=== PATIENT | male | born 1940 | race African-American/Black ===

== ENCOUNTER 2019-04-11 07:14 | Inpatient (IN) | payer MEDICARE ==
[~2019-04-11] VITALS: Ht 175.3 cm; Wt 76.7 kg
[~2019-04-11 07:14] MED LIST: ASPI-630 PO; ATOR20TA58 PO; CALC0.25 PO; CALC667C6 PO; CARV12.511 PO; CIPR500T PO; CLON0.2T PO; FINA5TAB4 PO; FURO-68 PO; HYDR-3164 PO; MERO500V15 IV; METO50TA6 PO; METO5TAB4 PO; PANT40GR PO; SIMV40TA18 PO; SUCR1TAB35 PO; TAMS0.4C2 PO
[2019-04-11] MEDS ORDERED: IPRATRPIUM/ALBUTEROL 0.5/2.5MG 3 ML NEBU. NEB ONE (07:45)
[2019-04-11] MEDS ORDERED: IV NORMAL SALINE 250ML 250 ML IV ONE (07:45)
--- NOTE | 2019-04-11 07:49 | PHYS DOC ---
Past Medical History Past Medical History: Diabetes-Type II, Hypertension, Renal Failure Additional Past Medical Histor: enlarged prostate Past Surgical History: Other Additional Past Surgical Histo: dialysis fistula L FA Alcohol Use: None Drug Use: None Adult General Chief Complaint Chief Complaint: NEAR SYNCOPE HPI HPI Patient is an 78-year-old male, with a history of ESRD, who presents to the emergency department for evaluation. He states that he was at dialysis, when he began getting lightheaded, and EMS was called. He is feeling better at this time. She denies any pain. He denies any black or bloody stools. He wears oxygen, although he states he does not have a diagnosis of COPD. He has a cough, but states he is not coughing anymore than normal. His blood pressure is noted to be marginal. He denies any pain, including any chest pain, abdominal pain, nausea, or vomiting. There are no alleviating or exacerbating factors to his symptoms. Review of Systems Review of Systems Constitutional: Denies fever or chills [] Eyes: Denies change in visual acuity, redness, or eye pain [] HENT: Denies nasal congestion or sore throat [] Respiratory: Denies pleuritic pain or shortness of breath different than baseline [] Cardiovascular: The patient denies any shortness of breath, chest pain, palpitations, or orthopnea [] GI: Denies abdominal pain, nausea, vomiting, bloody stools or diarrhea [] : Denies dysuria or hematuria [] Musculoskeletal: Denies back pain or joint pain [] Integument: Denies rash or skin lesions [] Neurologic: Denies headache, focal weakness or sensory changes [] Endocrine: Denies polyuria or polydipsia [] All other systems were reviewed and found to be within normal limits, except as documented in this note. Current Medications Current Medications Current Medications Medications (Trade) Dose Ordered Sig/Edita Start Time Stop Time Status Last Admin Dose Admin Albuterol/ Ipratropium (Duoneb) 3 ml 1X ONCE 04/11/19 07:45 04/11/19 07:46 DC 04/11/19 07:49 3 ML Sodium Chloride 250 ml @ 250 mls/hr 1X ONCE 04/11/19 07:45 04/11/19 08:44 DC 04/11/19 08:10 250 MLS/HR Allergies Allergies Allergies Coded Allergies Type Severity Reaction Last Updated Verified No Known Drug Allergies 04/09/16 No Physical Exam Physical Exam PHYSICAL EXAM: CONSTITUTIONAL: Well developed, well nourished HEAD: normocephalic, atraumatic EENT: PERRL, EOMI. Conjunctivae normal color, sclerae non-icteric; moist mucous membranes. NECK: Supple, non-tender; no meningismus.. There is mild JVD. LUNGS: There are some scattered expiratory wheezes and expiratory rhonchi, without any rales. HEART: Regular rate and rhythm, no murmur CHEST: No deformity; non-tender ABDOMEN: The abdomen is soft, and non-tender, no masses or bruits. EXTREM: Normal ROM; no deformity, no calf tenderness. Normal pulses palpable in all extremities. There is mild bilateral pedal edema. There is an AV fistula in the left arm. SKIN: No rash; no diaphoresis NEURO: Alert; normal speech and cognition; CN's grossly intact; strength grossly intact without focal deficit. BACK: No CVA TTP. Current Patient Data Vital Signs Vital Signs Date Time Temp Pulse Resp B/P (MAP) Pulse Ox O2 Delivery O2 Flow Rate FiO2 04/11/19 07:51 93 Nasal Cannula 2.0 04/11/19 07:14 99.1 81 34 93/61 (72) 99.1 Lab Values Laboratory Tests Test 04/11/19 07:55 White Blood Count 6.1 x10^3/uL (4.0-11.0) Red Blood Count 3.41 x10^6/uL (4.30-5.70) L Hemoglobin 11.1 g/dL (13.0-17.5) L Hematocrit 34.3 % (39.0-53.0) L Mean Corpuscular Volume 101 fL (79-100) H Mean Corpuscular Hemoglobin 33 pg (25-35) Mean Corpuscular Hemoglobin Concent 32 g/dL (31-37) Red Cell Distribution Width 15.1 % (11.5-14.5) H Platelet Count 116 x10^3/uL (140-400) L Neutrophils (%) (Auto) 79 % (31-73) H Lymphocytes (%) (Auto) 11 % (24-48) L Monocytes (%) (Auto) 9 % (0-9) Eosinophils (%) (Auto) 1 % (0-3) Basophils (%) (Auto) 1 % (0-3) Neutrophils # (Auto) 4.8 x10^3/uL (1.8-7.7) Lymphocytes # (Auto) 0.7 x10^3/uL (1.0-4.8) L Monocytes # (Auto) 0.6 x10^3/uL (0.0-1.1) Eosinophils # (Auto) 0.0 x10^3/uL (0.0-0.7) Basophils # (Auto) 0.0 x10^3/uL (0.0-0.2) Sodium Level 135 mmol/L (136-145) L Potassium Level 4.5 mmol/L (3.5-5.1) Chloride Level 101 mmol/L (98-107) Carbon Dioxide Level 21 mmol/L (21-32) Anion Gap 13 (6-14) Blood Urea Nitrogen 58 mg/dL (8-26) H Creatinine 12.3 mg/dL (0.7-1.3) H Estimated GFR (Cockcroft-Gault) 4.8 BUN/Creatinine Ratio 5 (6-20) L Glucose Level 107 mg/dL (70-99) H Lactic Acid Level 1.3 mmol/L (0.4-2.0) Calcium Level 8.9 mg/dL (8.5-10.1) Total Bilirubin 0.6 mg/dL (0.2-1.0) Aspartate Amino Transferase (AST) 28 U/L (15-37) Alanine Aminotransferase (ALT) 20 U/L (16-63) Alkaline Phosphatase 146 U/L (46-116) H Troponin I Quantitative 0.124 ng/mL (0.000-0.055) Total Protein 7.5 g/dL (6.4-8.2) Albumin 3.3 g/dL (3.4-5.0) L Albumin/Globulin Ratio 0.8 (1.0-1.7) L Laboratory Tests 04/11/19 07:55 Laboratory Tests 04/11/19 07:55 EKG EKG Normal sinus rhythm at a rate of 77 beats for minute, normal axis, normal intervals, nonspecific ST/T changes anteriorly, with occasional PVCs. There are no old EKGs available for comparison.[] Radiology/Procedures Radiology/Procedures [PROCEDURE: PORTABLE CHEST 1V PORTABLE CHEST 1V Clinical indications: Cough and shortness of breath. Near syncope. COMPARISON: April 02, 2016. Findings: Chronic interstitial lung disease is seen bilaterally. No new lung infiltrate or pleural effusion or pulmonary edema or lung mass or pneumothorax is seen. The heart size, pulmonary vasculature, mediastinum and both autumn are stable. Impression: No new radiographic abnormality is seen.] Course & Med Decision Making Course & Med Decision Making Pertinent Labs and Imaging studies reviewed. (See chart for details) []9:15 AM:The patient's condition remains stable. I spoke with the hospitalist, who accepted the patient to the hospital for further evaluation and treatment. Patient's troponin elevation, suspected to be due to chronic renal failure, is slightly higher than his remote prior values. His blood pressure remains marginal. Dragon Disclaimer Dragon Disclaimer This electronic medical record was generated, in whole or in part, using a voice recognition dictation system. Departure Departure Impression: Primary Impression: Near syncope Additional Impressions: Hypotension ESRD (end stage renal disease) Elevated troponin Disposition: ADMITTED INPATIENT Admitting Physician: ANGELI Condition: STABLE Referrals: ABIGAIL NOWAK MD (PCP) Problem Qualifiers LUIS VILLALOBOS MD Apr 11, 2019 07:49
[2019-04-11 08:17] LABS: BASO % 1 % (0-3); EOS % 1 % (0-3); HEMATOCRIT 34.3 % (39.0-53.0); HEMOGLOBIN 11.1 g/dL (13.0-17.5); LYMPH # 0.7 x10^3/uL (1.0-4.8); LYMPH % 11 % (24-48); MEAN CORPUSCULAR HEMOGLOBIN 33 pg (25-35); MEAN CORPUSCULAR HGB CONC 32 g/dL (31-37); MEAN CORPUSCULAR VOLUME 101 fL (79-100); MONO # 0.6 x10^3/uL (0.0-1.1); MONO % 9 % (0-9); NEUT # 4.8 x10^3/uL (1.8-7.7); NEUT % 79 % (31-73); PLATELET COUNT 116 x10^3/uL (140-400); RED BLOOD COUNT 3.41 x10^6/uL (4.30-5.70); RED CELL DISTRIBUTION WIDTH 15.1 % (11.5-14.5); WHITE BLOOD COUNT 6.1 x10^3/uL (4.0-11.0)
--- NOTE | 2019-04-11 08:31 | RAD ---
PORTABLE CHEST 1V Clinical indications: Cough and shortness of breath. Near syncope. COMPARISON: April 02, 2016. Findings: Chronic interstitial lung disease is seen bilaterally. No new lung infiltrate or pleural effusion or pulmonary edema or lung mass or pneumothorax is seen. The heart size, pulmonary vasculature, mediastinum and both autumn are stable. Impression: No new radiographic abnormality is seen. Electronically signed by: Parmjit Cedeno MD (04/11/2019 8:28 AM) [id number]
[2019-04-11 08:34] LABS: CALCIUM 8.9 mg/dL (8.5-10.1); CREATININE 12.3 mg/dL (0.7-1.3); GFR 4.8; POTASSIUM 4.5 mmol/L (3.5-5.1)
[2019-04-11 08:40] LABS: ALBUMIN 3.3 g/dL (3.4-5.0); ALBUMIN/GLOBULIN RATIO 0.8 (1.0-1.7); TOTAL BILIRUBIN 0.6 mg/dL (0.2-1.0); TOTAL PROTEIN 7.5 g/dL (6.4-8.2)
--- NOTE | 2019-04-11 11:04 | HP ---
ADMIT DATE: 04/11/2019 CHIEF COMPLAINT: Syncope or near syncope. HISTORY OF PRESENT ILLNESS: The patient is a pleasant 78-year-old male who was at dialysis today. He actually had not even started dialysis yet, but had a near syncopal episode. His son states this has been happening quite a bit lately. The patient states he is already taking proamatine to help with orthostasis. I discussed the case with ER physician. We are going to admit the patient and consult Neurology and Nephrology. PAST MEDICAL HISTORY: Orthostasis, probable autonomic dysfunction, diabetes, end-stage renal disease, on dialysis; hypertension, BPH, dialysis fistula. ALLERGIES: None. FAMILY HISTORY: Chronic renal failure. SOCIAL HISTORY: Does not drink, smoke or take drugs. He is retired. MEDICATIONS: Reviewed, please refer to the MRAD. REVIEW OF SYSTEMS: GENERAL: No history of weight change, weakness or fevers. SKIN: No bruising, hair changes or rashes. EYES: No blurred, double or loss of vision. NOSE AND THROAT: No history of nosebleeds, hoarseness or sore throat. HEART: No history of palpitations, chest pain or shortness of breath on exertion. LUNGS: Denies cough, hemoptysis, wheezing or shortness of breath. GASTROINTESTINAL: Denies changes in appetite, nausea, vomiting, diarrhea or constipation. GENITOURINARY: No history of frequency, urgency, hesitancy or nocturia. NEUROLOGIC: He complains of dizziness at times. PSYCHIATRIC: No history of panic, anxiety or depression. ENDOCRINE: No history of heat or cold intolerance, polyuria or polydipsia. EXTREMITIES: Denies muscle weakness, joint pain, pain on walking or stiffness. PHYSICAL EXAMINATION: VITALS: Within normal limits and are stable. GENERAL: No apparent distress. Alert and oriented. HEENT: Head is normocephalic, atraumatic, pupils were equally round and reactive to light and accommodation. NECK: Supple, no JVD, no thyromegaly was noted. LUNGS: Clear to auscultation in all lung haider without rhonchi or wheezing. HEART: RRR, S1, S2 present. Peripheral pulses intact, no obvious murmurs were noted. ABDOMEN: Soft, nontender. Positive bowel sounds no organomegaly, normal bowel sounds. EXTREMITIES: Without any cyanosis, clubbing, or edema. Pedal pulses intact, Homans sign is negative. NEUROLOGIC: Normal speech, normal tone. A & O x3, moves all extremities, no obvious focal deficits. PSYCHIATRIC: Normal affect, normal mood. Stable. SKIN: No ulcerations or rashes, good skin turgor, no jaundice. VASCULAR: Good capillary refill, neurovascular bundle appears to be intact. LABORATORY DATA: Hemoglobin is 11.1. Electrolytes: Sodium 135, potassium 4.5, chloride 101, bicarbonate 21, BUN 58, creatinine is 12.3, glucose 107. Troponin slightly high at 0.1, but I suspect that is from his chronic renal failure. ASSESSMENT AND PLAN: Near syncope, probably secondary to autonomic dysfunction. The patient will be admitted. We will consult Nephrology and Neurology. Home medications, deep vein thrombosis prophylaxis. Full code. PROGNOSIS: Guarded. ROLANDO ELAINE DO DR: JACQUIE/duglas JOB#: [id number] / [id number]
[2019-04-11 12:00] VITALS: BP 97/69
--- NOTE | 2019-04-11 12:39 | EKG ---
[facility] [address] [place] [address] Test Date: 2019-04-11 Test Time: 07:24:54 Pat Name: VINNIE BANSAL Department: Room: 646 1 Gender: M Director Of Casino: : [id number] Requested By: LUIS VILLALOBOS Order Number: [id number] Reading MD: Shen Castellanos MD Measurements Intervals [place] Rate: 77 P: 39 MO: 194 QRS: 64 QRSD: 96 T: 24 QT: 372 QTc: 423 Interpretive Statements SINUS RHYTHM VENTRICULAR PREMATURE COMPLEX(ES) Electronically Signed On 04-24-2019 12:46:24 CDT by Shen Castellanos MD
[2019-04-11] MEDS ORDERED: DOCU250C54 PO (12:50)
[2019-04-11] MEDS ORDERED: CINA30TA2 PO (12:50)
[2019-04-11] MEDS ORDERED: CALC200T23 PO (12:50)
[2019-04-11] MEDS ORDERED: ASPI-630 PO (12:50)
[2019-04-11] MEDS ORDERED: CHOL500016 PO (12:50)
[2019-04-11] MEDS ORDERED: FERR325T14 PO (12:52)
[2019-04-11] MEDS ORDERED: MIDO10TA PO (13:19)
[2019-04-11] MEDS ORDERED: MIDO5TAB4 PO (13:19)
[2019-04-11 15:09] VITALS: BP 89/53
[2019-04-11 19:47] VITALS: BP 112/67
[2019-04-11] MEDS ORDERED: ACETAMINOPHEN 650 MG/20.3 ML SOLUTION. PEG PRN (20:15)
[2019-04-11 23:10] VITALS: BP 93/52
[2019-04-12] VITALS (7 sets, daily range): BP systolic 77–105; BP diastolic 45–63
[2019-04-12] MEDS ORDERED: ACETAMINOPHEN 325 MG TABLET. PO PRN (06:00)
[2019-04-12] MEDS ORDERED: IV NORMAL SALINE 1000ML BAG 1,000 ML IV PRN ×2 (07:47)
[2019-04-12] MEDS ORDERED: DIALYSIS PATIENT. MC PRN (08:00)
[2019-04-12] MEDS ORDERED: ACETAMINOPHEN 500 MG TABLET PO PRN (08:00)
[2019-04-12] MEDS ORDERED: diphenhydrAMINE 50 MG/ML VIAL IV PRN ×2 (08:00)
[2019-04-12] MEDS ORDERED: IPRATRPIUM/ALBUTEROL 0.5/2.5MG 3 ML NEBU. NEB ONE (09:15)
--- NOTE | 2019-04-12 11:06 | PDOC2 ---
CONSULT Date of Consult Date of Consult DATE: 04/12/19 TIME: 11:02 Reason for Consult Reason for Consult: ESRD Referring Physician Referring Physician: CHELE Identification/Chief Complaint Chief Complaint PASSING OUT Source Source: Chart review, Patient History of Present Illness Reason for Visit: THIS IS AN 78 YR OLD ESRD PT ON OP HD ON TTS. WENT TO HD YESTERDAY AND FELT LIGHTHEADED AND EMS WAS CALLED. HEMODYNAMICALLY STABLE. ESRD DUE TO HTN. NO SOB. LABS ARE C/W HIS ESRD STATUS. HAS AN AV ACCESS FOR HIS HD. NO HEADACHES OR ASYMMETRICAL WEAKNESS REPORTED Past Medical History Cardiovascular: HTN, Hyperlipidemia Pulmonary: No pertinent hx CENTRAL NERVOUS SYSTEM: Other Heme/Onc: Anemia NOS Musculoskeletal: Osteoarthritis Renal/: Chronic renal failure Endocrine: Diabetes, Hyperparathyroidism Past Surgical History Past Surgical History AV ACCESS, HX OF TDC Past Surgical History: Other Family History Family History: No Significant Social History ALCOHOL: none Drugs: None Current Problem List Problem List Problems Medical Problems: (1) Elevated troponin Status: Acute (2) ESRD (end stage renal disease) Status: Acute (3) Hypotension Status: Acute (4) Near syncope Status: Acute Current Medications Current Medications Current Medications Albuterol/ Ipratropium (Duoneb) 3 ml 1X ONCE NEB Last administered on 04/11/19at 07:49; Start 04/11/19 at 07:45; Stop 04/11/19 at 07:46; Status DC Sodium Chloride 250 ml @ 250 mls/hr 1X ONCE IV Last administered on 04/11/19at 08:10; Start 04/11/19 at 07:45; Stop 04/11/19 at 08:44; Status DC Acetaminophen (Tylenol) 650 mg PRN Q6HRS PRN PEG MILD PAIN / TEMP Last administered on 04/11/19at 20:34; Start 04/11/19 at 20:15; Stop 04/12/19 at 05:49; Status DC Acetaminophen (Tylenol) 650 mg PRN Q6HRS PRN PO MILD PAIN / TEMP; Start 04/12/19 at 06:00 Sodium Chloride 1,000 ml @ 1,000 mls/hr Q1H PRN IV hypotension; Start 04/12/19 at 07:47; Stop 04/12/19 at 13:46 Acetaminophen (Tylenol) 500 mg 1X PRN PRN PO MILD PAIN / TEMP; Start 04/12/19 at 08:00; Stop 04/13/19 at 07:59 Diphenhydramine HCl (Benadryl) 25 mg 1X PRN PRN IV ITCHING; Start 04/12/19 at 08:00; Stop 04/13/19 at 07:59 Diphenhydramine HCl (Benadryl) 25 mg 1X PRN PRN IV ITCHING; Start 04/12/19 at 08:00; Stop 04/13/19 at 07:59 Sodium Chloride 1,000 ml @ 400 mls/hr Q2H30M PRN IV PATENCY; Start 04/12/19 at 07:47; Stop 04/12/19 at 19:46 Info (PHARMACY MONITORING -- do not chart) 1 each PRN DAILY PRN MC SEE COMMENTS; Start 04/12/19 at 08:00 Albuterol/ Ipratropium (Duoneb) 3 ml 1X ONCE NEB Last administered on 04/12/19at 09:31; Start 04/12/19 at 09:15; Stop 04/12/19 at 09:16; Status DC Active Scripts Active Reported Midodrine Hcl 10 Mg Tablet 10 Mg PO QTUTHSA Midodrine Hcl 5 Mg Tablet 10 Mg PO QTUTHSA Ferrous Sulfate 325 Mg Tablet 1 Tab PO DAILY Calcium Carbonate 200 Mg Tab.chew 200 Mg PO TIDWMEALS Stool Softener (Docusate Sodium) 250 Mg Capsule 250 Mg PO DAILY Aspirin 81 Mg Tab.chew 1 Tab PO DAILY Sensipar (Cinacalcet Hcl) 30 Mg Tablet 30 Mg PO DAILY Vitamin D3 (Cholecalciferol (Vitamin D3)) 5,000 Unit Tablet 1 Tab PO DAILY Atorvastatin Calcium 20 Mg Tablet 20 Mg PO HS Allergies Allergies: Coded Allergies: No Known Drug Allergies (Unverified , 04/09/16) ROS General: YES: Fatigue PSYCHOLOGICAL ROS: YES: Anxiety Eyes: Yes Decreased vision HEENT: YES: Heacaches Cardiovascular: yes Lt Headedness Gastrointestinal: Yes Constipation Genitourinary: YES Other (ANURIA) Musculoskeletal: Yes Muscular Weakness Neurological: Yes Weakness Skin: Yes Dry Skin Physical Exam General: Alert, No acute distress HEENT: Atraumatic, PERRLA, EOMI Lungs: Clear to auscultation, Normal air movement Heart: Regular rate Abdomen: Normal bowel sounds, No tenderness, No hepatosplenomegaly Extremities: No clubbing Skin: No breakdown Neuro: Normal speech, Sensation intact Psych/Mental Status: Mental status NL MUSCULOSKELETAL: No joint tenderness, No deformity, No swelling Vitals VITALS Vital Signs Date Time Temp Pulse Resp B/P (MAP) Pulse Ox O2 Delivery O2 Flow Rate FiO2 04/12/19 09:33 Nasal Cannula 2.0 04/12/19 07:37 99.8 88 28 93/59 (70) 90 99.8 Labs Labs Laboratory Tests Test 04/11/19 07:55 04/11/19 12:22 04/11/19 15:15 White Blood Count 6.1 x10^3/uL (4.0-11.0) Red Blood Count 3.41 x10^6/uL (4.30-5.70) Hemoglobin 11.1 g/dL (13.0-17.5) Hematocrit 34.3 % (39.0-53.0) Mean Corpuscular Volume 101 fL (79-100) Mean Corpuscular Hemoglobin 33 pg (25-35) Mean Corpuscular Hemoglobin Concent 32 g/dL (31-37) Red Cell Distribution Width 15.1 % (11.5-14.5) Platelet Count 116 x10^3/uL (140-400) Neutrophils (%) (Auto) 79 % (31-73) Lymphocytes (%) (Auto) 11 % (24-48) Monocytes (%) (Auto) 9 % (0-9) Eosinophils (%) (Auto) 1 % (0-3) Basophils (%) (Auto) 1 % (0-3) Neutrophils # (Auto) 4.8 x10^3/uL (1.8-7.7) Lymphocytes # (Auto) 0.7 x10^3/uL (1.0-4.8) Monocytes # (Auto) 0.6 x10^3/uL (0.0-1.1) Eosinophils # (Auto) 0.0 x10^3/uL (0.0-0.7) Basophils # (Auto) 0.0 x10^3/uL (0.0-0.2) Sodium Level 135 mmol/L (136-145) Potassium Level 4.5 mmol/L (3.5-5.1) Chloride Level 101 mmol/L (98-107) Carbon Dioxide Level 21 mmol/L (21-32) Anion Gap 13 (6-14) Blood Urea Nitrogen 58 mg/dL (8-26) Creatinine 12.3 mg/dL (0.7-1.3) Estimated GFR (Cockcroft-Gault) 4.8 BUN/Creatinine Ratio 5 (6-20) Glucose Level 107 mg/dL (70-99) Lactic Acid Level 1.3 mmol/L (0.4-2.0) Calcium Level 8.9 mg/dL (8.5-10.1) Total Bilirubin 0.6 mg/dL (0.2-1.0) Aspartate Amino Transf (AST/SGOT) 28 U/L (15-37) Alanine Aminotransferase (ALT/SGPT) 20 U/L (16-63) Alkaline Phosphatase 146 U/L (46-116) Troponin I Quantitative 0.124 ng/mL (0.000-0.055) 0.111 ng/mL (0.000-0.055) 0.094 ng/mL (0.000-0.055) Total Protein 7.5 g/dL (6.4-8.2) Albumin 3.3 g/dL (3.4-5.0) Albumin/Globulin Ratio 0.8 (1.0-1.7) Laboratory Tests Test 04/11/19 12:22 04/11/19 15:15 Troponin I Quantitative 0.111 ng/mL (0.000-0.055) 0.094 ng/mL (0.000-0.055) Assessment/Plan Assessment/Plan IMP ESRD ANEMIA NEAR SYNCOPE HTN HX PLAN HD TODAY UF TO [facility] NEURO EVAL ARANESP WHEN APPROPRIATE WILL FOLLOW KIARA ZAIDI MD Apr 12, 2019 11:06
--- NOTE | 2019-04-12 16:45 | PDOC2 ---
NEUROLOGY CONSULT Date of Admission Date of Admission DATE: 04/12/19 TIME: 16:36 Reason for Consult Reason for Consult: Syncope Referring Physician Referring Physician: Dr. Schafer Source Source: Chart review, Patient History of Present Illness History of Present Illness The patient is an 78-year-old right-handed male with several episodes of syncope related to orthostatic hypotension. He feels lightheaded when standing and feels better when he sits down. He has never had convulsive activity and does not think he has fully lost consciousness. There has been no tongue biting, incontin ence, or prolonged postictal state. There is no history of stroke or head injury. Past Medical History Cardiovascular: HTN, Hyperlipidemia, Other (hypotension) Pulmonary: Bronchitis, Other (sleep apnea) GI: Constipation (and diarrhea) Heme/Onc: Anemia NOS (has required transfusions) Musculoskeletal: Osteoarthritis ENT: Other (cataracts, not operated yet) Renal/: Chronic renal failure (starting dialysis), Benign prostatic enlarg., Other (urinary retention) Endocrine: Diabetes, Other (thyroid disease, not currently requiring medication) Past Surgical History Past Surgical History: Tonsillectomy, Other (right renal biopsy) Family History Family History: No pertinent hx Social History Social History , rare alcohol, no tobacco Current Medications Current Medications Current Medications Albuterol/ Ipratropium (Duoneb) 3 ml 1X ONCE NEB Last administered on 04/11/19at 07:49; Start 04/11/19 at 07:45; Stop 04/11/19 at 07:46; Status DC Sodium Chloride 250 ml @ 250 mls/hr 1X ONCE IV Last administered on 04/11/19at 08:10; Start 04/11/19 at 07:45; Stop 04/11/19 at 08:44; Status DC Acetaminophen (Tylenol) 650 mg PRN Q6HRS PRN PEG MILD PAIN / TEMP Last administered on 04/11/19at 20:34; Start 04/11/19 at 20:15; Stop 04/12/19 at 05:49; Status DC Acetaminophen (Tylenol) 650 mg PRN Q6HRS PRN PO MILD PAIN / TEMP; Start 04/12/19 at 06:00 Sodium Chloride 1,000 ml @ 1,000 mls/hr Q1H PRN IV hypotension; Start 04/12/19 at 07:47; Stop 04/12/19 at 13:46; Status DC Acetaminophen (Tylenol) 500 mg 1X PRN PRN PO MILD PAIN / TEMP; Start 04/12/19 at 08:00; Stop 04/13/19 at 07:59 Diphenhydramine HCl (Benadryl) 25 mg 1X PRN PRN IV ITCHING; Start 04/12/19 at 08:00; Stop 04/13/19 at 07:59 Diphenhydramine HCl (Benadryl) 25 mg 1X PRN PRN IV ITCHING; Start 04/12/19 at 08:00; Stop 04/13/19 at 07:59 Sodium Chloride 1,000 ml @ 400 mls/hr Q2H30M PRN IV PATENCY; Start 04/12/19 at 07:47; Stop 04/12/19 at 19:46 Info (PHARMACY MONITORING -- do not chart) 1 each PRN DAILY PRN [facility] SEE COMMENTS; Start 04/12/19 at 08:00 Albuterol/ Ipratropium (Duoneb) 3 ml 1X ONCE NEB Last administered on 04/12/19at 09:31; Start 04/12/19 at 09:15; Stop 04/12/19 at 09:16; Status DC Active Scripts Active Reported Midodrine Hcl 10 Mg Tablet 10 Mg PO QTUTHSA Midodrine Hcl 5 Mg Tablet 10 Mg PO QTUTHSA Ferrous Sulfate 325 Mg Tablet 1 Tab PO DAILY Calcium Carbonate 200 Mg Tab.chew 200 Mg PO TIDWMEALS Stool Softener (Docusate Sodium) 250 Mg Capsule 250 Mg PO DAILY Aspirin 81 Mg Tab.chew 1 Tab PO DAILY Sensipar (Cinacalcet Hcl) 30 Mg Tablet 30 Mg PO DAILY Vitamin D3 (Cholecalciferol (Vitamin D3)) 5,000 Unit Tablet 1 Tab PO DAILY Atorvastatin Calcium 20 Mg Tablet 20 Mg PO HS Allergies Allergies: Coded Allergies: No Known Drug Allergies (Unverified , 04/09/16) ROS Review of System Negative for fever, chills, weight loss, shortness of breath, chest pain, indigestion, hematochezia, melena, and dysuria. Full 14-point review of systems is negative. Physical Exam Physical Examination General: Well-developed, well-nourished black male in no acute distress HEENT: Normocephalic andatraumatic. Temporal arteriespulsatile and nontender. Neck: Supple without bruit, no meningismus Musculoskeletal: Stability:see neurologic. Gait exam:see neurologic. Tone:see neurologic.Strength:see neurologic. Neurological: Mental Status:intact, orientation, memory, attention span/concentration, language, fund of knowledge normal. Cranial Nerves:Pupils equal and reactive to light, extraocular movements areintact, visual haider are full to confrontation. Facial sensation is normal. There is no facial asymmetry. Vest ibulo-ocular reflex is intact. Palate elevates and tongue protrudes in midline. All other cranial related problems are negative except as mentioned before.Reflexes:1+ and symmetric with flexor plantar responses. Motor:5/5 strength with normal tone and bulk. Coordination:Finger-nose finger and dxjg-xp-[id number] testing are normal. Rapid alternating movements and fine finger movements are intact. Gait: apraxic, unsteady. Sensory:Normal pinprick, vibration, light touch, proprioception. Vitals VITALS Vital Signs Date Time Temp Pulse Resp B/P (MAP) Pulse Ox O2 Delivery O2 Flow Rate FiO2 04/12/19 12:10 92 Nasal Cannula 3.0 04/12/19 11:55 100.5 66 28 102/56 (71) 100.5 Labs Labs Laboratory Tests Test 04/11/19 07:55 04/11/19 12:22 04/11/19 15:15 White Blood Count 6.1 x10^3/uL (4.0-11.0) Red Blood Count 3.41 x10^6/uL (4.30-5.70) Hemoglobin 11.1 g/dL (13.0-17.5) Hematocrit 34.3 % (39.0-53.0) Mean Corpuscular Volume 101 fL (79-100) Mean Corpuscular Hemoglobin 33 pg (25-35) Mean Corpuscular Hemoglobin Concent 32 g/dL (31-37) Red Cell Distribution Width 15.1 % (11.5-14.5) Platelet Count 116 x10^3/uL (140-400) Neutrophils (%) (Auto) 79 % (31-73) Lymphocytes (%) (Auto) 11 % (24-48) Monocytes (%) (Auto) 9 % (0-9) Eosinophils (%) (Auto) 1 % (0-3) Basophils (%) (Auto) 1 % (0-3) Neutrophils # (Auto) 4.8 x10^3/uL (1.8-7.7) Lymphocytes # (Auto) 0.7 x10^3/uL (1.0-4.8) Monocytes # (Auto) 0.6 x10^3/uL (0.0-1.1) Eosinophils # (Auto) 0.0 x10^3/uL (0.0-0.7) Basophils # (Auto) 0.0 x10^3/uL (0.0-0.2) Sodium Level 135 mmol/L (136-145) Potassium Level 4.5 mmol/L (3.5-5.1) Chloride Level 101 mmol/L (98-107) Carbon Dioxide Level 21 mmol/L (21-32) Anion Gap 13 (6-14) Blood Urea Nitrogen 58 mg/dL (8-26) Creatinine 12.3 mg/dL (0.7-1.3) Estimated GFR (Cockcroft-Gault) 4.8 BUN/Creatinine Ratio 5 (6-20) Glucose Level 107 mg/dL (70-99) Lactic Acid Level 1.3 mmol/L (0.4-2.0) Calcium Level 8.9 mg/dL (8.5-10.1) Total Bilirubin 0.6 mg/dL (0.2-1.0) Aspartate Amino Transf (AST/SGOT) 28 U/L (15-37) Alanine Aminotransferase (ALT/SGPT) 20 U/L (16-63) Alkaline Phosphatase 146 U/L (46-116) Troponin I Quantitative 0.124 ng/mL (0.000-0.055) 0.111 ng/mL (0.000-0.055) 0.094 ng/mL (0.000-0.055) Total Protein 7.5 g/dL (6.4-8.2) Albumin 3.3 g/dL (3.4-5.0) Albumin/Globulin Ratio 0.8 (1.0-1.7) Assessment/Plan Assessment/Plan Impression: Orthostatic hypotension, consider autonomic neuropathy given the constipation and urinary retention, other than decreased reflexes, I find no evidence of peripheral neuropathy. Nursing history says he does have diabetes, but patient denies this. Obviously diabetes would be a common cause of autonomic dysfunction. I see that he was started on ProAmatine at home. There is no sign and he had a stroke or seizure. Recommendations Cardiology consult I resumed the midodrine I see no need for additional neurological studies such as autonomic testing, MRI of the brain, or electrode encephalogram, but will keep these in consideration Physical and occupational therapy. Thank for letting me help with the patient's care. LELE MITCHELL MD Apr 12, 2019 16:45
[2019-04-12] MEDS ORDERED: CALCIUM CARBONATE 500 MG TAB.CHEW PO SCH (17:00)
--- NOTE | 2019-04-12 17:12 | PDOC ---
PROGRESS NOTES Chief Complaint Chief Complaint yesterday H and P reviewed. patient feels better overall. no complaints. History of Present Illness History of Present Illness Assessment: Probable Orthostatic hypotension ESRD Anemia PLAN - doubt stroke given hx. ? autononic neuropathy, no hx of DM however - cards and neuro consult - continue midodrine -- defer MRI EEG to neuro - consult PT - dialysis per nephro - dc in next 24 hrs if improved. Vitals Vitals Vital Signs Date Time Temp Pulse Resp B/P (MAP) Pulse Ox O2 Delivery O2 Flow Rate FiO2 04/12/19 15:00 101.2 104 26 105/63 (77) 89 Nasal Cannula 2.0 101.2 Physical Exam General: Alert, No acute distress Heart: Regular rate Lungs: Crackles, Other Abdomen: Normal bowel sounds, No tenderness, No hepatosplenomegaly Extremities: No clubbing Skin: No breakdown Assessment and Plan Assessmemt and Plan Problems Medical Problems: (1) Elevated troponin Status: Acute (2) ESRD (end stage renal disease) Status: Acute (3) Hypotension Status: Acute (4) Near syncope Status: Acute Comment Review of Relevant I have reviewed the following items khalida (where applicable) has been applied. Labs Laboratory Tests Test 04/11/19 07:55 04/11/19 12:22 04/11/19 15:15 White Blood Count 6.1 x10^3/uL (4.0-11.0) Red Blood Count 3.41 x10^6/uL (4.30-5.70) Hemoglobin 11.1 g/dL (13.0-17.5) Hematocrit 34.3 % (39.0-53.0) Mean Corpuscular Volume 101 fL (79-100) Mean Corpuscular Hemoglobin 33 pg (25-35) Mean Corpuscular Hemoglobin Concent 32 g/dL (31-37) Red Cell Distribution Width 15.1 % (11.5-14.5) Platelet Count 116 x10^3/uL (140-400) Neutrophils (%) (Auto) 79 % (31-73) Lymphocytes (%) (Auto) 11 % (24-48) Monocytes (%) (Auto) 9 % (0-9) Eosinophils (%) (Auto) 1 % (0-3) Basophils (%) (Auto) 1 % (0-3) Neutrophils # (Auto) 4.8 x10^3/uL (1.8-7.7) Lymphocytes # (Auto) 0.7 x10^3/uL (1.0-4.8) Monocytes # (Auto) 0.6 x10^3/uL (0.0-1.1) Eosinophils # (Auto) 0.0 x10^3/uL (0.0-0.7) Basophils # (Auto) 0.0 x10^3/uL (0.0-0.2) Sodium Level 135 mmol/L (136-145) Potassium Level 4.5 mmol/L (3.5-5.1) Chloride Level 101 mmol/L (98-107) Carbon Dioxide Level 21 mmol/L (21-32) Anion Gap 13 (6-14) Blood Urea Nitrogen 58 mg/dL (8-26) Creatinine 12.3 mg/dL (0.7-1.3) Estimated GFR (Cockcroft-Gault) 4.8 BUN/Creatinine Ratio 5 (6-20) Glucose Level 107 mg/dL (70-99) Lactic Acid Level 1.3 mmol/L (0.4-2.0) Calcium Level 8.9 mg/dL (8.5-10.1) Total Bilirubin 0.6 mg/dL (0.2-1.0) Aspartate Amino Transf (AST/SGOT) 28 U/L (15-37) Alanine Aminotransferase (ALT/SGPT) 20 U/L (16-63) Alkaline Phosphatase 146 U/L (46-116) Troponin I Quantitative 0.124 ng/mL (0.000-0.055) 0.111 ng/mL (0.000-0.055) 0.094 ng/mL (0.000-0.055) Total Protein 7.5 g/dL (6.4-8.2) Albumin 3.3 g/dL (3.4-5.0) Albumin/Globulin Ratio 0.8 (1.0-1.7) Microbiology 04/11/19 Blood Culture - Preliminary, Resulted NO GROWTH AFTER 1 DAY Medications Current Medications Albuterol/ Ipratropium (Duoneb) 3 ml 1X ONCE NEB Last administered on at 07:49; Start 04/11/19 at 07:45; Stop 04/11/19 at 07:46; Status DC Sodium Chloride 250 ml @ 250 mls/hr 1X ONCE IV Last administered on 04/11/19at 08:10; Start 04/11/19 at 07:45; Stop 04/11/19 at 08:44; Status DC Acetaminophen (Tylenol) 650 mg PRN Q6HRS PRN PEG MILD PAIN / TEMP Last administered on 04/11/19at 20:34; Start 04/11/19 at 20:15; Stop 04/12/19 at 05:49; Status DC Acetaminophen (Tylenol) 650 mg PRN Q6HRS PRN PO MILD PAIN / TEMP; Start 04/12/19 at 06:00 Sodium Chloride 1,000 ml @ 1,000 mls/hr Q1H PRN IV hypotension; Start 04/12/19 at 07:47; Stop 04/12/19 at 13:46; Status DC Acetaminophen (Tylenol) 500 mg 1X PRN PRN PO MILD PAIN / TEMP; Start 04/12/19 at 08:00; Stop 04/13/19 at 07:59 Diphenhydramine HCl (Benadryl) 25 mg 1X PRN PRN IV ITCHING; Start 04/12/19 at 08:00; Stop 04/13/19 at 07:59 Diphenhydramine HCl (Benadryl) 25 mg 1X PRN PRN IV ITCHING; Start 04/12/19 at 08:00; Stop 04/13/19 at 07:59 Sodium Chloride 1,000 ml @ 400 mls/hr Q2H30M PRN IV PATENCY; Start 04/12/19 at 07:47; Stop 04/12/19 at 19:46 Info (PHARMACY MONITORING -- do not chart) 1 each PRN DAILY PRN [facility] SEE COMMENTS; Start 04/12/19 at 08:00 Albuterol/ Ipratropium (Duoneb) 3 ml 1X ONCE NEB Last administered on 04/12/19at 09:31; Start 04/12/19 at 09:15; Stop 04/12/19 at 09:16; Status DC Aspirin (Children'S Aspirin) 81 mg DAILY PO ; Start 04/13/19 at 09:00 Atorvastatin Calcium (Lipitor) 20 mg HS PO ; Start 04/12/19 at 21:00 Calcium Carbonate/ Glycine (Tums) 200 mg TIDWMEALS PO ; Start 04/12/19 at 17:00 Cinacalcet (Sensipar) 30 mg DAILY PO ; Start 04/13/19 at 09:00 Ferrous Sulfate (Feosol) 325 mg DAILY08 PO ; Start 04/13/19 at 08:00 Midodrine (Proamatine) 10 mg QTUTHSA@0800 PO ; Start 04/13/19 at 08:00 Vitamin D (Vitamin D3) 5,000 unit DAILY PO ; Start 04/13/19 at 09:00 Docusate Sodium (Colace) 100 mg DAILY PO ; Start 04/13/19 at 09:00 Midodrine (Proamatine) 5 mg [id number] PO ; Start 04/12/19 at 18:00; Stop 04/12/19 at 17:07; Status DC Midodrine (Proamatine) 10 mg QTUTHSA@1000 PO ; Start 04/13/19 at 10:00 Active Scripts Active Reported Midodrine Hcl 10 Mg Tablet 10 Mg PO QTUTHSA Midodrine Hcl 5 Mg Tablet 10 Mg PO QTUTHSA Ferrous Sulfate 325 Mg Tablet 1 Tab PO DAILY Calcium Carbonate 200 Mg Tab.chew 200 Mg PO TIDWMEALS Stool Softener (Docusate Sodium) 250 Mg Capsule 250 Mg PO DAILY Aspirin 81 Mg Tab.chew 1 Tab PO DAILY Sensipar (Cinacalcet Hcl) 30 Mg Tablet 30 Mg PO DAILY Vitamin D3 (Cholecalciferol (Vitamin D3)) 5,000 Unit Tablet 1 Tab PO DAILY Atorvastatin Calcium 20 Mg Tablet 20 Mg PO HS Vitals/I & O Vital Sign - Last 24 Hours 04/11/19 04/11/19 04/11/19 04/12/19 19:47 20:00 23:10 03:52 Temp 99.9 98.4 98.8 99.9 98.4 98.8 Pulse 43 90 88 Resp 22 20 18 B/P (MAP) 112/67 (82) 93/52 (66) 90/54 (66) Pulse Ox 90 92 94 O2 Delivery Nasal Cannula Nasal Cannula Nasal Cannula Nasal Cannula O2 Flow Rate 2.0 2.0 2.0 2.0 04/12/19 04/12/19 04/12/19 04/12/19 07:37 08:00 09:33 11:55 Temp 99.8 100.5 99.8 100.5 Pulse 88 66 Resp 28 28 B/P (MAP) 93/59 (70) 102/56 (71) Pulse Ox 90 81 O2 Delivery Nasal Cannula Nasal Cannula Nasal Cannula Nasal Cannula O2 Flow Rate 2.0 2.0 2.0 2.0 04/12/19 04/12/19 12:10 15:00 Temp 101.2 101.2 Pulse 104 Resp 26 B/P (MAP) 105/63 (77) Pulse Ox 92 89 O2 Delivery Nasal Cannula Nasal Cannula O2 Flow Rate 3.0 2.0 Intake and Output 04/11/19 04/11/19 04/12/19 15:00 23:00 07:00 Intake Total 360 ml 280 ml 650 ml Balance 360 ml 280 ml 650 ml TIKI ANDRADE MD Apr 12, 2019 17:12
[2019-04-12] MEDS ORDERED: MIDODRINE 5 MG TABLET PO SCH (18:00)
[2019-04-12] MEDS: ATORVASTATIN CALCIUM 20 MG TABLET PO SCH (20:45)
[2019-04-13] VITALS (7 sets, daily range): BP systolic 82–118; BP diastolic 45–58
[2019-04-13] MEDS: DOCUSATE SODIUM 100 MG CAPSULE. PO SCH (07:44)
[2019-04-13] MEDS: CINACALCET HCL 30 MG TABLET PO SCH (07:44)
[2019-04-13] MEDS: ASPIRIN CHEWABLE 81 MG TABLET. PO SCH (07:45)
[2019-04-13] MEDS: FERROUS SULFATE 325 MG TABLET. PO SCH (07:45)
[2019-04-13] MEDS: CALCIUM CARBONATE 500 MG TAB.CHEW PO SCH ×3 (07:45→16:47)
[2019-04-13] MEDS: CHOLECALCIFEROL (VITAMIN D3) 5,000 UNIT CAPSULE PO SCH (07:45)
[2019-04-13] MEDS: MIDODRINE 5 MG TABLET PO SCH ×2 (07:45→14:21)
--- NOTE | 2019-04-13 08:27 | PDOC ---
PROGRESS NOTES Assessment Problems Medical Problems: (1) Elevated troponin Status: Acute (2) ESRD (end stage renal disease) Status: Acute (3) Hypotension Status: Acute (4) Near syncope Status: Acute Orthostatic hypotension, consider autonomic neuropathy given the constipation and urinary retention, other than decreased reflexes, I find no evidence of peripheral neuropathy. Nursing history says he does have diabetes, but patient denies this. Obviously diabetes would be a common cause of autonomic dysfunction. He is already on ProAmatine, nephrology started every other day. There is no sign and he had a stroke or seizure. Plan Cardiology consult I see no need for additional neurological studies such as autonomic testing, MRI of the brain, or electrode encephalogram, but will keep these in consideration Physical and occupational therapy. Subjective no syncope Objective Vital Signs Date Time Temp Pulse Resp B/P (MAP) Pulse Ox O2 Delivery O2 Flow Rate FiO2 04/13/19 07:45 87 97/56 04/13/19 07:00 99.4 16 95 Nasal Cannula 99.4 04/13/19 03:13 3.0 Intake and Output 04/13/19 06:59 Intake Total 310 ml Output Total 400 ml Balance -90 ml Intake Oral 310 ml Output Urine Total 400 ml PHYSICAL EXAM Alert. Oriented to time, place and person. PERRL. EOMI. CN: no focal findings. Muscle tone: normal. Muscle strength: 5/5 DTR: 1+ Plantar reflex: flexor Gait: not examined in bed. Sensory exam: no abnormal findings. No cerebellar signs elicited. Review of Relevant I have reviewed the following items khalida (where applicable) has been applied. Labs Laboratory Tests Test 04/11/19 12:22 04/11/19 15:15 Troponin I Quantitative 0.111 ng/mL (0.000-0.055) 0.094 ng/mL (0.000-0.055) Microbiology 04/11/19 Blood Culture - Preliminary, Resulted NO GROWTH AFTER 1 DAY Medications Current Medications Albuterol/ Ipratropium (Duoneb) 3 ml 1X ONCE NEB Last administered on 04/11/19at 07:49; Start 04/11/19 at 07:45; Stop 04/11/19 at 07:46; Status DC Sodium Chloride 250 ml @ 250 mls/hr 1X ONCE IV Last administered on 04/11/19at 08:10; Start 04/11/19 at 07:45; Stop 04/11/19 at 08:44; Status DC Acetaminophen (Tylenol) 650 mg PRN Q6HRS PRN PEG MILD PAIN / TEMP Last administered on 04/11/19at 20:34; Start 04/11/19 at 20:15; Stop 04/12/19 at 05:49; Status DC Acetaminophen (Tylenol) 650 mg PRN Q6HRS PRN PO MILD PAIN / TEMP; Start 04/12/19 at 06:00 Sodium Chloride 1,000 ml @ 1,000 mls/hr Q1H PRN IV hypotension; Start 04/12/19 at 07:47; Stop 04/12/19 at 13:46; Status DC Acetaminophen (Tylenol) 500 mg 1X PRN PRN PO MILD PAIN / TEMP; Start 04/12/19 at 08:00; Stop 04/13/19 at 07:59; Status DC Diphenhydramine HCl (Benadryl) 25 mg 1X PRN PRN IV ITCHING; Start 04/12/19 at 08:00; Stop 04/13/19 at 07:59; Status DC Diphenhydramine HCl (Benadryl) 25 mg 1X PRN PRN IV ITCHING; Start 04/12/19 at 08:00; Stop 04/13/19 at 07:59; Status DC Sodium Chloride 1,000 ml @ 400 mls/hr Q2H30M PRN IV PATENCY; Start 04/12/19 at 07:47; Stop 04/12/19 at 19:46; Status DC Info (PHARMACY MONITORING -- do not chart) 1 each PRN DAILY PRN [facility] SEE COMMENTS; Start 04/12/19 at 08:00 Albuterol/ Ipratropium (Duoneb) 3 ml 1X ONCE NEB Last administered on 04/12/19at 09:31; Start 04/12/19 at 09:15; Stop 04/12/19 at 09:16; Status DC Aspirin (Children'S Aspirin) 81 mg DAILY PO Last administered on 04/13/19at 07:45; Start 04/13/19 at 09:00 Atorvastatin Calcium (Lipitor) 20 mg HS PO Last administered on 04/12/19at 20:45; Start 04/12/19 at 21:00 Calcium Carbonate/ Glycine (Tums) 200 mg TIDWMEALS PO Last administered on 04/12/19 17:20; Start 04/12/19 at 17:00; Stop 04/12/19 at 17:23; Status DC Cinacalcet (Sensipar) 30 mg DAILY PO Last administered on 04/13/19at 07:44; Start 04/13/19 at 09:00 Ferrous Sulfate (Feosol) 325 mg DAILY08 PO Last administered on 04/13/19at 07:45; Start 04/13/19 at 08:00 Midodrine (Proamatine) 10 mg QTUTHSA@0800 PO Last administered on 04/13/19at 07:45; Start 04/13/19 at 08:00 Vitamin D (Vitamin D3) 5,000 unit DAILY PO Last administered on 04/13/19at 07:45; Start 04/13/19 at 09:00 Docusate Sodium (Colace) 100 mg DAILY PO Last administered on 04/13/19at 07:44; Start 04/13/19 at 09:00 Midodrine (Proamatine) 5 mg [id number] PO ; Start 04/12/19 at 18:00; Stop 04/12/19 at 17:07; Status DC Midodrine (Proamatine) 10 mg QTUTHSA@1000 PO ; Start 04/13/19 at 10:00 Calcium Carbonate/ Glycine (Tums) 750 mg TIDWMEALS PO Last administered on 04/13/19at 07:45; Start 04/13/19 at 08:00 Active Scripts Active Reported Midodrine Hcl 10 Mg Tablet 10 Mg PO QTUTHSA Midodrine Hcl 5 Mg Tablet 10 Mg PO QTUTHSA Ferrous Sulfate 325 Mg Tablet 1 Tab PO DAILY Calcium Carbonate 200 Mg Tab.chew 750 Mg PO TIDWMEALS Stool Softener (Docusate Sodium) 250 Mg Capsule 250 Mg PO DAILY Aspirin 81 Mg Tab.chew 1 Tab PO DAILY Sensipar (Cinacalcet Hcl) 30 Mg Tablet 30 Mg PO DAILY Vitamin D3 (Cholecalciferol (Vitamin D3)) 5,000 Unit Tablet 1 Tab PO DAILY Atorvastatin Calcium 20 Mg Tablet 20 Mg PO HS Vitals/I & O Vital Sign - Last 24 Hours 04/12/19 04/12/19 04/12/19 04/12/19 09:33 11:55 12:10 15:00 Temp 100.5 101.2 100.5 101.2 Pulse 66 104 Resp 28 26 B/P (MAP) 102/56 (71) 105/63 (77) Pulse Ox 81 92 89 O2 Delivery Nasal Cannula Nasal Cannula Nasal Cannula Nasal Cannula O2 Flow Rate 2.0 2.0 3.0 2.0 04/12/19 04/12/19 04/12/19 04/12/19 19:40 20:46 20:50 23:12 Temp 99.7 98.4 99.7 98.4 Pulse 88 85 Resp 18 16 B/P (MAP) 77/47 (57) 89/45 (60) 85/52 (63) Pulse Ox 95 92 O2 Delivery Nasal Cannula Nasal Cannula Nasal Cannula O2 Flow Rate 3.0 3.0 3.0 04/13/19 04/13/19 04/13/19 04/13/19 01:06 03:13 07:00 07:45 Temp 98.4 97.8 99.4 98.4 97.8 99.4 Pulse 70 81 87 87 Resp 16 18 16 B/P (MAP) 118/54 (75) 87/56 (66) 97/56 (70) 97/56 Pulse Ox 95 96 95 O2 Delivery Nasal Cannula Nasal Cannula Nasal Cannula O2 Flow Rate 2.0 3.0 Intake and Output 04/12/19 04/12/19 04/13/19 14:59 22:59 06:59 Intake Total 210 ml 100 ml 0 ml Output Total 400 ml Balance 210 ml 100 ml -400 ml LELE MITCHELL MD Apr 13, 2019 08:27
[2019-04-13] MEDS ORDERED: IV NORMAL SALINE 1000ML BAG 1,000 ML IV PRN ×2 (08:43)
[2019-04-13] MEDS ORDERED: ALBUMIN HUMAN 25% 200 ML IV PRN (08:45)
[2019-04-13] MEDS ORDERED: DIALYSIS PATIENT. MC PRN ×2 (08:45)
--- NOTE | 2019-04-13 09:37 | PDOC ---
PROGRESS NOTES Chief Complaint Chief Complaint yesterday H and P reviewed. patient feels better overall. no complaints. History of Present Illness History of Present Illness Assessment: Probable Orthostatic hypotension There is moderate-severe pulmonary hypertension. The PA pressure was estimated at 67 mmHg. ECHO 2016 ESRD Anemia PLAN - doubt stroke given hx. ? autononic neuropathy, no hx of DM however Orthostatic hypotension, consider autonomic neuropathy - cards and neuro consult - continue midodrine -- defer MRI EEG to neuro - consult PT - dialysis per nephro - CARDIOLOGY CONSULT - ECHO --Check T4 --TTE repeat EKG BMP and Mg ASA --follow with [facility] /// review records 39 min pt exam, chart review, > 50% of time spent with exam, chart review, pt care coordination Vitals Vitals Vital Signs Date Time Temp Pulse Resp B/P (MAP) Pulse Ox O2 Delivery O2 Flow Rate FiO2 04/13/19 08:00 Room Air 04/13/19 07:45 87 97/56 04/13/19 07:00 99.4 16 95 99.4 04/13/19 03:13 3.0 Physical Exam General: Alert, Cooperative, No acute distress Heart: Regular rate Lungs: Crackles, Other Abdomen: Normal bowel sounds, No tenderness, No hepatosplenomegaly Extremities: No clubbing Skin: No breakdown Labs LABS PROCEDURE: PORTABLE CHEST 1V PORTABLE CHEST 1V Clinical indications: Cough and shortness of breath. Near syncope. COMPARISON: April 02, 2016. Findings: Chronic interstitial lung disease is seen bilaterally. No new lung infiltrate or pleural effusion or pulmonary edema or lung mass or pneumothorax is seen. The heart size, pulmonary vasculature, mediastinum and both autumn are stable. Impression: No new radiographic abnormality is seen. Electronically signed by: Jitendra Cedeno MD (04/11/2019 8:28 AM) [id number] DICTATED and SIGNED BY: JITENDRA CEDENO MD DATE: 04/11/19 0828 Aortic Valve AoV Peak Alcides. 207.0cm/s AoV VTI 31.5cm AO Peak GR. 17.1mmHg LVOT Peak Alcides. 120.6cm/s AO Mean GR. 8mmHg BASILIO (VMAX) 2.16cm2 BASILIO (VTI) 2.40cm2 Mitral Valve MV E Velocity 37.6cm/s MV E Peak Gr. 3mmHg MV DECEL TIME 135ms MV A Velocity 66.1cm/s MV E Mean Gr. 2mmHg MV PHT 39ms E/A Ratio 0.6 MV A Duration 134ms MVA (PHT) 5.71cm2 Tricuspid Valve TR P. Velocity 385cm/s RAP ESTIMATE 8mmHg TR Peak Gr. 59mmHg RVSP 67mmHg LEFT VENTRICLE The left ventricle is normal size. There is borderline to mild concentric left ventricular hypertrophy. The left ventricular systolic function is normal and the ejection fraction is within normal range. The Ejection Fraction is 65%. Ther e is normal LV segmental wall motion. Transmitral Doppler flow pattern is Grade I-abnormal relaxation pattern. RIGHT VENTRICLE The right ventricle is moderately dilated. The right ventricular systolic function is normal. ATRIA The left atrium size is normal. The right atrium is moderately dilated. The interatrial septum is intact with no evidence for an atrial septal defect or patent foramen ovale as noted on 2-D or Doppler imaging. AORTIC VALVE The aortic valve is mildly calcified and grossly appears to be tricuspid in nature. Overall, not well visualized. Doppler and Color Flow revealed no significant aortic regurgitation. There is no significant aortic valvular stenosis. MITRAL VALVE The mitral valve is mildly calcified but opens well. There is no evidence of mitral valve prolapse. There is no mitral valve stenosis. Doppler and Color Flow revealed no mitral valve regurgitation noted. TRICUSPID VALVE The tricuspid valve is normal in structure. Doppler and Color Flow revealed mild tricuspid regurgitation. There is moderate-severe pulmonary hypertension. The PA pressure was estimated at 67 mmHg. There is no tricuspid valve stenosis. PULMONIC VALVE The pulmonic valve is not well visualized. Doppler and Color Flow revealed no pulmonic valvular regurgitation. There is no pulmonic valvular stenosis. GREAT VESSELS The aortic root is normal in size. Due to poor image quality, the IVC could not be assessed. PERICARDIAL EFFUSION There is no evidence of significant pericardial effusion. Critical Notification Critical Value: No <Conclusion> The left ventricular systolic function is normal and the ejection fraction is within normal range. The Ejection Fraction is 65%. There is normal LV segmental wall motion. Doppler and Color Flow revealed mild tricuspid regurgitation. There is moderate- severe pulmonary hypertension. The PA pressure was estimated at 67 mmHg. DICTATED and SIGNED BY: TAMMY BAHENA MD DATE: 11/08/151931 CC: DREW PEARSON APRN; TAMMY BAHENA MD; ABIGAIL NOWAK MD ~ PORTABLE CHEST 1V Clinical indications: Cough and shortness of breath. Near syncope. COMPARISON: April 02, 2016. Findings: Chronic interstitial lung disease is seen bilaterally. No new lung infiltrate or pleural effusion or pulmonary edema or lung mass or pneumothorax is seen. The heart size, pulmonary vasculature, mediastinum and both autumn are stable. Impression: No new radiographic abnormality is seen. Electronically signed by: Jitendra Cedeno MD (04/11/2019 8:28 AM) [id number] Assessment and Plan Assessmemt and Plan Problems Medical Problems: (1) Elevated troponin Status: Acute (2) ESRD (end stage renal disease) Status: Acute (3) Hypotension Status: Acute (4) Near syncope Status: Acute Comment Review of Relevant I have reviewed the following items khalida (where applicable) has been applied. Labs Laboratory Tests Test 04/11/19 12:22 04/11/19 15:15 Troponin I Quantitative 0.111 ng/mL (0.000-0.055) 0.094 ng/mL (0.000-0.055) Microbiology 04/11/19 Blood Culture - Preliminary, Resulted NO GROWTH AFTER 2 DAYS Medications Current Medications Albuterol/ Ipratropium (Duoneb) 3 ml 1X ONCE NEB Last administered on 04/11/19at 07:49; Start 04/11/19 at 07:45; Stop 04/11/19 at 07:46; Status DC Sodium Chloride 250 ml @ 250 mls/hr 1X ONCE IV Last administered on 04/11/19at 08:10; Start 04/11/19 at 07:45; Stop 04/11/19 at 08:44; Status DC Acetaminophen (Tylenol) 650 mg PRN Q6HRS PRN PEG MILD PAIN / TEMP Last administered on 04/11/19at 20:34; Start 04/11/19 at 20:15; Stop 04/12/19 at 05:4 9; Status DC Acetaminophen (Tylenol) 650 mg PRN Q6HRS PRN PO MILD PAIN / TEMP; Start 04/12/19 at 06:00 Sodium Chloride 1,000 ml @ 1,000 mls/hr Q1H PRN IV hypotension; Start 04/12/19 at 07:47; Stop 04/12/19 at 13:46; Status DC Acetaminophen (Tylenol) 500 mg 1X PRN PRN PO MILD PAIN / TEMP; Start 04/12/19 at 08:00; Stop 04/13/19 at 07:59; Status DC Diphenhydramine HCl (Benadryl) 25 mg 1X PRN PRN IV ITCHING; Start 04/12/19 at 08:00; Stop 04/13/19 at 07:59; Status DC Diphenhydramine HCl (Benadryl) 25 mg 1X PRN PRN IV ITCHING; Start 04/12/19 at 08:00; Stop 04/13/19 at 07:59; Status DC Sodium Chloride 1,000 ml @ 400 mls/hr Q2H30M PRN IV PATENCY; Start 04/12/19 at 07:47; Stop 04/12/19 at 19:46; Status DC Info (PHARMACY MONITORING -- do not chart) 1 each PRN DAILY PRN MC SEE COMMENTS; Start 04/12/19 at 08:00 Albuterol/ Ipratropium (Duoneb) 3 ml 1X ONCE NEB Last administered on 04/12/19at 09:31; Start 04/12/19 at 09:15; Stop 04/12/19 at 09:16; Status DC Aspirin (Children'S Aspirin) 81 mg DAILY PO Last administered on 04/13/19at 07:45; Start 04/13/19 at 09:00 Atorvastatin Calcium (Lipitor) 20 mg HS PO Last administered on 04/12/19at 20:45; Start 04/12/19 at 21:00 Calcium Carbonate/ Glycine (Tums) 200 mg TIDWMEALS PO Last administered on 04/12/19at 17:20; Start 04/12/19 at 17:00; Stop 04/12/19 at 17:23; Status DC Cinacalcet (Sensipar) 30 mg DAILY PO Last administered on 04/13/19at 07:44; Start 04/13/19 at 09:00 Ferrous Sulfate (Feosol) 325 mg DAILY08 PO Last administered on 04/13/19at 07:45; Start 04/13/19 at 08:00 Midodrine (Proamatine) 10 mg QTUTHSA@0800 PO Last administered on 04/13/19at 07:45; Start 04/13/19 at 08:00 Vitamin D (Vitamin D3) 5,000 unit DAILY PO Last administered on 04/13/19at 07:45; Start 04/13/19 at 09:00 Docusate Sodium (Colace) 100 mg DAILY PO Last administered on 04/13/19at 07:44; Start 04/13/19 at 09:00 Midodrine (Proamatine) 5 mg [id number] PO ; Start 04/12/19 at 18:00; Stop 04/12/19 at 17:07; Status DC Midodrine (Proamatine) 10 mg QTUTHSA@1000 PO ; Start 04/13/19 at 10:00 Calcium Carbonate/ Glycine (Tums) 750 mg TIDWMEALS PO Last administered on 04/13/19at 07:45; Start 04/13/19 at 08:00 Sodium Chloride 1,000 ml @ 1,000 mls/hr Q1H PRN IV hypotension; Start 04/13/19 at 08:43; Stop 04/13/19 at 14:42 Albumin Human 200 ml @ 200 mls/hr 1X PRN PRN IV Hypotension; Start 04/13/19 at 08:45; Stop 04/13/19 at 14:44 Sodium Chloride 1,000 ml @ 400 mls/hr Q2H30M PRN IV PATENCY; Start 04/13/19 at 08:43; Stop 04/13/19 at 20:42 Info (PHARMACY MONITORING -- do not chart) 1 each PRN DAILY PRN MC SEE COM MENTS; Start 04/13/19 at 08:45; Status UNV Info (PHARMACY MONITORING -- do not chart) 1 each PRN DAILY PRN MC SEE COMMENTS; Start 04/13/19 at 08:45; Status UNV Active Scripts Active Reported Midodrine Hcl 10 Mg Tablet 10 Mg PO QTUTHSA Midodrine Hcl 5 Mg Tablet 10 Mg PO QTUTHSA Ferrous Sulfate 325 Mg Tablet 1 Tab PO DAILY Calcium Carbonate 200 Mg Tab.chew 750 Mg PO TIDWMEALS Stool Softener (Docusate Sodium) 250 Mg Capsule 250 Mg PO DAILY Aspirin 81 Mg Tab.chew 1 Tab PO DAILY Sensipar (Cinacalcet Hcl) 30 Mg Tablet 30 Mg PO DAILY Vitamin D3 (Cholecalciferol (Vitamin D3)) 5,000 Unit Tablet 1 Tab PO DAILY Atorvastatin Calcium 20 Mg Tablet 20 Mg PO HS Vitals/I & O Vital Sign - Last 24 Hours 04/12/19 04/12/19 04/12/19 04/12/19 11:55 12:10 15:00 19:40 Temp 100.5 101.2 99.7 100.5 101.2 99.7 Pulse 66 104 88 Resp 28 26 18 B/P (MAP) 102/56 (71) 105/63 (77) 77/47 (57) Pulse Ox 81 92 89 95 O2 Delivery Nasal Cannula Nasal Cannula Nasal Cannula Nasal Cannula O2 Flow Rate 2.0 3.0 2.0 3.0 04/12/19 04/12/19 04/12/19 04/13/19 20:46 20:50 23:12 01:06 Temp 98.4 98.4 98.4 98.4 Pulse 85 70 Resp 16 16 B/P (MAP) 89/45 (60) 85/52 (63) 118/54 (75) Pulse Ox 92 95 O2 Delivery Nasal Cannula Nasal Cannula Nasal Cannula O2 Flow Rate 3.0 3.0 2.0 04/13/19 04/13/19 04/13/19 04/13/19 03:13 07:00 07:45 08:00 Temp 97.8 99.4 97.8 99.4 Pulse 81 87 87 Resp 18 16 B/P (MAP) 87/56 (66) 97/56 (70) 97/56 Pulse Ox 96 95 O2 Delivery Nasal Cannula Nasal Cannula Room Air O2 Flow Rate 3.0 Intake and Output 04/12/19 04/12/19 04/13/19 15:00 23:00 07:00 Intake Total 210 ml 100 ml 0 ml Output Total 400 ml Balance 210 ml 100 ml -400 ml VIDYA GHOSH MD Apr 13, 2019 09:37
--- NOTE | 2019-04-13 11:11 | PDOC2 ---
DREW PEARSON [employer] 04/13/19 1111: CARDIAC CONSULT DATE OF CONSULT Date of Consult DATE: 04/13/19 TIME: 11:10 REASON FOR CONSULT Reason for Consult: Orthostatic hypotension REFERRING PHYSICIAN Referring Physician: Fullbright SOURCE Source: Chart review, Patient HISTORY OF PRESENT ILLNESS HISTORY OF PRESENT ILLNESS This is a pleasant 78 yo male admitted for complains of being lightheaded. This has been happening and this time this occurred prior to his HD. Also with some SOA but no significnat. No chest pain, or palpitations. He uses O2 and at 3LPM. No reported hx of CAD and no hx of thyroid issues. He was noted upon admission with orthostasis and has been started on midodrine. PAST MEDICAL HISTORY Cardiovascular: HTN, Hyperlipidemia Pulmonary: COPD GI: GERD (esophagitis), Peptic Ulcer disease (DU), Other (esophageal varices) Heme/Onc: Anemia NOS Musculoskeletal: Osteoarthritis Renal/: Chronic renal failure (ESRD) Endocrine: Diabetes (2) PAST SURGICAL HISTORY Past Surgical History AV dialysis fistula placement FAMILY HISTORY Family History noncontributory SOCIAL HISTORY Smoke: No ALCOHOL: none Drugs: None CURRENT MEDICATIONS CURRENT MEDICATIONS Current Medications Medications (Trade) Dose Ordered Sig/Edita Route PRN Reason Start Time Stop Time Status Last Admin Dose Admin Aspirin (Children'S Aspirin) 81 mg DAILY PO 04/13/19 09:00 04/13/19 07:45 Atorvastatin Calcium (Lipitor) 20 mg HS PO 04/12/19 21:00 04/12/19 20:45 Calcium Carbonate/ Glycine (Tums) 200 mg TIDWMEALS PO 04/12/19 17:00 04/12/19 17:23 DC 04/12/19 17:20 Cinacalcet (Sensipar) 30 mg DAILY PO 04/13/19 09:00 04/13/19 07:44 Ferrous Sulfate (Feosol) 325 mg DAILY08 PO 04/13/19 08:00 04/13/19 07:45 Midodrine (Proamatine) 10 mg QTUTHSA@0800 PO 04/13/19 08:00 04/13/19 07:45 Vitamin D (Vitamin D3) 5,000 unit DAILY PO 04/13/19 09:00 04/13/19 07:45 Docusate Sodium (Colace) 100 mg DAILY PO 04/13/19 09:00 04/13/19 07:44 Calcium Carbonate/ Glycine (Tums) 750 mg TIDWMEALS PO 04/13/19 08:00 04/13/19 07:45 ALLERGIES ALLERGIES: Coded Allergies: No Known Drug Allergies (Unverified , 04/09/16) ROS Review of System 14 point ROS evaluated with pertinent positives noted per HPI PHYSICAL EXAM General: Alert, Oriented X3, Cooperative, No acute distress HEENT: Atraumatic, Mucous membr. moist/pink Lungs: Clear to auscultation Heart: Regular rate (SR), Other (4/6 systolic murmur to LLs border) Abdomen: Soft, No tenderness Extremities: No cyanosis, No edema Skin: No breakdown Neuro: Normal speech, Sensation intact Psych/Mental Status: Mental status NL, Mood NL MUSCULOSKELETAL: Osteoarthritic changes both hands VITALS/I&O VITALS/I&O: Vital Signs Date Time Temp Pulse Resp B/P (MAP) Pulse Ox O2 Delivery O2 Flow Rate FiO2 04/13/19 08:00 Room Air 04/13/19 07:45 87 97/56 04/13/19 07:00 99.4 16 95 99.4 04/13/19 03:13 3.0 I & O 04/12/19 04/12/19 04/13/19 15:00 23:00 07:00 Intake Total 210 ml 100 ml 0 ml Output Total 400 ml Balance 210 ml 100 ml -400 ml ECHOCARDIOGRAM ECHOCARDIOGRAM <Conclusion> The left ventricular systolic function is normal and the ejection fraction is within normal range. The Ejection Fraction is 65%. There is normal LV segmental wall motion. Doppler and Color Flow revealed mild tricuspid regurgitation. There is moderate- severe pulmonary hypertension. The PA pressure was estimated at 67 mmHg. DATE: 11/08/151931 ASSESSMENT/PLAN ASSESSMENT/PLAN 1. Presyncope with orthostasis: PHTN also contributing to CO reduction 2. Fever: WBC nml, possibly r/t thyoid issues 3. Hyperthyroidism: New?, Defer to PCP 4. ESRD 5. Elevated troponin: peaked at 0.12. possibly demand mediated, type 2, no CP 6. HLP 7. COPD wit moderate to severe pulmonary HTN: Past PA systolic at 70 8. Hx of HTN 9. Hx of esophageal varices/PUD 10. Hx of mild ascending aortic aneurysm Recommendations 1. Check T4, T3 2. TTE repeat EKG BMP and Mg ASA, statin 3. Start on mechanical compression. Agree with midodrine 4. Fluid off loading per HD 5. Sees Dr. Esparza at for his PHTN. No noted RHC per chart review, Could consider this as well. TAMMY BAHENA MD 04/14/199: CARDIAC CONSULT ASSESSMENT/PLAN ASSESSMENT/PLAN Late entry for 04/13/2019 Pt. seen and examined. Agree with above PROPOSAL CONSULTANT note. His near syncope is likely related to pulmonary HTN and vagal events. Supportive care. DREW PEARSON [employer] Apr 13, 2019 11:11 TAMMY BAHENA MD Apr 14, 2019 21:19
--- NOTE | 2019-04-13 12:11 | PDOC ---
Renal-Progress Notes Subjective Notes Notes FEELS WELL History of Present Illness Hx of present illness STABLE Vitals Vitals Vital Signs Date Time Temp Pulse Resp B/P (MAP) Pulse Ox O2 Delivery O2 Flow Rate FiO2 04/13/19 08:00 Room Air 04/13/19 07:45 87 97/56 04/13/19 07:00 99.4 16 95 99.4 04/13/19 03:13 3.0 Weight Weight [ ] I.O. Intake and Output Intake and Output 04/13/19 07:00 Intake Total 310 ml Output Total 400 ml Balance -90 ml Intake Oral 310 ml Output Urine Total 400 ml Micro Micro Microbiology 04/11/19 Blood Culture - Preliminary, Resulted NO GROWTH AFTER 2 DAYS Review of Systems Constitutional: yes: weakness, alert, oriented Ears/Nose/Throat: Yes: no symptom reported Eyes: Yes: no symptom reported Pulmonary: Yes no symptom reported Cardiovascular: Yes no symptom reported Gastrointestional: Yes: no symptom reported Genitourinary: Yes: no symptom reported Musculoskeletal: Yes: no symptom reported Skin: Yes no symptom reported Psychiatric/Neurological: Yes: no symptom reported Endocrine: Yes: no symptom reported Physical Exam General Appearance: no apparent distress Skin: warm Respiratory: bilateral CTA Heart: S1S2 Abdomen: soft, bowel sounds present Genitourinary: bladder flat Extremities: pulses present Neurology: alert, oriented Musculoskeletal: Osteoarthritis Assessment Assessment IMP ESRD-TTS ANEMIA NEAR SYNCOPE HTN HX PLAN HD TODAY UF TO [facility]O EVAL ARANESP WHEN APPROPRIATE WILL FOLLOW KIARA ZAIDI MD Apr 13, 2019 12:11
[2019-04-13 12:15] LABS: CREATININE 5.1 mg/dL (0.7-1.3); GFR 13.3; MAGNESIUM 2.1 mg/dL (1.8-2.4); POTASSIUM 3.5 mmol/L (3.5-5.1)
[2019-04-13] MEDS ORDERED: ONDANSETRON PF 4 MG/2 ML VIAL. IV ONE (13:00)
--- NOTE | 2019-04-13 15:30 | EKG ---
[facility] [address] [place] [address] Test Date: 2019-04-13 Test Time: 16:10:42 Pat Name: VINNIE BANSLA Department: Room: 646 1 Gender: M Visualization Developer: [id number] : [id number] Requested By: DREW PEARSON Order Number: [id number] Reading MD: Shen Castellanos MD Measurements Intervals Hart Rate: 80 P: 33 AL: 192 QRS: 47 QRSD: 96 T: 24 QT: 370 QTc: 430 Interpretive Statements SINUS RHYTHM ST & T ABNORMALITY, CONSIDER ANTERIOR ISCHEMIA OR LEFT VENTRICULAR STRAIN ABNORMAL ECG Electronically Signed On 04-24-2019 14:40:23 CDT by Shen Castellanos MD
[2019-04-13] MEDS: ATORVASTATIN CALCIUM 20 MG TABLET PO SCH (20:25)
[2019-04-14] VITALS (14 sets, daily range): BP systolic 73–132; BP diastolic 41–73
[2019-04-14] MEDS: ONDANSETRON PF 4 MG/2 ML VIAL. IVP PRN ×2 (01:39→20:22)
[2019-04-14 04:55] LABS: BASO % 0 % (0-3); EOS % 0 % (0-3); HEMATOCRIT 34.7 % (39.0-53.0); HEMOGLOBIN 11.2 g/dL (13.0-17.5); LYMPH # 0.7 x10^3/uL (1.0-4.8); LYMPH % 8 % (24-48); MEAN CORPUSCULAR HEMOGLOBIN 32 pg (25-35); MEAN CORPUSCULAR HGB CONC 32 g/dL (31-37); MEAN CORPUSCULAR VOLUME 100 fL (79-100); MONO # 0.7 x10^3/uL (0.0-1.1); MONO % 8 % (0-9); NEUT # 7.6 x10^3/uL (1.8-7.7); NEUT % 84 % (31-73); PLATELET COUNT 131 x10^3/uL (140-400); RED BLOOD COUNT 3.48 x10^6/uL (4.30-5.70); RED CELL DISTRIBUTION WIDTH 14.8 % (11.5-14.5); WHITE BLOOD COUNT 9.1 x10^3/uL (4.0-11.0)
[2019-04-14 05:32] LABS: ALBUMIN 2.8 g/dL (3.4-5.0); ALBUMIN/GLOBULIN RATIO 0.6 (1.0-1.7); CALCIUM 8.7 mg/dL (8.5-10.1); CREATININE 6.8 mg/dL (0.7-1.3); GFR 9.5; POTASSIUM 3.7 mmol/L (3.5-5.1); TOTAL BILIRUBIN 0.7 mg/dL (0.2-1.0); TOTAL PROTEIN 7.5 g/dL (6.4-8.2)
--- NOTE | 2019-04-14 07:35 | PDOC ---
PROGRESS NOTES Chief Complaint Chief Complaint yesterday H and P reviewed. patient feels better overall. no complaints. History of Present Illness History of Present Illness Assessment: Probable Orthostatic hypotension There is moderate-severe pulmonary hypertension. The PA pressure was estimated at 67 mmHg. ECHO 2016 ESRD Anemia PLAN - doubt stroke given hx. ? autononic neuropathy, no hx of DM however Orthostatic hypotension, consider autonomic neuropathy - cards and neuro consult - continue midodrine -- defer MRI EEG to neuro - consult PT - dialysis per nephro - CARDIOLOGY CONSULT - ECHO --Check T4 --TTE repeat EKG BMP and Mg ASA --follow with [facility] /// review records AFIB RVR, new onset. 04/14, RIGHT HEART CATH TODAY 38 min pt exam, chart review, > 50% of time spent with exam, chart review, pt care coordination Vitals Vitals Vital Signs Date Time Temp Pulse Resp B/P (MAP) Pulse Ox O2 Delivery O2 Flow Rate FiO2 04/14/19 06:09 63 89/44 (59) 04/14/19 03:53 98.8 18 96 Nasal Cannula 3.0 98.8 Physical Exam General: Alert, Oriented X3, Cooperative, No acute distress Heart: Regular rate (SR), Other (4/6 systolic murmur to LLs border) Lungs: Crackles, Other Abdomen: Soft, No tenderness Extremities: No cyanosis, No edema Skin: No breakdown Labs LABS PORTABLE CHEST 1V Clinical indications: Tachycardia. COMPARISON: April 02, 2016. April 11, 2019. Findings: Chronic interstitial lung disease is evident. No new lung infiltrate or pleural effusion or pulmonary edema or lung mass or pneumothorax is seen. The heart size, pulmonary vasculature, mediastinum and both autumn are stable. Impression: No new radiographic abnormality is seen. Electronically signed by: Parmjit Cedeno MD (04/14/2019 9:15 AM) [id number] INDICATION Arrhythmia 2D DIMENSIONS RVDd 4.9 (2.9-3.5cm) Left Atrium(2D) 3.4 (1.6-4.0cm) IVSd 1.2 (0.7-1.1cm) Aortic Root(2D) 4.3 (2.0-3.7cm) LVDd 4.9 (3.9-5.9cm) LVOT Diameter 2.2 (1.8-2.4cm) PWd 1.2 (0.7-1.1cm) LVDs 3.7 (2.5-4.0cm) FS (%) 26.0 % SV 58.5 ml LVEF(%) 50.8 (>50%) Aortic Valve AoV Peak Alcides. 207.0cm/s AoV VTI 31.5cm AO Peak GR. 17.1mmHg LVOT Peak Alcides. 120.6cm/s AO Mean GR. 8mmHg BASILIO (VMAX) 2.16cm2 BASILIO (VTI) 2.40cm2 Mitral Valve MV E Velocity 37.6cm/s MV E Peak Gr. 3mmHg MV DECEL TIME 135ms MV A Velocity 66.1cm/s MV E Mean Gr. 2mmHg MV PHT 39ms E/A Ratio 0.6 MV A Duration 134ms MVA (PHT) 5.71cm2 Tricuspid Valve TR P. Velocity 385cm/s RAP ESTIMATE 8mmHg TR Peak Gr. 59mmHg RVSP 67mmHg LEFT VENTRICLE The left ventricle is normal size. There is borderline to mild concentric left ventricular hypertrophy. The left ventricular systolic function is normal and the ejection fraction is within normal range. The Ejection Fraction is 65%. There is normal LV segmental wall motion. Transmitral Doppler flow pattern is Grade I-abnormal relaxation pattern. RIGHT VENTRICLE The right ventricle is moderately dilated. The right ventricular systolic function is normal. ATRIA The left atrium size is normal. The right atrium is moderately dilated. The interatrial septum is intact with no evidence for an atrial septal defect or patent foramen ovale as noted on 2-D or Doppler imaging. AORTIC VALVE The aortic valve is mildly calcified and grossly appears to be tricuspid in nature. Overall, not well visualized. Doppler and Color Flow revealed no significant aortic regurgitation. There is no significant aortic valvular stenosis. MITRAL VALVE The mitral valve is mildly calcified but opens well. There is no evidence of mitral valve prolapse. There is no mitral valve stenosis. Doppler and Color Flow revealed no mitral valve regurgitation noted. TRICUSPID VALVE The tricuspid valve is normal in structure. Doppler and Color Flow revealed mild tricuspid regurgitation. There is moderate-severe pulmonary hypertension. The PA pressure was estimated at 67 mmHg. There is no tricuspid valve stenosis. PULMONIC VALVE The pulmonic valve is not well visualized. Doppler and Color Flow revealed no pulmonic valvular regurgitation. There is no pulmonic valvular stenosis. GREAT VESSELS The aortic root is normal in size. Due to poor image quality, the IVC could not be assessed. PERICARDIAL EFFUSION There is no evidence of significant pericardial effusion. Critical Notification Critical Value: No <Conclusion> The left ventricular systolic function is normal and the ejection fraction is within normal range. The Ejection Fraction is 65%. There is normal LV segmental wall motion. Doppler and Color Flow revealed mild tricuspid regurgitation. There is moderate- severe pulmonary hypertension. The PA pressure was estimated at 67 mmHg. DICTATED and SIGNED BY: TAMMY BAHENA MD DATE: 11/08/151931 CC: DREW PEARSON APRN; TAMMY BAHENA MD; ABIGAIL NOWAK MD ~ Laboratory Tests Test 04/13/19 11:35 04/13/19 11:45 04/14/19 04:15 Sodium Level 138 mmol/L (136-145) 138 mmol/L (136-145) Potassium Level 3.5 mmol/L (3.5-5.1) 3.7 mmol/L (3.5-5.1) Chloride Level 98 mmol/L (98-107) 98 mmol/L (98-107) Carbon Dioxide Level 30 mmol/L (21-32) 29 mmol/L (21-32) Anion Gap 10 (6-14) 11 (6-14) Blood Urea Nitrogen 27 mg/dL (8-26) 38 mg/dL (8-26) Creatinine 5.1 mg/dL (0.7-1.3) 6.8 mg/dL (0.7-1.3) Estimated GFR (Cockcroft-Gault) 13.3 9.5 Glucose Level 102 mg/dL (70-99) 97 mg/dL (70-99) Calcium Level 9.0 mg/dL (8.5-10.1) 8.7 mg/dL (8.5-10.1) Magnesium Level 2.1 mg/dL (1.8-2.4) Free Triiodothyronine (T3) pg/mL 3.59 pg/mL (2.18-3.98) White Blood Count 9.1 x10^3/uL (4.0-11.0) Red Blood Count 3.48 x10^6/uL (4.30-5.70) Hemoglobin 11.2 g/dL (13.0-17.5) Hematocrit 34.7 % (39.0-53.0) Mean Corpuscular Volume 100 fL (79-100) Mean Corpuscular Hemoglobin 32 pg (25-35) Mean Corpuscular Hemoglobin Concent 32 g/dL (31-37) Red Cell Distribution Width 14.8 % (11.5-14.5) Platelet Count 131 x10^3/uL (140-400) Neutrophils (%) (Auto) 84 % (31-73) Lymphocytes (%) (Auto) 8 % (24-48) Monocytes (%) (Auto) 8 % (0-9) Eosinophils (%) (Auto) 0 % (0-3) Basophils (%) (Auto) 0 % (0-3) Neutrophils # (Auto) 7.6 x10^3/uL (1.8-7.7) Lymphocytes # (Auto) 0.7 x10^3/uL (1.0-4.8) Monocytes # (Auto) 0.7 x10^3/uL (0.0-1.1) Eosinophils # (Auto) 0.0 x10^3/uL (0.0-0.7) Basophils # (Auto) 0.0 x10^3/uL (0.0-0.2) BUN/Creatinine Ratio 6 (6-20) Total Bilirubin 0.7 mg/dL (0.2-1.0) Aspartate Amino Transf (AST/SGOT) 23 U/L (15-37) Alanine Aminotransferase (ALT/SGPT) 16 U/L (16-63) Alkaline Phosphatase 118 U/L (46-116) Total Protein 7.5 g/dL (6.4-8.2) Albumin 2.8 g/dL (3.4-5.0) Albumin/Globulin Ratio 0.6 (1.0-1.7) Assessment and Plan Assessmemt and Plan Problems Medical Problems: (1) Elevated troponin Status: Acute (2) ESRD (end stage renal disease) Status: Acute (3) Hypotension Status: Acute (4) Near syncope Status: Acute Comment Review of Relevant I have reviewed the following items khalida (where applicable) has been applied. Labs Laboratory Tests Test 04/13/19 11:35 04/13/19 11:45 9/27/19 04:15 Sodium Level 138 mmol/L (136-145) 138 mmol/L (136-145) Potassium Level 3.5 mmol/L (3.5-5.1) 3.7 mmol/L (3.5-5.1) Chloride Level 98 mmol/L (98-107) 98 mmol/L (98-107) Carbon Dioxide Level 30 mmol/L (21-32) 29 mmol/L (21-32) Anion Gap 10 (6-14) 11 (6-14) Blood Urea Nitrogen 27 mg/dL (8-26) 38 mg/dL (8-26) Creatinine 5.1 mg/dL (0.7-1.3) 6.8 mg/dL (0.7-1.3) Estimated GFR (Cockcroft-Gault) 13.3 9.5 Glucose Level 102 mg/dL (70-99) 97 mg/dL (70-99) Calcium Level 9.0 mg/dL (8.5-10.1) 8.7 mg/dL (8.5-10.1) Magnesium Level 2.1 mg/dL (1.8-2.4) Free Triiodothyronine (T3) pg/mL 3.59 pg/mL (2.18-3.98) White Blood Count 9.1 x10^3/uL (4.0-11.0) Red Blood Count 3.48 x10^6/uL (4.30-5.70) Hemoglobin 11.2 g/dL (13.0-17.5) Hematocrit 34.7 % (39.0-53.0) Mean Corpuscular Volume 100 fL (79-100) Mean Corpuscular Hemoglobin 32 pg (25-35) Mean Corpuscular Hemoglobin Concent 32 g/dL (31-37) Red Cell Distribution Width 14.8 % (11.5-14.5) Platelet Count 131 x10^3/uL (140-400) Neutrophils (%) (Auto) 84 % (31-73) Lymphocytes (%) (Auto) 8 % (24-48) Monocytes (%) (Auto) 8 % (0-9) Eosinophils (%) (Auto) 0 % (0-3) Basophils (%) (Auto) 0 % (0-3) Neutrophils # (Auto) 7.6 x10^3/uL (1.8-7.7) Lymphocytes # (Auto) 0.7 x10^3/uL (1.0-4.8) Monocytes # (Auto) 0.7 x10^3/uL (0.0-1.1) Eosinophils # (Auto) 0.0 x10^3/uL (0.0-0.7) Basophils # (Auto) 0.0 x10^3/uL (0.0-0.2) BUN/Creatinine Ratio 6 (6-20) Total Bilirubin 0.7 mg/dL (0.2-1.0) Aspartate Amino Transf (AST/SGOT) 23 U/L (15-37) Alanine Aminotransferase (ALT/SGPT) 16 U/L (16-63) Alkaline Phosphatase 118 U/L (46-116) Total Protein 7.5 g/dL (6.4-8.2) Albumin 2.8 g/dL (3.4-5.0) Albumin/Globulin Ratio 0.6 (1.0-1.7) Laboratory Tests Test 04/13/19 11:35 04/13/19 11:45 04/14/19 04:15 Sodium Level 138 mmol/L (136-145) 138 mmol/L (136-145) Potassium Level 3.5 mmol/L (3.5-5.1) 3.7 mmol/L (3.5-5.1) Chloride Level 98 mmol/L (98-107) 98 mmol/L (98-107) Carbon Dioxide Level 30 mmol/L (21-32) 29 mmol/L (21-32) Anion Gap 10 (6-14) 11 (6-14) Blood Urea Nitrogen 27 mg/dL (8-26) 38 mg/dL (8-26) Creatinine 5.1 mg/dL (0.7-1.3) 6.8 mg/dL (0.7-1.3) Estimated GFR (Cockcroft-Gault) 13.3 9.5 Glucose Level 102 mg/dL (70-99) 97 mg/dL (70-99) Calcium Level 9.0 mg/dL (8.5-10.1) 8.7 mg/dL (8.5-10.1) Magnesium Level 2.1 mg/dL (1.8-2.4) Free Triiodothyronine (T3) pg/mL 3.59 pg/mL (2.18-3.98) White Blood Count 9.1 x10^3/uL (4.0-11.0) Red Blood Count 3.48 x10^6/uL (4.30-5.70) Hemoglobin 11.2 g/dL (13.0-17.5) Hematocrit 34.7 % (39.0-53.0) Mean Corpuscular Volume 100 fL (79-100) Mean Corpuscular Hemoglobin 32 pg (25-35) Mean Corpuscular Hemoglobin Concent 32 g/dL (31-37) Red Cell Distribution Width 14.8 % (11.5-14.5) Platelet Count 131 x10^3/uL (140-400) Neutrophils (%) (Auto) 84 % (31-73) Lymphocytes (%) (Auto) 8 % (24-48) Monocytes (%) (Auto) 8 % (0-9) Eosinophils (%) (Auto) 0 % (0-3) Basophils (%) (Auto) 0 % (0-3) Neutrophils # (Auto) 7.6 x10^3/uL (1.8-7.7) Lymphocytes # (Auto) 0.7 x10^3/uL (1.0-4.8) Monocytes # (Auto) 0.7 x10^3/uL (0.0-1.1) Eosinophils # (Auto) 0.0 x10^3/uL (0.0-0.7) Basophils # (Auto) 0.0 x10^3/uL (0.0-0.2) BUN/Creatinine Ratio 6 (6-20) Total Bilirubin 0.7 mg/dL (0.2-1.0) Aspartate Amino Transf (AST/SGOT) 23 U/L (15-37) Alanine Aminotransferase (ALT/SGPT) 16 U/L (16-63) Alkaline Phosphatase 118 U/L (46-116) Total Protein 7.5 g/dL (6.4-8.2) Albumin 2.8 g/dL (3.4-5.0) Albumin/Globulin Ratio 0.6 (1.0-1.7) Microbiology 04/11/19 Blood Culture - Preliminary, Resulted NO GROWTH AFTER 2 DAYS Medications Current Medications Albuterol/ Ipratropium (Duoneb) 3 ml 1X ONCE NEB Last administered on 04/11/19at 07:49; Start 04/11/19 at 07:45; Stop 04/11/19 at 07:46; Status DC Sodium Chloride 250 ml @ 250 mls/hr 1X ONCE IV Last administered on 04/11/19at 08:10; Start 04/11/19 at 07:45; Stop 04/11/19 at 08:44; Status DC Acetaminophen (Tylenol) 650 mg PRN Q6HRS PRN PEG MILD PAIN / TEMP Last administered on 04/11/19at 20:34; Start 04/11/19 at 20:15; Stop 04/12/19 at 05:49; Status DC Acetaminophen (Tylenol) 650 mg PRN Q6HRS PRN PO MILD PAIN / TEMP; Start 04/12/19 at 06:00 Sodium Chloride 1,000 ml @ 1,000 mls/hr Q1H PRN IV hypotension; Start 04/12/19 at 07:47; Stop 04/12/19 at 13:46; Status DC Acetaminophen (Tylenol) 500 mg 1X PRN PRN PO MILD PAIN / TEMP; Start 04/12/19 at 08:00; Stop 04/13/19 at 07:59; Status DC Diphenhydramine HCl (Benadryl) 25 mg 1X PRN PRN IV ITCHING; Start 04/12/19 at 08:00; Stop 04/13/19 at 07:59; Status DC Diphenhydramine HCl (Benadryl) 25 mg 1X PRN PRN IV ITCHING; Start 04/12/19 at 08:00; Stop 04/13/19 at 07:59; Status DC Sodium Chloride 1,000 ml @ 400 mls/hr Q2H30M PRN IV PATENCY; Start 04/12/19 at 07:47; Stop 04/12/19 at 19:46; Status DC Info (PHARMACY MONITORING -- do not chart) 1 each PRN DAILY PRN MC SEE COMMENTS; Start 04/12/19 at 08:00 Albuterol/ Ipratropium (Duoneb) 3 ml 1X ONCE NEB Last administered on 04/12/19at 09:31; Start 04/12/19 at 09:15; Stop 04/12/19 at 09:16; Status DC Aspirin (Children'S Aspirin) 81 mg DAILY PO Last administered on 04/13/19 07:45; Start 04/13/19 at 09:00 Atorvastatin Calcium (Lipitor) 20 mg HS PO Last administered on 04/13/19at 20:25; Start 04/12/19 at 21:00 Calcium Carbonate/ Glycine (Tums) 200 mg TIDWMEALS PO Last administered on 04/12/19at 17:20; Start 04/12/19 at 17:00; Stop 04/12/19 at 17:23; Status DC Cinacalcet (Sensipar) 30 mg DAILY PO Last administered on 04/13/19 07:44; Start 04/13/19 at 09:00 Ferrous Sulfate (Feosol) 325 mg DAILY08 PO Last administered on 04/13/19at 07:45; Start 04/13/19 at 08:00 Midodrine (Proamatine) 10 mg QTUTHSA@0800 PO Last administered on 04/13/19at 07:45; Start 04/13/19 at 08:00 Vitamin D (Vitamin D3) 5,000 unit DAILY PO Last administered on 04/13/19at 07:45; Start 04/13/19 at 09:00 Docusate Sodium (Colace) 100 mg DAILY PO Last administered on 04/13/19 07:44; Start 04/13/19 at 09:00 Midodrine (Proamatine) 5 mg [id number] PO ; Start 04/12/19 at 18:00; Stop 04/12/19 at 17:07; Status DC Midodrine (Proamatine) 10 mg QTUTHSA@1000 PO Last administered on 04/13/19at 14:21; Start 04/13/19 at 10:00 Calcium Carbonate/ Glycine (Tums) 750 mg TIDWMEALS PO Last administered on 04/13/19at 16:47; Start 04/13/19 at 08:00 Sodium Chloride 1,000 ml @ 1,000 mls/hr Q1H PRN IV hypotension; Start 04/13/19 at 08:43; Stop 04/13/19 at 14:42; Status DC Albumin Human 200 ml @ 200 mls/hr 1X PRN PRN IV Hypotension; Start 04/13/19 at 08:45; Stop 04/13/19 at 14:44; Status DC Sodium Chloride 1,000 ml @ 400 mls/hr Q2H30M PRN IV PATENCY; Start 04/13/19 at 08:43; Stop 04/13/19 at 20:42; Status DC Info (PHARMACY MONITORING -- do not chart) 1 each PRN DAILY PRN MC SEE COMMENTS; Start 04/13/19 at 08:45; Status UNV Info (PHARMACY MONITORING -- do not chart) 1 each PRN DAILY PRN MC SEE COMMENTS; Start 04/13/19 at 08:45; Status UNV Ondansetron HCl (Zofran) 4 mg 1X ONCE IV ; Start 04/13/19 at 13:00; Stop 04/13/19 at 13:01; Status DC Ondansetron HCl (Zofran) 4 mg PRN Q4HRS PRN IVP NAUSEA/VOMITING 1ST CHOICE Last administered on 04/14/19at 01:39; Start 04/14/19 at 01:30 Active Scripts Active Reported Midodrine Hcl 10 Mg Tablet 10 Mg PO QTUTHSA Midodrine Hcl 5 Mg Tablet 10 Mg PO QTUTHSA Ferrous Sulfate 325 Mg Tablet 1 Tab PO DAILY Calcium Carbonate 200 Mg Tab.chew 750 Mg PO TIDWMEALS Stool Softener (Docusate Sodium) 250 Mg Capsule 250 Mg PO DAILY Aspirin 81 Mg Tab.chew 1 Tab PO DAILY Sensipar (Cinacalcet Hcl) 30 Mg Tablet 30 Mg PO DAILY Vitamin D3 (Cholecalciferol (Vitamin D3)) 5,000 Unit Tablet 1 Tab PO DAILY Atorvastatin Calcium 20 Mg Tablet 20 Mg PO HS Vitals/I & O Vital Sign - Last 24 Hours 04/13/19 04/13/19 04/13/19 04/13/19 07:45 08:00 14:21 15:00 Temp 98.2 98.2 Pulse 87 87 98 Resp 18 B/P (MAP) 97/56 97/56 88/45 (59) Pulse Ox 93 O2 Delivery Room Air Nasal Cannula O2 Flow Rate 4.0 04/13/19 04/13/19 04/13/19 04/13/19 19:00 20:00 22:38 23:15 Temp 98.1 98.4 98.1 98.4 Pulse 64 77 80 Resp 18 18 B/P (MAP) 84/58 (67) 82/50 (61) 87/56 (66) Pulse Ox 96 90 O2 Delivery Nasal Cannula Room Air Nasal Cannula O2 Flow Rate 3.0 3.0 04/13/19 04/14/19 04/14/19 04/14/19 23:27 00:46 03:53 06:09 Temp 98.8 98.8 Pulse 78 71 63 Resp 18 B/P (MAP) 91/55 (67) 86/50 (62) 89/44 (59) Pulse Ox 96 O2 Delivery Room Air Nasal Cannula O2 Flow Rate 3.0 Intake and Output 04/13/19 04/13/19 04/14/19 15:00 23:00 07:00 Intake Total 240 ml 420 ml Balance 240 ml 420 ml VIDYA GHOSH MD Apr 14, 2019 07:35
[2019-04-14] MEDS ORDERED: IV NORMAL SALINE 500ML BAG 500 ML IV STA (07:56)
--- NOTE | 2019-04-14 07:58 | NUR ---
Patients pulse rate jumping from 110's-160's, BP 71/51. Patient was observed laying in bed, patient did not have any complaints of chest pain, feeling dizzy lightheaded, or feeling his heart racing. MD Emanuel notified. New orders received for CXR and IV fluid bolus. Will continue to monitor patient.
[2019-04-14] MEDS: FERROUS SULFATE 325 MG TABLET. PO SCH (08:00)
[2019-04-14] MEDS: CALCIUM CARBONATE 500 MG TAB.CHEW PO SCH ×3 (08:00→18:22)
--- NOTE | 2019-04-14 08:53 | PDOC ---
Provider Note Provider Note 04/14/2019 0840 Persistent hypotension with pulmonary HTN. Will proceed with RHC today, risks and benefits discussed and agreeable to proceed. DREW PEARSON QUAHOGGER Apr 14, 2019 08:53
[2019-04-14] MEDS: DOCUSATE SODIUM 100 MG CAPSULE. PO SCH (09:00)
[2019-04-14] MEDS: CHOLECALCIFEROL (VITAMIN D3) 5,000 UNIT CAPSULE PO SCH (09:00)
[2019-04-14] MEDS: ASPIRIN CHEWABLE 81 MG TABLET. PO SCH (09:00)
[2019-04-14] MEDS: CINACALCET HCL 30 MG TABLET PO SCH (09:00)
--- NOTE | 2019-04-14 09:17 | RAD ---
PORTABLE CHEST 1V Clinical indications: Tachycardia. COMPARISON: April 02, 2016. April 11, 2019. Findings: Chronic interstitial lung disease is evident. No new lung infiltrate or pleural effusion or pulmonary edema or lung mass or pneumothorax is seen. The heart size, pulmonary vasculature, mediastinum and both autumn are stable. Impression: No new radiographic abnormality is seen. Electronically signed by: Parmjit Cedeno MD (04/14/2019 9:15 AM) [id number]
[2019-04-14] MEDS ORDERED: DIGOXIN IV 500 MCG/2 ML AMPUL. ONE (09:41)
[2019-04-14] MEDS ORDERED: DIGOXIN IV 500 MCG/2 ML AMPUL. IV ONE (09:45)
--- NOTE | 2019-04-14 10:25 | PDOC ---
Provider Note Provider Note 04/14/2019 1015 AFIB RVR, new onset. Asymptomatic Digoxin given and converted to SR DREW PEARSON CASTING DIRECTOR Apr 14, 2019 10:25
--- NOTE | 2019-04-14 11:13 | PDOC ---
PROGRESS NOTES Assessment Problems Medical Problems: (1) Elevated troponin Status: Acute (2) ESRD (end stage renal disease) Status: Acute (3) Hypotension Status: Acute (4) Near syncope Status: Acute Orthostatic hypotension, consider autonomic neuropathy given the constipation and urinary retention, other than decreased reflexes, I find no evidence of peripheral neuropathy. Nursing history says he does have diabetes, but patient denies this. Obviously diabetes would be a common cause of autonomic dysfunction. He is already on ProAmatine, nephrology started every other day. There is no sign and he had a stroke or seizure. Note episode of atrial fibrillation with rapid ventricular response Plan I see no need for additional neurological studies such as autonomic testing, MRI of the brain, or electroencephalogram, but will keep these in consideration Physical and occupational therapy, has not gotten out of bed since admission. SNU? Subjective No complaints Objective Vital Signs Date Time Temp Pulse Resp B/P (MAP) Pulse Ox O2 Delivery O2 Flow Rate FiO2 04/14/19 11:08 100.0 100 18 90/52 (65) 93 Nasal Cannula 3.0 100.0 Intake and Output 04/14/19 07:00 Intake Total 660 ml Balance 660 ml Intake Oral 660 ml # Voids 2 # Bowel Movements 1 PHYSICAL EXAM Alert. Oriented to time, place and person. PERRL. EOMI. CN: no focal findings. Muscle tone: normal. Muscle strength: 5/5 DTR: 1+ Plantar reflex: flexor Gait: not examined in bed. Sensory exam: no abnormal findings. No cerebellar signs elicited. Review of Relevant I have reviewed the following items khalida (where applicable) has been applied. Labs Laboratory Tests Test 04/13/19 11:35 04/13/19 11:45 04/14/19 04:15 Sodium Level 138 mmol/L (136-145) 138 mmol/L (136-145) Potassium Level 3.5 mmol/L (3.5-5.1) 3.7 mmol/L (3.5-5.1) Chloride Level 98 mmol/L (98-107) 98 mmol/L (98-107) Carbon Dioxide Level 30 mmol/L (21-32) 29 mmol/L (21-32) Anion Gap 10 (6-14) 11 (6-14) Blood Urea Nitrogen 27 mg/dL (8-26) 38 mg/dL (8-26) Creatinine 5.1 mg/dL (0.7-1.3) 6.8 mg/dL (0.7-1.3) Estimated GFR (Cockcroft-Gault) 13.3 9.5 Glucose Level 102 mg/dL (70-99) 97 mg/dL (70-99) Calcium Level 9.0 mg/dL (8.5-10.1) 8.7 mg/dL (8.5-10.1) Magnesium Level 2.1 mg/dL (1.8-2.4) 2.5 mg/dL (1.8-2.4) Free Triiodothyronine (T3) pg/mL 3.59 pg/mL (2.18-3.98) White Blood Count 9.1 x10^3/uL (4.0-11.0) Red Blood Count 3.48 x10^6/uL (4.30-5.70) Hemoglobin 11.2 g/dL (13.0-17.5) Hematocrit 34.7 % (39.0-53.0) Mean Corpuscular Volume 100 fL (79-100) Mean Corpuscular Hemoglobin 32 pg (25-35) Mean Corpuscular Hemoglobin Concent 32 g/dL (31-37) Red Cell Distribution Width 14.8 % (11.5-14.5) Platelet Count 131 x10^3/uL (140-400) Neutrophils (%) (Auto) 84 % (31-73) Lymphocytes (%) (Auto) 8 % (24-48) Monocytes (%) (Auto) 8 % (0-9) Eosinophils (%) (Auto) 0 % (0-3) Basophils (%) (Auto) 0 % (0-3) Neutrophils # (Auto) 7.6 x10^3/uL (1.8-7.7) Lymphocytes # (Auto) 0.7 x10^3/uL (1.0-4.8) Monocytes # (Auto) 0.7 x10^3/uL (0.0-1.1) Eosinophils # (Auto) 0.0 x10^3/uL (0.0-0.7) Basophils # (Auto) 0.0 x10^3/uL (0.0-0.2) BUN/Creatinine Ratio 6 (6-20) Total Bilirubin 0.7 mg/dL (0.2-1.0) Aspartate Amino Transf (AST/SGOT) 23 U/L (15-37) Alanine Aminotransferase (ALT/SGPT) 16 U/L (16-63) Alkaline Phosphatase 118 U/L (46-116) Total Protein 7.5 g/dL (6.4-8.2) Albumin 2.8 g/dL (3.4-5.0) Albumin/Globulin Ratio 0.6 (1.0-1.7) Laboratory Tests Test 04/13/19 11:35 04/13/19 11:45 04/14/19 04:15 Sodium Level 138 mmol/L (136-145) 138 mmol/L (136-145) Potassium Level 3.5 mmol/L (3.5-5.1) 3.7 mmol/L (3.5-5.1) Chloride Level 98 mmol/L (98-107) 98 mmol/L (98-107) Carbon Dioxide Level 30 mmol/L (21-32) 29 mmol/L (21-32) Anion Gap 10 (6-14) 11 (6-14) Blood Urea Nitrogen 27 mg/dL (8-26) 38 mg/dL (8-26) Creatinine 5.1 mg/dL (0.7-1.3) 6.8 mg/dL (0.7-1.3) Estimated GFR (Cockcroft-Gault) 13.3 9.5 Glucose Level 102 mg/dL (70-99) 97 mg/dL (70-99) Calcium Level 9.0 mg/dL (8.5-10.1) 8.7 mg/dL (8.5-10.1) Magnesium Level 2.1 mg/dL (1.8-2.4) 2.5 mg/dL (1.8-2.4) Free Triiodothyronine (T3) pg/mL 3.59 pg/mL (2.18-3.98) White Blood Count 9.1 x10^3/uL (4.0-11.0) Red Blood Count 3.48 x10^6/uL (4.30-5.70) Hemoglobin 11.2 g/dL (13.0-17.5) Hematocrit 34.7 % (39.0-53.0) Mean Corpuscular Volume 100 fL (79-100) Mean Corpuscular Hemoglobin 32 pg (25-35) Mean Corpuscular Hemoglobin Concent 32 g/dL (31-37) Red Cell Distribution Width 14.8 % (11.5-14.5) Platelet Count 131 x10^3/uL (140-400) Neutrophils (%) (Auto) 84 % (31-73) Lymphocytes (%) (Auto) 8 % (24-48) Monocytes (%) (Auto) 8 % (0-9) Eosinophils (%) (Auto) 0 % (0-3) Basophils (%) (Auto) 0 % (0-3) Neutrophils # (Auto) 7.6 x10^3/uL (1.8-7.7) Lymphocytes # (Auto) 0.7 x10^3/uL (1.0-4.8) Monocytes # (Auto) 0.7 x10^3/uL (0.0-1.1) Eosinophils # (Auto) 0.0 x10^3/uL (0.0-0.7) Basophils # (Auto) 0.0 x10^3/uL (0.0-0.2) BUN/Creatinine Ratio 6 (6-20) Total Bilirubin 0.7 mg/dL (0.2-1.0) Aspartate Amino Transf (AST/SGOT) 23 U/L (15-37) Alanine Aminotransferase (ALT/SGPT) 16 U/L (16-63) Alkaline Phosphatase 118 U/L (46-116) Total Protein 7.5 g/dL (6.4-8.2) Albumin 2.8 g/dL (3.4-5.0) Albumin/Globulin Ratio 0.6 (1.0-1.7) Microbiology 04/11/19 Blood Culture - Preliminary, Resulted NO GROWTH AFTER 3 DAYS Medications Current Medications Albuterol/ Ipratropium (Duoneb) 3 ml 1X ONCE NEB Last administered on 04/11/19at 07:49; Start 04/11/19 at 07:45; Stop 04/11/19 at 07:46; Status DC Sodium Chloride 250 ml @ 250 mls/hr 1X ONCE IV Last administered on 04/11/19at 08:10; Start 04/11/19 at 07:45; Stop 04/11/19 at 08:44; Status DC Acetaminophen (Tylenol) 650 mg PRN Q6HRS PRN PEG MILD PAIN / TEMP Last administered on 04/11/19at 20:34; Start 04/11/19 at 20:15; Stop 04/12/19 at 05:49; Status DC Acetaminophen (Tylenol) 650 mg PRN Q6HRS PRN PO MILD PAIN / TEMP; Start 04/12/19 at 06:00 Sodium Chloride 1,000 ml @ 1,000 mls/hr Q1H PRN IV hypotension; Start 04/12/19 at 07:47; Stop 04/12/19 at 13:46; Status DC Acetaminophen (Tylenol) 500 mg 1X PRN PRN PO MILD PAIN / TEMP; Start 04/12/19 at 08:00; Stop 04/13/19 at 07:59; Status DC Diphenhydramine HCl (Benadryl) 25 mg 1X PRN PRN IV ITCHING; Start 04/12/19 at 08:00; Stop 04/13/19 at 07:59; Status DC Diphenhydramine HCl (Benadryl) 25 mg 1X PRN PRN IV ITCHING; Start 04/12/19 at 08:00; Stop 04/13/19 at 07:59; Status DC Sodium Chloride 1,000 ml @ 400 mls/hr Q2H30M PRN IV PATENCY; Start 04/12/19 at 07:47; Stop 04/12/19 at 19:46; Status DC Info (PHARMACY MONITORING -- do not chart) 1 each PRN DAILY PRN MC SEE COMMENTS; Start 04/12/19 at 08:00 Albuterol/ Ipratropium (Duoneb) 3 ml 1X ONCE NEB Last administered on 04/12/19at 09:31; Start 04/12/19 at 09:15; Stop 04/12/19 at 09:16; Status DC Aspirin (Children'S Aspirin) 81 mg DAILY PO Last administered on 04/13/19at 07:45; Start 04/13/19 at 09:00 Atorvastatin Calcium (Lipitor) 20 mg HS PO Last administered on 04/13/19at 20:25; Start 04/12/19 at 21:00 Calcium Carbonate/ Glycine (Tums) 200 mg TIDWMEALS PO Last administered on 04/12/19at 17:20; Start 04/12/19 at 17:00; Stop 04/12/19 at 17:23; Status DC Cinacalcet (Sensipar) 30 mg DAILY PO Last administered on 04/13/19at 07:44; Start 04/13/19 at 09:00 Ferrous Sulfate (Feosol) 325 mg DAILY08 PO Last administered on 04/13/19at 07:45; Start 04/13/19 at 08:00 Midodrine (Proamatine) 10 mg QTUTHSA@0800 PO Last administered on 04/13/19at 07:45; Start 04/13/19 at 08:00 Vitamin D (Vitamin D3) 5,000 unit DAILY PO Last administered on 04/13/19at 07:45; Start 04/13/19 at 09:00 Docusate Sodium (Colace) 100 mg DAILY PO Last administered on 04/13/19at 07:44; Start 04/13/19 at 09:00 Midodrine (Proamatine) 5 mg [id number] PO ; Start 04/12/19 at 18:00; Stop 04/12/19 at 17:07; Status DC Midodrine (Proamatine) 10 mg QTUTHSA@1000 PO Last administered on 04/13/19at 14:21; Start 04/13/19 at 10:00 Calcium Carbonate/ Glycine (Tums) 750 mg TIDWMEALS PO Last administered on 04/13/19at 16:47; Start 04/13/19 at 08:00 Sodium Chloride 1,000 ml @ 1,000 mls/hr Q1H PRN IV hypotension; Start 04/13/19 at 08:43; Stop 04/13/19 at 14:42; Status DC Albumin Human 200 ml @ 200 mls/hr 1X PRN PRN IV Hypotension; Start 04/13/19 at 08:45; Stop 04/13/19 at 14:44; Status DC Sodium Chloride 1,000 ml @ 400 mls/hr Q2H30M PRN IV PATENCY; Start 04/13/19 at 08:43; Stop 04/13/19 at 20:42; Status DC Info (PHARMACY MONITORING -- do not chart) 1 each PRN DAILY PRN MC SEE COMMENTS; Start 04/13/19 at 08:45; Status UNV Info (PHARMACY MONITORING -- do not chart) 1 each PRN DAILY PRN MC SEE CO MMENTS; Start 04/13/19 at 08:45; Status UNV Ondansetron HCl (Zofran) 4 mg 1X ONCE IV ; Start 04/13/19 at 13:00; Stop 04/13/19 at 13:01; Status DC Ondansetron HCl (Zofran) 4 mg PRN Q4HRS PRN IVP NAUSEA/VOMITING 1ST CHOICE Last administered on 04/14/19at 01:39; Start 04/14/19 at 01:30 Sodium Chloride 500 ml @ 500 mls/hr 1X STAT IV Last administered on 04/14/19at 07:56; Start 04/14/19 at 07:56; Stop 04/14/19 at 08:55; Status DC Digoxin (Lanoxin) 500 mcg 1X ONCE IV Last administered on 04/14/19at 09:45; Start 04/14/19 at 09:45; Stop 04/14/19 at 09:46; Status DC Digoxin (Lanoxin) 500 mcg STK-MED ONCE .ROUTE ; Start 04/14/19 at 09:41; Stop 04/14/19 at 09:41; Status DC Active Scripts Active Reported Midodrine Hcl 10 Mg Tablet 10 Mg PO QTUTHSA Midodrine Hcl 5 Mg Tablet 10 Mg PO QTUTHSA Ferrous Sulfate 325 Mg Tablet 1 Tab PO DAILY Calcium Carbonate 200 Mg Tab.chew 750 Mg PO TIDWMEALS Stool Softener (Docusate Sodium) 250 Mg Capsule 250 Mg PO DAILY Aspirin 81 Mg Tab.chew 1 Tab PO DAILY Sensipar (Cinacalcet Hcl) 30 Mg Tablet 30 Mg PO DAILY Vitamin D3 (Cholecalciferol (Vitamin D3)) 5,000 Unit Tablet 1 Tab PO DAILY Atorvastatin Calcium 20 Mg Tablet 20 Mg PO HS Vitals/I & O Vital Sign - Last 24 Hours 04/13/19 04/13/19 04/13/19 04/13/19 14:21 15:00 19:00 20:00 Temp 98.2 98.1 98.2 98.1 Pulse 87 98 64 Resp 18 18 B/P (MAP) 97/56 88/45 (59) 84/58 (67) Pulse Ox 93 96 O2 Delivery Nasal Cannula Nasal Cannula Room Air O2 Flow Rate 4.0 3.0 04/13/19 04/13/19 04/13/19 04/14/19 22:38 23:15 23:27 00:46 Temp 98.4 98.4 Pulse 77 80 78 Resp 18 B/P (MAP) 82/50 (61) 87/56 (66) 91/55 (67) Pulse Ox 90 O2 Delivery Nasal Cannula Room Air O2 Flow Rate 3.0 04/14/19 04/14/19 04/14/19 04/14/19 03:53 06:09 07:00 09:45 Temp 98.8 98.5 98.8 98.5 Pulse 71 63 75 140 Resp 18 18 B/P (MAP) 86/50 (62) 89/44 (59) 73/45 (54) Pulse Ox 96 95 O2 Delivery Nasal Cannula Nasal Cannula O2 Flow Rate 3.0 3.0 04/14/19 11:08 Temp 100.0 100.0 Pulse 100 Resp 18 B/P (MAP) 90/52 (65) Pulse Ox 93 O2 Delivery Nasal Cannula O2 Flow Rate 3.0 Intake and Output 04/13/19 04/13/19 04/14/19 15:00 23:00 07:00 Intake Total 240 ml 420 ml Balance 240 ml 420 ml LELE MITCHELL MD Apr 14, 2019 11:13
--- NOTE | 2019-04-14 11:41 | PDOC ---
Renal-Progress Notes Subjective Notes Notes NO NEW COMPLAINTS History of Present Illness Hx of present illness NO CHANGE Vitals Vitals Vital Signs Date Time Temp Pulse Resp B/P (MAP) Pulse Ox O2 Delivery O2 Flow Rate FiO2 04/14/19 11:08 100.0 100 18 90/52 (65) 93 Nasal Cannula 3.0 100.0 Weight Weight [ ] I.O. Intake and Output Intake and Output 04/14/19 07:00 Intake Total 660 ml Balance 660 ml Intake Oral 660 ml # Voids 2 # Bowel Movements 1 Labs Labs Laboratory Tests Test 04/13/19 11:45 04/14/19 04:15 Free Triiodothyronine (T3) pg/mL 3.59 pg/mL (2.18-3.98) White Blood Count 9.1 x10^3/uL (4.0-11.0) Red Blood Count 3.48 x10^6/uL (4.30-5.70) Hemoglobin 11.2 g/dL (13.0-17.5) Hematocrit 34.7 % (39.0-53.0) Mean Corpuscular Volume 100 fL (79-100) Mean Corpuscular Hemoglobin 32 pg (25-35) Mean Corpuscular Hemoglobin Concent 32 g/dL (31-37) Red Cell Distribution Width 14.8 % (11.5-14.5) Platelet Count 131 x10^3/uL (140-400) Neutrophils (%) (Auto) 84 % (31-73) Lymphocytes (%) (Auto) 8 % (24-48) Monocytes (%) (Auto) 8 % (0-9) Eosinophils (%) (Auto) 0 % (0-3) Basophils (%) (Auto) 0 % (0-3) Neutrophils # (Auto) 7.6 x10^3/uL (1.8-7.7) Lymphocytes # (Auto) 0.7 x10^3/uL (1.0-4.8) Monocytes # (Auto) 0.7 x10^3/uL (0.0-1.1) Eosinophils # (Auto) 0.0 x10^3/uL (0.0-0.7) Basophils # (Auto) 0.0 x10^3/uL (0.0-0.2) Sodium Level 138 mmol/L (136-145) Potassium Level 3.7 mmol/L (3.5-5.1) Chloride Level 98 mmol/L (98-107) Carbon Dioxide Level 29 mmol/L (21-32) Anion Gap 11 (6-14) Blood Urea Nitrogen 38 mg/dL (8-26) Creatinine 6.8 mg/dL (0.7-1.3) Estimated GFR (Cockcroft-Gault) 9.5 BUN/Creatinine Ratio 6 (6-20) Glucose Level 97 mg/dL (70-99) Calcium Level 8.7 mg/dL (8.5-10.1) Magnesium Level 2.5 mg/dL (1.8-2.4) Total Bilirubin 0.7 mg/dL (0.2-1.0) Aspartate Amino Transf (AST/SGOT) 23 U/L (15-37) Alanine Aminotransferase (ALT/SGPT) 16 U/L (16-63) Alkaline Phosphatase 118 U/L (46-116) Total Protein 7.5 g/dL (6.4-8.2) Albumin 2.8 g/dL (3.4-5.0) Albumin/Globulin Ratio 0.6 (1.0-1.7) Micro Micro Microbiology 04/11/19 Blood Culture - Preliminary, Resulted NO GROWTH AFTER 3 DAYS Review of Systems Constitutional: yes: weakness, alert, oriented Ears/Nose/Throat: Yes: no symptom reported Eyes: Yes: no symptom reported Pulmonary: Yes no symptom reported Cardiovascular: Yes no symptom reported Gastrointestional: Yes: no symptom reported Genitourinary: Yes: no symptom reported Musculoskeletal: Yes: no symptom reported Skin: Yes no symptom reported Psychiatric/Neurological: Yes: no symptom reported Endocrine: Yes: no symptom reported Physical Exam General Appearance: no apparent distress Skin: warm Respiratory: bilateral CTA Heart: S1S2 Abdomen: soft, bowel sounds present Genitourinary: bladder flat Extremities: pulses present Neurology: alert, oriented Musculoskeletal: Osteoarthritis Assessment Assessment IMP ESRD-TTS ANEMIA NEAR SYNCOPE HTN HX PLAN HD TOMORROW NEURO EVAL ARANESP WHEN APPROPRIATE WILL FOLLOW KIARA ZAIDI MD Apr 14, 2019 11:41
--- NOTE | 2019-04-14 12:22 | NUR ---
SW consulted for high risk for falls. Chart reviewed and discussed with RN. Pt lives at home alone, and has OP HD at [facility], phone: [phone], fax: [phone]. OT recommends home independent and awaiting on PT assessment.
[2019-04-14] MEDS ORDERED: LIDOCAINE 1% Multi-Dose 20 ML VIAL. ONE (13:10)
--- NOTE | 2019-04-14 13:53 | NUR ---
NA called out for help from patients bathroom, both NAYELI Baker and NAYELI Guillen in bathroom with patient. Upon observation patient was sitting on the bathroom floor with his legs out and one NA behind him and other to the side. Patient had on his non slip socks along with his gait belt and walker near patient. Patient was able to state name and date, also that he felt "dizzy". VS taken BP 67/31 P 96 O2 90% on NC 4L. Patient was then stood by two NA and nurse to VS retaken BP 59/32 P 94. Rapid Response was called before moving the patient to the , Jade nursing supervisors on floor at this time, and arrived to room once transferred to the . Patient was then moved over to his bed and legs elevated VS retaken BP 62/41 P 94. [facility] ICU arrived. Patient was already scheduled for right side heart catheter. Before cath team transferred patient VS taken again BP 76/43 P 94 O2 90% on 4L. Patients baseline BP beginning of shift 71/51.
--- NOTE | 2019-04-14 13:54 | CARD ---
MR#: [id number] Date of Study: 04/13/2019 Ordering Physician: DREW PEARSON, Referring Physician: DREW PEARSON, Tech: Jade Mcclelland APPROVED REPORT EXAM: Two-dimensional and M-mode echocardiogram with Doppler and color Doppler. Other Information Quality : AverageHR: 96bpm INDICATION Hypotension 2D DIMENSIONS RVDd4.1 (2.9-3.5cm)Left Atrium(2D)2.9 (1.6-4.0cm) IVSd1.4 (0.7-1.1cm)Aortic Root(2D)3.7 (2.0-3.7cm) LVDd4.4 (3.9-5.9cm)LVOT Diameter2.0 (1.8-2.4cm) PWd0.9 (0.7-1.1cm)LVDs2.5 (2.5-4.0cm) FS (%) 43.8 %SV66.9 ml LVEF(%)75.2 (>50%) Aortic Valve AoV Peak Alcides.147.0cm/sAoV VTI20.1cm AO Peak GR.8.6mmHgLVOT VTI 10.89cm AO Mean GR.5mmHg TDI Lateral E' P. V11.91cm/sMedial E' P. V7.40cm/s Tricuspid Valve TR P. [id number]/sRAP [id number] TR Peak Gr.[id number] Pulmonary Vein S1 Yqvyqvou65.7cm/sS2 Fmqkefab43.01cm/s D2 Jqfhzgxg79.0cm/sPVa [id number] LEFT VENTRICLE The left ventricle is normal size. There is mild to moderate concentric left ventricular hypertrophy. The left ventricular systolic function is normal. The Ejection Fraction is 55-60%. Flattening of int erventricular septum consistent with right ventricular pressure and volume overload. Transmitral Dopp ler flow pattern is Grade I-abnormal relaxation pattern. RIGHT VENTRICLE The right ventricle is severely dilated. There is normal right ventricular wall thickness. Systolic f unction is moderately reduced. ATRIA The left atrium size is normal. The right atrium is severely dilated. Interatrial septum bowed toward the left, consistent with elevated right atrial pressures. AORTIC VALVE The aortic valve is calcified but opens well. Doppler and Color Flow revealed no significant aortic r egurgitation. There is no significant aortic valvular stenosis. MITRAL VALVE The mitral valve is normal in structure and function. There is no evidence of mitral valve prolapse. There is no mitral valve stenosis. Doppler and Color Flow revealed no mitral valve regurgitation note d. TRICUSPID VALVE The tricuspid valve is normal in structure and function. Doppler and Color Flow revealed moderate tri cuspid regurgitation with an estimated PAP of 65 mmHg. There is no tricuspid valve stenosis. PULMONIC VALVE The pulmonic valve is not well visualized. Doppler and Color Flow revealed trace pulmonic valvular re gurgitation. GREAT VESSELS The aortic root is normal in size. The IVC is normal in size and collapses >50% with inspiration. PERICARDIAL EFFUSION There is no evidence of significant pericardial effusion. Critical Notification Critical Value: No <Conclusion> The left ventricular systolic function is normal. The Ejection Fraction is 55-60%. Flattening of interventricular septum consistent with right ventricular pressure and volume overload. The right ventricle is severely dilated. Moderate tricuspid regurgitation with an estimated PAP of 65 mmHg. There is no evidence of significant pericardial effusion. Signed by : Sly Braun, Electronically Approved : 04/13/2019 17:15:40
[2019-04-14] MEDS ORDERED: ADENOSINE 90 MG/30 ML VIAL. IV ONE (14:22)
[2019-04-14] MEDS ORDERED: IODIXANOL 320 MG/ML 100 ML VIAL. ONE (14:34)
--- NOTE | 2019-04-14 14:40 | NUR ---
decline in medical condition of patient necessitates new PT order, please. Thank you, Elaina Crews, PT Addendum: 04/14/19 at 1441 by ELAINA CREWS PT Amended: Links added.
[2019-04-14] MEDS ORDERED: IODIXANOL 320 MG/ML 100 ML VIAL. IART ONE (14:45)
[2019-04-14] MEDS ORDERED: LIDOCAINE 1% Multi-Dose 20 ML VIAL. INJ ONE (14:45)
[2019-04-14] MEDS ORDERED: ADENOSINE 90 MG in IV NORMAL SALINE 50ML 90 ML IV ONE (14:45)
[2019-04-14] MEDS: NOREPINEPHRIN 8MG/250ML PREMIX 250 ML IV PRN (15:12)
--- NOTE | 2019-04-14 15:42 | CARD ---
MR#: [id number] Date of Study: 04/14/2019 Ordering Physician: DREW PEARSON, Referring Physician: DREW PEARSON, Tech: RT Ethan (R) APPROVED REPORT Technologist: Malia Yoon RT (R) Nurse: Renetta Taylor R.N. Procedure(s) performed: Fluoro time: 5.6min Dose: [id number] Contrast: 93cc RHC, LHC, Coronary angiography HISTORY The patient is a 78 year-old male with a history of : renal failure with dialysis. INDICATION The indication(s) include : arrhythmia, severely pulmonary HTN and severe hypotension. . [facility] Clinical Frailty Scale [facility] Clinical Frailty Scale: Severely Frail Heart Failure Heart Failure: Yes If Yes, Newly Diagnosed: No If Yes, HF Type: Diastolic If Yes, NYHA Class: Class III PROCEDURE NARRATIVE After appropriate informed consent the patient was brought to the catheterization laboratory. The [facility] groin and the right neck were prepped and draped in usual sterile fashion. A 8 [place] sheath was inserted in the right internal jugular vein via the modified Seldinger techniqu e under ultrasound guidance. Through this 8 [place] sheath a PA catheter was advanced to the right hea rt chambers and pressures and saturations were obtained. A pulmonary artery study was also performed with infusion of adenosine. Due to the patient's significant hypotension, severe pulmonary hypertension a decision was made to pe rform a left heart catheterization and coronary angiography. A 5 [place] sheath was placed in the [facility] common femoral artery via the modified Seldinger technique. Diagnostic angiography was performed [facility] a JL 5 and JR4 catheters. Findings: Right heart catheter: RA: 16 RV: 75/16/45 PA: 71/40/45 PCWP: 15 Lewis cardiac output of 6.2 Thermal dilution cardiac output of 3.8 l/min An adenosine infusion study was performed and adenosine was titrated up to 200 mcg/kg/m but there was no significant improvement in the mean pulmonary artery pressure. LHC: LVEDP 15 mm Hg CORONARY ANGIOGRAPHY; Left main coronary artery is a large caliber vessel without any significant disease Left anterior descending artery is a large caliber vessel without any significant disease Left circumflex is a moderate caliber vessel with mild luminal irregularities Right coronary artery is a large caliber dominant vessel with mild luminal irregularities At case completion due to persistent hypotension the patient was placed on a norepinephrine drip and transferred to the ICU in critical but stable condition. Conclusion 1. Severe right-sided heart failure and cor pulmonale 2. Severe pulmonary hypertension, not related to left-sided heart disease 3. Low normal cardiac output 4. Normal left-sided filling pressures and normal angiographic appearance of the coronary arteries. Recommendations 1. Pulmonary evaluation for pulmonary hypertension and consider transfer to tertiary Medical Center f or further evaluation and treatment Signed by : Shen Castellanos, Electronically Approved : 04/14/2019 15:42:02
[2019-04-14] MEDS ORDERED: HYDROcodone/APAP 5/325MG 1 TAB TABLET PO PRN (18:30)
[2019-04-14] MEDS ORDERED: TEMAZEPAM 7.5 MG CAPSULE PO PRN (19:00)
[2019-04-14] MEDS: ATORVASTATIN CALCIUM 20 MG TABLET PO SCH (21:23)
[2019-04-15] VITALS (28 sets, daily range): BP systolic 74–159; BP diastolic 42–86
[2019-04-15] MEDS: NOREPINEPHRIN 8MG/250ML PREMIX 250 ML IV PRN (04:06)
--- NOTE | 2019-04-15 06:40 | PDOC ---
Provider Note Provider Note [id number] acute resp fail pulm htn, secondary see orders FRANKI CASTRO MD Apr 15, 2019 06:40
[2019-04-15] MEDS: cefTRIAXone IV Push 1 GM VIAL. IVP SCH (06:45)
--- NOTE | 2019-04-15 07:24 | CONS ---
DATE OF CONSULTATION: 04/15/2019 I was asked to see this 78-year-old gentleman for acute respiratory failure, pulmonary hypertension. HISTORY OF PRESENT ILLNESS: He does have history of [id number] smoking, stopped smoking about 15 years ago. He has not been diagnosed with COPD, but has daily cough with sputum, which has been worse for the past few days. He is on oxygen at night, he does not know why. He does have excessive daytime sleepiness, has not had sleep study. He was admitted for dizziness. He had cardiac catheterization done yesterday, which did show mean pulmonary artery pressure of 45, wedge pressure was 15, right ventricular pressure was 75/16. He did have low normal cardiac output and normal coronary arteries. He denies chest pain. He does have cough. He does have shortness of breath with exertion. He denies runny nose or gastroesophageal reflux symptoms. PAST MEDICAL HISTORY: End-stage renal disease, on hemodialysis; hypertension and diabetes mellitus. He is on Levophed 8 mcg. SOCIAL HISTORY: History of [id number] smoking stopped smoking 15 years ago. FAMILY HISTORY: There is no history of lung disease. REVIEW OF SYSTEMS: As mentioned as above, other systems otherwise negative. PHYSICAL EXAMINATION: GENERAL: This is an elderly gentleman. VITAL SIGNS: His O2 saturation on 6 liters of oxygen is 97%, respiratory rate 22, heart rate 82, blood pressure 110/44, temperature 99.3. HEENT: Normocephalic, atraumatic. Pupils equal, round, reactive to light. Throat is clear. There is shallow oropharynx. Nose is clear. NECK: There is no lymphadenopathy or thyromegaly. CARDIOVASCULAR: Regular rate and rhythm. PMI is nondisplaced. CHEST: Inspection is normal. LUNGS: A few end expiratory wheezing with forced exhalation. Percussion is within normal limit. ABDOMEN: Soft. Bowel sounds are good. There is no mass. EXTREMITIES: There is no edema. LYMPHATICS: There is no lymphadenopathy. NEUROLOGIC: Alert and oriented. SKIN: Chronic changes. LABORATORY AND DIAGNOSTIC DATA: I reviewed the following lab data: Chest x-ray shows increased interstitial marking, cardiomegaly. WBC 9.1, hemoglobin 11.2, platelets 131. Sodium 138, potassium 3.7, chloride 98, CO2 of 29, glucose 97, BUN 38, creatinine 6.8, lactic acid 1.3. Troponin 0.094. Echocardiogram showed ejection fraction 55-60%, dilated right ventricle, moderate triscuspid regurgitation with estimated pulmonary artery pressure of 65, no pericardial effusion. IMPRESSION: 1. Acute hypoxemic respiratory failure, multifactorial in etiology. 2. Pulmonary hypertension. I suspect it is secondary and chronic and it is multifactorial in etiology. I suspect he does have significant chronic obstructive pulmonary disease with nocturnal hypoxemia, cannot rule out obstructive sleep apnea-hypopnea syndrome. Need to rule out pulmonary embolism. His chest x-ray also shows increased interstitial marking, cannot rule out interstitial lung disease. 3. Abnormal chest x-ray. 4. Significant history of smoking, suspect he has significant chronic obstructive pulmonary disease. 5. ?Obstructive sleep apnea-hypopnea syndrome. 6. Acute bronchitis. 7. End-stage renal disease, on hemodialysis. 8. Hypotension ?etiology. 9. Diabetes mellitus. 10. History of hypertension. PLAN AND RECOMMENDATIONS: 1. Titrate FiO2 to keep O2 saturation at 92%. 2. Start bronchodilator. 3. Start inhaled corticosteroid, may require systemic steroid. 4. Add Rocephin. 5. I will order a CT angiogram if it is okay with Nephrology, which I suspect it will be, the patient will have hemodialysis today. 6. He would require complete PFTs as an outpatient. 7. I do recommend sleep study as an outpatient. 8. Six-minute walk and nocturnal oximetry before discharge. 9. The findings and recommendations were discussed with the patient and RN. I have answered all of the patient's questions. He understood and agreed to proceed with the plan. Thank you very much for allowing me to participate in care of this very nice gentleman. FRANKI CASTRO M.D. : [facility] JOB#: [id number] / [id number]
[2019-04-15] MEDS: BUDESONIDE 0.5 MG/2 ML NEBU. NEB SCH ×3 (08:00→19:31)
[2019-04-15] MEDS: IPRATRPIUM/ALBUTEROL 0.5/2.5MG 3 ML NEBU. NEB SCH ×4 (08:00→19:30)
[2019-04-15] MEDS: CALCIUM CARBONATE 500 MG TAB.CHEW PO SCH ×3 (08:00→17:39)
--- NOTE | 2019-04-15 08:20 | NUR ---
Spoke with Dr. Mondragon with Nephrology. Per phone conversation, okay to do CTA prior to dialysis. Spoke with Shawn with [facility] and Mr. Espitia is scheduled for dialysis at noon today.
[2019-04-15] MEDS: CHOLECALCIFEROL (VITAMIN D3) 5,000 UNIT CAPSULE PO SCH (08:32)
[2019-04-15] MEDS: CINACALCET HCL 30 MG TABLET PO SCH (08:32)
[2019-04-15] MEDS: ASPIRIN CHEWABLE 81 MG TABLET. PO SCH (08:32)
[2019-04-15] MEDS: DOCUSATE SODIUM 100 MG CAPSULE. PO SCH (08:32)
[2019-04-15] MEDS: FERROUS SULFATE 325 MG TABLET. PO SCH (08:32)
[2019-04-15] MEDS ORDERED: IOHEXOL 350 MG/ML 100 ML VIAL. IV ONE (09:00)
[2019-04-15] MEDS ORDERED: CONTRAST GIVEN. MC PRN (09:00)
[2019-04-15] MEDS ORDERED: IV NORMAL SALINE 1000ML BAG 1,000 ML IV PRN ×2 (09:25)
[2019-04-15] MEDS ORDERED: ACETAMINOPHEN 500 MG TABLET PO PRN (09:30)
[2019-04-15] MEDS ORDERED: diphenhydrAMINE 50 MG/ML VIAL IV PRN ×2 (09:30)
[2019-04-15] MEDS ORDERED: DIALYSIS PATIENT. MC PRN (09:30)
--- NOTE | 2019-04-15 09:43 | RAD ---
EXAM: CT angiography of the chest with intravenous contrast. HISTORY: Pulmonary hypertension. TECHNIQUE: Computed tomographic images of the chest were obtained following the administration of 90 cc Omnipaque 350 intravenous contrast according to angiography protocol. Multiplanar reformatting was performed and 3-dimensional maximum intensity projection images were obtained.. *One or more of the following individualized dose reduction techniques were utilized for this examination: 1. Automated exposure control. 2. Adjustment of the mA and/or kV according to patient size. 3. Use of iterative reconstruction technique. COMPARISON: None. FINDINGS: There are moderate right and small left pleural effusions. There is partially consolidated posterior right lower lobe infiltrate superimposed on atelectasis. There is left basilar and bilateral posterior dependent atelectasis. There is linear scarring along the bilateral pleural fissures. There is moderate emphysema. There is mild cardiomegaly. There is aortic and aortic branch vessel atherosclerosis. There is a common origin of the right innominate and left common carotid arteries, a normal arch branching variant. There is coronary artery atherosclerosis. There are enlarged central pulmonary arteries, a finding which is typically seen with pulmonary artery hypertension. Evaluation for segmental and subsegmental pulmonary emboli is significantly limited due to suboptimal contrast opacification and respiratory motion. No convincing central pulmonary embolism is seen. There is artifactual decreased attenuation within the medial right upper lobe segment branch, due to adjacent dense contrast within the superior vena cava. There are prominent mediastinal and hilar lymph nodes, a nonspecific finding. There is a large cyst within the right thyroid lobe measuring 5.0 cm. There is a small hiatal hernia. The gallbladder is surgically absent. There is a prominent downstream pancreatic duct, partially included on the [id number]. The spleen and adrenal glands are unremarkable. There is renal atrophy. There are degenerative changes throughout the spine. There are bridging and partially bridging anterior osteophytes throughout the visualized cervical and thoracic levels, suggesting diffuse idiopathic skeletal hyperostosis. IMPRESSION: 1. No convincing central pulmonary embolism. Evaluation for segmental and subsegmental emboli is significantly limited due to suboptimal contrast opacification and respiratory motion. 2. Enlarged central pulmonary arteries likely due to pulmonary artery hypertension. There is also cardiomegaly. 3. Moderate right and small left pleural effusions with right lower lobe partially consolidated infiltrate superimposed on atelectasis. There is also left lower lobe and posterior dependent atelectasis and scarring along the pleural fissures. 4. Moderate emphysema. 5. Prominent mediastinal and hilar lymph nodes, possibly reactive in etiology. 6. Renal atrophy. 7. Large right thyroid cyst. Electronically signed by: Tammie Clark MD (04/15/2019 9:40 AM) [facility]
--- NOTE | 2019-04-15 11:31 | PDOC ---
[employer] PROGRESS NOTE Chief Complaint Chief Complaint ESRD Anemia Hypotension History of Present Illness History of Present Illness 04/15/19 Pt seen and examined in ICU Pt was wearing face mask with 97% sat Pt was awake and coherent DW RN Vitals/I&O Vitals/I&O: Vital Signs Date Time Temp Pulse Resp B/P (MAP) Pulse Ox O2 Delivery O2 Flow Rate FiO2 04/15/19 10:00 105 18 112/65 (81) 96 Simple Mask 6.0 04/15/19 07:00 98.1 98.1 I & O 04/14/19 04/14/19 04/15/19 15:00 23:00 07:00 Intake Total 360 ml 42 ml 833 ml Output Total 100 ml 0 ml Balance 360 ml -58 ml 833 ml Physical Exam General: Alert, Oriented X3, Cooperative, No acute distress Heart: Regular rate (SR), Other (4/6 systolic murmur to LLs border) Lungs: Crackles, Other Abdomen: Soft, No tenderness Extremities: No cyanosis, No edema Skin: No breakdown Review of Systems Review of Systems: Denies n/v/d Denies pain Assessment and Plan Assessmemt and Plan Assessment ESRD Anemia Hypotension Near syncope Plan ICU monitoring Wean levophed Arterial line monitoring Wound care Dialysis DVT prophylaxis Home meds Cards and neuro and nephro consult Trend enzymes Full code Total time 32 min Comment Review of Relevant I have reviewed the following items khalida (where applicable) has been applied. Medications: Current Medications Medications (Trade) Dose Ordered Sig/Edita Route PRN Reason Start Time Stop Time Status Last Admin Dose Admin Norepinephrine Bitartrate 250 ml @ 15.656 mls/ hr CONT PRN IV SEE I/O RECORD 04/14/19 14:15 04/15/19 04:06 Heparin Sodium/ Sodium Chloride (HEPARIN for ARTERIAL LINE FLUSH) 1,000 unit 1X ONCE IART 04/14/19 14:45 04/14/19 14:46 DC 04/14/19 15:09 Iodixanol (Visipaque 320) 100 ml 1X ONCE IART 04/14/19 14:45 04/14/19 14:46 DC 04/14/19 15:10 Lidocaine HCl (Lidocaine 1% 20ml Vial) 20 ml 1X ONCE INJ 04/14/19 14:45 04/14/19 14:46 DC 04/14/19 15:10 Adenosine 90 mg/ Sodium Chloride 120 ml @ 200 mls/hr 1X ONCE IV 04/14/19 14:45 04/14/19 15:20 DC 04/14/19 15:11 Ceftriaxone Sodium (Rocephin) 1 gm Q24H IVP 04/15/19 07:00 04/15/19 06:45 Iohexol (Omnipaque 350 Mg/ml) 90 ml 1X ONCE IV 04/15/19 09:00 04/15/19 09:01 DC 04/15/19 09:00 ROLANDO ELAINE III DO Apr 15, 2019 11:31
[2019-04-15] MEDS: MIDODRINE 5 MG TABLET PO SCH ×2 (12:04→14:03)
--- NOTE | 2019-04-15 12:05 | PDOC ---
PROGRESS NOTES Subjective Subjective Patient seen and examined Objective Objective Vital Signs Date Time Temp Pulse Resp B/P (MAP) Pulse Ox O2 Delivery O2 Flow Rate FiO2 04/15/19 11:00 105 20 101/58 (72) 96 Simple Mask 6.0 04/15/19 07:00 98.1 98.1 Intake and Output 04/15/19 07:00 Intake Total 1235 ml Output Total 100 ml Balance 1135 ml Intake Oral 980 ml IV Total 255 ml Output Urine Total 0 ml Emesis 100 ml Physical Exam Abdomen: Normal bowel sounds Heart: Regular rate General: mild distress Lungs: Other (mildly decreased breath sounds) Assessment Assessment Problems Medical Problems: (1) Elevated troponin Status: Acute (2) ESRD (end stage renal disease) Status: Acute (3) Hypotension Status: Acute (4) Near syncope Status: Acute 1. Status post heart catheterization yesterday. Catheterization showed no significant coronary disease but severe pulmonary hypertension. We'll continue present treatments at this time. Being evaluated by the pulmonary service. Routine follow-up at . 2. ESRD renal disease. Hemodialysis as per the renal service. 3. COPD 4. HLD Continue present medications. Comment Review of Relevant I have reviewed the following items khalida (where applicable) has been applied. Labs Laboratory Tests Test 04/14/19 04:15 White Blood Count 9.1 x10^3/uL (4.0-11.0) Red Blood Count 3.48 x10^6/uL (4.30-5.70) Hemoglobin 11.2 g/dL (13.0-17.5) Hematocrit 34.7 % (39.0-53.0) Mean Corpuscular Volume 100 fL (79-100) Mean Corpuscular Hemoglobin 32 pg (25-35) Mean Corpuscular Hemoglobin Concent 32 g/dL (31-37) Red Cell Distribution Width 14.8 % (11.5-14.5) Platelet Count 131 x10^3/uL (140-400) Neutrophils (%) (Auto) 84 % (31-73) Lymphocytes (%) (Auto) 8 % (24-48) Monocytes (%) (Auto) 8 % (0-9) Eosinophils (%) (Auto) 0 % (0-3) Basophils (%) (Auto) 0 % (0-3) Neutrophils # (Auto) 7.6 x10^3/uL (1.8-7.7) Lymphocytes # (Auto) 0.7 x10^3/uL (1.0-4.8) Monocytes # (Auto) 0.7 x10^3/uL (0.0-1.1) Eosinophils # (Auto) 0.0 x10^3/uL (0.0-0.7) Basophils # (Auto) 0.0 x10^3/uL (0.0-0.2) Sodium Level 138 mmol/L (136-145) Potassium Level 3.7 mmol/L (3.5-5.1) Chloride Level 98 mmol/L (98-107) Carbon Dioxide Level 29 mmol/L (21-32) Anion Gap 11 (6-14) Blood Urea Nitrogen 38 mg/dL (8-26) Creatinine 6.8 mg/dL (0.7-1.3) Estimated GFR (Cockcroft-Gault) 9.5 BUN/Creatinine Ratio 6 (6-20) Glucose Level 97 mg/dL (70-99) Calcium Level 8.7 mg/dL (8.5-10.1) Magnesium Level 2.5 mg/dL (1.8-2.4) Total Bilirubin 0.7 mg/dL (0.2-1.0) Aspartate Amino Transf (AST/SGOT) 23 U/L (15-37) Alanine Aminotransferase (ALT/SGPT) 16 U/L (16-63) Alkaline Phosphatase 118 U/L (46-116) Total Protein 7.5 g/dL (6.4-8.2) Albumin 2.8 g/dL (3.4-5.0) Albumin/Globulin Ratio 0.6 (1.0-1.7) Microbiology 04/11/19 Blood Culture - Preliminary, Resulted NO GROWTH AFTER 4 DAYS Medications Current Medications Albuterol/ Ipratropium (Duoneb) 3 ml 1X ONCE NEB Last administered on 04/11/19at 07:49; Start 04/11/19 at 07:45; Stop 04/11/19 at 07:46; Status DC Sodium Chloride 250 ml @ 250 mls/hr 1X ONCE IV Last administered on 04/11/19at 08:10; Start 04/11/19 at 07:45; Stop 04/11/19 at 08:44; Status DC Acetaminophen (Tylenol) 650 mg PRN Q6HRS PRN PEG MILD PAIN / TEMP Last administered on 04/11/19at 20:34; Start 04/11/19 at 20:15; Stop 04/12/19 at 0 5:49; Status DC Acetaminophen (Tylenol) 650 mg PRN Q6HRS PRN PO MILD PAIN / TEMP; Start 04/12/19 at 06:00 Sodium Chloride 1,000 ml @ 1,000 mls/hr Q1H PRN IV hypotension; Start 04/12/19 at 07:47; Stop 04/12/19 at 13:46; Status DC Acetaminophen (Tylenol) 500 mg 1X PRN PRN PO MILD PAIN / TEMP; Start 04/12/19 at 08:00; Stop 04/13/19 at 07:59; Status DC Diphenhydramine HCl (Benadryl) 25 mg 1X PRN PRN IV ITCHING; Start 04/12/19 at 08:00; Stop 04/13/19 at 07:59; Status DC Diphenhydramine HCl (Benadryl) 25 mg 1X PRN PRN IV ITCHING; Start 04/12/19 at 08:00; Stop 04/13/19 at 07:59; Status DC Sodium Chloride 1,000 ml @ 400 mls/hr Q2H30M PRN IV PATENCY; Start 04/12/19 at 07:47; Stop 04/12/19 at 19:46; Status DC Info (PHARMACY MONITORING -- do not chart) 1 each PRN DAILY PRN MC SEE COMMENTS; Start 04/12/19 at 08:00; Stop 04/15/19 at 11:05; Status DC Albuterol/ Ipratropium (Duoneb) 3 ml 1X ONCE NEB Last administered on 04/12/19at 09:31; Start 04/12/19 at 09:15; Stop 04/12/19 at 09:16; Status DC Aspirin (Children'S Aspirin) 81 mg DAILY PO Last administered on 04/15/19at 08:32; Start 04/13/19 at 09:00 Atorvastatin Calcium (Lipitor) 20 mg HS PO Last administered on 04/14/19at 21:23; Start 04/12/19 at 21:00 Calcium Carbonate/ Glycine (Tums) 200 mg TIDWMEALS PO Last administered on 04/12/19at 17:20; Start 04/12/19 at 17:00; Stop 04/12/19 at 17:23; Status DC Cinacalcet (Sensipar) 30 mg DAILY PO Last administered on 04/15/19 08:32; Start 04/13/19 at 09:00 Ferrous Sulfate (Feosol) 325 mg DAILY08 PO Last administered on 04/15/19 08:32; Start 04/13/19 at 08:00 Midodrine (Proamatine) 10 mg QTUTHSA@0800 PO Last administered on 04/13/19at 07: 45; Start 04/13/19 at 08:00 Vitamin D (Vitamin D3) 5,000 unit DAILY PO Last administered on 04/15/19 08:32; Start 04/13/19 at 09:00 Docusate Sodium (Colace) 100 mg DAILY PO Last administered on 04/15/19 08:32; Start 04/13/19 at 09:00 Midodrine (Proamatine) 5 mg [id number] PO ; Start 04/12/19 at 18:00; Stop 04/12/19 at 17:07; Status DC Midodrine (Proamatine) 10 mg QTUTHSA@1000 PO Last administered on 04/13/19at 14:21; Start 04/13/19 at 10:00 Calcium Carbonate/ Glycine (Tums) 750 mg TIDWMEALS PO Last administered on 04/14/19at 18:22; Start 04/13/19 at 08:00 Sodium Chloride 1,000 ml @ 1,000 mls/hr Q1H PRN IV hypotension; Start 04/13/19 at 08:43; Stop 04/13/19 at 14:42; Status DC Albumin Human 200 ml @ 200 mls/hr 1X PRN PRN IV Hypotension; Start 04/13/19 at 08:45; Stop 04/13/19 at 14:44; Status DC Sodium Chloride 1,000 ml @ 400 mls/hr Q2H30M PRN IV PATENCY; Start 04/13/19 at 08:43; Stop 04/13/19 at 20:42; Status DC Info (PHARMACY MONITORING -- do not chart) 1 each PRN DAILY PRN MC SEE COMMENTS; Start 04/13/19 at 08:45; Status UNV Info (PHARMACY MONITORING -- do not chart) 1 each PRN DAILY PRN MC SEE COMMENTS; Start 04/13/19 at 08:45; Status UNV Ondansetron HCl (Zofran) 4 mg 1X ONCE IV ; Start 04/13/19 at 13:00; Stop 04/13/19 at 13:01; Status DC Ondansetron HCl (Zofran) 4 mg PRN Q4HRS PRN IVP NAUSEA/VOMITING 1ST CHOICE Last administered on 04/14/19at 20:22; Start 04/14/19 at 01:30 Sodium Chloride 500 ml @ 500 mls/hr 1X STAT IV Last administered on 04/14/19at 07:56; Start 04/14/19 at 07:56; Stop 04/14/19 at 08:55; Status DC Digoxin (Lanoxin) 500 mcg 1X ONCE IV Last administered on 04/14/19at 09:45; Start 04/14/19 at 09:45; Stop 04/14/19 at 09:46; Status DC Digoxin (Lanoxin) 500 mcg STK-MED ONCE .ROUTE ; Start 04/14/19 at 09:41; Stop 04/14/19 at 09:41; Status DC Lidocaine HCl (Lidocaine 1% 20ml Vial) 20 ml STK-MED ONCE .ROUTE ; Start 04/14/19 at 13:10; Stop 04/14/19 at 13:10; Status DC Heparin Sodium/ Sodium Chloride 500 ml @ As Directed STK-MED ONCE .ROUTE ; Start 04/14/19 at 13:10; Stop 04/14/19 at 13:10; Status DC Norepinephrine Bitartrate 250 ml @ 15.656 mls/ hr CONT PRN IV SEE I/O RECORD Last administered on 04/15/19at 04:06; Start 04/14/19 at 14:15 Adenosine (Adenoscan) 90 mg STK-MED ONCE IV ; Start 04/14/19 at 14:22; Stop 04/14/19 at 14:23; Status DC Iodixanol (Visipaque 320) 100 ml STK-MED ONCE .ROUTE ; Start 04/14/19 at 14:34; Stop 04/14/19 at 14:35; Status DC Heparin Sodium/ Sodium Chloride (HEPARIN for ARTERIAL LINE FLUSH) 1,000 unit 1X ONCE IART Last administered on 04/14/19at 15:09; Start 04/14/19 at 14:45; Stop 04/14/19 at 14:46; Status DC Iodixanol (Visipaque 320) 100 ml 1X ONCE IART Last administered on 04/14/19at 15:10; Start 04/14/19 at 14:45; Stop 04/14/19 at 14:46; Status DC Lidocaine HCl (Lidocaine 1% 20ml Vial) 20 ml 1X ONCE INJ Last administered on 04/14/19at 15:10; Start 04/14/19 at 14:45; Stop 04/14/19 at 14:46; Status DC Adenosine 90 mg/ Sodium Chloride 120 ml @ 200 mls/hr 1X ONCE IV Last administered on 04/14/19at 15:11; Start 04/14/19 at 14:45; Stop 04/14/19 at 1 5:20; Status DC Heparin Sodium/ Sodium Chloride 500 ml @ As Directed STK-MED ONCE .ROUTE ; Start 04/14/19 at 14:51; Stop 04/14/19 at 14:51; Status DC Acetaminophen/ Hydrocodone Bitart (Lortab 5/325) 1 tab PRN Q4HRS PRN PO MODERATE PAIN; Start 04/14/19 at 18:30 Temazepam (Restoril) 7.5 mg PRN QHS PRN PO INSOMNIA; Start 04/14/19 at 19:00 Albuterol/ Ipratropium (Duoneb) 3 ml RTQID NEB ; Start 04/15/19 at 08:00 Budesonide (Pulmicort) 0.5 mg RTBID NEB ; Start 04/15/19 at 08:00 Ceftriaxone Sodium (Rocephin) 1 gm Q24H IVP Last administered on 04/15/19at 06:45; Start 04/15/19 at 07:00 Iohexol (Omnipaque 350 Mg/ml) 90 ml 1X ONCE IV Last administered on 04/15/19at 09:00; Start 04/15/19 at 09:00; Stop 04/15/19 at 09:01; Status DC Info (CONTRAST GIVEN -- Rx MONITORING) 1 each PRN DAILY PRN MC SEE COMMENTS; Start 04/15/19 at 09:00; Stop 04/17/19 at 08:59 Sodium Chloride 1,000 ml @ 1,000 mls/hr Q1H PRN IV hypotension; Start 04/15/19 at 09:25; Stop 04/15/19 at 15:24 Acetaminophen (Tylenol) 500 mg 1X PRN PRN PO MILD PAIN / TEMP; Start 04/15/19 at 09:30; Stop 04/16/19 at 09:29 Diphenhydramine HCl (Benadryl) 25 mg 1X PRN PRN IV ITCHING; Start 04/15/19 at 09:30; Stop 04/16/19 at 09:29 Diphenhydramine HCl (Benadryl) 25 mg 1X PRN PRN IV ITCHING; Start 04/15/19 at 09:30; Stop 04/16/19 at 09:29 Sodium Chloride 1,000 ml @ 400 mls/hr Q2H30M PRN IV PATENCY; Start 04/15/19 at 09:25; Stop 04/15/19 at 21:24 Info (PHARMACY MONITORING -- do not chart) 1 each PRN DAILY PRN MC SEE COMMENTS; Start 04/15/19 at 09:30 Lactobacillus Rhamnosus (Culturelle) 1 cap BID PO ; Start 04/15/19 at 21:00 Active Scripts Active Reported Midodrine Hcl 10 Mg Tablet 10 Mg PO QTUTHSA Midodrine Hcl 5 Mg Tablet 10 Mg PO QTUTHSA Ferrous Sulfate 325 Mg Tablet 1 Tab PO DAILY Calcium Carbonate 200 Mg Tab.chew 750 Mg PO TIDWMEALS Stool Softener (Docusate Sodium) 250 Mg Capsule 250 Mg PO DAILY Aspirin 81 Mg Tab.chew 1 Tab PO DAILY Sensipar (Cinacalcet Hcl) 30 Mg Tablet 30 Mg PO DAILY Vitamin D3 (Cholecalciferol (Vitamin D3)) 5,000 Unit Tablet 1 Tab PO DAILY Atorvastatin Calcium 20 Mg Tablet 20 Mg PO HS Vitals/I & O Vital Sign - Last 24 Hours 04/14/19 04/14/19 04/14/19 04/14/19 15:30 15:30 16:00 16:00 Temp 98.8 98.8 Pulse 94 90 B/P (MAP) 86/42 (57) 132/73 (92) Pulse Ox 93 92 O2 Delivery Nasal Cannula Nasal Cannula Nasal Cannula O2 Flow Rate 3.0 3.0 3.0 04/14/19 04/14/19 04/14/19 04/14/19 17:00 18:00 19:00 20:00 Temp 98.8 98.8 Pulse 92 92 94 86 Resp 16 18 B/P (MAP) 118/73 (88) 130/60 (83) 112/50 (70) 116/52 (73) Pulse Ox 95 96 96 96 O2 Delivery Nasal Cannula Nasal Cannula Nasal Cannula Nasal Cannula O2 Flow Rate 3.0 5.0 5.0 5.0 04/14/19 04/14/19 04/14/19 04/14/19 20:00 20:00 21:00 22:00 Pulse 80 86 Resp 20 22 B/P (MAP) 112/50 (70) 102/44 (63) Pulse Ox 98 92 O2 Delivery Nasal Cannula Nasal Cannula Nasal Cannula O2 Flow Rate 4.0 5.0 5.0 04/14/19 04/15/19 04/15/19 04/15/19 23:00 00:00 00:00 00:00 Temp 98.5 98.5 Pulse 85 81 Resp 18 22 B/P (MAP) 99/41 (60) 110/50 (70) Pulse Ox 94 97 O2 Delivery Nasal Cannula Simple Mask Mask O2 Flow Rate 5.0 6.0 6.0 04/15/19 04/15/19 04/15/19 04/15/19 01:00 01:15 02:00 03:00 Pulse 79 82 82 84 Resp 18 20 18 22 B/P (MAP) 116/50 (72) 123/54 (77) 101/49 (66) 110/54 (72) Pulse Ox 96 96 94 95 O2 Delivery Simple Mask Simple Mask Simple Mask Simple Mask O2 Flow Rate 6.0 6.0 6.0 6.0 04/15/19 04/15/19 04/15/19 04/15/19 03:15 04:00 04:00 04:00 Temp 99.3 99.3 Pulse 80 82 Resp 18 22 B/P (MAP) 108/49 (68) 102/46 (64) Pulse Ox 97 94 O2 Delivery Simple Mask Simple Mask Mask O2 Flow Rate 6.0 6.0 6.0 04/15/19 04/15/19 04/15/19 04/15/19 04:15 05:00 06:00 07:00 Temp 98.1 98.1 Pulse 81 79 82 82 Resp 20 20 22 20 B/P (MAP) 106/46 (66) 105/86 (92) 110/44 (66) 105/44 (64) Pulse Ox 96 96 97 98 O2 Delivery Simple Mask Simple Mask Simple Mask Simple Mask O2 Flow Rate 6.0 6.0 6.0 6.0 04/15/19 04/15/19 04/15/19 04/15/19 08:00 08:00 08:00 09:00 Pulse 84 87 Resp 18 18 B/P (MAP) 104/43 (63) 121/65 (83) Pulse Ox 97 94 O2 Delivery Simple Mask Bi-pap Simple Mask O2 Flow Rate 6.0 4.0 6.0 04/15/19 04/15/19 10:00 11:00 Pulse 105 105 Resp 18 20 B/P (MAP) 112/65 (81) 101/58 (72) Pulse Ox 96 96 O2 Delivery Simple Mask Simple Mask O2 Flow Rate 6.0 6.0 Intake and Output 04/14/19 04/14/19 04/15/19 15:00 23:00 07:00 Intake Total 360 ml 42 ml 833 ml Output Total 100 ml 0 ml Balance 360 ml -58 ml 833 ml JUAN HILL MD Apr 15, 2019 12:05
--- NOTE | 2019-04-15 12:31 | RAD ---
EXAM: Bilateral lower extremity venous Doppler sonogram. HISTORY: Shortness of breath. Pulmonary hypertension. Pain. TECHNIQUE: Savage scale and color Doppler sonographic evaluation of the bilateral lower extremity veins with spectral waveform analysis was performed. FINDINGS: There is normal color flow, normal compressibility and there are normal spectral waveforms in the common femoral, superficial femoral, popliteal, posterior tibial and greater saphenous veins. There is a right inguinal femoral artery sheath with pulsatile flow. IMPRESSION: No Doppler evidence of lower extremity deep venous thrombosis. Electronically signed by: Tammie Clark MD (04/15/2019 12:28 PM) [facility]
--- NOTE | 2019-04-15 14:13 | PDOC ---
PROGRESS NOTES Subjective Subjective SEEN IN FOLLOW UP OF ESRD Objective Objective Vital Signs Date Time Temp Pulse Resp B/P (MAP) Pulse Ox O2 Delivery O2 Flow Rate FiO2 04/15/19 14:03 127 74/57 04/15/19 13:23 28 97 Simple Mask 6.0 04/15/19 07:00 98.1 98.1 Intake and Output 04/15/19 07:00 Intake Total 1235 ml Output Total 100 ml Balance 1135 ml Intake Oral 980 ml IV Total 255 ml Output Urine Total 0 ml Emesis 100 ml Physical Exam Abdomen: Normal bowel sounds, Soft, No tenderness, No hepatosplenomegaly, No masses Heart: Regular rate, Normal S1, Normal S2, No murmurs, Gallops Extremities: No clubbing, No cyanosis, No edema, Normal pulses, No tenderness/swelling General: Alert, Oriented X3, Cooperative, No acute distress Lungs: Other (BILAT RHONCHI) Psych/Mental Status: Mental status NL, Mood NL Diagnosis RENAL FAILURE: ESRD Assessment Assessment Problems Medical Problems: (1) Elevated troponin Status: Acute (2) ESRD (end stage renal disease) Status: Acute (3) Hypotension Status: Acute (4) Near syncope Status: Acute Plan Plan of Care SEEN ON DIALYSIS AND TOLERATING WELL. EPOGEN PER HGB Comment Review of Relevant I have reviewed the following items khalida (where applicable) has been applied. Labs Laboratory Tests Test 04/14/19 04:15 White Blood Count 9.1 x10^3/uL (4.0-11.0) Red Blood Count 3.48 x10^6/uL (4.30-5.70) Hemoglobin 11.2 g/dL (13.0-17.5) Hematocrit 34.7 % (39.0-53.0) Mean Corpuscular Volume 100 fL (79-100) Mean Corpuscular Hemoglobin 32 pg (25-35) Mean Corpuscular Hemoglobin Concent 32 g/dL (31-37) Red Cell Distribution Width 14.8 % (11.5-14.5) Platelet Count 131 x10^3/uL (140-400) Neutrophils (%) (Auto) 84 % (31-73) Lymphocytes (%) (Auto) 8 % (24-48) Monocytes (%) (Auto) 8 % (0-9) Eosinophils (%) (Auto) 0 % (0-3) Basophils (%) (Auto) 0 % (0-3) Neutrophils # (Auto) 7.6 x10^3/uL (1.8-7.7) Lymphocytes # (Auto) 0.7 x10^3/uL (1.0-4.8) Monocytes # (Auto) 0.7 x10^3/uL (0.0-1.1) Eosinophils # (Auto) 0.0 x10^3/uL (0.0-0.7) Basophils # (Auto) 0.0 x10^3/uL (0.0-0.2) Sodium Level 138 mmol/L (136-145) Potassium Level 3.7 mmol/L (3.5-5.1) Chloride Level 98 mmol/L (98-107) Carbon Dioxide Level 29 mmol/L (21-32) Anion Gap 11 (6-14) Blood Urea Nitrogen 38 mg/dL (8-26) Creatinine 6.8 mg/dL (0.7-1.3) Estimated GFR (Cockcroft-Gault) 9.5 BUN/Creatinine Ratio 6 (6-20) Glucose Level 97 mg/dL (70-99) Calcium Level 8.7 mg/dL (8.5-10.1) Magnesium Level 2.5 mg/dL (1.8-2.4) Total Bilirubin 0.7 mg/dL (0.2-1.0) Aspartate Amino Transf (AST/SGOT) 23 U/L (15-37) Alanine Aminotransferase (ALT/SGPT) 16 U/L (16-63) Alkaline Phosphatase 118 U/L (46-116) Total Protein 7.5 g/dL (6.4-8.2) Albumin 2.8 g/dL (3.4-5.0) Albumin/Globulin Ratio 0.6 (1.0-1.7) Microbiology 04/11/19 Blood Culture - Preliminary, Resulted NO GROWTH AFTER 4 DAYS Medications Current Medications Albuterol/ Ipratropium (Duoneb) 3 ml 1X ONCE NEB Last administered on 04/11/19at 07:49; Start 04/11/19 at 07:45; Stop 04/11/19 at 07:46; Status DC Sodium Chloride 250 ml @ 250 mls/hr 1X ONCE IV Last administered on 04/11/19at 08:10; Start 04/11/19 at 07:45; Stop 04/11/19 at 08:44; Status DC Acetaminophen (Tylenol) 650 mg PRN Q6HRS PRN PEG MILD PAIN / TEMP Last administered on 04/11/19at 20:34; Start 04/11/19 at 20:15; Stop 04/12/19 at 05:49; Status DC Acetaminophen (Tylenol) 650 mg PRN Q6HRS PRN PO MILD PAIN / TEMP; Start 04/12/19 at 06:00 Sodium Chloride 1,000 ml @ 1,000 mls/hr Q1H PRN IV hypotension; Start 04/12/19 at 07:47; Stop 04/12/19 at 13:46; Status DC Acetaminophen (Tylenol) 500 mg 1X PRN PRN PO MILD PAIN / TEMP; Start 04/12/19 at 08:00; Stop 04/13/19 at 07:59; Status DC Diphenhydramine HCl (Benadryl) 25 mg 1X PRN PRN IV ITCHING; Start 04/12/19 at 08:00; Stop 04/13/19 at 07:59; Status DC Diphenhydramine HCl (Benadryl) 25 mg 1X PRN PRN IV ITCHING; Start 04/12/19 at 08:00; Stop 04/13/19 at 07:59; Status DC Sodium Chloride 1,000 ml @ 400 mls/hr Q2H30M PRN IV PATENCY; Start 04/12/19 at 07:47; Stop 04/12/19 at 19:46; Status DC Info (PHARMACY MONITORING -- do not chart) 1 each PRN DAILY PRN MC SEE COMMENTS; Start 04/12/19 at 08:00; Stop 04/15/19 at 11:05; Status DC Albuterol/ Ipratropium (Duoneb) 3 ml 1X ONCE NEB Last administered on 04/12/19at 09:31; Start 04/12/19 at 09:15; Stop 04/12/19 at 09:16; Status DC Aspirin (Children'S Aspirin) 81 mg DAILY PO Last administered on 04/15/19at 08:32; Start 04/13/19 at 09:00 Atorvastatin Calcium (Lipitor) 20 mg HS PO Last administered on 04/14/19at 21:23; Start 04/12/19 at 21:00 Calcium Carbonate/ Glycine (Tums) 200 mg TIDWMEALS PO Last administered on 04/12/19at 17:20; Start 04/12/19 at 17:00; Stop 04/12/19 at 17:23; Status DC Cinacalcet (Sensipar) 30 mg DAILY PO Last administered on 04/15/19 08:32; Start 04/13/19 at 09:00 Ferrous Sulfate (Feosol) 325 mg DAILY08 PO Last administered on 04/15/19at 08:32; Start 04/13/19 at 08:00 Midodrine (Proamatine) 10 mg QTUTHSA@0800 PO Last administered on 04/15/19at 12:04; Start 04/13/19 at 08:00 Vitamin D (Vitamin D3) 5,000 unit DAILY PO Last administered on 04/15/19 08:32; Start 04/13/19 at 09:00 Docusate Sodium (Colace) 100 mg DAILY PO Last administered on 04/15/19 08:32; Start 04/13/19 at 09:00 Midodrine (Proamatine) 5 mg [id number] PO ; Start 04/12/19 at 18:00; Stop 04/12/19 at 17:07; Status DC Midodrine (Proamatine) 10 mg QTUTHSA@1000 PO Last administered on 04/15/19at 14:03; Start 04/13/19 at 10:00 Calcium Carbonate/ Glycine (Tums) 750 mg TIDWMEALS PO Last administered on 04/14/19at 18:22; Start 04/13/19 at 08:00 Sodium Chloride 1,000 ml @ 1,000 mls/hr Q1H PRN IV hypotension; Start 04/13/19 at 08:43; Stop 04/13/19 at 14:42; Status DC Albumin Human 200 ml @ 200 mls/hr 1X PRN PRN IV Hypotension; Start 04/13/19 at 08:45; Stop 04/13/19 at 14:44; Status DC Sodium Chloride 1,000 ml @ 400 mls/hr Q2H30M PRN IV PATENCY; Start 04/13/19 at 08:43; Stop 04/13/19 at 20:42; Status DC Info (PHARMACY MONITORING -- do not chart) 1 each PRN DAILY PRN MC SEE COMMENTS; Start 04/13/19 at 08:45; Status UNV Info (PHARMACY MONITORING -- do not chart) 1 each PRN DAILY PRN MC SEE COMMENTS; Start 04/13/19 at 08:45; Status UNV Ondansetron HCl (Zofran) 4 mg 1X ONCE IV ; Start 04/13/19 at 13:00; Stop 04/13/19 at 13:01; Status DC Ondansetron HCl (Zofran) 4 mg PRN Q4HRS PRN IVP NAUSEA/VOMITING 1ST CHOICE Last administered on 04/14/19at 20:22; Start 04/14/19 at 01:30 Sodium Chloride 500 ml @ 500 mls/hr 1X STAT IV Last administered on 04/14/19at 07:56; Start 04/14/19 at 07:56; Stop 04/14/19 at 08:55; Status DC Digoxin (Lanoxin) 500 mcg 1X ONCE IV Last administered on 04/14/19at 09:45; Start 04/14/19 at 09:45; Stop 04/14/19 at 09:46; Status DC Digoxin (Lanoxin) 500 mcg STK-MED ONCE .ROUTE ; Start 04/14/19 at 09:41; Stop 04/14/19 at 09:41; Status DC Lidocaine HCl (Lidocaine 1% 20ml Vial) 20 ml STK-MED ONCE .ROUTE ; Start 04/14/19 at 13:10; Stop 04/14/19 at 13:10; Status DC Heparin Sodium/ Sodium Chloride 500 ml @ As Directed STK-MED ONCE .ROUTE ; Start 04/14/19 at 13:10; Stop 04/14/19 at 13:10; Status DC Norepinephrine Bitartrate 250 ml @ 15.656 mls/ hr CONT PRN IV SEE I/O RECORD Last administered on 04/15/19at 04:06; Start 04/14/19 at 14:15 Adenosine (Adenoscan) 90 mg STK-MED ONCE IV ; Start 04/14/19 at 14:22; Stop 04/14/19 at 14:23; Status DC Iodixanol (Visipaque 320) 100 ml STK-MED ONCE .ROUTE ; Start 04/14/19 at 14:34; Stop 04/14/19 at 14:35; Status DC Heparin Sodium/ Sodium Chloride (HEPARIN for ARTERIAL LINE FLUSH) 1,000 unit 1X ONCE IART Last administered on 04/14/19at 15:09; Start 04/14/19 at 14:45; Stop 04/14/19 at 14:46; Status DC Iodixanol (Visipaque 320) 100 ml 1X ONCE IART Last administered on 04/14/19at 15:10; Start 04/14/19 at 14:45; Stop 04/14/19 at 14:46; Status DC Lidocaine HCl (Lidocaine 1% 20ml Vial) 20 ml 1X ONCE INJ Last administered on 04/14/19at 15:10; Start 04/14/19 at 14:45; Stop 04/14/19 at 14:46; Status DC Adenosine 90 mg/ Sodium Chloride 120 ml @ 200 mls/hr 1X ONCE IV Last administered on 04/14/19at 15:11; Start 04/14/19 at 14:45; Stop 04/14/19 at 15:20; Status DC Heparin Sodium/ Sodium Chloride 500 ml @ As Directed STK-MED ONCE .ROUTE ; Start 04/14/19 at 14:51; Stop 04/14/19 at 14:51; Status DC Acetaminophen/ Hydrocodone Bitart (Lortab 5/325) 1 tab PRN Q4HRS PRN PO MODERATE PAIN Last administered on 04/15/19at 13:23; Start 04/14/19 at 18:30 Temazepam (Restoril) 7.5 mg PRN QHS PRN PO INSOMNIA; Start 04/14/19 at 19:00 Albuterol/ Ipratropium (Duoneb) 3 ml RTQID NEB ; Start 04/15/19 at 08:00 Budesonide (Pulmicort) 0.5 mg RTBID NEB ; Start 04/15/19 at 08:00 Ceftriaxone Sodium (Rocephin) 1 gm Q24H IVP Last administered on 04/15/19at 06:45; Start 04/15/19 at 07:00 Iohexol (Omnipaque 350 Mg/ml) 90 ml 1X ONCE IV Last administered on 04/15/19at 09:00; Start 04/15/19 at 09:00; Stop 04/15/19 at 09:01; Status DC Info (CONTRAST GIVEN -- Rx MONITORING) 1 each PRN DAILY PRN MC SEE COMMENTS; Start 04/15/19 at 09:00; Stop 04/17/19 at 08:59 Sodium Chloride 1,000 ml @ 1,000 mls/hr Q1H PRN IV hypotension; Start 04/15/19 at 09:25; Stop 04/15/19 at 15:24 Acetaminophen (Tylenol) 500 mg 1X PRN PRN PO MILD PAIN / TEMP; Start 04/15/19 at 09:30; Stop 04/16/19 at 09:29 Diphenhydramine HCl (Benadryl) 25 mg 1X PRN PRN IV ITCHING; Start 04/15/19 at 09:30; Stop 04/16/19 at 09:29 Diphenhydramine HCl (Benadryl) 25 mg 1X PRN PRN IV ITCHING; Start 04/15/19 at 09:30; Stop 04/16/19 at 09:29 Sodium Chloride 1,000 ml @ 400 mls/hr Q2H30M PRN IV PATENCY; Start 04/15/19 at 09:25; Stop 04/15/19 at 21:24 Info (PHARMACY MONITORING -- do not chart) 1 each PRN DAILY PRN MC SEE COMMENTS; Start 04/15/19 at 09:30 Lactobacillus Rhamnosus (Culturelle) 1 cap BID PO ; Start 04/15/19 at 21:00 Active Scripts Active Reported Midodrine Hcl 10 Mg Tablet 10 Mg PO QTUTHSA Midodrine Hcl 5 Mg Tablet 10 Mg PO QTUTHSA Ferrous Sulfate 325 Mg Tablet 1 Tab PO DAILY Calcium Carbonate 200 Mg Tab.chew 750 Mg PO TIDWMEALS Stool Softener (Docusate Sodium) 250 Mg Capsule 250 Mg PO DAILY Aspirin 81 Mg Tab.chew 1 Tab PO DAILY Sensipar (Cinacalcet Hcl) 30 Mg Tablet 30 Mg PO DAILY Vitamin D3 (Cholecalciferol (Vitamin D3)) 5,000 Unit Tablet 1 Tab PO DAILY Atorvastatin Calcium 20 Mg Tablet 20 Mg PO HS Vitals/I & O Vital Sign - Last 24 Hours 04/14/19 04/14/19 04/14/19 04/14/19 15:30 15:30 16:00 16:00 Temp 98.8 98.8 Pulse 94 90 B/P (MAP) 86/42 (57) 132/73 (92) Pulse Ox 93 92 O2 Delivery Nasal Cannula Nasal Cannula Nasal Cannula O2 Flow Rate 3.0 3.0 3.0 04/14/19 04/14/19 04/14/19 04/14/19 17:00 18:00 19:00 20:00 Temp 98.8 98.8 Pulse 92 92 94 86 Resp 16 18 B/P (MAP) 118/73 (88) 130/60 (83) 112/50 (70) 116/52 (73) Pulse Ox 95 96 96 96 O2 Delivery Nasal Cannula Nasal Cannula Nasal Cannula Nasal Cannula O2 Flow Rate 3.0 5.0 5.0 5.0 04/14/19 04/14/19 04/14/19 04/14/19 20:00 20:00 21:00 22:00 Pulse 80 86 Resp 20 22 B/P (MAP) 112/50 (70) 102/44 (63) Pulse Ox 98 92 O2 Delivery Nasal Cannula Nasal Cannula Nasal Cannula O2 Flow Rate 4.0 5.0 5.0 04/14/19 04/15/19 04/15/19 04/15/19 23:00 00:00 00:00 00:00 Temp 98.5 98.5 Pulse 85 81 Resp 18 22 B/P (MAP) 99/41 (60) 110/50 (70) Pulse Ox 94 97 O2 Delivery Nasal Cannula Simple Mask Mask O2 Flow Rate 5.0 6.0 6.0 04/15/19 04/15/19 04/15/19 04/15/19 01:00 01:15 02:00 03:00 Pulse 79 82 82 84 Resp 18 20 18 22 B/P (MAP) 116/50 (72) 123/54 (77) 101/49 (66) 110/54 (72) Pulse Ox 96 96 94 95 O2 Delivery Simple Mask Simple Mask Simple Mask Simple Mask O2 Flow Rate 6.0 6.0 6.0 6.0 04/15/19 04/15/19 04/15/19 04/15/19 03:15 04:00 04:00 04:00 Temp 99.3 99.3 Pulse 80 82 Resp 18 22 B/P (MAP) 108/49 (68) 102/46 (64) Pulse Ox 97 94 O2 Delivery Simple Mask Simple Mask Mask O2 Flow Rate 6.0 6.0 6.0 04/15/19 04/15/19 04/15/19 04/15/19 04:15 05:00 06:00 07:00 Temp 98.1 98.1 Pulse 81 79 82 82 Resp 20 20 22 20 B/P (MAP) 106/46 (66) 105/86 (92) 110/44 (66) 105/44 (64) Pulse Ox 96 96 97 98 O2 Delivery Simple Mask Simple Mask Simple Mask Simple Mask O2 Flow Rate 6.0 6.0 6.0 6.0 04/15/19 04/15/19 04/15/19 04/15/19 08:00 08:00 08:00 09:00 Pulse 84 87 Resp 18 18 B/P (MAP) 104/43 (63) 121/65 (83) Pulse Ox 97 94 O2 Delivery Simple Mask Bi-pap Simple Mask O2 Flow Rate 6.0 4.0 6.0 04/15/19 04/15/19 04/15/19 04/15/19 10:00 11:00 12:00 12:00 Pulse 105 105 123 Resp 18 20 30 B/P (MAP) 112/65 (81) 101/58 (72) 113/75 (88) 113/75 (88) Pulse Ox 96 96 97 O2 Delivery Simple Mask Simple Mask Simple Mask O2 Flow Rate 6.0 6.0 6.0 04/15/19 04/15/19 04/15/19 04/15/19 12:00 12:04 13:00 13:23 Pulse 127 103 Resp 28 28 B/P (MAP) 107/62 120/66 (84) Pulse Ox 100 97 O2 Delivery Mask Simple Mask Simple Mask O2 Flow Rate 6.0 6.0 6.0 04/15/19 14:03 Pulse 127 B/P (MAP) 74/57 Intake and Output 04/14/19 04/14/19 04/15/19 15:00 23:00 07:00 Intake Total 360 ml 42 ml 833 ml Output Total 100 ml 0 ml Balance 360 ml -58 ml 833 ml QUOC PARR MD Apr 15, 2019 14:13
--- NOTE | 2019-04-15 14:17 | PDOC ---
PROGRESS NOTES Assessment Assessment IMPRESSION: Orthostatic hypotension. Presyncope and syncope. AFIb with RVR. ESRD on dialysis. DM. HTN. HLD. GINGER. Thyroid disease. RECOMMENDATIONS/PLAN: He has been treated with Midodrine. Continue medical management. OT/PT. Past Medical History Cardiovascular: HTN, Hyperlipidemia, Other (hypotension) Pulmonary: Bronchitis, Other (sleep apnea) GI: Constipation (and diarrhea) Heme/Onc: Anemia NOS (has required transfusions) Musculoskeletal: Osteoarthritis ENT: Other (cataracts, not operated yet) Renal/: Chronic renal failure (starting dialysis), Benign prostatic enlarg., Other (urinary retention) Endocrine: Diabetes, Other (thyroid disease, not currently requiring medication) Past Surgical History Tonsillectomy, Other (right renal biopsy) Family History No pertinent hx Social History , rare alcohol, no tobacco Allergies No Known Drug Allergies (Unverified , 04/09/16) ROS Negative for fever, chills, weight loss, shortness of breath, chest pain, indigestion, hematochezia, melena, and dysuria. Full 14-point review of systems is negative. MEDICATIONS: Refer to [facility] PHYSICAL EXAMINATION: General appearance in subacute distress. HEENT: Normocephalic and nontraumatic. Eyes, nose, ears, and throat are unremarkable. Hearing decrease. Neck is supple. No lymphadenopathy. No Crepitus. Cardiovascular: S1, S2, regular rate and rhythm. Pulmonary: Clear to auscultation bilaterally. Abdomen: Bowel sounds are positive. Extremities: No rash, lesions, or edema. No restriction of range of motion NEUROLOGICAL EXAMINATION: Awake. Oriented to time, place and person. PERRL. EOMI. CN: no focal findings. Muscle tone: within normal. Muscle strength: 4+ DTR: 1-2 Plantar reflex: Flexor response bilaterally Gait: not examined in bed. Sensory exam: no abnormal findings. No cerebellar signs elicited. F-T-N test fine. Objective Objective Vital Signs Date Time Temp Pulse Resp B/P (MAP) Pulse Ox O2 Delivery O2 Flow Rate FiO2 04/15/19 14:03 127 74/57 04/15/19 13:23 28 97 Simple Mask 6.0 04/15/19 07:00 98.1 98.1 Intake and Output 04/15/19 07:00 Intake Total 1235 ml Output Total 100 ml Balance 1135 ml Intake Oral 980 ml IV Total 255 ml Output Urine Total 0 ml Emesis 100 ml Vitals Signs Vitals VS - Last 72 Hours, by Label Date Time Temp Pulse Resp B/P (MAP) Pulse Ox O2 Delivery O2 Flow Rate FiO2 04/15/19 14:03 127 74/57 04/15/19 13:23 28 97 Simple Mask 6.0 04/15/19 13:00 103 28 120/66 (84) 100 Simple Mask 6.0 04/15/19 12:04 127 107/62 04/15/19 12:00 Mask 6.0 04/15/19 12:00 123 30 113/75 (88) 97 Simple Mask 6.0 04/15/19 12:00 113/75 (88) 04/15/19 11:00 105 20 101/58 (72) 96 Simple Mask 6.0 04/15/19 10:00 105 18 112/65 (81) 96 Simple Mask 6.0 04/15/19 09:00 87 18 121/65 (83) 94 Simple Mask 6.0 04/15/19 08:00 Bi-pap 4.0 04/15/19 08:00 04/15/19 08:00 84 18 104/43 (63) 97 Simple Mask 6.0 04/15/19 07:00 98.1 82 20 105/44 (64) 98 Simple Mask 6.0 98.1 04/15/19 06:00 82 22 110/44 (66) 97 Simple Mask 6.0 04/15/19 05:00 79 20 105/86 (92) 96 Simple Mask 6.0 04/15/19 04:15 81 20 106/46 (66) 96 Simple Mask 6.0 04/15/19 04:00 04/15/19 04:00 Mask 6.0 04/15/19 04:00 99.3 82 22 102/46 (64) 94 Simple Mask 6.0 99.3 04/15/19 03:15 80 18 108/49 (68) 97 Simple Mask 6.0 04/15/19 03:00 84 22 110/54 (72) 95 Simple Mask 6.0 04/15/19 02:00 82 18 101/49 (66) 94 Simple Mask 6.0 04/15/19 01:15 82 20 123/54 (77) 96 Simple Mask 6.0 04/15/19 01:00 79 18 116/50 (72) 96 Simple Mask 6.0 04/15/19 00:00 Mask 6.0 04/15/19 00:00 04/15/19 00:00 98.5 81 22 110/50 (70) 97 Simple Mask 6.0 98.5 04/14/19 23:00 85 18 99/41 (60) 94 Nasal Cannula 5.0 04/14/19 22:00 86 22 102/44 (63) 92 Nasal Cannula 5.0 04/14/19 21:00 80 20 112/50 (70) 98 Nasal Cannula 5.0 04/14/19 20:00 Nasal Cannula 4.0 04/14/19 20:00 04/14/19 20:00 98.8 86 18 116/52 (73) 96 Nasal Cannula 5.0 98.8 04/14/19 19:00 94 16 112/50 (70) 96 Nasal Cannula 5.0 04/14/19 18:00 92 130/60 (83) 96 Nasal Cannula 5.0 04/14/19 17:00 92 118/73 (88) 95 Nasal Cannula 3.0 04/14/19 16:00 Nasal Cannula 3.0 04/14/19 16:00 90 132/73 (92) 92 Nasal Cannula 3.0 04/14/19 15:30 04/14/19 15:30 98.8 94 86/42 (57) 93 Nasal Cannula 3.0 98.8 04/14/19 11:08 100.0 100 18 90/52 (65) 93 Nasal Cannula 3.0 100.0 04/14/19 09:45 140 04/14/19 08:00 Nasal Cannula 4.0 04/14/19 07:00 98.5 75 18 73/45 (54) 95 Nasal Cannula 3.0 98.5 Laboratory Laboratory Microbiology 04/11/19 Blood Culture - Preliminary, Resulted NO GROWTH AFTER 4 DAYS Medication Medications Current Medications Acetaminophen (Tylenol) 500 mg 1X PRN PRN PO MILD PAIN / TEMP; Start 04/15/19 at 09:30; Stop 04/16/19 at 09:29 Acetaminophen/ Hydrocodone Bitart (Lortab 5/325) 1 tab PRN Q4HRS PRN PO MODERATE PAIN Last administered on 04/15/19at 13:23; Start 04/14/19 at 18:30 Adenosine (Adenoscan) 90 mg STK-MED ONCE IV ; Start 04/14/19 at 14:22; Stop 04/14/19 at 14:23; Status DC Adenosine 90 mg/ Sodium Chloride 120 ml @ 200 mls/hr 1X ONCE IV Last administered on 04/14/19at 15:11; Start 04/14/19 at 14:45; Stop 04/14/19 at 15:20; Status DC Albuterol/ Ipratropium (Duoneb) 3 ml RTQID NEB ; Start 04/15/19 at 08:00 Budesonide (Pulmicort) 0.5 mg RTBID NEB ; Start 04/15/19 at 08:00 Ceftriaxone Sodium (Rocephin) 1 gm Q24H IVP Last administered on 04/15/19at 06:45; Start 04/15/19 at 07:00 Diphenhydramine HCl (Benadryl) 25 mg 1X PRN PRN IV ITCHING; Start 04/15/19 at 09:30; Stop 04/16/19 at 09:29 Diphenhydramine HCl (Benadryl) 25 mg 1X PRN PRN IV ITCHING; Start 04/15/19 at 09:30; Stop 04/16/19 at 09:29 Heparin Sodium/ Sodium Chloride 500 ml @ As Directed STK-MED ONCE .ROUTE ; Start 04/14/19 at 14:51; Stop 04/14/19 at 14:51; Status DC Heparin Sodium/ Sodium Chloride (HEPARIN for ARTERIAL LINE FLUSH) 1,000 unit 1X ONCE IART Last administered on 04/14/19at 15:09; Start 04/14/19 at 14:45; Stop 04/14/19 at 14:46; Status DC Info (CONTRAST GIVEN -- Rx MONITORING) 1 each PRN DAILY PRN MC SEE COMMENTS; Start 04/15/19 at 09:00; Stop 04/17/19 at 08:59 Info (PHARMACY MONITORING -- do not chart) 1 each PRN DAILY PRN MC SEE COMMENTS; Start 04/15/19 at 09:30 Iodixanol (Visipaque 320) 100 ml 1X ONCE IART Last administered on 04/14/19at 15:10; Start 04/14/19 at 14:45; Stop 04/14/19 at 14:46; Status DC Iodixanol (Visipaque 320) 100 ml STK-MED ONCE .ROUTE ; Start 04/14/19 at 14:34; Stop 04/14/19 at 14:35; Status DC Iohexol (Omnipaque 350 Mg/ml) 90 ml 1X ONCE IV Last administered on 04/15/19at 09:00; Start 04/15/19 at 09:00; Stop 04/15/19 at 09:01; Status DC Lactobacillus Rhamnosus (Culturelle) 1 cap BID PO ; Start 04/15/19 at 21:00 Lidocaine HCl (Lidocaine 1% 20ml Vial) 20 ml 1X ONCE INJ Last administered on 04/14/19at 15:10; Start 04/14/19 at 14:45; Stop 04/14/19 at 14:46; Status DC Norepinephrine Bitartrate 250 ml @ 15.656 mls/ hr CONT PRN IV SEE I/O RECORD Last administered on 04/15/19at 04:06; Start 04/14/19 at 14:15 Sodium Chloride 1,000 ml @ 400 mls/hr Q2H30M PRN IV PATENCY; Start 04/15/19 at 09:25; Stop 04/15/19 at 21:24 Sodium Chloride 1,000 ml @ 1,000 mls/hr Q1H PRN IV hypotension; Start 04/15/19 at 09:25; Stop 04/15/19 at 15:24 Temazepam (Restoril) 7.5 mg PRN QHS PRN PO INSOMNIA; Start 04/14/19 at 19:00 Comment Review of Relevant I have reviewed the following items khalida (where applicable) has been applied. CHARITY HAYES MD Apr 15, 2019 14:17
--- NOTE | 2019-04-15 19:50 | NUR ---
Patient's 02 sat dropping to 85-88% on 6LFM. Patient placed on 50% ventimask with 02 sat increasing to 91%. Patient drowsy but arousable and answers questions appropriately. No c/o SOA. Will monitor.
[2019-04-15] MEDS: ATORVASTATIN CALCIUM 20 MG TABLET PO SCH (21:09)
[2019-04-15] MEDS: LACTOBACILLUS RHAMNOSUS GG 1 CAPSULE. PO SCH (21:09)
[2019-04-16] VITALS (27 sets, daily range): BP systolic 87–122; BP diastolic 48–74
[2019-04-16] MEDS: NOREPINEPHRIN 8MG/250ML PREMIX 250 ML IV PRN (00:02)
[2019-04-16 03:15] LABS: BASE EXCESS ABG -2 mmol/L (-3-3); HCO3 ABG 26 mmol/L (21-28); PO2 ABG 62 mmHg (65-108); SAT O2 ABG 88 % (92-99)
[2019-04-16 03:40] LABS: FIO2 ABG 50; PCO2 ABG 61 mmHg (35-46)
--- NOTE | 2019-04-16 03:45 | NUR ---
At 0305 patient 02 sat dropped with 70s per monitor. When this nurse entered patient's room patient was making small gasping noises and was unresponsive to verbal stimuli. Patient at this point was on a 50% ventimask. HR dropped from the 90s to the 50s and SBP dropped from the 110s to the 70s despite levo gtt. After approximately 10 seconds, patient was arousable to painful stimuli. " I was just sleeping." When patient woke up o2 sat, BP and HR returned to WNL. RT obtained ABG at 030. Patient placed on Bipap at 0320. Settings at 18/6, 16, 40%. Dr. Oreilly paged at [phone] and notified on patient changes and current condition at 0340. Will monitor.
--- NOTE | 2019-04-16 06:27 | PDOC ---
PULMONARY PROGRESS NOTES Subjective on bipap, had desat during sleep, no sob, has occ cough, no cp Vitals Vital Signs Date Time Temp Pulse Resp B/P (MAP) Pulse Ox O2 Delivery O2 Flow Rate FiO2 04/16/19 06:00 76 20 103/71 (82) 96 BiPAP/CPAP 04/16/19 04:00 99.0 99.0 04/16/19 03:00 15.0 Comments ros as mentioned as above other sys otherwise neg ROS: No Nausea General: Alert, No acute distress, Lethargic HEENT: Other (nc at perrl bipap mask on neck no lad no thyromegaly) Lungs: Crackles, Other Cardiovascular: S1, S2, Other Abdomen: Soft, Non-tender Neuro Exam: Alert Extremities: No Edema Skin: Warm Labs Laboratory Tests Test 04/16/19 03:05 04/16/19 03:09 Glucose (Fingerstick) 155 mg/dL (70-99) O2 Saturation 88 % (92-99) Arterial Blood pH 7.25 (7.35-7.45) Arterial Blood pCO2 at Patient Temp 61 mmHg (35-46) Arterial Blood pO2 at Patient Temp 62 mmHg (65-108) Arterial Blood HCO3 26 mmol/L (21-28) Arterial Blood Base Excess -2 mmol/L (-3-3) FiO2 50 Laboratory Tests Test 04/16/19 03:05 04/16/19 03:09 Glucose (Fingerstick) 155 mg/dL (70-99) O2 Saturation 88 % (92-99) Arterial Blood pH 7.25 (7.35-7.45) Arterial Blood pCO2 at Patient Temp 61 mmHg (35-46) Arterial Blood pO2 at Patient Temp 62 mmHg (65-108) Arterial Blood HCO3 26 mmol/L (21-28) Arterial Blood Base Excess -2 mmol/L (-3-3) FiO2 50 Medications Active Scripts Medications Dose Route/Sig Max Daily Dose Days Date Category Midodrine Hcl 10 Mg Tablet 10 Mg PO QTUTHSA 04/11/19 Reported Midodrine Hcl 5 Mg Tablet 10 Mg PO QTUTHSA 04/11/19 Reported Ferrous Sulfate 325 Mg Tablet 1 Tab PO DAILY 04/11/19 Reported Calcium Carbonate 200 Mg Tab.chew 750 Mg PO TIDWMEALS 04/11/19 Reported Stool Softener (Docusate Sodium) 250 Mg Capsule 250 Mg PO DAILY 04/11/19 Reported Aspirin 81 Mg Tab.chew 1 Tab PO DAILY 04/11/19 Reported Sensipar (Cinacalcet Hcl) 30 Mg Tablet 30 Mg PO DAILY 04/11/19 Reported Vitamin D3 (Cholecalciferol (Vitamin D3)) 5,000 Unit Tablet 1 Tab PO DAILY 04/11/19 Reported Atorvastatin Calcium 20 Mg Tablet 20 Mg PO HS 04/01/[address] 1. No convincing central pulmonary embolism. Evaluation for segmental and subsegmental emboli is significantly limited due to suboptimal contrast opacification and respiratory motion. 2. Enlarged central pulmonary arteries likely due to pulmonary artery hypertension. There is also cardiomegaly. 3. Moderate right and small left pleural effusions with right lower lobe partially consolidated infiltrate superimposed on atelectasis. There is also left lower lobe and posterior dependent atelectasis and scarring along the pleural fissures. 4. Moderate emphysema. 5. Prominent mediastinal and hilar lymph nodes, possibly reactive in etiology. 6. Renal atrophy. 7. Large right thyroid cyst. Impression . IMPRESSION: 1. Acute hypoxemic respiratory failure, multifactorial in etiology. 2. Pulmonary hypertension. I suspect it is secondary and chronic and it is multifactorial in etiology. I suspect he does have significant chronic obstructive pulmonary disease with nocturnal hypoxemia, need to rule out obstructive sleep apnea-hypopnea syndrome. no central pulmonary embolism. His chest x-ray also shows increased interstitial marking, no ild, has emphysema 3. Abnormal chest x-ray. 4. Significant history of smoking, suspect he has significant chronic obstructive pulmonary disease. 5. ?Obstructive sleep apnea-hypopnea syndrome. 6. Acute bronchitis. 7. End-stage renal disease, on hemodialysis. 8. Hypotension ?etiology. 9. Diabetes mellitus. 10. History of hypertension. Plan . PLAN AND RECOMMENDATIONS: 1. 02 titration, bipap prn during day, cont at night, setting reviewed. abg on 02 2. bronchodilator. 3. inhaled corticosteroid, may require systemic steroid. 4. Rocephin. 5. CT angiogram reviewed, no central pe, le doppler neg 6. He would require complete PFTs as an outpatient. 7. I do recommend sleep study as an outpatient. 8. Six-minute walk and nocturnal oximetry before discharge. 9. fu ct in 6-[address] shows pleural effusion, ? diastolic chf discussed w FRANKI Méndez MD Apr 16, 2019 06:27
[2019-04-16] MEDS: cefTRIAXone IV Push 1 GM VIAL. IVP SCH (06:28)
[2019-04-16] MEDS: FERROUS SULFATE 325 MG TABLET. PO SCH (07:46)
[2019-04-16] MEDS: BUDESONIDE 0.5 MG/2 ML NEBU. NEB SCH ×2 (08:13→20:41)
[2019-04-16] MEDS: IPRATRPIUM/ALBUTEROL 0.5/2.5MG 3 ML NEBU. NEB SCH ×4 (08:13→20:41)
[2019-04-16] MEDS: CHOLECALCIFEROL (VITAMIN D3) 5,000 UNIT CAPSULE PO SCH (08:43)
[2019-04-16] MEDS: CINACALCET HCL 30 MG TABLET PO SCH (08:43)
[2019-04-16] MEDS: DOCUSATE SODIUM 100 MG CAPSULE. PO SCH (08:43)
[2019-04-16] MEDS: ASPIRIN CHEWABLE 81 MG TABLET. PO SCH (08:43)
[2019-04-16] MEDS: LACTOBACILLUS RHAMNOSUS GG 1 CAPSULE. PO SCH ×2 (08:43→21:23)
[2019-04-16] MEDS: CALCIUM CARBONATE 500 MG TAB.CHEW PO SCH ×3 (09:42→17:59)
--- NOTE | 2019-04-16 10:52 | PDOC ---
PROGRESS NOTES Subjective Subjective seen in follow up of esrd Objective Objective Vital Signs Date Time Temp Pulse Resp B/P (MAP) Pulse Ox O2 Delivery O2 Flow Rate FiO2 04/16/19 10:00 82 23 94/57 (69) 98 High Flow Nasal Cannula 6.0 04/16/19 08:00 97.6 97.6 Intake and Output 04/16/19 07:00 Intake Total 905.16 ml Output Total 0 ml Balance 905.16 ml Intake Oral 470 ml IV Total 435.16 ml Output Urine Total 0 ml Physical Exam Abdomen: Normal bowel sounds, Soft, No tenderness, No hepatosplenomegaly, No masses Heart: Regular rate, Normal S1, Normal S2, No murmurs, Gallops Extremities: No clubbing, No cyanosis, No edema, Normal pulses, No te nderness/swelling General: Alert, Oriented X3, Cooperative, No acute distress Lungs: Clear to auscultation Neuro: Normal gait Psych/Mental Status: Mental status NL Diagnosis RENAL FAILURE: ESRD Assessment Assessment Problems Medical Problems: (1) Elevated troponin Status: Acute (2) ESRD (end stage renal disease) Status: Acute (3) Hypotension Status: Acute (4) Near syncope Status: Acute Plan Plan of Care no cp or sob. doing well. for dialysis tts Comment Review of Relevant I have reviewed the following items khalida (where applicable) has been applied. Labs Laboratory Tests Test 04/16/19 03:05 04/16/19 03:09 Glucose (Fingerstick) 155 mg/dL (70-99) O2 Saturation 88 % (92-99) Arterial Blood pH 7.25 (7.35-7.45) Arterial Blood pCO2 at Patient Temp 61 mmHg (35-46) Arterial Blood pO2 at Patient Temp 62 mmHg (65-108) Arterial Blood HCO3 26 mmol/L (21-28) Arterial Blood Base Excess -2 mmol/L (-3-3) FiO2 50 Laboratory Tests Test 04/16/19 03:05 04/16/19 03:09 Glucose (Fingerstick) 155 mg/dL (70-99) O2 Saturation 88 % (92-99) Arterial Blood pH 7.25 (7.35-7.45) Arterial Blood pCO2 at Patient Temp 61 mmHg (35-46) Arterial Blood pO2 at Patient Temp 62 mmHg (65-108) Arterial Blood HCO3 26 mmol/L (21-28) Arterial Blood Base Excess -2 mmol/L (-3-3) FiO2 50 Microbiology 04/11/19 Blood Culture - Final, Complete NO GROWTH AFTER 5 DAYS Medications Current Medications Albuterol/ Ipratropium (Duoneb) 3 ml 1X ONCE NEB Last administered on 04/11/19at 07:49; Start 04/11/19 at 07:45; Stop 04/11/19 at 07:46; Status DC Sodium Chloride 250 ml @ 250 mls/hr 1X ONCE IV Last administered on 04/11/19at 08:10; Start 04/11/19 at 07:45; Stop 04/11/19 at 08:44; Status DC Acetaminophen (Tylenol) 650 mg PRN Q6HRS PRN PEG MILD PAIN / TEMP Last administered on 04/11/19at 20:34; Start 04/11/19 at 20:15; Stop 04/12/19 at 05:49; Status DC Acetaminophen (Tylenol) 650 mg PRN Q6HRS PRN PO MILD PAIN / TEMP; Start 04/12/19 at 06:00 Sodium Chloride 1,000 ml @ 1,000 mls/hr Q1H PRN IV hypotension; Start 04/12/19 at 07:47; Stop 04/12/19 at 13:46; Status DC Acetaminophen (Tylenol) 500 mg 1X PRN PRN PO MILD PAIN / TEMP; Start 04/12/19 at 08:00; Stop 04/13/19 at 07:59; Status DC Diphenhydramine HCl (Benadryl) 25 mg 1X PRN PRN IV ITCHING; Start 04/12/19 at 08:00; Stop 04/13/19 at 07:59; Status DC Diphenhydramine HCl (Benadryl) 25 mg 1X PRN PRN IV ITCHING; Start 04/12/19 at 08:00; Stop 04/13/19 at 07:59; Status DC Sodium Chloride 1,000 ml @ 400 mls/hr Q2H30M PRN IV PATENCY; Start 04/12/19 at 07:47; Stop 04/12/19 at 19:46; Status DC Info (PHARMACY MONITORING -- do not chart) 1 each PRN DAILY PRN MC SEE COMMENTS; Start 04/12/19 at 08:00; Stop 04/15/19 at 11:05; Status DC Albuterol/ Ipratropium (Duoneb) 3 ml 1X ONCE NEB Last administered on 9at 09:31; Start 04/12/19 at 09:15; Stop 04/12/19 at 09:16; Status DC Aspirin (Children'S Aspirin) 81 mg DAILY PO Last administered on 04/16/19 08:43; Start 04/13/19 at 09:00 Atorvastatin Calcium (Lipitor) 20 mg HS PO Last administered on 04/15/19 21: 09; Start 04/12/19 at 21:00 Calcium Carbonate/ Glycine (Tums) 200 mg TIDWMEALS PO Last administered on 04/12/19 17:20; Start 04/12/19 at 17:00; Stop 04/12/19 at 17:23; Status DC Cinacalcet (Sensipar) 30 mg DAILY PO Last administered on 04/16/19 08:43; Start 04/13/19 at 09:00 Ferrous Sulfate (Feosol) 325 mg DAILY08 PO Last administered on 04/16/19 07:46; Start 04/13/19 at 08:00 Midodrine (Proamatine) 10 mg QTUTHSA@0800 PO Last administered on 04/15/19 12:04; Start 04/13/19 at 08:00 Vitamin D (Vitamin D3) 5,000 unit DAILY PO Last administered on 04/16/19 08:43; Start 04/13/19 at 09:00 Docusate Sodium (Colace) 100 mg DAILY PO Last administered on 04/16/19 08:43; Start 04/13/19 at 09:00 Midodrine (Proamatine) 5 mg [id number] PO ; Start 04/12/19 at 18:00; Stop 04/12/19 at 17:07; Status DC Midodrine (Proamatine) 10 mg QTUTHSA@1000 PO Last administered on 04/15/19at 14:03; Start 04/13/19 at 10:00 Calcium Carbonate/ Glycine (Tums) 750 mg TIDWMEALS PO Last administered on 04/16/19 09:42; Start 04/13/19 at 08:00 Sodium Chloride 1,000 ml @ 1,000 mls/hr Q1H PRN IV hypotension; Start 04/13/19 at 08:43; Stop 04/13/19 at 14:42; Status DC Albumin Human 200 ml @ 200 mls/hr 1X PRN PRN IV Hypotension; Start 04/13/19 at 08:45; Stop 04/13/19 at 14:44; Status DC Sodium Chloride 1,000 ml @ 400 mls/hr Q2H30M PRN IV PATENCY; Start 04/13/19 at 08:43; Stop 04/13/19 at 20:42; Status DC Info (PHARMACY MONITORING -- do not chart) 1 each PRN DAILY PRN MC SEE COMMENTS; Start 04/13/19 at 08:45; Status UNV Info (PHARMACY MONITORING -- do not chart) 1 each PRN DAILY PRN MC SEE COMMENTS; Start 04/13/19 at 08:45; Status UNV Ondansetron HCl (Zofran) 4 mg 1X ONCE IV ; Start 04/13/19 at 13:00; Stop 04/13/19 at 13:01; Status DC Ondansetron HCl (Zofran) 4 mg PRN Q4HRS PRN IVP NAUSEA/VOMITING 1ST CHOICE Last administered on 04/14/19at 20:22; Start 04/14/19 at 01:30 Sodium Chloride 500 ml @ 500 mls/hr 1X STAT IV Last administered on 04/14/19at 07:56; Start 04/14/19 at 07:56; Stop 04/14/19 at 08:55; Status DC Digoxin (Lanoxin) 500 mcg 1X ONCE IV Last administered on 04/14/19at 09:45; Start 04/14/19 at 09:45; Stop 04/14/19 at 09:46; Status DC Digoxin (Lanoxin) 500 mcg STK-MED ONCE .ROUTE ; Start 04/14/19 at 09:41; Stop 04/14/19 at 09:41; Status DC Lidocaine HCl (Lidocaine 1% 20ml Vial) 20 ml STK-MED ONCE .ROUTE ; Start 04/14/19 at 13:10; Stop 04/14/19 at 13:10; Status DC Heparin Sodium/ Sodium Chloride 500 ml @ As Directed STK-MED ONCE .ROUTE ; Start 04/14/19 at 13:10; Stop 04/14/19 at 13:10; Status DC Norepinephrine Bitartrate 250 ml @ 15.656 mls/ hr CONT PRN IV SEE I/O RECORD Last administered on 04/16/19at 00:02; Start 04/14/19 at 14:15 Adenosine (Adenoscan) 90 mg STK-MED ONCE IV ; Start 04/14/19 at 14:22; Stop 04/14/19 at 14:23; Status DC Iodixanol (Visipaque 320) 100 ml STK-MED ONCE .ROUTE ; Start 04/14/19 at 14:34; Stop 04/14/19 at 14:35; Status DC Heparin Sodium/ Sodium Chloride (HEPARIN for ARTERIAL LINE FLUSH) 1,000 unit 1X ONCE IART Last administered on 04/14/19at 15:09; Start 04/14/19 at 14:45; Stop 04/14/19 at 14:46; Status DC Iodixanol (Visipaque 320) 100 ml 1X ONCE IART Last administered on 04/14/19at 15:10; Start 04/14/19 at 14:45; Stop 04/14/19 at 14:46; Status DC Lidocaine HCl (Lidocaine 1% 20ml Vial) 20 ml 1X ONCE INJ Last administered on 04/14/19at 15:10; Start 04/14/19 at 14:45; Stop 04/14/19 at 14:46; Status DC Adenosine 90 mg/ Sodium Chloride 120 ml @ 200 mls/hr 1X ONCE IV Last administered on 04/14/19at 15:11; Start 04/14/19 at 14:45; Stop 04/14/19 at 15:20; Status DC Heparin Sodium/ Sodium Chloride 500 ml @ As Directed STK-MED ONCE .ROUTE ; Start 04/14/19 at 14:51; Stop 04/14/19 at 14:51; Status DC Acetaminophen/ Hydrocodone Bitart (Lortab 5/325) 1 tab PRN Q4HRS PRN PO MODERATE PAIN Last administered on 04/15/19at 13:23; Start 04/14/19 at 18:30 Temazepam (Restoril) 7.5 mg PRN QHS PRN PO INSOMNIA; Start 04/14/19 at 19:00 Albuterol/ Ipratropium (Duoneb) 3 ml RTQID NEB Last administered on 04/16/19at 08:13; Start 04/15/19 at 08:00 Budesonide (Pulmicort) 0.5 mg RTBID NEB Last administered on 04/16/19at 08:13; Start 04/15/19 at 08:00 Ceftriaxone Sodium (Rocephin) 1 gm Q24H IVP Last administered on 04/16/19at 06:28; Start 04/15/19 at 07:00 Iohexol (Omnipaque 350 Mg/ml) 90 ml 1X ONCE IV Last administered on 04/15/19at 09:00; Start 04/15/19 at 09:00; Stop 04/15/19 at 09:01; Status DC Info (CONTRAST GIVEN -- Rx MONITORING) 1 each PRN DAILY PRN MC SEE COMMENTS; Start 04/15/19 at 09:00; Stop 04/17/19 at 08:59 Sodium Chloride 1,000 ml @ 1,000 mls/hr Q1H PRN IV hypotension; Start 04/15/19 at 09:25; Stop 04/15/19 at 15:24; Status DC Acetaminophen (Tylenol) 500 mg 1X PRN PRN PO MILD PAIN / TEMP; Start 04/15/19 at 09:30; Stop 04/16/19 at 09:29; Status DC Diphenhydramine HCl (Benadryl) 25 mg 1X PRN PRN IV ITCHING; Start 04/15/19 at 09:30; Stop 04/16/19 at 09:29; Status DC Diphenhydramine HCl (Benadryl) 25 mg 1X PRN PRN IV ITCHING; Start 04/15/19 at 09:30; Stop 04/16/19 at 09:29; Status DC Sodium Chloride 1,000 ml @ 400 mls/hr Q2H30M PRN IV PATENCY; Start 04/15/19 at 09:25; Stop 04/15/19 at 21:24; Status DC Info (PHARMACY MONITORING -- do not chart) 1 each PRN DAILY PRN MC SEE COMMENTS; Start 04/15/19 at 09:30 Lactobacillus Rhamnosus (Culturelle) 1 cap BID PO Last administered on 04/16/19at 08:43; Start 04/15/19 at 21:00 Active Scripts Active Reported Midodrine Hcl 10 Mg Tablet 10 Mg PO QTUTHSA Midodrine Hcl 5 Mg Tablet 10 Mg PO QTUTHSA Ferrous Sulfate 325 Mg Tablet 1 Tab PO DAILY Calcium Carbonate 200 Mg Tab.chew 750 Mg PO TIDWMEALS Stool Softener (Docusate Sodium) 250 Mg Capsule 250 Mg PO DAILY Aspirin 81 Mg Tab.chew 1 Tab PO DAILY Sensipar (Cinacalcet Hcl) 30 Mg Tablet 30 Mg PO DAILY Vitamin D3 (Cholecalciferol (Vitamin D3)) 5,000 Unit Tablet 1 Tab PO DAILY Atorvastatin Calcium 20 Mg Tablet 20 Mg PO HS Vitals/I & O Vital Sign - Last 24 Hours 04/15/19 04/15/19 04/15/19 04/15/19 11:00 12:00 12:00 12:00 Pulse 105 123 Resp 20 30 B/P (MAP) 101/58 (72) 113/75 (88) 113/75 (88) Pulse Ox 96 97 O2 Delivery Simple Mask Simple Mask Mask O2 Flow Rate 6.0 6.0 6.0 04/15/19 04/15/19 04/15/19 04/15/19 12:04 13:00 13:23 14:00 Pulse 127 103 82 Resp B/P (MAP) 107/62 120/66 (84) 109/68 (82) Pulse Ox 100 97 97 O2 Delivery Simple Mask Simple Mask Simple Mask O2 Flow Rate 6.0 6.0 6.0 04/15/19 04/15/19 04/15/19 04/15/19 14:03 14:23 14:45 15:00 Pulse 127 103 Resp 25 B/P (MAP) 74/57 117/83 (94) Pulse Ox 97 86 92 O2 Delivery Nasal Cannula Nasal Cannula Nasal Cannula O2 Flow Rate 6.0 5.0 6.0 04/15/19 04/15/19 04/15/19 04/15/19 16:00 16:00 16:00 17:00 Temp 98.9 98.9 Pulse 106 97 Resp 30 B/P (MAP) 119/68 (85) 113/75 (88) 112/70 (84) Pulse Ox 94 95 O2 Delivery High Flow Nasal Cannula Nasal Cannula Simple Mask O2 Flow Rate 8.0 8.0 6.0 04/15/19 04/15/19 04/15/19 04/15/19 18:00 19:00 19:15 19:31 Pulse 103 96 Resp 32 31 B/P (MAP) 159/77 (104) 74/42 (53) 111/61 (78) Pulse Ox 94 98 91 O2 Delivery Simple Mask Simple Mask Venturi Mask O2 Flow Rate 6.0 6.0 15.0 04/15/19 04/15/19 04/15/19 04/15/19 20:00 20:00 20:15 21:00 Temp 98.5 98.5 Pulse 84 84 Resp 24 24 B/P (MAP) 104/57 (73) 104/57 (73) Pulse Ox 85 99 100 O2 Delivery Mask Simple Mask NonRebreather Mask NonRebreather Mask O2 Flow Rate 6.0 6.0 15.0 15.0 04/15/19 04/15/19 04/16/19 04/16/19 22:00 23:00 00:00 00:00 Temp 98.3 98.3 Pulse 90 88 82 Resp 26 28 24 B/P (MAP) 126/69 (88) 121/67 (85) 116/57 (76) Pulse Ox 94 98 97 O2 Delivery NonRebreather Mask NonRebreather Mask Venturi Mask Venturi Mask O2 Flow Rate 15.0 15.0 15.0 15.0 04/16/19 04/16/19 04/16/19 04/16/19 01:00 02:00 02:15 03:00 Pulse 91 82 75 Resp 30 26 22 B/P (MAP) 105/59 (74) 120/67 (84) 122/71 (88) 109/72 (84) Pulse Ox 97 96 94 O2 Delivery Venturi Mask Venturi Mask Venturi Mask O2 Flow Rate 15.0 15.0 15.0 04/16/19 04/16/19 04/16/19 04/16/19 03:15 04:00 04:00 04:15 Temp 99.0 99.0 Pulse 77 Resp 22 B/P (MAP) 119/65 (83) 109/66 (80) Pulse Ox 94 95 O2 Delivery BiPAP/CPAP BiPAP/CPAP Bi-pap 04/16/19 04/16/19 04/16/19 04/16/19 05:00 05:10 05:45 06:00 Pulse 84 76 Resp 23 20 B/P (MAP) 109/62 (78) 101/59 (73) 103/71 (82) Pulse Ox 95 90 96 O2 Delivery BiPAP/CPAP BiPAP/CPAP BiPAP/CPAP 04/16/19 04/16/19 04/16/19 04/16/19 07:00 08:00 08:00 08:13 Temp 97.6 97.6 Pulse 76 80 Resp 22 27 B/P (MAP) 102/61 (75) 113/60 (77) Pulse Ox 97 98 97 O2 Delivery Venturi Mask Venturi Mask Venturi Mask Venturi Mask O2 Flow Rate 4.0 15.0 04/16/19 04/16/19 09:00 10:00 Pulse 92 82 Resp 24 23 B/P (MAP) 111/63 (79) 94/57 (69) Pulse Ox 95 98 O2 Delivery High Flow Nasal Cannula High Flow Nasal Cannula O2 Flow Rate 6.0 6.0 Intake and Output 04/15/19 04/15/19 04/16/19 15:00 23:00 07:00 Intake Total 622.16 ml 283 ml Output Total 0 ml 0 ml 0 ml Balance 0 ml 622.16 ml 283 ml QUOC PARR MD Apr 16, 2019 10:52
--- NOTE | 2019-04-16 12:16 | PDOC ---
[facility] PROGRESS NOTE Chief Complaint Chief Complaint ESRD Anemia Hypotension History of Present Illness History of Present Illness 04/16/19 Pt seen and examined in the ICU Pt was wearing face mask with 97% sat DW RN R and L pleural effusions on CTA 04/15/19 Pt seen and examined in ICU Pt was wearing face mask with 97% sat Pt was awake and coherent DW RN Vitals/I&O Vitals/I&O: Vital Signs Date Time Temp Pulse Resp B/P (MAP) Pulse Ox O2 Delivery O2 Flow Rate FiO2 04/16/19 11:00 78 26 87/48 (61) 96 High Flow Nasal Cannula 6.0 04/16/19 08:00 97.6 97.6 I & O 04/15/19 04/15/19 04/16/19 15:00 23:00 07:00 Intake Total 622.16 ml 283 ml Output Total 0 ml 0 ml 0 ml Balance 0 ml 622.16 ml 283 ml Physical Exam General: Alert, Oriented X3, Cooperative, No acute distress Heart: Regular rate, Normal S1, Normal S2, No murmurs, Gallops Lungs: Crackles, Other Abdomen: Normal bowel sounds, Soft, No tenderness, No hepatosplenomegaly, No masses Extremities: No clubbing, No cyanosis, No edema, Normal pulses, No tenderness/swelling Skin: No breakdown Labs Labs: Laboratory Tests Test 04/16/19 03:05 04/16/19 03:09 Glucose (Fingerstick) 155 mg/dL (70-99) O2 Saturation 88 % (92-99) Arterial Blood pH 7.25 (7.35-7.45) Arterial Blood pCO2 at Patient Temp 61 mmHg (35-46) Arterial Blood pO2 at Patient Temp 62 mmHg (65-108) Arterial Blood HCO3 26 mmol/L (21-28) Arterial Blood Base Excess -2 mmol/L (-3-3) FiO2 50 Review of Systems Review of Systems: No chest pain, no palpitations No nausea, no vomiting Assessment and Plan Assessmemt and Plan Problems Medical Problems: (1) Elevated troponin Status: Acute (2) ESRD (end stage renal disease) Status: Acute (3) Hypotension Status: Acute (4) Near syncope Status: Acute Assessment ESRD Pulmonary hypertension Near syncope Plan ICU monitoring O2 by nasal cannula BIPAP PRN during day, continuous HS Bronchodilators Steroids Sleep study Dialysis (Sat, T, Th) Wean off Levophed Comment Review of Relevant I have reviewed the following items khalida (where applicable) has been applied. Medications: Current Medications Medications (Trade) Dose Ordered Sig/Edita Route PRN Reason Start Time Stop Time Status Last Admin Dose Admin Lactobacillus Rhamnosus (Culturelle) 1 cap BID PO 04/15/19 21:00 04/16/19 08:43 ROLANDO ELAINE III DO Apr 16, 2019 12:16
[2019-04-16 13:06] LABS: BASE EXCESS ABG 0 mmol/L (-3-3); HCO3 ABG 28 mmol/L (21-28); PO2 ABG 88 mmHg (65-108); SAT O2 ABG 96 % (92-99)
[2019-04-16 13:10] LABS: FIO2 ABG 44; PCO2 ABG 63 mmHg (35-46)
--- NOTE | 2019-04-16 13:30 | PDOC ---
PROGRESS NOTES Subjective Subjective Patient seen and examined Objective Objective Vital Signs Date Time Temp Pulse Resp B/P (MAP) Pulse Ox O2 Delivery O2 Flow Rate FiO2 04/16/19 12:48 98 Nasal Cannula 6.0 04/16/19 12:00 98.3 79 26 101/57 (72) 98.3 Intake and Output 04/16/19 07:00 Intake Total 905.16 ml Output Total 0 ml Balance 905.16 ml Intake Oral 470 ml IV Total 435.16 ml Output Urine Total 0 ml Physical Exam Abdomen: Normal bowel sounds Heart: Regular rate General: mild distress Lungs: Other (mildly decreased breath sounds) Assessment Assessment Problems Medical Problems: (1) Elevated troponin Status: Acute (2) ESRD (end stage renal disease) Status: Acute (3) Hypotension Status: Acute (4) Near syncope Status: Acute 1. Status post heart catheterization. Catheterization showed no significant coronary disease but severe pulmonary hypertension. We'll continue present treatments at this time. Being evaluated by the pulmonary service. Routine follow-up at . 2. ESRD renal disease. Hemodialysis as per the renal service. 3. COPD 4. HLD Continue present medications. 5. Hypotension. Continue present treatments and will adjust as needed. Comment Review of Relevant I have reviewed the following items khalida (where applicable) has been applied. Labs Laboratory Tests Test 04/16/19 03:05 04/16/19 03:09 04/16/19 12:45 Glucose (Fingerstick) 155 mg/dL (70-99) O2 Saturation 88 % (92-99) 96 % (92-99) Arterial Blood pH 7.25 (7.35-7.45) 7.27 (7.35-7.45) Arterial Blood pCO2 at Patient Temp 61 mmHg (35-46) 63 mmHg (35-46) Arterial Blood pO2 at Patient Temp 62 mmHg (65-108) 88 mmHg (65-108) Arterial Blood HCO3 26 mmol/L (21-28) 28 mmol/L (21-28) Arterial Blood Base Excess -2 mmol/L (-3-3) 0 mmol/L (-3-3) FiO2 50 44 Laboratory Tests Test 04/16/19 03:05 04/16/19 03:09 04/16/19 12:45 Glucose (Fingerstick) 155 mg/dL (70-99) O2 Saturation 88 % (92-99) 96 % (92-99) Arterial Blood pH 7.25 (7.35-7.45) 7.27 (7.35-7.45) Arterial Blood pCO2 at Patient Temp 61 mmHg (35-46) 63 mmHg (35-46) Arterial Blood pO2 at Patient Temp 62 mmHg (65-108) 88 mmHg (65-108) Arterial Blood HCO3 26 mmol/L (21-28) 28 mmol/L (21-28) Arterial Blood Base Excess -2 mmol/L (-3-3) 0 mmol/L (-3-3) FiO2 50 44 Microbiology 04/11/19 Blood Culture - Final, Complete NO GROWTH AFTER 5 DAYS Medications Current Medications Albuterol/ Ipratropium (Duoneb) 3 ml 1X ONCE NEB Last administered on 04/11/19at 07:49; Start 04/11/19 at 07:45; Stop 04/11/19 at 07:46; Status DC Sodium Chloride 250 ml @ 250 mls/hr 1X ONCE IV Last administered on 04/11/19at 08:10; Start 04/11/19 at 07:45; Stop 04/11/19 at 08:44; Status DC Acetaminophen (Tylenol) 650 mg PRN Q6HRS PRN PEG MILD PAIN / TEMP Last administered on 04/11/19at 20:34; Start 04/11/19 at 20:15; Stop 04/12/19 at 05:49; Status DC Acetaminophen (Tylenol) 650 mg PRN Q6HRS PRN PO MILD PAIN / TEMP; Start 04/12/19 at 06:00 Sodium Chloride 1,000 ml @ 1,000 mls/hr Q1H PRN IV hypotension; Start 04/12/19 at 07:47; Stop 04/12/19 at 13:46; Status DC Acetaminophen (Tylenol) 500 mg 1X PRN PRN PO MILD PAIN / TEMP; Start 04/12/19 at 08:00; Stop 04/13/19 at 07:59; Status DC Diphenhydramine HCl (Benadryl) 25 mg 1X PRN PRN IV ITCHING; Start 04/12/19 at 08:00; Stop 04/13/19 at 07:59; Status DC Diphenhydramine HCl (Benadryl) 25 mg 1X PRN PRN IV ITCHING; Start 04/12/19 at 08:00; Stop 04/13/19 at 07:59; Status DC Sodium Chloride 1,000 ml @ 400 mls/hr Q2H30M PRN IV PATENCY; Start 04/12/19 at 07:47; Stop 04/12/19 at 19:46; Status DC Info (PHARMACY MONITORING -- do not chart) 1 each PRN DAILY PRN MC SEE COMMENTS; Start 04/12/19 at 08:00; Stop 04/15/19 at 11:05; Status DC Albuterol/ Ipratropium (Duoneb) 3 ml 1X ONCE NEB Last administered on 04/12/19at 09:31; Start 04/12/19 at 09:15; Stop 04/12/19 at 09:16; Status DC Aspirin (Children'S Aspirin) 81 mg DAILY PO Last administered on 04/16/19at 08:43; Start 04/13/19 at 09:00 Atorvastatin Calcium (Lipitor) 20 mg HS PO Last administered on 04/15/19at 21:09; Start 04/12/19 at 21:00 Calcium Carbonate/ Glycine (Tums) 200 mg TIDWMEALS PO Last administered on 04/12/19at 17:20; Start 04/12/19 at 17:00; Stop 04/12/19 at 17:23; Status DC Cinacalcet (Sensipar) 30 mg DAILY PO Last administered on 04/16/19at 08:43; Start 04/13/19 at 09:00 Ferrous Sulfate (Feosol) 325 mg DAILY08 PO Last administered on 04/16/19at 07:46; Start 04/13/19 at 08:00 Midodrine (Proamatine) 10 mg QTUTHSA@0800 PO Last administered on 04/15/19at 12:04; Start 04/13/19 at 08:00 Vitamin D (Vitamin D3) 5,000 unit DAILY PO Last administered on 04/16/19at 08:43; Start 04/13/19 at 09:00 Docusate Sodium (Colace) 100 mg DAILY PO Last administered on 04/16/19at 08:43; Start 04/13/19 at 09:00 Midodrine (Proamatine) 5 mg [id number] PO ; Start 04/12/19 at 18:00; Stop 04/12/19 at 17:07; Status DC Midodrine (Proamatine) 10 mg QTUTHSA@1000 PO Last administered on 04/15/19at 14:03; Start 04/13/19 at 10:00 Calcium Carbonate/ Glycine (Tums) 750 mg TIDWMEALS PO Last administered on 04/16/19at 12:31; Start 04/13/19 at 08:00 Sodium Chloride 1,000 ml @ 1,000 mls/hr Q1H PRN IV hypotension; Start 04/13/19 at 08:43; Stop 04/13/19 at 14:42; Status DC Albumin Human 200 ml @ 200 mls/hr 1X PRN PRN IV Hypotension; Start 04/13/19 at 08:45; Stop 04/13/19 at 14:44; Status DC Sodium Chloride 1,000 ml @ 400 mls/hr Q2H30M PRN IV PATENCY; Start 04/13/19 at 08:43; Stop 04/13/19 at 20:42; Status DC Info (PHARMACY MONITORING -- do not chart) 1 each PRN DAILY PRN MC SEE COMMENTS; Start 04/13/19 at 08:45; Status UNV Info (PHARMACY MONITORING -- do not chart) 1 each PRN DAILY PRN MC SEE COMMENTS; Start 04/13/19 at 08:45; Status UNV Ondansetron HCl (Zofran) 4 mg 1X ONCE IV ; Start 04/13/19 at 13:00; Stop 04/13/19 at 13:01; Status DC Ondansetron HCl (Zofran) 4 mg PRN Q4HRS PRN IVP NAUSEA/VOMITING 1ST CHOICE Last administered on 04/14/19at 20:22; Start 04/14/19 at 01:30 Sodium Chloride 500 ml @ 500 mls/hr 1X STAT IV Last administered on 04/14/19at 07:56; Start 04/14/19 at 07:56; Stop 04/14/19 at 08:55; Status DC Digoxin (Lanoxin) 500 mcg 1X ONCE IV Last administered on 04/14/19at 09:45; Start 04/14/19 at 09:45; Stop 04/14/19 at 09:46; Status DC Digoxin (Lanoxin) 500 mcg STK-MED ONCE .ROUTE ; Start 04/14/19 at 09:41; Stop 04/14/19 at 09:41; Status DC Lidocaine HCl (Lidocaine 1% 20ml Vial) 20 ml STK-MED ONCE .ROUTE ; Start 04/14/19 at 13:10; Stop 04/14/19 at 13:10; Status DC Heparin Sodium/ Sodium Chloride 500 ml @ As Directed STK-MED ONCE .ROUTE ; Start 04/14/19 at 13:10; Stop 04/14/19 at 13:10; Status DC Norepinephrine Bitartrate 250 ml @ 15.656 mls/ hr CONT PRN IV SEE I/O RECORD Last administered on 04/16/19at 00:02; Start 04/14/19 at 14:15 Adenosine (Adenoscan) 90 mg STK-MED ONCE IV ; Start 04/14/19 at 14:22; Stop 04/14/19 at 14:23; Status DC Iodixanol (Visipaque 320) 100 ml STK-MED ONCE .ROUTE ; Start 04/14/19 at 14:34; Stop 04/14/19 at 14:35; Status DC Heparin Sodium/ Sodium Chloride (HEPARIN for ARTERIAL LINE FLUSH) 1,000 unit 1X ONCE IART Last administered on 04/14/19at 15:09; Start 04/14/19 at 14:45; Stop 04/14/19 at 14:46; Status DC Iodixanol (Visipaque 320) 100 ml 1X ONCE IART Last administered on 04/14/19at 15:10; Start 04/14/19 at 14:45; Stop 04/14/19 at 14:46; Status DC Lidocaine HCl (Lidocaine 1% 20ml Vial) 20 ml 1X ONCE INJ Last administered on 04/14/19at 15:10; Start 04/14/19 at 14:45; Stop 04/14/19 at 14:46; Status DC Adenosine 90 mg/ Sodium Chloride 120 ml @ 200 mls/hr 1X ONCE IV Last administered on 04/14/19at 15:11; Start 04/14/19 at 14:45; Stop 04/14/19 at 15:20; Status DC Heparin Sodium/ Sodium Chloride 500 ml @ As Directed STK-MED ONCE .ROUTE ; Start 04/14/19 at 14:51; Stop 04/14/19 at 14:51; Status DC Acetaminophen/ Hydrocodone Bitart (Lortab 5/325) 1 tab PRN Q4HRS PRN PO MODERATE PAIN Last administered on 04/15/19at 13:23; Start 04/14/19 at 18:30 Temazepam (Restoril) 7.5 mg PRN QHS PRN PO INSOMNIA; Start 04/14/19 at 19:00 Albuterol/ Ipratropium (Duoneb) 3 ml RTQID NEB Last administered on 04/16/19at 12:48; Start 04/15/19 at 08:00 Budesonide (Pulmicort) 0.5 mg RTBID NEB Last administered on 04/16/19at 08:13; Start 04/15/19 at 08:00 Ceftriaxone Sodium (Rocephin) 1 gm Q24H IVP Last administered on 04/16/19at 06:28; Start 04/15/19 at 07:00 Iohexol (Omnipaque 350 Mg/ml) 90 ml 1X ONCE IV Last administered on 04/15/19at 09:00; Start 04/15/19 at 09:00; Stop 04/15/19 at 09:01; Status DC Info (CONTRAST GIVEN -- Rx MONITORING) 1 each PRN DAILY PRN MC SEE COMMENTS; Start 04/15/19 at 09:00; Stop 04/17/19 at 08:59 Sodium Chloride 1,000 ml @ 1,000 mls/hr Q1H PRN IV hypotension; Start 04/15/19 at 09:25; Stop 04/15/19 at 15:24; Status DC Acetaminophen (Tylenol) 500 mg 1X PRN PRN PO MILD PAIN / TEMP; Start 04/15/19 at 09:30; Stop 04/16/19 at 09:29; Status DC Diphenhydramine HCl (Benadryl) 25 mg 1X PRN PRN IV ITCHING; Start 04/15/19 at 09:30; Stop 04/16/19 at 09:29; Status DC Diphenhydramine HCl (Benadryl) 25 mg 1X PRN PRN IV ITCHING; Start 04/15/19 at 09:30; Stop 04/16/19 at 09:29; Status DC Sodium Chloride 1,000 ml @ 400 mls/hr Q2H30M PRN IV PATENCY; Start 04/15/19 at 09:25; Stop 04/15/19 at 21:24; Status DC Info (PHARMACY MONITORING -- do not chart) 1 each PRN DAILY PRN MC SEE COMMENTS; Start 04/15/19 at 09:30 Lactobacillus Rhamnosus (Culturelle) 1 cap BID PO Last administered on 04/16/19at 08:43; Start 04/15/19 at 21:00 Active Scripts Active Reported Midodrine Hcl 10 Mg Tablet 10 Mg PO QTUTHSA Midodrine Hcl 5 Mg Tablet 10 Mg PO QTUTHSA Ferrous Sulfate 325 Mg Tablet 1 Tab PO DAILY Calcium Carbonate 200 Mg Tab.chew 750 Mg PO TIDWMEALS Stool Softener (Docusate Sodium) 250 Mg Capsule 250 Mg PO DAILY Aspirin 81 Mg Tab.chew 1 Tab PO DAILY Sensipar (Cinacalcet Hcl) 30 Mg Tablet 30 Mg PO DAILY Vitamin D3 (Cholecalciferol (Vitamin D3)) 5,000 Unit Tablet 1 Tab PO DAILY Atorvastatin Calcium 20 Mg Tablet 20 Mg PO HS Vitals/I & O Vital Sign - Last 24 Hours 04/15/19 04/15/19 04/15/19 04/15/19 14:00 14:03 14:23 14:45 Pulse 82 127 Resp 27 27 B/P (MAP) 109/68 (82) 74/57 Pulse Ox 97 97 86 O2 Delivery Simple Mask Nasal Cannula Nasal Cannula O2 Flow Rate 6.0 6.0 5.0 04/15/19 04/15/19 04/15/19 04/15/19 15:00 16:00 16:00 16:00 Temp 98.9 98.9 Pulse 103 106 Resp 25 25 B/P (MAP) 117/83 (94) 119/68 (85) 113/75 (88) Pulse Ox 92 94 O2 Delivery Nasal Cannula High Flow Nasal Cannula Nasal Cannula O2 Flow Rate 6.0 8.0 8.0 04/15/19 04/15/19 04/15/19 04/15/19 17:00 18:00 19:00 19:15 Pulse 97 103 96 Resp 30 32 31 B/P (MAP) 112/70 (84) 159/77 (104) 74/42 (53) 111/61 (78) Pulse Ox 95 94 98 O2 Delivery Simple Mask Simple Mask Simple Mask O2 Flow Rate 6.0 6.0 6.0 04/15/19 04/15/19 04/15/19 04/15/19 19:31 20:00 20:00 20:15 Temp 98.5 98.5 Pulse 84 Resp 24 B/P (MAP) 104/57 (73) Pulse Ox 91 85 99 O2 Delivery Venturi Mask Mask Simple Mask NonRebreather Mask O2 Flow Rate 15.0 6.0 6.0 15.0 04/15/19 04/15/19 04/15/19 04/16/19 21:00 22:00 23:00 00:00 Temp 98.3 98.3 Pulse 84 90 88 82 Resp 24 24 B/P (MAP) 104/57 (73) 126/69 (88) 121/67 (85) 116/57 (76) Pulse Ox 100 94 98 97 O2 Delivery NonRebreather Mask NonRebreather Mask NonRebreather Mask Venturi Mask O2 Flow Rate 15.0 15.0 15.0 15.0 04/16/19 04/16/19 04/16/19 04/16/19 00:00 01:00 02:00 02:15 Pulse 91 82 Resp 30 26 B/P (MAP) 105/59 (74) 120/67 (84) 122/71 (88) Pulse Ox 97 96 O2 Delivery Venturi Mask Venturi Mask Venturi Mask O2 Flow Rate 15.0 15.0 15.0 04/16/19 04/16/19 04/16/19 04/16/19 03:00 03:15 04:00 04:00 Temp 99.0 99.0 Pulse 75 77 Resp 22 B/P (MAP) 109/72 (84) 119/65 (83) Pulse Ox 94 94 95 O2 Delivery Venturi Mask BiPAP/CPAP BiPAP/CPAP Bi-pap O2 Flow Rate 15.0 04/16/19 04/16/19 04/16/19 04/16/19 04:15 05:00 05:10 05:45 Pulse 84 Resp 23 B/P (MAP) 109/66 (80) 109/62 (78) 101/59 (73) Pulse Ox 95 90 O2 Delivery BiPAP/CPAP BiPAP/CPAP 04/16/19 04/16/19 04/16/19 04/16/19 06:00 07:00 08:00 08:00 Temp 97.6 97.6 Pulse 76 76 80 Resp 20 27 B/P (MAP) 103/71 (82) 102/61 (75) 113/60 (77) Pulse Ox 96 97 98 O2 Delivery BiPAP/CPAP Venturi Mask Venturi Mask Venturi Mask O2 Flow Rate 4.0 04/16/19 04/16/19 04/16/19 04/16/19 08:13 09:00 10:00 11:00 Pulse 92 82 78 Resp 24 23 26 B/P (MAP) 111/63 (79) 94/57 (69) 87/48 (61) Pulse Ox 97 95 98 96 O2 Delivery Venturi Mask High Flow Nasal Cannula High Flow Nasal Cannula High Flow Nasal Cannula O2 Flow Rate 15.0 6.0 6.0 6.0 04/16/19 04/16/19 04/16/19 12:00 12:00 12:48 Temp 98.3 98.3 Pulse 79 Resp 26 B/P (MAP) 101/57 (72) Pulse Ox 98 98 O2 Delivery High Flow Nasal Cannula Venturi Mask Nasal Cannula O2 Flow Rate 6.0 4.0 6.0 Intake and Output 04/15/19 04/15/19 04/16/19 15:00 23:00 07:00 Intake Total 622.16 ml 283 ml Output Total 0 ml 0 ml 0 ml Balance 0 ml 622.16 ml 283 ml JUAN HILL MD Apr 16, 2019 13:30
--- NOTE | 2019-04-16 14:10 | PDOC ---
PROGRESS NOTES Assessment Assessment Orthostatic hypotension. Presyncope and syncope. AFIb with RVR. ESRD on dialysis. DM. HTN. HLD. GINGER. Thyroid disease. RECOMMENDATIONS/PLAN: He has been treated with Midodrine. Continue medical management. OT/PT. Subjective: He stated on 04/16/19 that he felt slightly improved. Past Medical History Cardiovascular: HTN, Hyperlipidemia, Other (hypotension) Pulmonary: Bronchitis, Other (sleep apnea) GI: Constipation (and diarrhea) Heme/Onc: Anemia NOS (has required transfusions) Musculoskeletal: Osteoarthritis ENT: Other (cataracts, not operated yet) Renal/: Chronic renal failure (starting dialysis), Benign prostatic enlarg., Other (urinary retention) Endocrine: Diabetes, Other (thyroid disease, not currently requiring medication) Past Surgical History Tonsillectomy, Other (right renal biopsy) Family History No pertinent hx Social History , rare alcohol, no tobacco Allergies No Known Drug Allergies (Unverified , 04/09/16) ROS Negative for fever, chills, weight loss, shortness of breath, chest pain, indigestion, hematochezia, melena, and dysuria. Full 14-point review of systems is negative. MEDICATIONS: Refer to [facility] PHYSICAL EXAMINATION: General appearance in subacute distress. HEENT: Normocephalic and nontraumatic. Eyes, nose, ears, and throat are unremarkable. Hearing decrease. Neck is supple. No lymphadenopathy. No Crepitus. Cardiovascular: S1, S2, regular rate and rhythm. Pulmonary: Clear to auscultation bilaterally. Abdomen: Bowel sounds are positive. Extremities: No rash, lesions, or edema. No restriction of range of motion NEUROLOGICAL EXAMINATION: Awake. Oriented to time, place and person. PERRL. EOMI. CN: no focal findings. Muscle tone: within normal. Muscle strength: 4+ DTR: 1-2 Plantar reflex: Flexor response bilaterally Gait: not examined in bed. Sensory exam: no abnormal findings. No cerebellar signs elicited. F-T-N test fine. Objective Objective Vital Signs Date Time Temp Pulse Resp B/P (MAP) Pulse Ox O2 Delivery O2 Flow Rate FiO2 04/16/19 12:48 98 Nasal Cannula 6.0 04/16/19 12:00 98.3 79 26 101/57 (72) 98.3 Intake and Output 04/16/19 07:00 Intake Total 905.16 ml Output Total 0 ml Balance 905.16 ml Intake Oral 470 ml IV Total 435.16 ml Output Urine Total 0 ml Vitals Signs Vitals VS - Last 72 Hours, by Label Date Time Temp Pulse Resp B/P (MAP) Pulse Ox O2 Delivery O2 Flow Rate FiO2 04/16/19 12:48 98 Nasal Cannula 6.0 04/16/19 12:00 Venturi Mask 4.0 04/16/19 12:00 98.3 79 26 101/57 (72) 98 High Flow Nasal Cannula 6.0 98.3 04/16/19 11:00 78 26 87/48 (61) 96 High Flow Nasal Cannula 6.0 04/16/19 10:00 82 23 94/57 (69) 98 High Flow Nasal Cannula 6.0 04/16/19 09:00 92 24 111/63 (79) 95 High Flow Nasal Cannula 6.0 04/16/19 08:13 97 Venturi Mask 15.0 04/16/19 08:00 97.6 80 27 113/60 (77) 98 Venturi Mask 97.6 04/16/19 08:00 Venturi Mask 4.0 04/16/19 07:00 76 22 102/61 (75) 97 Venturi Mask 04/16/19 06:00 76 20 103/71 (82) 96 BiPAP/CPAP 04/16/19 05:45 101/59 (73) 04/16/19 05:10 90 BiPAP/CPAP 04/16/19 05:00 84 23 109/62 (78) 95 BiPAP/CPAP 04/16/19 04:15 109/66 (80) 04/16/19 04:00 Bi-pap 04/16/19 04:00 99.0 77 22 119/65 (83) 95 BiPAP/CPAP 99.0 04/16/19 03:15 94 BiPAP/CPAP 04/16/19 03:00 75 22 109/72 (84) 94 Venturi Mask 15.0 04/16/19 02:15 122/71 (88) 04/16/19 02:00 82 26 120/67 (84) 96 Venturi Mask 15.0 04/16/19 01:00 91 30 105/59 (74) 97 Venturi Mask 15.0 04/16/19 00:00 Venturi Mask 15.0 04/16/19 00:00 98.3 82 24 116/57 (76) 97 Venturi Mask 15.0 98.3 04/15/19 23:00 88 28 121/67 (85) 98 NonRebreather Mask 15.0 04/15/19 22:00 90 26 126/69 (88) 94 NonRebreather Mask 15.0 04/15/19 21:00 84 24 104/57 (73) 100 NonRebreather Mask 15.0 04/15/19 20:15 99 NonRebreather Mask 15.0 04/15/19 20:00 98.5 84 24 104/57 (73) 85 Simple Mask 6.0 98.5 04/15/19 20:00 Mask 6.0 04/15/19 19:31 91 Venturi Mask 15.0 04/15/19 19:15 111/61 (78) 04/15/19 19:00 96 31 74/42 (53) 98 Simple Mask 6.0 04/15/19 18:00 103 32 159/77 (104) 94 Simple Mask 6.0 04/15/19 17:00 97 30 112/70 (84) 95 Simple Mask 6.0 04/15/19 16:00 113/75 (88) 04/15/19 16:00 Nasal Cannula 8.0 04/15/19 16:00 98.9 106 25 119/68 (85) 94 High Flow Nasal Cannula 8.0 98.9 04/15/19 15:00 103 25 117/83 (94) 92 Nasal Cannula 6.0 04/15/19 14:45 86 Nasal Cannula 5.0 04/15/19 14:23 27 97 Nasal Cannula 6.0 04/15/19 14:03 127 74/57 04/15/19 14:00 82 27 109/68 (82) 97 Simple Mask 6.0 04/15/19 13:23 28 97 Simple Mask 6.0 04/15/19 13:00 103 28 120/66 (84) 100 Simple Mask 6.0 04/15/19 12:04 127 107/62 04/15/19 12:00 Mask 6.0 04/15/19 12:00 123 30 113/75 (88) 97 Simple Mask 6.0 04/15/19 12:00 113/75 (88) 04/15/19 11:00 105 20 101/58 (72) 96 Simple Mask 6.0 04/15/19 10:00 105 18 112/65 (81) 96 Simple Mask 6.0 04/15/19 09:00 87 18 121/65 (83) 94 Simple Mask 6.0 04/15/19 08:00 Bi-pap 4.0 04/15/19 08:00 04/15/19 08:00 84 18 104/43 (63) 97 Simple Mask 6.0 04/15/19 07:00 98.1 82 20 105/44 (64) 98 Simple Mask 6.0 98.1 Laboratory Laboratory Laboratory Tests Test 04/16/19 03:05 04/16/19 03:09 04/16/19 12:45 Glucose (Fingerstick) 155 mg/dL (70-99) O2 Saturation 88 % (92-99) 96 % (92-99) Arterial Blood pH 7.25 (7.35-7.45) 7.27 (7.35-7.45) Arterial Blood pCO2 at Patient Temp 61 mmHg (35-46) 63 mmHg (35-46) Arterial Blood pO2 at Patient Temp 62 mmHg (65-108) 88 mmHg (65-108) Arterial Blood HCO3 26 mmol/L (21-28) 28 mmol/L (21-28) Arterial Blood Base Excess -2 mmol/L (-3-3) 0 mmol/L (-3-3) FiO2 50 44 Microbiology 04/11/19 Blood Culture - Final, Complete NO GROWTH AFTER 5 DAYS Medication Medications Current Medications Lactobacillus Rhamnosus (Culturelle) 1 cap BID PO Last administered on at 08:43; Start 04/15/19 at 21:00 Comment Review of Relevant I have reviewed the following items khalida (where applicable) has been applied. CHARITY HAYES MD Apr 16, 2019 14:10
[2019-04-16] MEDS: ATORVASTATIN CALCIUM 20 MG TABLET PO SCH (21:23)
[2019-04-17] VITALS (17 sets, daily range): BP systolic 85–108; BP diastolic 45–66
[2019-04-17 05:23] LABS: BASO % 0 % (0-3); EOS % 0 % (0-3); HEMATOCRIT 31.3 % (39.0-53.0); HEMOGLOBIN 10.1 g/dL (13.0-17.5); LYMPH # 0.7 x10^3/uL (1.0-4.8); LYMPH % 9 % (24-48); MEAN CORPUSCULAR HEMOGLOBIN 33 pg (25-35); MEAN CORPUSCULAR HGB CONC 32 g/dL (31-37); MEAN CORPUSCULAR VOLUME 101 fL (79-100); MONO # 0.8 x10^3/uL (0.0-1.1); MONO % 11 % (0-9); NEUT # 5.8 x10^3/uL (1.8-7.7); NEUT % 80 % (31-73); PLATELET COUNT 111 x10^3/uL (140-400); RED CELL DISTRIBUTION WIDTH 14.3 % (11.5-14.5); WHITE BLOOD COUNT 7.3 x10^3/uL (4.0-11.0)
[2019-04-17 05:44] LABS: ALBUMIN 2.5 g/dL (3.4-5.0); ALBUMIN/GLOBULIN RATIO 0.6 (1.0-1.7); CALCIUM 8.1 mg/dL (8.5-10.1); CREATININE 8.3 mg/dL (0.7-1.3); GFR 7.6; POTASSIUM 4.3 mmol/L (3.5-5.1); TOTAL BILIRUBIN 0.5 mg/dL (0.2-1.0); TOTAL PROTEIN 6.5 g/dL (6.4-8.2)
[2019-04-17] MEDS: cefTRIAXone IV Push 1 GM VIAL. IVP SCH (06:21)
[2019-04-17] MEDS: CALCIUM CARBONATE 500 MG TAB.CHEW PO SCH ×3 (08:00→17:12)
[2019-04-17] MEDS: BUDESONIDE 0.5 MG/2 ML NEBU. NEB SCH ×2 (08:25→19:25)
[2019-04-17] MEDS: IPRATRPIUM/ALBUTEROL 0.5/2.5MG 3 ML NEBU. NEB SCH ×4 (08:25→19:25)
[2019-04-17 08:38] LABS: BASE EXCESS ABG -3 mmol/L (-3-3); HCO3 ABG 24 mmol/L (21-28); PCO2 ABG 50 mmHg (35-46); PO2 ABG 66 mmHg (65-108); SAT O2 ABG 90 % (92-99)
[2019-04-17 08:41] LABS: FIO2 ABG 36
[2019-04-17] MEDS: CINACALCET HCL 30 MG TABLET PO SCH (09:22)
[2019-04-17] MEDS: ASPIRIN CHEWABLE 81 MG TABLET. PO SCH (09:22)
[2019-04-17] MEDS: LACTOBACILLUS RHAMNOSUS GG 1 CAPSULE. PO SCH ×2 (09:22→21:31)
[2019-04-17] MEDS: CHOLECALCIFEROL (VITAMIN D3) 5,000 UNIT CAPSULE PO SCH (09:22)
[2019-04-17] MEDS: DOCUSATE SODIUM 100 MG CAPSULE. PO SCH (09:22)
[2019-04-17] MEDS: FERROUS SULFATE 325 MG TABLET. PO SCH (09:22)
--- NOTE | 2019-04-17 09:29 | PDOC ---
SUBJECTIVE ROS Propped up in bed, having breakfast , Off Levophed OBJECTIVE Vital Signs Vital Signs Date Time Temp Pulse Resp B/P (MAP) Pulse Ox O2 Delivery O2 Flow Rate FiO2 04/17/19 08:25 95 Nasal Cannula 4.0 04/17/19 08:00 99.1 91 28 98/59 (72) 99.1 I & 0 Intake and Output 04/17/19 07:00 Intake Total 789.87 ml Output Total 0 ml Balance 789.87 ml Intake Oral 540 ml IV Total 249.87 ml Output Urine Total 0 ml PHYSICAL EXAM Physical Exam General: No acute distress HEENT: OM moist Lungs: Clear to auscultation Heart: Regular rate (SR), Other (4/6 systolic murmur to LLs border) Abdomen: Soft, No tenderness Extremities: No edema Skin: No rash Neuro: Alert, Oriented X3, DIAGNOSIS/ASSESSMENT Assessment & Plan ESRD - On HD TTS Currently no indication today Status post heart catheterization - no significant coronary disease but severe pulmonary hypertension. COPD Hypotension. Off Levophed Per Card Pulm HTN- Per Pulm Anemia- Hgb stable JAMESON per protocol for Hgb< 10 COMMENT/RELEVANT DATA Meds Current Medications Medications (Trade) Dose Ordered Sig/Edita Start Time Stop Time Status Last Admin Dose Admin Acetaminophen (Tylenol) 500 mg 1X PRN PRN 04/15/19 09:30 04/16/19 09:29 DC Acetaminophen/ Hydrocodone Bitart (Lortab 5/325) 1 tab PRN Q4HRS PRN 04/14/19 18:30 04/15/19 13:23 1 TAB Adenosine (Adenoscan) 90 mg STK-MED ONCE 04/14/19 14:22 04/14/19 14:23 DC Adenosine 90 mg/ Sodium Chloride 120 ml @ 200 mls/hr 1X ONCE 04/14/19 14:45 04/14/19 15:20 DC 04/14/19 15:11 200 MLS/HR Albumin Human 200 ml @ 200 mls/hr 1X PRN PRN 04/13/19 08:45 04/13/19 14:44 DC Albuterol/ Ipratropium (Duoneb) 3 ml RTQID 04/15/19 08:00 04/17/19 08:25 3 ML Aspirin (Children'S Aspirin) 81 mg DAILY 04/13/19 09:00 04/16/19 08:43 81 MG Atorvastatin Calcium (Lipitor) 20 mg HS 04/12/19 21:00 04/16/19 21:23 20 MG Budesonide (Pulmicort) 0.5 mg RTBID 04/15/19 08:00 04/17/19 08:25 0.5 MG Calcium Carbonate/ Glycine (Tums) 750 mg TIDWMEALS 04/13/19 08:00 04/16/19 17:59 750 MG Ceftriaxone Sodium (Rocephin) 1 gm Q24H 04/15/19 07:00 04/17/19 06:21 1 GM Cinacalcet (Sensipar) 30 mg DAILY 04/13/19 09:00 04/16/19 08:43 30 MG Digoxin (Lanoxin) 500 mcg STK-MED ONCE 04/14/19 09:41 04/14/19 09:41 DC Diphenhydramine HCl (Benadryl) 25 mg 1X PRN PRN 04/15/19 09:30 04/16/19 09:29 DC Docusate Sodium (Colace) 100 mg DAILY 04/13/19 09:00 04/16/19 08:43 100 MG Ferrous Sulfate (Feosol) 325 mg DAILY08 04/13/19 08:00 04/16/19 07:46 325 MG Heparin Sodium/ Sodium Chloride 500 ml @ As Directed STK-MED ONCE 04/14/19 14:51 04/14/19 14:51 DC Heparin Sodium/ Sodium Chloride (HEPARIN for ARTERIAL LINE FLUSH) 1,000 unit 1X ONCE 04/14/19 14:45 04/14/19 14:46 DC 04/14/19 15:09 1,000 UNIT Info (CONTRAST GIVEN -- Rx MONITORING) 1 each PRN DAILY PRN 04/15/19 09:00 04/17/19 08:59 DC Info (PHARMACY MONITORING -- do not chart) 1 each PRN DAILY PRN 04/15/19 09:30 Iodixanol (Visipaque 320) 100 ml 1X ONCE 04/14/19 14:45 04/14/19 14:46 DC 04/14/19 15:10 93 ML Iohexol (Omnipaque 350 Mg/ml) 90 ml 1X ONCE 04/15/19 09:00 9/28/19 09:01 DC 04/15/19 09:00 90 ML Lactobacillus Rhamnosus (Culturelle) 1 cap BID 04/15/19 21:00 04/16/19 21:23 1 CAP Lidocaine HCl (Lidocaine 1% 20ml Vial) 20 ml 1X ONCE 04/14/19 14:45 04/14/19 14:46 DC 04/14/19 15:10 15 ML Midodrine (Proamatine) 10 mg QTUTHSA@1000 04/13/19 10:00 04/15/19 14:03 10 MG Norepinephrine Bitartrate 250 ml @ 15.656 mls/ hr CONT PRN 04/14/19 14:15 04/16/19 00:02 15.656 MLS/HR Ondansetron HCl (Zofran) 4 mg PRN Q4HRS PRN 04/14/19 01:30 04/14/19 20:22 4 MG Sodium Chloride 1,000 ml @ 400 mls/hr Q2H30M PRN 04/15/19 09:25 04/15/19 21:24 DC Temazepam (Restoril) 7.5 mg PRN QHS PRN 04/14/19 19:00 Vitamin D (Vitamin D3) 5,000 unit DAILY 04/13/19 09:00 04/16/19 08:43 5,000 UNIT Lab Laboratory Tests Test 04/16/19 12:45 04/17/19 04:55 04/17/19 08:25 O2 Saturation 96 % (92-99) 90 % (92-99) Arterial Blood pH 7.27 (7.35-7.45) 7.30 (7.35-7.45) Arterial Blood pCO2 at Patient Temp 63 mmHg (35-46) 50 mmHg (35-46) Arterial Blood pO2 at Patient Temp 88 mmHg (65-108) 66 mmHg (65-108) Arterial Blood HCO3 28 mmol/L (21-28) 24 mmol/L (21-28) Arterial Blood Base Excess 0 mmol/L (-3-3) -3 mmol/L (-3-3) FiO2 44 36 White Blood Count 7.3 x10^3/uL (4.0-11.0) Red Blood Count 3.10 x10^6/uL (4.30-5.70) Hemoglobin 10.1 g/dL (13.0-17.5) Hematocrit 31.3 % (39.0-53.0) Mean Corpuscular Volume 101 fL (79-100) Mean Corpuscular Hemoglobin 33 pg (25-35) Mean Corpuscular Hemoglobin Concent 32 g/dL (31-37) Red Cell Distribution Width 14.3 % (11.5-14.5) Platelet Count 111 x10^3/uL (140-400) Neutrophils (%) (Auto) 80 % (31-73) Lymphocytes (%) (Auto) 9 % (24-48) Monocytes (%) (Auto) 11 % (0-9) Eosinophils (%) (Auto) 0 % (0-3) Basophils (%) (Auto) 0 % (0-3) Neutrophils # (Auto) 5.8 x10^3/uL (1.8-7.7) Lymphocytes # (Auto) 0.7 x10^3/uL (1.0-4.8) Monocytes # (Auto) 0.8 x10^3/uL (0.0-1.1) Eosinophils # (Auto) 0.0 x10^3/uL (0.0-0.7) Basophils # (Auto) 0.0 x10^3/uL (0.0-0.2) Sodium Level 135 mmol/L (136-145) Potassium Level 4.3 mmol/L (3.5-5.1) Chloride Level 97 mmol/L (98-107) Carbon Dioxide Level 28 mmol/L (21-32) Anion Gap 10 (6-14) Blood Urea Nitrogen 51 mg/dL (8-26) Creatinine 8.3 mg/dL (0.7-1.3) Estimated GFR (Cockcroft-Gault) 7.6 BUN/Creatinine Ratio 6 (6-20) Glucose Level 110 mg/dL (70-99) Calcium Level 8.1 mg/dL (8.5-10.1) Total Bilirubin 0.5 mg/dL (0.2-1.0) Aspartate Amino Transf (AST/SGOT) 25 U/L (15-37) Alanine Aminotransferase (ALT/SGPT) 17 U/L (16-63) Alkaline Phosphatase 102 U/L (46-116) Total Protein 6.5 g/dL (6.4-8.2) Albumin 2.5 g/dL (3.4-5.0) Albumin/Globulin Ratio 0.6 (1.0-1.7) Results All relevant outside records, renal labs, imaging studies, telemetry/EKG's were reviewed. KATARZYNA PAYNE MD Apr 17, 2019 09:29
[2019-04-17] MEDS ORDERED: SODIUM BICARB ADULT 8.4% 50 MEQ/50 ML DISP.SYRIN. IV ONE (10:30)
--- NOTE | 2019-04-17 10:31 | PDOC ---
PULMONARY PROGRESS NOTES Subjective off bipap,awake, no soa Vitals Vital Signs Date Time Temp Pulse Resp B/P (MAP) Pulse Ox O2 Delivery O2 Flow Rate FiO2 04/17/19 09:00 90 30 95/56 (69) 99 Nasal Cannula 4.0 04/17/19 08:00 99.1 99.1 Comments ros as mentioned as above other sys otherwise neg ROS: No Nausea General: Alert, No acute distress HEENT: Other (nc at perrl bipap mask on neck no lad no thyromegaly) Lungs: Other (decrease bs) Cardiovascular: S1, S2, Other Abdomen: Soft, Non-tender Neuro Exam: Alert Extremities: No Edema Skin: Warm Labs Laboratory Tests Test 04/16/19 03:05 04/16/19 03:09 04/16/19 12:45 04/17/19 04:55 Glucose (Fingerstick) 155 mg/dL (70-99) O2 Saturation 88 % (92-99) 96 % (92-99) Arterial Blood pH 7.25 (7.35-7.45) 7.27 (7.35-7.45) Arterial Blood pCO2 at Patient Temp 61 mmHg (35-46) 63 mmHg (35-46) Arterial Blood pO2 at Patient Temp 62 mmHg (65-108) 88 mmHg (65-108) Arterial Blood HCO3 26 mmol/L (21-28) 28 mmol/L (21-28) Arterial Blood Base Excess -2 mmol/L (-3-3) 0 mmol/L (-3-3) FiO2 50 44 White Blood Count 7.3 x10^3/uL (4.0-11.0) Red Blood Count 3.10 x10^6/uL (4.30-5.70) Hemoglobin 10.1 g/dL (13.0-17.5) Hematocrit 31.3 % (39.0-53.0) Mean Corpuscular Volume 101 fL (79-100) Mean Corpuscular Hemoglobin 33 pg (25-35) Mean Corpuscular Hemoglobin Concent 32 g/dL (31-37) Red Cell Distribution Width 14.3 % (11.5-14.5) Platelet Count 111 x10^3/uL (140-400) Neutrophils (%) (Auto) 80 % (31-73) Lymphocytes (%) (Auto) 9 % (24-48) Monocytes (%) (Auto) 11 % (0-9) Eosinophils (%) (Auto) 0 % (0-3) Basophils (%) (Auto) 0 % (0-3) Neutrophils # (Auto) 5.8 x10^3/uL (1.8-7.7) Lymphocytes # (Auto) 0.7 x10^3/uL (1.0-4.8) Monocytes # (Auto) 0.8 x10^3/uL (0.0-1.1) Eosinophils # (Auto) 0.0 x10^3/uL (0.0-0.7) Basophils # (Auto) 0.0 x10^3/uL (0.0-0.2) Sodium Level 135 mmol/L (136-145) Potassium Level 4.3 mmol/L (3.5-5.1) Chloride Level 97 mmol/L (98-107) Carbon Dioxide Level 28 mmol/L (21-32) Anion Gap 10 (6-14) Blood Urea Nitrogen 51 mg/dL (8-26) Creatinine 8.3 mg/dL (0.7-1.3) Estimated GFR (Cockcroft-Gault) 7.6 BUN/Creatinine Ratio 6 (6-20) Glucose Level 110 mg/dL (70-99) Calcium Level 8.1 mg/dL (8.5-10.1) Total Bilirubin 0.5 mg/dL (0.2-1.0) Aspartate Amino Transf (AST/SGOT) 25 U/L (15-37) Alanine Aminotransferase (ALT/SGPT) 17 U/L (16-63) Alkaline Phosphatase 102 U/L (46-116) Total Protein 6.5 g/dL (6.4-8.2) Albumin 2.5 g/dL (3.4-5.0) Albumin/Globulin Ratio 0.6 (1.0-1.7) Test 04/17/19 08:25 O2 Saturation 90 % (92-99) Arterial Blood pH 7.30 (7.35-7.45) Arterial Blood pCO2 at Patient Temp 50 mmHg (35-46) Arterial Blood pO2 at Patient Temp 66 mmHg (65-108) Arterial Blood HCO3 24 mmol/L (21-28) Arterial Blood Base Excess -3 mmol/L (-3-3) FiO2 36 Laboratory Tests Test 04/16/19 12:45 04/17/19 04:55 04/17/19 08:25 O2 Saturation 96 % (92-99) 90 % (92-99) Arterial Blood pH 7.27 (7.35-7.45) 7.30 (7.35-7.45) Arterial Blood pCO2 at Patient Temp 63 mmHg (35-46) 50 mmHg (35-46) Arterial Blood pO2 at Patient Temp 88 mmHg (65-108) 66 mmHg (65-108) Arterial Blood HCO3 28 mmol/L (21-28) 24 mmol/L (21-28) Arterial Blood Base Excess 0 mmol/L (-3-3) -3 mmol/L (-3-3) FiO2 44 36 White Blood Count 7.3 x10^3/uL (4.0-11.0) Red Blood Count 3.10 x10^6/uL (4.30-5.70) Hemoglobin 10.1 g/dL (13.0-17.5) Hematocrit 31.3 % (39.0-53.0) Mean Corpuscular Volume 101 fL (79-100) Mean Corpuscular Hemoglobin 33 pg (25-35) Mean Corpuscular Hemoglobin Concent 32 g/dL (31-37) Red Cell Distribution Width 14.3 % (11.5-14.5) Platelet Count 111 x10^3/uL (140-400) Neutrophils (%) (Auto) 80 % (31-73) Lymphocytes (%) (Auto) 9 % (24-48) Monocytes (%) (Auto) 11 % (0-9) Eosinophils (%) (Auto) 0 % (0-3) Basophils (%) (Auto) 0 % (0-3) Neutrophils # (Auto) 5.8 x10^3/uL (1.8-7.7) Lymphocytes # (Auto) 0.7 x10^3/uL (1.0-4.8) Monocytes # (Auto) 0.8 x10^3/uL (0.0-1.1) Eosinophils # (Auto) 0.0 x10^3/uL (0.0-0.7) Basophils # (Auto) 0.0 x10^3/uL (0.0-0.2) Sodium Level 135 mmol/L (136-145) Potassium Level 4.3 mmol/L (3.5-5.1) Chloride Level 97 mmol/L (98-107) Carbon Dioxide Level 28 mmol/L (21-32) Anion Gap 10 (6-14) Blood Urea Nitrogen 51 mg/dL (8-26) Creatinine 8.3 mg/dL (0.7-1.3) Estimated GFR (Cockcroft-Gault) 7.6 BUN/Creatinine Ratio 6 (6-20) Glucose Level 110 mg/dL (70-99) Calcium Level 8.1 mg/dL (8.5-10.1) Total Bilirubin 0.5 mg/dL (0.2-1.0) Aspartate Amino Transf (AST/SGOT) 25 U/L (15-37) Alanine Aminotransferase (ALT/SGPT) 17 U/L (16-63) Alkaline Phosphatase 102 U/L (46-116) Total Protein 6.5 g/dL (6.4-8.2) Albumin 2.5 g/dL (3.4-5.0) Albumin/Globulin Ratio 0.6 (1.0-1.7) Medications Active Scripts Medications Dose Route/Sig Max Daily Dose Days Date Category Midodrine Hcl 10 Mg Tablet 10 Mg PO QTUTHSA 04/11/19 Reported Midodrine Hcl 5 Mg Tablet 10 Mg PO QTUTHSA 04/11/19 Reported Ferrous Sulfate 325 Mg Tablet 1 Tab PO DAILY 04/11/19 Reported Calcium Carbonate 200 Mg Tab.chew 750 Mg PO TIDWMEALS 04/11/19 Reported Stool Softener (Docusate Sodium) 250 Mg Capsule 250 Mg PO DAILY 04/11/19 Reported Aspirin 81 Mg Tab.chew 1 Tab PO DAILY 04/11/19 Reported Sensipar (Cinacalcet Hcl) 30 Mg Tablet 30 Mg PO DAILY 04/11/19 Reported Vitamin D3 (Cholecalciferol (Vitamin D3)) 5,000 Unit Tablet 1 Tab PO DAILY 04/11/19 Reported Atorvastatin Calcium 20 Mg Tablet 20 Mg PO HS 04/01/[address] 1. No convincing central pulmonary embolism. Evaluation for segmental and subsegmental emboli is significantly limited due to suboptimal contrast opacification and respiratory motion. 2. Enlarged central pulmonary arteries likely due to pulmonary artery hypertension. There is also cardiomegaly. 3. Moderate right and small left pleural effusions with right lower lobe partially consolidated infiltrate superimposed on atelectasis. There is also left lower lobe and posterior dependent atelectasis and scarring along the pleural fissures. 4. Moderate emphysema. 5. Prominent mediastinal and hilar lymph nodes, possibly reactive in etiology. 6. Renal atrophy. 7. Large right thyroid cyst. Impression . IMPRESSION: 1. Acute hypoxemic respiratory failure, multifactorial in etiology. 2. Pulmonary hypertension. I suspect it is secondary and chronic and it is multifactorial in etiology. I suspect he does have significant chronic obstructive pulmonary disease with nocturnal hypoxemia, need to rule out obstructive sleep apnea-hypopnea syndrome. no central pulmonary embolism. His chest x-ray also shows increased interstitial marking, no ild, has emphysema 3. Abnormal chest x-ray. 4. Significant history of smoking, suspect he has significant chronic obstructive pulmonary disease. 5. ?Obstructive sleep apnea-hypopnea syndrome. 6. Acute bronchitis. 7. End-stage renal disease, on hemodialysis. 8. Hypotension ?etiology. 9. Diabetes mellitus. 10. History of hypertension. Plan . PLAN AND RECOMMENDATIONS: 1. 02 titration, bipap prn during day, cont at night, setting reviewed. abg on 02. Has combined resp/ met acidosis. add bicarb today 2. bronchodilator. 3. inhaled corticosteroid, 4. Rocephin. 5. CT angiogram reviewed, no central pe, le doppler neg 6. He would require complete PFTs as an outpatient. 7. I do recommend sleep study as an outpatient. 8. Six-minute walk and nocturnal oximetry before discharge. 9. fu ct in 6-[address] shows pleural effusion, ? diastolic chf, hold off tap at present discussed w lindsey. DOT JOSEPH MD Apr 17, 2019 10:31
--- NOTE | 2019-04-17 10:42 | PDOC ---
BUSHRA RAYO MICROBIOLOGY LAB ASSISTANT 04/17/19 1042: CARDIO Progress Notes Date and Time Date of Service 04/17/19 Time of Evaluation 1030 Subjective Subjective: Other (SOA better today, WILSON continues ) Vitals Vitals Vital Signs Date Time Temp Pulse Resp B/P (MAP) Pulse Ox O2 Delivery O2 Flow Rate FiO2 04/17/19 09:00 90 30 95/56 (69) 99 Nasal Cannula 4.0 04/17/19 08:00 99.1 99.1 Weight Weight [ ] Input and Output Intake and Output Intake and Output 04/17/19 07:00 Intake Total 789.87 ml Output Total 0 ml Balance 789.87 ml Intake Oral 540 ml IV Total 249.87 ml Output Urine Total 0 ml Laboratory Labs Laboratory Tests Test 04/16/19 12:45 04/17/19 04:55 04/17/19 08:25 O2 Saturation 96 % (92-99) 90 % (92-99) Arterial Blood pH 7.27 (7.35-7.45) 7.30 (7.35-7.45) Arterial Blood pCO2 at Patient Temp 63 mmHg (35-46) 50 mmHg (35-46) Arterial Blood pO2 at Patient Temp 88 mmHg (65-108) 66 mmHg (65-108) Arterial Blood HCO3 28 mmol/L (21-28) 24 mmol/L (21-28) Arterial Blood Base Excess 0 mmol/L (-3-3) -3 mmol/L (-3-3) FiO2 44 36 White Blood Count 7.3 x10^3/uL (4.0-11.0) Red Blood Count 3.10 x10^6/uL (4.30-5.70) Hemoglobin 10.1 g/dL (13.0-17.5) Hematocrit 31.3 % (39.0-53.0) Mean Corpuscular Volume 101 fL (79-100) Mean Corpuscular Hemoglobin 33 pg (25-35) Mean Corpuscular Hemoglobin Concent 32 g/dL (31-37) Red Cell Distribution Width 14.3 % (11.5-14.5) Platelet Count 111 x10^3/uL (140-400) Neutrophils (%) (Auto) 80 % (31-73) Lymphocytes (%) (Auto) 9 % (24-48) Monocytes (%) (Auto) 11 % (0-9) Eosinophils (%) (Auto) 0 % (0-3) Basophils (%) (Auto) 0 % (0-3) Neutrophils # (Auto) 5.8 x10^3/uL (1.8-7.7) Lymphocytes # (Auto) 0.7 x10^3/uL (1.0-4.8) Monocytes # (Auto) 0.8 x10^3/uL (0.0-1.1) Eosinophils # (Auto) 0.0 x10^3/uL (0.0-0.7) Basophils # (Auto) 0.0 x10^3/uL (0.0-0.2) Sodium Level 135 mmol/L (136-145) Potassium Level 4.3 mmol/L (3.5-5.1) Chloride Level 97 mmol/L (98-107) Carbon Dioxide Level 28 mmol/L (21-32) Anion Gap 10 (6-14) Blood Urea Nitrogen 51 mg/dL (8-26) Creatinine 8.3 mg/dL (0.7-1.3) Estimated GFR (Cockcroft-Gault) 7.6 BUN/Creatinine Ratio 6 (6-20) Glucose Level 110 mg/dL (70-99) Calcium Level 8.1 mg/dL (8.5-10.1) Total Bilirubin 0.5 mg/dL (0.2-1.0) Aspartate Amino Transf (AST/SGOT) 25 U/L (15-37) Alanine Aminotransferase (ALT/SGPT) 17 U/L (16-63) Alkaline Phosphatase 102 U/L (46-116) Total Protein 6.5 g/dL (6.4-8.2) Albumin 2.5 g/dL (3.4-5.0) Albumin/Globulin Ratio 0.6 (1.0-1.7) Microbiology Micro Microbiology 04/11/19 Blood Culture - Final, Complete NO GROWTH AFTER 5 DAYS Review of Systems Constitutional: yes: weakness, alert, oriented Ears/Nose/Throat: Yes: no symptom reported Eyes: Yes: no symptom reported Pulmonary: Yes no symptom reported Cardiovascular: Yes no symptom reported Gastrointestional: Yes: no symptom reported Genitourinary: Yes: no symptom reported Musculoskeletal: Yes: no symptom reported Skin: Yes no symptom reported Psychiatric/Neurological: Yes: no symptom reported Endocrine: Yes: no symptom reported Physical Exam HEENT: Neck Supple W Full Motion Chest: Symmetric LUNGS: Other (diminished bases) Heart: S1S2, RRR (SR with PACs, PVCs) Abdomen: Soft N/T Extremities: Other (trace LE edema ) Neurology: alert, oriented, follow commands Assessment Assessment 1. Acute respiratory failure; multifactorial with severe right-sided heart failure/cor pulmonale/ severe pulm HTN, and COPD 2. Elevated troponin; type II, demand ischemia. normal coronaries on LHC 3. Hyperlipidemia; statin 4. ESRD on HD Recommendations Fluid management via HD Follow pulm recommendations Supportive care TAMMY BAHENA MD 04/17/19 1646: CARDIO Progress Notes Plan Plan Pt. seen and examined. Agree with above FORENSIC SCIENTIST note. Supportive care. Defer thoracentesis to Dr. Willingham. Thanks. Will follow along peripherally. BUSHRA RAYO APRN Apr 17, 2019 10:42 TAMMY BAHENA MD Apr 17, 2019 16:46
--- NOTE | 2019-04-17 11:38 | NUR ---
SS following for discharge planning. Pt transferred to ICU due to change of condition. Discussed with Silviano DIMAS. Pt lives at home alone, and has OP HD at [facility], phone: [phone], fax: [phone]. PT recommended usp unit on 04/14/2019. SS will discuss usp unit with pt and family and will proceed accordingly.
--- NOTE | 2019-04-17 12:06 | PDOC ---
[employer] PROGRESS NOTE Chief Complaint Chief Complaint ESRD Anemia Hypotension History of Present Illness History of Present Illness 04/17/19 Pt seen and examined in the ICu Pt was seen wearing face mask with 97% sat NAKITA RN Sitting up in chair No longer on Levophed 04/16/19 Pt seen and examined in the ICU Pt was wearing face mask with 97% sat NAKITA RN R and L pleural effusions on CTA 04/15/19 Pt seen and examined in ICU Pt was wearing face mask with 97% sat Pt was awake and coherent DW RN Vitals/I&O Vitals/I&O: Vital Signs Date Time Temp Pulse Resp B/P (MAP) Pulse Ox O2 Delivery O2 Flow Rate FiO2 04/17/19 11:00 97.6 94 28 95/54 (68) 93 Nasal Cannula 4.0 97.6 I & O 04/16/19 04/16/19 04/17/19 15:00 23:00 07:00 Intake Total 200 ml 298.87 ml 291 ml Output Total 0 ml 0 ml 0 ml Balance 200 ml 298.87 ml 291 ml Physical Exam General: No acute distress, mild distress Heart: Regular rate Lungs: Other (decrease bs) Abdomen: Normal bowel sounds Extremities: No clubbing, No cyanosis, No edema, Normal pulses, No tenderness/swelling Skin: No rashes, No breakdown, No significant lesion Labs Labs: Laboratory Tests Test 04/16/19 12:45 04/17/19 04:55 04/17/19 08:25 O2 Saturation 96 % (92-99) 90 % (92-99) Arterial Blood pH 7.27 (7.35-7.45) 7.30 (7.35-7.45) Arterial Blood pCO2 at Patient Temp 63 mmHg (35-46) 50 mmHg (35-46) Arterial Blood pO2 at Patient Temp 88 mmHg (65-108) 66 mmHg (65-108) Arterial Blood HCO3 28 mmol/L (21-28) 24 mmol/L (21-28) Arterial Blood Base Excess 0 mmol/L (-3-3) -3 mmol/L (-3-3) FiO2 44 36 White Blood Count 7.3 x10^3/uL (4.0-11.0) Red Blood Count 3.10 x10^6/uL (4.30-5.70) Hemoglobin 10.1 g/dL (13.0-17.5) Hematocrit 31.3 % (39.0-53.0) Mean Corpuscular Volume 101 fL (79-100) Mean Corpuscular Hemoglobin 33 pg (25-35) Mean Corpuscular Hemoglobin Concent 32 g/dL (31-37) Red Cell Distribution Width 14.3 % (11.5-14.5) Platelet Count 111 x10^3/uL (140-400) Neutrophils (%) (Auto) 80 % (31-73) Lymphocytes (%) (Auto) 9 % (24-48) Monocytes (%) (Auto) 11 % (0-9) Eosinophils (%) (Auto) 0 % (0-3) Basophils (%) (Auto) 0 % (0-3) Neutrophils # (Auto) 5.8 x10^3/uL (1.8-7.7) Lymphocytes # (Auto) 0.7 x10^3/uL (1.0-4.8) Monocytes # (Auto) 0.8 x10^3/uL (0.0-1.1) Eosinophils # (Auto) 0.0 x10^3/uL (0.0-0.7) Basophils # (Auto) 0.0 x10^3/uL (0.0-0.2) Sodium Level 135 mmol/L (136-145) Potassium Level 4.3 mmol/L (3.5-5.1) Chloride Level 97 mmol/L (98-107) Carbon Dioxide Level 28 mmol/L (21-32) Anion Gap 10 (6-14) Blood Urea Nitrogen 51 mg/dL (8-26) Creatinine 8.3 mg/dL (0.7-1.3) Estimated GFR (Cockcroft-Gault) 7.6 BUN/Creatinine Ratio 6 (6-20) Glucose Level 110 mg/dL (70-99) Calcium Level 8.1 mg/dL (8.5-10.1) Total Bilirubin 0.5 mg/dL (0.2-1.0) Aspartate Amino Transf (AST/SGOT) 25 U/L (15-37) Alanine Aminotransferase (ALT/SGPT) 17 U/L (16-63) Alkaline Phosphatase 102 U/L (46-116) Total Protein 6.5 g/dL (6.4-8.2) Albumin 2.5 g/dL (3.4-5.0) Albumin/Globulin Ratio 0.6 (1.0-1.7) Review of Systems Review of Systems: No nausea, no vomiting No chest pain, no palpitations Assessment and Plan Assessmemt and Plan Problems Medical Problems: (1) Elevated troponin Status: Acute (2) ESRD (end stage renal disease) Status: Acute (3) Hypotension Status: Acute (4) Near syncope Status: Acute Assessment ESRD Hypotension Anemia Plan ICU monitoring Continue HD O2 per nasal cannula DVT prophylaxis Labs Discharge disposition pending Full code Comment Review of Relevant I have reviewed the following items khalida (where applicable) has been applied. Medications: Current Medications Medications (Trade) Dose Ordered Sig/Edita Route PRN Reason Start Time Stop Time Status Last Admin Dose Admin Sodium Bicarbonate (Sodium Bicarb Adult 8.4% Syr) 50 meq 1X ONCE IV 04/17/19 10:30 04/17/19 10:31 DC 04/17/19 10:28 ROLANDO ELAINE III DO Apr 17, 2019 12:06
--- NOTE | 2019-04-17 15:16 | NUR ---
Patient alert and oriented times four, patient received from ICU per wheelchair, patient transfer to chair with gait belt, two person pivot transfer assist. Skin warm and dry, no edema, patient denies pain. Call light at hand, patient verb. understanding up with assist only. Patient verb. understanding orientation to room. Continue cares and monitor.
--- NOTE | 2019-04-17 15:17 | PDOC ---
PROGRESS NOTES Assessment Assessment Orthostatic hypotension. Presyncope and syncope. AFIb with RVR. ESRD on dialysis. DM. HTN. HLD. GINGER. Thyroid disease. RECOMMENDATIONS/PLAN: He has been treated with Midodrine. Continue medical management. OT/PT. Subjective: He stated on 04/16/19 that he felt slightly improved. Past Medical History Cardiovascular: HTN, Hyperlipidemia, Other (hypotension) Pulmonary: Bronchitis, Other (sleep apnea) GI: Constipation (and diarrhea) Heme/Onc: Anemia NOS (has required transfusions) Musculoskeletal: Osteoarthritis ENT: Other (cataracts, not operated yet) Renal/: Chronic renal failure (starting dialysis), Benign prostatic enlarg., Other (urinary retention) Endocrine: Diabetes, Other (thyroid disease, not currently requiring medication) Past Surgical History Tonsillectomy, Other (right renal biopsy) Family History No pertinent hx Social History , rare alcohol, no tobacco Allergies No Known Drug Allergies (Unverified , 04/09/16) ROS Negative for fever, chills, weight loss, shortness of breath, chest pain, indigestion, hematochezia, melena, and dysuria. Full 14-point review of systems is negative. MEDICATIONS: Refer to MAR PHYSICAL EXAMINATION: General appearance in subacute distress. HEENT: Normocephalic and nontraumatic. Eyes, nose, ears, and throat are unremarkable. Hearing decrease. Neck is supple. No lymphadenopathy. No Crepitus. Cardiovascular: S1, S2, regular rate and rhythm. Pulmonary: Clear to auscultation bilaterally. Abdomen: Bowel sounds are positive. Extremities: No rash, lesions, or edema. No restriction of range of motion NEUROLOGICAL EXAMINATION: Awake. Sitting in chair. Oriented to time, place and person. PERRL. EOMI. CN: no focal findings. Muscle tone: within normal. Muscle strength: 4+ DTR: 1-2 Plantar reflex: Flexor response bilaterally Gait: not examined in bed. Sensory exam: no abnormal findings. No cerebellar signs elicited. F-T-N test fine. Objective Objective Vital Signs Date Time Temp Pulse Resp B/P (MAP) Pulse Ox O2 Delivery O2 Flow Rate FiO2 04/17/19 13:46 95 Nasal Cannula 4.0 04/17/19 11:00 97.6 94 28 95/54 (68) 97.6 Intake and Output 04/17/19 07:00 Intake Total 789.87 ml Output Total 0 ml Balance 789.87 ml Intake Oral 540 ml IV Total 249.87 ml Output Urine Total 0 ml Vitals Signs Vitals VS - Last 72 Hours, by Label Date Time Temp Pulse Resp B/P (MAP) Pulse Ox O2 Delivery O2 Flow Rate FiO2 04/17/19 13:46 95 Nasal Cannula 4.0 04/17/19 11:00 97.6 94 28 95/54 (68) 93 Nasal Cannula 4.0 97.6 04/17/19 09:00 90 30 95/56 (69) 99 Nasal Cannula 4.0 04/17/19 08:25 95 Nasal Cannula 4.0 04/17/19 08:00 99.1 91 28 98/59 (72) 98 Nasal Cannula 4.0 99.1 04/17/19 07:45 Nasal Cannula 4.0 04/17/19 07:00 84 30 95/57 (70) 99 Nasal Cannula 4.0 04/17/19 06:00 83 28 99/62 (74) 96 BiPAP/CPAP 04/17/19 05:59 95 BiPAP/CPAP 04/17/19 05:15 84 26 95/59 (71) 97 BiPAP/CPAP 04/17/19 05:00 84 30 95/57 (70) 95 BiPAP/CPAP 04/17/19 04:00 99.6 86 26 92/60 (71) 98 BiPAP/CPAP 99.6 04/17/19 04:00 Bi-pap 04/17/19 03:58 95 BiPAP/CPAP 04/17/19 03:00 84 22 99/62 (74) 96 BiPAP/CPAP 04/17/19 02:15 102/61 (75) 04/17/19 02:00 84 32 101/64 (76) 94 BiPAP/CPAP 04/17/19 00:45 95/59 (71) 04/17/19 00:45 86 30 106/60 (75) 93 BiPAP/CPAP 04/17/19 00:30 108/66 (80) 04/17/19 00:09 94 BiPAP/CPAP 04/17/19 00:00 98.3 86 26 108/62 (77) 94 BiPAP/CPAP 98.3 04/17/19 00:00 Bi-pap 04/16/19 23:00 90 22 106/64 (78) 95 BiPAP/CPAP 04/16/19 22:00 92 20 111/66 (81) 95 High Flow Nasal Cannula 4.0 04/16/19 21:00 80 22 107/74 (85) 95 High Flow Nasal Cannula 4.0 04/16/19 20:43 95 Nasal Cannula 4.0 04/16/19 20:43 95 Nasal Cannula 4.0 04/16/19 20:00 98.6 84 17 105/61 (76) 98 High Flow Nasal Cannula 4.0 98.6 04/16/19 20:00 Nasal Cannula 4.0 04/16/19 19:00 86 18 93/51 (65) 98 High Flow Nasal Cannula 4.0 04/16/19 18:00 97 22 122/68 (86) 94 High Flow Nasal Cannula 4.0 04/16/19 17:00 85 18 110/63 (79) 95 High Flow Nasal Cannula 4.0 04/16/19 16:36 96 Nasal Cannula 6.0 04/16/19 16:00 Nasal Cannula 4.0 04/16/19 16:00 97.8 84 28 95/53 (67) 95 High Flow Nasal Cannula 4.0 97.8 04/16/19 15:00 87 37 90/60 (70) 95 High Flow Nasal Cannula 4.0 04/16/19 14:00 89 30 109/62 (78) 92 High Flow Nasal Cannula 4.0 04/16/19 13:00 80 25 99/54 (69) 98 High Flow Nasal Cannula 4.0 04/16/19 12:48 98 Nasal Cannula 6.0 04/16/19 12:00 Venturi Mask 4.0 04/16/19 12:00 98.3 79 26 101/57 (72) 98 High Flow Nasal Cannula 6.0 98.3 04/16/19 11:00 78 26 87/48 (61) 96 High Flow Nasal Cannula 6.0 04/16/19 10:00 82 23 94/57 (69) 98 High Flow Nasal Cannula 6.0 04/16/19 09:00 92 24 111/63 (79) 95 High Flow Nasal Cannula 6.0 04/16/19 08:13 97 Venturi Mask 15.0 04/16/19 08:00 97.6 80 27 113/60 (77) 98 Venturi Mask 97.6 04/16/19 08:00 Venturi Mask 4.0 04/16/19 07:00 76 22 102/61 (75) 97 Venturi Mask Laboratory Laboratory Laboratory Tests Test 04/17/19 04:55 04/17/19 08:25 White Blood Count 7.3 x10^3/uL (4.0-11.0) Red Blood Count 3.10 x10^6/uL (4.30-5.70) Hemoglobin 10.1 g/dL (13.0-17.5) Hematocrit 31.3 % (39.0-53.0) Mean Corpuscular Volume 101 fL (79-100) Mean Corpuscular Hemoglobin 33 pg (25-35) Mean Corpuscular Hemoglobin Concent 32 g/dL (31-37) Red Cell Distribution Width 14.3 % (11.5-14.5) Platelet Count 111 x10^3/uL (140-400) Neutrophils (%) (Auto) 80 % (31-73) Lymphocytes (%) (Auto) 9 % (24-48) Monocytes (%) (Auto) 11 % (0-9) Eosinophils (%) (Auto) 0 % (0-3) Basophils (%) (Auto) 0 % (0-3) Neutrophils # (Auto) 5.8 x10^3/uL (1.8-7.7) Lymphocytes # (Auto) 0.7 x10^3/uL (1.0-4.8) Monocytes # (Auto) 0.8 x10^3/uL (0.0-1.1) Eosinophils # (Auto) 0.0 x10^3/uL (0.0-0.7) Basophils # (Auto) 0.0 x10^3/uL (0.0-0.2) Sodium Level 135 mmol/L (136-145) Potassium Level 4.3 mmol/L (3.5-5.1) Chloride Level 97 mmol/L (98-107) Carbon Dioxide Level 28 mmol/L (21-32) Anion Gap 10 (6-14) Blood Urea Nitrogen 51 mg/dL (8-26) Creatinine 8.3 mg/dL (0.7-1.3) Estimated GFR (Cockcroft-Gault) 7.6 BUN/Creatinine Ratio 6 (6-20) Glucose Level 110 mg/dL (70-99) Calcium Level 8.1 mg/dL (8.5-10.1) Total Bilirubin 0.5 mg/dL (0.2-1.0) Aspartate Amino Transf (AST/SGOT) 25 U/L (15-37) Alanine Aminotransferase (ALT/SGPT) 17 U/L (16-63) Alkaline Phosphatase 102 U/L (46-116) Total Protein 6.5 g/dL (6.4-8.2) Albumin 2.5 g/dL (3.4-5.0) Albumin/Globulin Ratio 0.6 (1.0-1.7) O2 Saturation 90 % (92-99) Arterial Blood pH 7.30 (7.35-7.45) Arterial Blood pCO2 at Patient Temp 50 mmHg (35-46) Arterial Blood pO2 at Patient Temp 66 mmHg (65-108) Arterial Blood HCO3 24 mmol/L (21-28) Arterial Blood Base Excess -3 mmol/L (-3-3) FiO2 36 Microbiology 04/11/19 Blood Culture - Final, Complete NO GROWTH AFTER 5 DAYS Medication Medications Current Medications Sodium Bicarbonate (Sodium Bicarb Adult 8.4% Syr) 50 meq 1X ONCE IV Last administered on 04/17/19at 10:28; Start 04/17/19 at 10:30; Stop 04/17/19 at 10:31; Status DC Comment Review of Relevant I have reviewed the following items khalida (where applicable) has been applied. CHARITY HAYES MD Apr 17, 2019 15:17
[2019-04-17] MEDS: ONDANSETRON PF 4 MG/2 ML VIAL. IVP PRN (17:23)
[2019-04-17] MEDS: ATORVASTATIN CALCIUM 20 MG TABLET PO SCH (21:31)
[2019-04-18] VITALS (7 sets, daily range): BP systolic 78–125; BP diastolic 45–60
[2019-04-18 04:11] LABS: BASO % 0 % (0-3); EOS % 0 % (0-3); HEMATOCRIT 31.9 % (39.0-53.0); HEMOGLOBIN 10.4 g/dL (13.0-17.5); LYMPH # 0.8 x10^3/uL (1.0-4.8); LYMPH % 11 % (24-48); MEAN CORPUSCULAR HEMOGLOBIN 33 pg (25-35); MEAN CORPUSCULAR HGB CONC 33 g/dL (31-37); MEAN CORPUSCULAR VOLUME 100 fL (79-100); MONO # 0.8 x10^3/uL (0.0-1.1); MONO % 11 % (0-9); NEUT # 5.8 x10^3/uL (1.8-7.7); NEUT % 78 % (31-73); PLATELET COUNT 122 x10^3/uL (140-400); RED CELL DISTRIBUTION WIDTH 14.3 % (11.5-14.5); WHITE BLOOD COUNT 7.4 x10^3/uL (4.0-11.0)
[2019-04-18 04:46] LABS: ALBUMIN 2.6 g/dL (3.4-5.0); ALBUMIN/GLOBULIN RATIO 0.6 (1.0-1.7); CALCIUM 8.3 mg/dL (8.5-10.1); CREATININE 9.6 mg/dL (0.7-1.3); GFR 6.4; POTASSIUM 4.4 mmol/L (3.5-5.1); TOTAL BILIRUBIN 0.4 mg/dL (0.2-1.0); TOTAL PROTEIN 6.8 g/dL (6.4-8.2)
[2019-04-18] MEDS: cefTRIAXone IV Push 1 GM VIAL. IVP SCH (06:30)
[2019-04-18] MEDS: BUDESONIDE 0.5 MG/2 ML NEBU. NEB SCH ×2 (07:39→19:36)
[2019-04-18] MEDS: IPRATRPIUM/ALBUTEROL 0.5/2.5MG 3 ML NEBU. NEB SCH ×4 (07:39→19:37)
[2019-04-18] MEDS ORDERED: IV NORMAL SALINE 1000ML BAG 1,000 ML IV PRN ×2 (08:06)
[2019-04-18] MEDS ORDERED: DIALYSIS PATIENT. MC PRN ×2 (08:15)
[2019-04-18] MEDS ORDERED: ALBUMIN HUMAN 25% 200 ML IV PRN (08:15)
[2019-04-18] MEDS: CINACALCET HCL 30 MG TABLET PO SCH (08:23)
[2019-04-18] MEDS: CHOLECALCIFEROL (VITAMIN D3) 5,000 UNIT CAPSULE PO SCH (08:23)
[2019-04-18] MEDS: ASPIRIN CHEWABLE 81 MG TABLET. PO SCH (08:23)
[2019-04-18] MEDS: MIDODRINE 5 MG TABLET PO SCH ×2 (08:23→10:00)
[2019-04-18] MEDS: FERROUS SULFATE 325 MG TABLET. PO SCH (08:23)
[2019-04-18] MEDS: CALCIUM CARBONATE 500 MG TAB.CHEW PO SCH ×3 (08:24→17:13)
[2019-04-18] MEDS: LACTOBACILLUS RHAMNOSUS GG 1 CAPSULE. PO SCH ×2 (08:24→21:13)
[2019-04-18] MEDS: DOCUSATE SODIUM 100 MG CAPSULE. PO SCH (08:24)
--- NOTE | 2019-04-18 08:38 | PDOC ---
PROGRESS NOTES Chief Complaint Chief Complaint Acute hypoxemic respiratory failure ESRD Anemia Hypotension Pulmonary hypertension - likely multifactorial in etiology. His WHO classification is likely primarily related to COPD. Chronic obstructive pulmonary disease with nocturnal hypoxemia Obstructive sleep apnea - per patient Significant history of smoking Diabetes mellitus History of hypertension History of Present Illness History of Present Illness Mr Espitia is a 78yo M w/ ESRD on HD, HTN, Anemia, [id number] smoking, stopped smoking about 15 years ago, GINGER on nocturnal O2 who was admitted for dizziness and syncope. He had cardiac catheterization done yesterday, which did show mean pulmonary artery pressure of 45, wedge pressure was 15, right ventricular pressure was 75/16. He did have low normal cardiac output and normal coronary arteries. CTPA - 1. No convincing central pulmonary embolism. Evaluation for segmental and subsegmental emboli is significantly limited due to suboptimal contrast opacification and respiratory motion. 2. Enlarged central pulmonary arteries likely due to pulmonary artery hypertension. There is also cardiomegaly. 3. Moderate right and small left pleural effusions with right lower lobe partially consolidated infiltrate superimposed on atelectasis. There is also left lower lobe and posterior dependent atelectasis and scarring along the pleural fissures. 4. Moderate emphysema. 5. Prominent mediastinal and hilar lymph nodes, possibly reactive in etiology. 6. Renal atrophy. 7. Large right thyroid cyst. Transferred from ICU on 04/17/19. He is seen on dialysis and again in his room. He is a bit confused today, weak, still with some dizziness and unsteady gait. Feels a bit better than admission. PT and OT as well as nursing recommend SNF on discharge and based on his declining self care and ICU deconditioning I agree 04/17/19 Pt seen and examined in the ICu Pt was seen wearing face mask with 97% sat NAKITA RN Sitting up in chair No longer on Levophed 04/16/19 Pt seen and examined in the ICU Pt was wearing face mask with 97% sat NAKITA RN R and L pleural effusions on CTA 04/15/19 Pt seen and examined in ICU Pt was wearing face mask with 97% sat Pt was awake and coherent NAKITA RN Vitals Vitals Vital Signs Date Time Temp Pulse Resp B/P (MAP) Pulse Ox O2 Delivery O2 Flow Rate FiO2 04/18/19 08:23 109/60 04/18/19 07:39 95 Nasal Cannula 4.0 04/18/19 03:00 98.2 98 18 98.2 Physical Exam General: No acute distress Heart: Regular rate Lungs: Other (decrease bs) Abdomen: Normal bowel sounds Extremities: No clubbing, No cyanosis, No edema, Normal pulses, No tenderness/swelling Skin: No rashes, No breakdown, No significant lesion Labs LABS Laboratory Tests Test 04/18/19 03:22 White Blood Count 7.4 x10^3/uL (4.0-11.0) Red Blood Count 3.20 x10^6/uL (4.30-5.70) Hemoglobin 10.4 g/dL (13.0-17.5) Hematocrit 31.9 % (39.0-53.0) Mean Corpuscular Volume 100 fL (79-100) Mean Corpuscular Hemoglobin 33 pg (25-35) Mean Corpuscular Hemoglobin Concent 33 g/dL (31-37) Red Cell Distribution Width 14.3 % (11.5-14.5) Platelet Count 122 x10^3/uL (140-400) Neutrophils (%) (Auto) 78 % (31-73) Lymphocytes (%) (Auto) 11 % (24-48) Monocytes (%) (Auto) 11 % (0-9) Eosinophils (%) (Auto) 0 % (0-3) Basophils (%) (Auto) 0 % (0-3) Neutrophils # (Auto) 5.8 x10^3/uL (1.8-7.7) Lymphocytes # (Auto) 0.8 x10^3/uL (1.0-4.8) Monocytes # (Auto) 0.8 x10^3/uL (0.0-1.1) Eosinophils # (Auto) 0.0 x10^3/uL (0.0-0.7) Basophils # (Auto) 0.0 x10^3/uL (0.0-0.2) Sodium Level 134 mmol/L (136-145) Potassium Level 4.4 mmol/L (3.5-5.1) Chloride Level 96 mmol/L (98-107) Carbon Dioxide Level 27 mmol/L (21-32) Anion Gap 11 (6-14) Blood Urea Nitrogen 70 mg/dL (8-26) Creatinine 9.6 mg/dL (0.7-1.3) Estimated GFR (Cockcroft-Gault) 6.4 BUN/Creatinine Ratio 7 (6-20) Glucose Level 106 mg/dL (70-99) Calcium Level 8.3 mg/dL (8.5-10.1) Total Bilirubin 0.4 mg/dL (0.2-1.0) Aspartate Amino Transf (AST/SGOT) 59 U/L (15-37) Alanine Aminotransferase (ALT/SGPT) 39 U/L (16-63) Alkaline Phosphatase 116 U/L (46-116) Total Protein 6.8 g/dL (6.4-8.2) Albumin 2.6 g/dL (3.4-5.0) Albumin/Globulin Ratio 0.6 (1.0-1.7) Assessment and Plan Assessmemt and Plan Problems Medical Problems: (1) Elevated troponin Status: Acute (2) ESRD (end stage renal disease) Status: Acute (3) Hypotension Status: Acute (4) Near syncope Status: Acute Comment Review of Relevant I have reviewed the following items khalida (where applicable) has been applied. Labs Laboratory Tests Test 04/16/19 12:45 04/17/19 04:55 04/17/19 08:25 04/18/19 03:22 O2 Saturation 96 % (92-99) 90 % (92-99) Arterial Blood pH 7.27 (7.35-7.45) 7.30 (7.35-7.45) Arterial Blood pCO2 at Patient Temp 63 mmHg (35-46) 50 mmHg (35-46) Arterial Blood pO2 at Patient Temp 88 mmHg (65-108) 66 mmHg (65-108) Arterial Blood HCO3 28 mmol/L (21-28) 24 mmol/L (21-28) Arterial Blood Base Excess 0 mmol/L (-3-3) -3 mmol/L (-3-3) FiO2 44 36 White Blood Count 7.3 x10^3/uL (4.0-11.0) 7.4 x10^3/uL (4.0-11.0) Red Blood Count 3.10 x10^6/uL (4.30-5.70) 3.20 x10^6/uL (4.30-5.70) Hemoglobin 10.1 g/dL (13.0-17.5) 10.4 g/dL (13.0-17.5) Hematocrit 31.3 % (39.0-53.0) 31.9 % (39.0-53.0) Mean Corpuscular Volume 101 fL (79-100) 100 fL (79-100) Mean Corpuscular Hemoglobin 33 pg (25-35) 33 pg (25-35) Mean Corpuscular Hemoglobin Concent 32 g/dL (31-37) 33 g/dL (31-37) Red Cell Distribution Width 14.3 % (11.5-14.5) 14.3 % (11.5-14.5) Platelet Count 111 x10^3/uL (140-400) 122 x10^3/uL (140-400) Neutrophils (%) (Auto) 80 % (31-73) 78 % (31-73) Lymphocytes (%) (Auto) 9 % (24-48) 11 % (24-48) Monocytes (%) (Auto) 11 % (0-9) 11 % (0-9) Eosinophils (%) (Auto) 0 % (0-3) 0 % (0-3) Basophils (%) (Auto) 0 % (0-3) 0 % (0-3) Neutrophils # (Auto) 5.8 x10^3/uL (1.8-7.7) 5.8 x10^3/uL (1.8-7.7) Lymphocytes # (Auto) 0.7 x10^3/uL (1.0-4.8) 0.8 x10^3/uL (1.0-4.8) Monocytes # (Auto) 0.8 x10^3/uL (0.0-1.1) 0.8 x10^3/uL (0.0-1.1) Eosinophils # (Auto) 0.0 x10^3/uL (0.0-0.7) 0.0 x10^3/uL (0.0-0.7) Basophils # (Auto) 0.0 x10^3/uL (0.0-0.2) 0.0 x10^3/uL (0.0-0.2) Sodium Level 135 mmol/L (136-145) 134 mmol/L (136-145) Potassium Level 4.3 mmol/L (3.5-5.1) 4.4 mmol/L (3.5-5.1) Chloride Level 97 mmol/L (98-107) 96 mmol/L (98-107) Carbon Dioxide Level 28 mmol/L (21-32) 27 mmol/L (21-32) Anion Gap 10 (6-14) 11 (6-14) Blood Urea Nitrogen 51 mg/dL (8-26) 70 mg/dL (8-26) Creatinine 8.3 mg/dL (0.7-1.3) 9.6 mg/dL (0.7-1.3) Estimated GFR (Cockcroft-Gault) 7.6 6.4 BUN/Creatinine Ratio 6 (6-20) 7 (6-20) Glucose Level 110 mg/dL (70-99) 106 mg/dL (70-99) Calcium Level 8.1 mg/dL (8.5-10.1) 8.3 mg/dL (8.5-10.1) Total Bilirubin 0.5 mg/dL (0.2-1.0) 0.4 mg/dL (0.2-1.0) Aspartate Amino Transf (AST/SGOT) 25 U/L (15-37) 59 U/L (15-37) Alanine Aminotransferase (ALT/SGPT) 17 U/L (16-63) 39 U/L (16-63) Alkaline Phosphatase 102 U/L (46-116) 116 U/L (46-116) Total Protein 6.5 g/dL (6.4-8.2) 6.8 g/dL (6.4-8.2) Albumin 2.5 g/dL (3.4-5.0) 2.6 g/dL (3.4-5.0) Albumin/Globulin Ratio 0.6 (1.0-1.7) 0.6 (1.0-1.7) Laboratory Tests Test 04/18/19 03:22 White Blood Count 7.4 x10^3/uL (4.0-11.0) Red Blood Count 3.20 x10^6/uL (4.30-5.70) Hemoglobin 10.4 g/dL (13.0-17.5) Hematocrit 31.9 % (39.0-53.0) Mean Corpuscular Volume 100 fL (79-100) Mean Corpuscular Hemoglobin 33 pg (25-35) Mean Corpuscular Hemoglobin Concent 33 g/dL (31-37) Red Cell Distribution Width 14.3 % (11.5-14.5) Platelet Count 122 x10^3/uL (140-400) Neutrophils (%) (Auto) 78 % (31-73) Lymphocytes (%) (Auto) 11 % (24-48) Monocytes (%) (Auto) 11 % (0-9) Eosinophils (%) (Auto) 0 % (0-3) Basophils (%) (Auto) 0 % (0-3) Neutrophils # (Auto) 5.8 x10^3/uL (1.8-7.7) Lymphocytes # (Auto) 0.8 x10^3/uL (1.0-4.8) Monocytes # (Auto) 0.8 x10^3/uL (0.0-1.1) Eosinophils # (Auto) 0.0 x10^3/uL (0.0-0.7) Basophils # (Auto) 0.0 x10^3/uL (0.0-0.2) Sodium Level 134 mmol/L (136-145) Potassium Level 4.4 mmol/L (3.5-5.1) Chloride Level 96 mmol/L (98-107) Carbon Dioxide Level 27 mmol/L (21-32) Anion Gap 11 (6-14) Blood Urea Nitrogen 70 mg/dL (8-26) Creatinine 9.6 mg/dL (0.7-1.3) Estimated GFR (Cockcroft-Gault) 6.4 BUN/Creatinine Ratio 7 (6-20) Glucose Level 106 mg/dL (70-99) Calcium Level 8.3 mg/dL (8.5-10.1) Total Bilirubin 0.4 mg/dL (0.2-1.0) Aspartate Amino Transf (AST/SGOT) 59 U/L (15-37) Alanine Aminotransferase (ALT/SGPT) 39 U/L (16-63) Alkaline Phosphatase 116 U/L (46-116) Total Protein 6.8 g/dL (6.4-8.2) Albumin 2.6 g/dL (3.4-5.0) Albumin/Globulin Ratio 0.6 (1.0-1.7) Microbiology 04/11/19 Blood Culture - Final, Complete NO GROWTH AFTER 5 DAYS Medications Current Medications Albuterol/ Ipratropium (Duoneb) 3 ml 1X ONCE NEB Last administered on 04/11/19at 07:49; Start 04/11/19 at 07:45; Stop 04/11/19 at 07:46; Status DC Sodium Chloride 250 ml @ 250 mls/hr 1X ONCE IV Last administered on 04/11/19at 08:10; Start 04/11/19 at 07:45; Stop 04/11/19 at 08:44; Status DC Acetaminophen (Tylenol) 650 mg PRN Q6HRS PRN PEG MILD PAIN / TEMP Last administered on 04/11/19at 20:34; Start 04/11/19 at 20:15; Stop 04/12/19 at 05:49; Status DC Acetaminophen (Tylenol) 650 mg PRN Q6HRS PRN PO MILD PAIN / TEMP; Start 04/12/19 at 06:00 Sodium Chloride 1,000 ml @ 1,000 mls/hr Q1H PRN IV hypotension; Start 04/12/19 at 07:47; Stop 04/12/19 at 13:46; Status DC Acetaminophen (Tylenol) 500 mg 1X PRN PRN PO MILD PAIN / TEMP; Start 04/12/19 at 08:00; Stop 04/13/19 at 07:59; Status DC Diphenhydramine HCl (Benadryl) 25 mg 1X PRN PRN IV ITCHING; Start 04/12/19 at 08:00; Stop 04/13/19 at 07:59; Status DC Diphenhydramine HCl (Benadryl) 25 mg 1X PRN PRN IV ITCHING; Start 04/12/19 at 08:00; Stop 04/13/19 at 07:59; Status DC Sodium Chloride 1,000 ml @ 400 mls/hr Q2H30M PRN IV PATENCY; Start 04/12/19 at 07:47; Stop 04/12/19 at 19:46; Status DC Info (PHARMACY MONITORING -- do not chart) 1 each PRN DAILY PRN MC SEE COMMENTS; Start 04/12/19 at 08:00; Stop 04/15/19 at 11:05; Status DC Albuterol/ Ipratropium (Duoneb) 3 ml 1X ONCE NEB Last administered on 04/12/19 09:31; Start 04/12/19 at 09:15; Stop 04/12/19 at 09:16; Status DC Aspirin (Children'S Aspirin) 81 mg DAILY PO Last administered on 04/18/19 08:23; Start 04/13/19 at 09:00 Atorvastatin Calcium (Lipitor) 20 mg HS PO Last administered on 04/17/19 21:31; Start 04/12/19 at 21:00 Calcium Carbonate/ Glycine (Tums) 200 mg TIDWMEALS PO Last administered on 04/12/19 17:20; Start 04/12/19 at 17:00; Stop 04/12/19 at 17:23; Status DC Cinacalcet (Sensipar) 30 mg DAILY PO Last administered on 04/18/19 08:23; Start 04/13/19 at 09:00 Ferrous Sulfate (Feosol) 325 mg DAILY08 PO Last administered on 04/18/19 08:23; Start 04/13/19 at 08:00 Midodrine (Proamatine) 10 mg QTUTHSA@0800 PO Last administered on 04/18/19 08:23; Start 04/13/19 at 08:00 Vitamin D (Vitamin D3) 5,000 unit DAILY PO Last administered on 04/18/19 08:23; Start 04/13/19 at 09:00 Docusate Sodium (Colace) 100 mg DAILY PO Last administered on 04/18/19 08:24; Start 04/13/19 at 09:00 Midodrine (Proamatine) 5 mg [id number] PO ; Start 04/12/19 at 18:00; Stop 04/12/19 at 17:07; Status DC Midodrine (Proamatine) 10 mg QTUTHSA@1000 PO Last administered on 04/15/19at 14:03; Start 04/13/19 at 10:00 Calcium Carbonate/ Glycine (Tums) 750 mg TIDWMEALS PO Last administered on 04/18/19 08:24; Start 04/13/19 at 08:00 Sodium Chloride 1,000 ml @ 1,000 mls/hr Q1H PRN IV hypotension; Start 04/13/19 at 08:43; Stop 04/13/19 at 14:42; Status DC Albumin Human 200 ml @ 200 mls/hr 1X PRN PRN IV Hypotension; Start 04/13/19 at 08:45; Stop 04/13/19 at 14:44; Status DC Sodium Chloride 1,000 ml @ 400 mls/hr Q2H30M PRN IV PATENCY; Start 04/13/19 at 08:43; Stop 04/13/19 at 20:42; Status DC Info (PHARMACY MONITORING -- do not chart) 1 each PRN DAILY PRN MC SEE CO MMENTS; Start 04/13/19 at 08:45; Status UNV Info (PHARMACY MONITORING -- do not chart) 1 each PRN DAILY PRN MC SEE COMMENTS; Start 04/13/19 at 08:45; Status UNV Ondansetron HCl (Zofran) 4 mg 1X ONCE IV ; Start 04/13/19 at 13:00; Stop 04/13/19 at 13:01; Status DC Ondansetron HCl (Zofran) 4 mg PRN Q4HRS PRN IVP NAUSEA/VOMITING 1ST CHOICE Last administered on 04/17/19at 17:23; Start 04/14/19 at 01:30 Sodium Chloride 500 ml @ 500 mls/hr 1X STAT IV Last administered on 04/14/19at 07:56; Start 04/14/19 at 07:56; Stop 04/14/19 at 08:55; Status DC Digoxin (Lanoxin) 500 mcg 1X ONCE IV Last administered on 04/14/19at 09:45; Start 04/14/19 at 09:45; Stop 04/14/19 at 09:46; Status DC Digoxin (Lanoxin) 500 mcg STK-MED ONCE .ROUTE ; Start 04/14/19 at 09:41; Stop 04/14/19 at 09:41; Status DC Lidocaine HCl (Lidocaine 1% 20ml Vial) 20 ml STK-MED ONCE .ROUTE ; Start 04/14/19 at 13:10; Stop 04/14/19 at 13:10; Status DC Heparin Sodium/ Sodium Chloride 500 ml @ As Directed STK-MED ONCE .ROUTE ; Start 04/14/19 at 13:10; Stop 04/14/19 at 13:10; Status DC Norepinephrine Bitartrate 250 ml @ 15.656 mls/ hr CONT PRN IV SEE I/O RECORD Last administered on 04/16/19at 00:02; Start 04/14/19 at 14:15 Adenosine (Adenoscan) 90 mg STK-MED ONCE IV ; Start 04/14/19 at 14:22; Stop 04/14/19 at 14:23; Status DC Iodixanol (Visipaque 320) 100 ml STK-MED ONCE .ROUTE ; Start 04/14/19 at 14:34; Stop 04/14/19 at 14:35; Status DC Heparin Sodium/ Sodium Chloride (HEPARIN for ARTERIAL LINE FLUSH) 1,000 unit 1X ONCE IART Last administered on 04/14/19at 15:09; Start 04/14/19 at 14:45; Stop 04/14/19 at 14:46; Status DC Iodixanol (Visipaque 320) 100 ml 1X ONCE IART Last administered on 04/14/19at 15:10; Start 04/14/19 at 14:45; Stop 04/14/19 at 14:46; Status DC Lidocaine HCl (Lidocaine 1% 20ml Vial) 20 ml 1X ONCE INJ Last administered on 04/14/19at 15:10; Start 04/14/19 at 14:45; Stop 04/14/19 at 14:46; Status DC Adenosine 90 mg/ Sodium Chloride 120 ml @ 200 mls/hr 1X ONCE IV Last administered on 04/14/19at 15:11; Start 04/14/19 at 14:45; Stop 04/14/19 at 15:20; Status DC Heparin Sodium/ Sodium Chloride 500 ml @ As Directed STK-MED ONCE .ROUTE ; Start 04/14/19 at 14:51; Stop 04/14/19 at 14:51; Status DC Acetaminophen/ Hydrocodone Bitart (Lortab 5/325) 1 tab PRN Q4HRS PRN PO MODERATE PAIN Last administered on 04/15/19at 13:23; Start 04/14/19 at 18:30 Temazepam (Restoril) 7.5 mg PRN QHS PRN PO INSOMNIA; Start 04/14/19 at 19:00 Albuterol/ Ipratropium (Duoneb) 3 ml RTQID NEB Last administered on 04/18/19at 07:39; Start 04/15/19 at 08:00 Budesonide (Pulmicort) 0.5 mg RTBID NEB Last administered on 04/18/19at 07:39; Start 04/15/19 at 08:00 Ceftriaxone Sodium (Rocephin) 1 gm Q24H IVP Last administered on 04/18/19at 06:30; Start 04/15/19 at 07:00 Iohexol (Omnipaque 350 Mg/ml) 90 ml 1X ONCE IV Last administered on 04/15/19at 09:00; Start 04/15/19 at 09:00; Stop 04/15/19 at 09:01; Status DC Info (CONTRAST GIVEN -- Rx MONITORING) 1 each PRN DAILY PRN MC SEE COMMENTS; Start 04/15/19 at 09:00; Stop 04/17/19 at 08:59; Status DC Sodium Chloride 1,000 ml @ 1,000 mls/hr Q1H PRN IV hypotension; Start 04/15/19 at 09:25; Stop 04/15/19 at 15:24; Status DC Acetaminophen (Tylenol) 500 mg 1X PRN PRN PO MILD PAIN / TEMP; Start 04/15/19 at 09:30; Stop 04/16/19 at 09:29; Status DC Diphenhydramine HCl (Benadryl) 25 mg 1X PRN PRN IV ITCHING; Start 04/15/19 at 09:30; Stop 04/16/19 at 09:29; Status DC Diphenhydramine HCl (Benadryl) 25 mg 1X PRN PRN IV ITCHING; Start 04/15/19 at 09:30; Stop 04/16/19 at 09:29; Status DC Sodium Chloride 1,000 ml @ 400 mls/hr Q2H30M PRN IV PATENCY; Start 04/15/19 at 09:25; Stop 04/15/19 at 21:24; Status DC Info (PHARMACY MONITORING -- do not chart) 1 each PRN DAILY PRN MC SEE COMMENTS; Start 04/15/19 at 09:30 Lactobacillus Rhamnosus (Culturelle) 1 cap BID PO Last administered on 04/18/19at 08:24; Start 04/15/19 at 21:00 Sodium Bicarbonate (Sodium Bicarb Adult 8.4% Syr) 50 meq 1X ONCE IV Last administered on 04/17/19at 10:28; Start 04/17/19 at 10:30; Stop 04/17/19 at 10:31; Status DC Sodium Chloride 1,000 ml @ 1,000 mls/hr Q1H PRN IV hypotension; Start 04/18/19 at 08:06; Stop 04/18/19 at 14:05 Albumin Human 200 ml @ 200 mls/hr 1X PRN PRN IV Hypotension; Start 04/18/19 at 08:15; Stop 04/18/19 at 14:14 Sodium Chloride 1,000 ml @ 400 mls/hr Q2H30M PRN IV PATENCY; Start 04/18/19 at 08:06; Stop 04/18/19 at 20:05 Info (PHARMACY MONITORING -- do not chart) 1 each PRN DAILY PRN MC SEE COMMENTS; Start 04/18/19 at 08:15; Status UNV Info (PHARMACY MONITORING -- do not chart) 1 each PRN DAILY PRN MC SEE COMMENTS; Start 04/18/19 at 08:15 Active Scripts Active Reported Midodrine Hcl 10 Mg Tablet 10 Mg PO QTUTHSA Midodrine Hcl 5 Mg Tablet 10 Mg PO QTUTHSA Ferrous Sulfate 325 Mg Tablet 1 Tab PO DAILY Calcium Carbonate 200 Mg Tab.chew 750 Mg PO TIDWMEALS Stool Softener (Docusate Sodium) 250 Mg Capsule 250 Mg PO DAILY Aspirin 81 Mg Tab.chew 1 Tab PO DAILY Sensipar (Cinacalcet Hcl) 30 Mg Tablet 30 Mg PO DAILY Vitamin D3 (Cholecalciferol (Vitamin D3)) 5,000 Unit Tablet 1 Tab PO DAILY Atorvastatin Calcium 20 Mg Tablet 20 Mg PO HS Vitals/I & O Vital Sign - Last 24 Hours 04/17/19 04/17/19 04/17/19 04/17/19 09:00 11:00 13:46 15:30 Temp 97.6 97.8 97.6 97.8 Pulse 90 94 103 Resp 30 28 17 B/P (MAP) 95/56 (69) 95/54 (68) 94/51 (65) Pulse Ox 99 93 95 90 O2 Delivery Nasal Cannula Nasal Cannula Nasal Cannula Nasal Cannula O2 Flow Rate 4.0 4.0 4.0 4.0 04/17/19 04/17/19 04/17/19 04/17/19 17:01 19:00 19:29 20:00 Temp 98.9 98.9 Pulse 107 Resp 18 B/P (MAP) 85/45 (58) Pulse Ox 86 90 95 O2 Delivery Room Air Nasal Cannula Nasal Cannula O2 Flow Rate 4.0 4.0 4.0 04/17/19 04/17/19 04/17/19 04/18/19 20:00 23:00 23:37 00:00 Temp 98.6 98.6 Pulse 97 Resp 18 B/P (MAP) 91/49 (63) Pulse Ox 95 O2 Delivery Nasal Cannula BiPAP/CPAP O2 Flow Rate 4.0 4.0 4.0 04/18/19 04/18/19 04/18/19 04/18/19 03:00 04:20 07:39 08:23 Temp 98.2 98.2 Pulse 98 Resp 18 B/P (MAP) 96/53 (67) 109/60 Pulse Ox 96 95 O2 Delivery Nasal Cannula Nasal Cannula O2 Flow Rate 4.0 4.0 4.0 Intake and Output 04/17/19 04/17/19 04/18/19 15:00 23:00 07:00 Intake Total 240 ml 200 ml 120 ml Output Total 0 ml 30 ml 0 ml Balance 240 ml 170 ml 120 ml SÁNCHEZ ARMENTA MD Apr 18, 2019 08:38
--- NOTE | 2019-04-18 08:42 | NUR ---
Patient to Dialysis per lounge chair with feet elevated with oxygen at 4 liters per NC. Sanaz RT putting patient back on Bipap in dialysis. Report to Christie H[employer] teacher, midodrine given per schedule and report of BP 109/60 to Christie [employer] teacher.
[2019-04-18] MEDS ORDERED: LIDOCAINE 1% PF 2 ML VIAL. ONE ×2 (08:50→09:00)
--- NOTE | 2019-04-18 10:54 | PDOC ---
PULMONARY PROGRESS NOTES Subjective off bipap,awake, no soa Vitals Vital Signs Date Time Temp Pulse Resp B/P (MAP) Pulse Ox O2 Delivery O2 Flow Rate FiO2 04/18/19 10:00 87 84/49 04/18/19 08:00 Nasal Cannula 4.0 04/18/19 07:39 95 04/18/19 07:00 97.6 18 97.6 ROS: No Nausea General: Alert, No acute distress Lungs: Other (decrease bs) Cardiovascular: S1, S2, Other Abdomen: Soft, Non-tender Neuro Exam: Alert Extremities: No Edema Skin: Warm Labs Laboratory Tests Test 04/16/19 12:45 04/17/19 04:55 04/17/19 08:25 04/18/19 03:22 O2 Saturation 96 % (92-99) 90 % (92-99) Arterial Blood pH 7.27 (7.35-7.45) 7.30 (7.35-7.45) Arterial Blood pCO2 at Patient Temp 63 mmHg (35-46) 50 mmHg (35-46) Arterial Blood pO2 at Patient Temp 88 mmHg (65-108) 66 mmHg (65-108) Arterial Blood HCO3 28 mmol/L (21-28) 24 mmol/L (21-28) Arterial Blood Base Excess 0 mmol/L (-3-3) -3 mmol/L (-3-3) FiO2 44 36 White Blood Count 7.3 x10^3/uL (4.0-11.0) 7.4 x10^3/uL (4.0-11.0) Red Blood Count 3.10 x10^6/uL (4.30-5.70) 3.20 x10^6/uL (4.30-5.70) Hemoglobin 10.1 g/dL (13.0-17.5) 10.4 g/dL (13.0-17.5) Hematocrit 31.3 % (39.0-53.0) 31.9 % (39.0-53.0) Mean Corpuscular Volume 101 fL (79-100) 100 fL (79-100) Mean Corpuscular Hemoglobin 33 pg (25-35) 33 pg (25-35) Mean Corpuscular Hemoglobin Concent 32 g/dL (31-37) 33 g/dL (31-37) Red Cell Distribution Width 14.3 % (11.5-14.5) 14.3 % (11.5-14.5) Platelet Count 111 x10^3/uL (140-400) 122 x10^3/uL (140-400) Neutrophils (%) (Auto) 80 % (31-73) 78 % (31-73) Lymphocytes (%) (Auto) 9 % (24-48) 11 % (24-48) Monocytes (%) (Auto) 11 % (0-9) 11 % (0-9) Eosinophils (%) (Auto) 0 % (0-3) 0 % (0-3) Basophils (%) (Auto) 0 % (0-3) 0 % (0-3) Neutrophils # (Auto) 5.8 x10^3/uL (1.8-7.7) 5.8 x10^3/uL (1.8-7.7) Lymphocytes # (Auto) 0.7 x10^3/uL (1.0-4.8) 0.8 x10^3/uL (1.0-4.8) Monocytes # (Auto) 0.8 x10^3/uL (0.0-1.1) 0.8 x10^3/uL (0.0-1.1) Eosinophils # (Auto) 0.0 x10^3/uL (0.0-0.7) 0.0 x10^3/uL (0.0-0.7) Basophils # (Auto) 0.0 x10^3/uL (0.0-0.2) 0.0 x10^3/uL (0.0-0.2) Sodium Level 135 mmol/L (136-145) 134 mmol/L (136-145) Potassium Level 4.3 mmol/L (3.5-5.1) 4.4 mmol/L (3.5-5.1) Chloride Level 97 mmol/L (98-107) 96 mmol/L (98-107) Carbon Dioxide Level 28 mmol/L (21-32) 27 mmol/L (21-32) Anion Gap 10 (6-14) 11 (6-14) Blood Urea Nitrogen 51 mg/dL (8-26) 70 mg/dL (8-26) Creatinine 8.3 mg/dL (0.7-1.3) 9.6 mg/dL (0.7-1.3) Estimated GFR (Cockcroft-Gault) 7.6 6.4 BUN/Creatinine Ratio 6 (6-20) 7 (6-20) Glucose Level 110 mg/dL (70-99) 106 mg/dL (70-99) Calcium Level 8.1 mg/dL (8.5-10.1) 8.3 mg/dL (8.5-10.1) Total Bilirubin 0.5 mg/dL (0.2-1.0) 0.4 mg/dL (0.2-1.0) Aspartate Amino Transf (AST/SGOT) 25 U/L (15-37) 59 U/L (15-37) Alanine Aminotransferase (ALT/SGPT) 17 U/L (16-63) 39 U/L (16-63) Alkaline Phosphatase 102 U/L (46-116) 116 U/L (46-116) Total Protein 6.5 g/dL (6.4-8.2) 6.8 g/dL (6.4-8.2) Albumin 2.5 g/dL (3.4-5.0) 2.6 g/dL (3.4-5.0) Albumin/Globulin Ratio 0.6 (1.0-1.7) 0.6 (1.0-1.7) Laboratory Tests Test 04/18/19 03:22 White Blood Count 7.4 x10^3/uL (4.0-11.0) Red Blood Count 3.20 x10^6/uL (4.30-5.70) Hemoglobin 10.4 g/dL (13.0-17.5) Hematocrit 31.9 % (39.0-53.0) Mean Corpuscular Volume 100 fL (79-100) Mean Corpuscular Hemoglobin 33 pg (25-35) Mean Corpuscular Hemoglobin Concent 33 g/dL (31-37) Red Cell Distribution Width 14.3 % (11.5-14.5) Platelet Count 122 x10^3/uL (140-400) Neutrophils (%) (Auto) 78 % (31-73) Lymphocytes (%) (Auto) 11 % (24-48) Monocytes (%) (Auto) 11 % (0-9) Eosinophils (%) (Auto) 0 % (0-3) Basophils (%) (Auto) 0 % (0-3) Neutrophils # (Auto) 5.8 x10^3/uL (1.8-7.7) Lymphocytes # (Auto) 0.8 x10^3/uL (1.0-4.8) Monocytes # (Auto) 0.8 x10^3/uL (0.0-1.1) Eosinophils # (Auto) 0.0 x10^3/uL (0.0-0.7) Basophils # (Auto) 0.0 x10^3/uL (0.0-0.2) Sodium Level 134 mmol/L (136-145) Potassium Level 4.4 mmol/L (3.5-5.1) Chloride Level 96 mmol/L (98-107) Carbon Dioxide Level 27 mmol/L (21-32) Anion Gap 11 (6-14) Blood Urea Nitrogen 70 mg/dL (8-26) Creatinine 9.6 mg/dL (0.7-1.3) Estimated GFR (Cockcroft-Gault) 6.4 BUN/Creatinine Ratio 7 (6-20) Glucose Level 106 mg/dL (70-99) Calcium Level 8.3 mg/dL (8.5-10.1) Total Bilirubin 0.4 mg/dL (0.2-1.0) Aspartate Amino Transf (AST/SGOT) 59 U/L (15-37) Alanine Aminotransferase (ALT/SGPT) 39 U/L (16-63) Alkaline Phosphatase 116 U/L (46-116) Total Protein 6.8 g/dL (6.4-8.2) Albumin 2.6 g/dL (3.4-5.0) Albumin/Globulin Ratio 0.6 (1.0-1.7) Medications Active Scripts Medications Dose Route/Sig Max Daily Dose Days Date Category Midodrine Hcl 10 Mg Tablet 10 Mg PO QTUTHSA 04/11/19 Reported Midodrine Hcl 5 Mg Tablet 10 Mg PO QTUTHSA 04/11/19 Reported Ferrous Sulfate 325 Mg Tablet 1 Tab PO DAILY 04/11/19 Reported Calcium Carbonate 200 Mg Tab.chew 750 Mg PO TIDWMEALS 04/11/19 Reported Stool Softener (Docusate Sodium) 250 Mg Capsule 250 Mg PO DAILY 04/11/19 Reported Aspirin 81 Mg Tab.chew 1 Tab PO DAILY 04/11/19 Reported Sensipar (Cinacalcet Hcl) 30 Mg Tablet 30 Mg PO DAILY 04/11/19 Reported Vitamin D3 (Cholecalciferol (Vitamin D3)) 5,000 Unit Tablet 1 Tab PO DAILY 04/11/19 Reported Atorvastatin Calcium 20 Mg Tablet 20 Mg PO HS 04/01/[address] 1. No convincing central pulmonary embolism. Evaluation for segmental and subsegmental emboli is significantly limited due to suboptimal contrast opacification and respiratory motion. 2. Enlarged central pulmonary arteries likely due to pulmonary artery hypertension. There is also cardiomegaly. 3. Moderate right and small left pleural effusions with right lower lobe partially consolidated infiltrate superimposed on atelectasis. There is also left lower lobe and posterior dependent atelectasis and scarring along the pleural fissures. 4. Moderate emphysema. 5. Prominent mediastinal and hilar lymph nodes, possibly reactive in etiology. 6. Renal atrophy. 7. Large right thyroid cyst. Impression . IMPRESSION: 1. Acute hypoxemic respiratory failure, multifactorial in etiology. 2. Pulmonary hypertension. I suspect it is secondary and chronic and it is multifactorial in etiology. I suspect he does have significant chronic obstructive pulmonary disease with nocturnal hypoxemia, need to rule out obstructive sleep apnea-hypopnea syndrome. no central pulmonary embolism. His chest x-ray also shows increased interstitial marking, no ild, has emphysema 3. Abnormal chest x-ray. 4. Significant history of smoking, suspect he has significant chronic obstructive pulmonary disease. 5. ?Obstructive sleep apnea-hypopnea syndrome. 6. Acute bronchitis. 7. End-stage renal disease, on hemodialysis. 8. Hypotension ?etiology. 9. Diabetes mellitus. 10. History of hypertension. Plan . 1. 02 titration, bipap prn during day, cont at night, setting reviewed. abg on 02. Has combined resp/ met acidosis. on HD 2. bronchodilator. 3. inhaled corticosteroid, 4. Rocephin. 5. CT angiogram reviewed, no central pe, le doppler neg 6. He would require complete PFTs as an outpatient. 7. I do recommend sleep study as an outpatient. 8. Six-minute walk and nocturnal oximetry before discharge. 9. fu ct in 6-[address] shows pleural effusion, ? diastolic chf, hold off tap at present discussed w lindsey. DOT JOSEPH MD Apr 18, 2019 10:54
--- NOTE | 2019-04-18 11:02 | PDOC ---
SUBJECTIVE ROS Seen on HD, tolerating well OBJECTIVE Vital Signs Vital Signs Date Time Temp Pulse Resp B/P (MAP) Pulse Ox O2 Delivery O2 Flow Rate FiO2 04/18/19 10:00 87 84/49 04/18/19 08:00 Nasal Cannula 4.0 04/18/19 07:39 95 04/18/19 07:00 97.6 18 97.6 I & 0 Intake and Output 04/18/19 07:00 Intake Total 560 ml Output Total 30 ml Balance 530 ml Intake Oral 560 ml Output Urine Total 0 ml Emesis 30 ml # Bowel Movements 1 PHYSICAL EXAM Physical Exam General: No acute distress HEENT: OM moist Lungs: Clear to auscultation Heart: Regular rate (SR), Other (4/6 systolic murmur to LLs border) Abdomen: Soft, No tenderness Extremities: No edema Skin: No rash Neuro: Alert, Oriented X3, DIAGNOSIS/ASSESSMENT Assessment & Plan ESRD - On HD TTS seen on HD, tolerating well, continue as ordered, Dw Dn Hypotensive- chronic, on Midodrine Status post heart catheterization - no significant coronary disease but severe pulmonary hypertension. COPD Pulm HTN- Per Pulm Anemia- Hgb stable JAMESON per protocol for Hgb< 10 COMMENT/RELEVANT DATA Meds Current Medications Medications (Trade) Dose Ordered Sig/Edita Start Time Stop Time Status Last Admin Dose Admin Acetaminophen (Tylenol) 500 mg 1X PRN PRN 04/15/19 09:30 04/16/19 09:29 DC Acetaminophen/ Hydrocodone Bitart (Lortab 5/325) 1 tab PRN Q4HRS PRN 04/14/19 18:30 04/15/19 13:23 1 TAB Adenosine (Adenoscan) 90 mg STK-MED ONCE 04/14/19 14:22 04/14/19 14:23 DC Adenosine 90 mg/ Sodium Chloride 120 ml @ 200 mls/hr 1X ONCE 04/14/19 14:45 04/14/19 15:20 DC 04/14/19 15:11 200 MLS/HR Albumin Human 200 ml @ 200 mls/hr 1X PRN PRN 04/18/19 08:15 04/18/19 14:14 Albuterol/ Ipratropium (Duoneb) 3 ml RTQID 04/15/19 08:00 04/18/19 07:39 3 ML Aspirin (Children'S Aspirin) 81 mg DAILY 04/13/19 09:00 04/18/19 08:23 81 MG Atorvastatin Calcium (Lipitor) 20 mg HS 04/12/19 21:00 04/17/19 21:31 20 MG Budesonide (Pulmicort) 0.5 mg RTBID 04/15/19 08:00 04/18/19 07:39 0.5 MG Calcium Carbonate/ Glycine (Tums) 750 mg TIDWMEALS 04/13/19 08:00 04/18/19 08:24 750 MG Ceftriaxone Sodium (Rocephin) 1 gm Q24H 04/15/19 07:00 04/18/19 06:30 1 GM Cinacalcet (Sensipar) 30 mg DAILY 04/13/19 09:00 04/18/19 08:23 30 MG Digoxin (Lanoxin) 500 mcg STK-MED ONCE 04/14/19 09:41 04/14/19 09:41 DC Diphenhydramine HCl (Benadryl) 25 mg 1X PRN PRN 04/15/19 09:30 04/16/19 09:29 DC Docusate Sodium (Colace) 100 mg DAILY 04/13/19 09:00 04/18/19 08:24 100 MG Ferrous Sulfate (Feosol) 325 mg DAILY08 04/13/19 08:00 04/18/19 08:23 325 MG Heparin Sodium/ Sodium Chloride 500 ml @ As Directed STK-MED ONCE 04/14/19 14:51 04/14/19 14:51 DC Heparin Sodium/ Sodium Chloride (HEPARIN for ARTERIAL LINE FLUSH) 1,000 unit 1X ONCE 04/14/19 14:45 04/14/19 14:46 DC 04/14/19 15:09 1,000 UNIT Info (CONTRAST GIVEN -- Rx MONITORING) 1 each PRN DAILY PRN 04/15/19 09:00 04/17/19 08:59 DC Info (PHARMACY MONITORING -- do not chart) 1 each PRN DAILY PRN 04/18/19 08:15 Iodixanol (Visipaque 320) 100 ml 1X ONCE 04/14/19 14:45 04/14/19 14:46 DC 04/14/19 15:10 93 ML Iohexol (Omnipaque 350 Mg/ml) 90 ml 1X ONCE 04/15/19 09:00 04/15/19 09:01 DC 04/15/19 09:00 90 ML Lactobacillus Rhamnosus (Culturelle) 1 cap BID 04/15/19 21:00 04/18/19 08:24 1 CAP Lidocaine HCl (Lidocaine 1% 20ml Vial) 20 ml 1X ONCE 04/14/19 14:45 04/14/19 14:46 DC 04/14/19 15:10 15 ML Lidocaine HCl (Xylocaine-Mpf 1% 2ml Vial) 2 ml STK-MED ONCE 04/18/19 08:50 04/18/19 08:50 DC Midodrine (Proamatine) 10 mg QTUTHSA@1000 04/13/19 10:00 04/18/19 10:00 10 MG Norepinephrine Bitartrate 250 ml @ 15.656 mls/ hr CONT PRN 04/14/19 14:15 04/16/19 00:02 15.656 MLS/HR Ondansetron HCl (Zofran) 4 mg PRN Q4HRS PRN 04/14/19 01:30 04/17/19 17:23 4 MG Sodium Bicarbonate (Sodium Bicarb Adult 8.4% Syr) 50 meq 1X ONCE 04/17/19 10:30 04/17/19 10:31 DC 04/17/19 10:28 50 MEQ Sodium Chloride 1,000 ml @ 400 mls/hr Q2H30M PRN 04/18/19 08:06 04/18/19 20:05 Temazepam (Restoril) 7.5 mg PRN QHS PRN 04/14/19 19:00 Vitamin D (Vitamin D3) 5,000 unit DAILY 04/13/19 09:00 04/18/19 08:23 5,000 UNIT Lab Laboratory Tests Test 04/18/19 03:22 White Blood Count 7.4 x10^3/uL (4.0-11.0) Red Blood Count 3.20 x10^6/uL (4.30-5.70) Hemoglobin 10.4 g/dL (13.0-17.5) Hematocrit 31.9 % (39.0-53.0) Mean Corpuscular Volume 100 fL (79-100) Mean Corpuscular Hemoglobin 33 pg (25-35) Mean Corpuscular Hemoglobin Concent 33 g/dL (31-37) Red Cell Distribution Width 14.3 % (11.5-14.5) Platelet Count 122 x10^3/uL (140-400) Neutrophils (%) (Auto) 78 % (31-73) Lymphocytes (%) (Auto) 11 % (24-48) Monocytes (%) (Auto) 11 % (0-9) Eosinophils (%) (Auto) 0 % (0-3) Basophils (%) (Auto) 0 % (0-3) Neutrophils # (Auto) 5.8 x10^3/uL (1.8-7.7) Lymphocytes # (Auto) 0.8 x10^3/uL (1.0-4.8) Monocytes # (Auto) 0.8 x10^3/uL (0.0-1.1) Eosinophils # (Auto) 0.0 x10^3/uL (0.0-0.7) Basophils # (Auto) 0.0 x10^3/uL (0.0-0.2) Sodium Level 134 mmol/L (136-145) Potassium Level 4.4 mmol/L (3.5-5.1) Chloride Level 96 mmol/L (98-107) Carbon Dioxide Level 27 mmol/L (21-32) Anion Gap 11 (6-14) Blood Urea Nitrogen 70 mg/dL (8-26) Creatinine 9.6 mg/dL (0.7-1.3) Estimated GFR (Cockcroft-Gault) 6.4 BUN/Creatinine Ratio 7 (6-20) Glucose Level 106 mg/dL (70-99) Calcium Level 8.3 mg/dL (8.5-10.1) Total Bilirubin 0.4 mg/dL (0.2-1.0) Aspartate Amino Transf (AST/SGOT) 59 U/L (15-37) Alanine Aminotransferase (ALT/SGPT) 39 U/L (16-63) Alkaline Phosphatase 116 U/L (46-116) Total Protein 6.8 g/dL (6.4-8.2) Albumin 2.6 g/dL (3.4-5.0) Albumin/Globulin Ratio 0.6 (1.0-1.7) Results All relevant outside records, renal labs, imaging studies, telemetry/EKG's were reviewed. KATARZYNA PAYNE MD Apr 18, 2019 11:02
--- NOTE | 2019-04-18 12:40 | NUR ---
Patient return from dialysis per lounge chair with oxygen at 4L per NC. Patient alert and oriented times four, sitting in chair eating lunch. See VS record. Call light at hand. Continue cares and monitor.
--- NOTE | 2019-04-18 13:00 | NUR ---
SW following pt. Discussed with Physician and will await on PT/OT assessment regarding SNU needs. Yesterday PT/OT were not able to finish assessment due change in medical status. Will continue to follow.
--- NOTE | 2019-04-18 14:56 | PDOC ---
PROGRESS NOTES Assessment Assessment Orthostatic hypotension. Presyncope and syncope. AFIb with RVR. ESRD on dialysis. DM. HTN. HLD. GINGER. Thyroid disease. RECOMMENDATIONS/PLAN: He has been treated with Midodrine. Continue medical management. OT/PT. Subjective: He stated on 04/17/19 that he felt slightly improved. Past Medical History Cardiovascular: HTN, Hyperlipidemia, Other (hypotension) Pulmonary: Bronchitis, Other (sleep apnea) GI: Constipation (and diarrhea) Heme/Onc: Anemia NOS (has required transfusions) Musculoskeletal: Osteoarthritis ENT: Other (cataracts, not operated yet) Renal/: Chronic renal failure (starting dialysis), Benign prostatic enlarg., Other (urinary retention) Endocrine: Diabetes, Other (thyroid disease, not currently requiring medication) Past Surgical History Tonsillectomy, Other (right renal biopsy) Family History No pertinent hx Social History , rare alcohol, no tobacco Allergies No Known Drug Allergies (Unverified , 04/09/16) ROS Negative for fever, chills, weight loss, shortness of breath, chest pain, indigestion, hematochezia, melena, and dysuria. Full 14-point review of systems is negative. MEDICATIONS: Refer to MAR PHYSICAL EXAMINATION: General appearance in subacute distress. HEENT: Normocephalic and nontraumatic. Eyes, nose, ears, and throat are unremarkable. Hearing decrease. Neck is supple. No lymphadenopathy. No Crepitus. Cardiovascular: S1, S2, regular rate and rhythm. Pulmonary: Clear to auscultation bilaterally. Abdomen: Bowel sounds are positive. Extremities: No rash, lesions, or edema. No restriction of range of motion NEUROLOGICAL EXAMINATION: Drowsiness. Oriented to time, place and person but reaction slow. PERRL. EOMI. CN: no focal findings. Muscle tone: within normal. Muscle strength: 4+ DTR: 1-2 Plantar reflex: Flexor response bilaterally Gait: not examined in bed. Sensory exam: no abnormal findings. No cerebellar signs elicited. F-T-N test fine. Objective Objective Vital Signs Date Time Temp Pulse Resp B/P (MAP) Pulse Ox O2 Delivery O2 Flow Rate FiO2 04/18/19 12:30 97.9 85 18 91/49 (63) 94 Nasal Cannula 4.0 97.9 Intake and Output 04/18/19 07:00 Intake Total 560 ml Output Total 30 ml Balance 530 ml Intake Oral 560 ml Output Urine Total 0 ml Emesis 30 ml # Bowel Movements 1 Vitals Signs Vitals VS - Last 72 Hours, by Label Date Time Temp Pulse Resp B/P (MAP) Pulse Ox O2 Delivery O2 Flow Rate FiO2 04/18/19 12:30 97.9 85 18 91/49 (63) 94 Nasal Cannula 4.0 97.9 04/18/19 11:31 95 Nasal Cannula 4.0 04/18/19 10:00 87 84/49 04/18/19 08:23 109/60 04/18/19 08:00 Nasal Cannula 4.0 04/18/19 07:39 95 Nasal Cannula 4.0 04/18/19 07:00 97.6 81 18 109/60 (76) 95 BiPAP/CPAP 97.6 04/18/19 04:20 4.0 04/18/19 03:00 98.2 98 18 96/53 (67) 96 Nasal Cannula 4.0 98.2 04/18/19 00:00 4.0 04/17/19 23:37 BiPAP/CPAP 04/17/19 23:00 98.6 97 18 91/49 (63) 95 Nasal Cannula 4.0 98.6 04/17/19 20:00 4.0 04/17/19 20:00 Nasal Cannula 4.0 04/17/19 19:29 95 4.0 04/17/19 19:00 98.9 107 18 85/45 (58) 90 Nasal Cannula 4.0 98.9 04/17/19 17:01 86 Room Air 04/17/19 15:30 97.8 103 17 94/51 (65) 90 Nasal Cannula 4.0 97.8 04/17/19 13:46 95 Nasal Cannula 4.0 04/17/19 11:00 97.6 94 28 95/54 (68) 93 Nasal Cannula 4.0 97.6 04/17/19 09:00 90 30 95/56 (69) 99 Nasal Cannula 4.0 04/17/19 08:25 95 Nasal Cannula 4.0 04/17/19 08:00 99.1 91 28 98/59 (72) 98 Nasal Cannula 4.0 99.1 04/17/19 07:45 Nasal Cannula 4.0 04/17/19 07:00 84 30 95/57 (70) 99 Nasal Cannula 4.0 Laboratory Laboratory Laboratory Tests Test 04/18/19 03:22 White Blood Count 7.4 x10^3/uL (4.0-11.0) Red Blood Count 3.20 x10^6/uL (4.30-5.70) Hemoglobin 10.4 g/dL (13.0-17.5) Hematocrit 31.9 % (39.0-53.0) Mean Corpuscular Volume 100 fL (79-100) Mean Corpuscular Hemoglobin 33 pg (25-35) Mean Corpuscular Hemoglobin Concent 33 g/dL (31-37) Red Cell Distribution Width 14.3 % (11.5-14.5) Platelet Count 122 x10^3/uL (140-400) Neutrophils (%) (Auto) 78 % (31-73) Lymphocytes (%) (Auto) 11 % (24-48) Monocytes (%) (Auto) 11 % (0-9) Eosinophils (%) (Auto) 0 % (0-3) Basophils (%) (Auto) 0 % (0-3) Neutrophils # (Auto) 5.8 x10^3/uL (1.8-7.7) Lymphocytes # (Auto) 0.8 x10^3/uL (1.0-4.8) Monocytes # (Auto) 0.8 x10^3/uL (0.0-1.1) Eosinophils # (Auto) 0.0 x10^3/uL (0.0-0.7) Basophils # (Auto) 0.0 x10^3/uL (0.0-0.2) Sodium Level 134 mmol/L (136-145) Potassium Level 4.4 mmol/L (3.5-5.1) Chloride Level 96 mmol/L (98-107) Carbon Dioxide Level 27 mmol/L (21-32) Anion Gap 11 (6-14) Blood Urea Nitrogen 70 mg/dL (8-26) Creatinine 9.6 mg/dL (0.7-1.3) Estimated GFR (Cockcroft-Gault) 6.4 BUN/Creatinine Ratio 7 (6-20) Glucose Level 106 mg/dL (70-99) Calcium Level 8.3 mg/dL (8.5-10.1) Total Bilirubin 0.4 mg/dL (0.2-1.0) Aspartate Amino Transf (AST/SGOT) 59 U/L (15-37) Alanine Aminotransferase (ALT/SGPT) 39 U/L (16-63) Alkaline Phosphatase 116 U/L (46-116) Total Protein 6.8 g/dL (6.4-8.2) Albumin 2.6 g/dL (3.4-5.0) Albumin/Globulin Ratio 0.6 (1.0-1.7) Microbiology 04/11/19 Blood Culture - Final, Complete NO GROWTH AFTER 5 DAYS Medication Medications Current Medications Albumin Human 200 ml @ 200 mls/hr 1X PRN PRN IV Hypotension; Start 04/18/19 at 08:15; Stop 04/18/19 at 14:14; Status DC Info (PHARMACY MONITORING -- do not chart) 1 each PRN DAILY PRN MC SEE COMMENTS; Start 04/18/19 at 08:15 Info (PHARMACY MONITORING -- do not chart) 1 each PRN DAILY PRN MC SEE COMMENTS; Start 04/18/19 at 08:15; Status UNV Lidocaine HCl (Xylocaine-Mpf 1% 2ml Vial) 2 ml STK-MED ONCE .ROUTE ; Start 04/18/19 at 08:50; Stop 04/18/19 at 08:50; Status DC Sodium Chloride 1,000 ml @ 400 mls/hr Q2H30M PRN IV PATENCY; Start 04/18/19 at 08:06; Stop 04/18/19 at 20:05 Sodium Chloride 1,000 ml @ 1,000 mls/hr Q1H PRN IV hypotension; Start 04/18/19 at 08:06; Stop 04/18/19 at 14:05; Status DC Comment Review of Relevant I have reviewed the following items khalida (where applicable) has been applied. CHARITY HAYES MD Apr 18, 2019 14:56
--- NOTE | 2019-04-18 16:12 | NUR ---
See PT assessments and notes. Patient with low blood pressures when therapy working with patient and patient very tired. Patient remains very sleepy but BP 125/59 with recheck by this RN and pulse 85, see VS record.
[2019-04-18] MEDS: ATORVASTATIN CALCIUM 20 MG TABLET PO SCH (21:13)
[2019-04-19 03:00] VITALS: BP 103/54
[2019-04-19 04:38] LABS: BASO % 1 % (0-3); EOS # 0.1 x10^3/uL (0.0-0.7); EOS % 1 % (0-3); HEMATOCRIT 31.7 % (39.0-53.0); HEMOGLOBIN 10.2 g/dL (13.0-17.5); LYMPH # 0.5 x10^3/uL (1.0-4.8); LYMPH % 8 % (24-48); MEAN CORPUSCULAR HEMOGLOBIN 32 pg (25-35); MEAN CORPUSCULAR HGB CONC 32 g/dL (31-37); MEAN CORPUSCULAR VOLUME 100 fL (79-100); MONO # 0.6 x10^3/uL (0.0-1.1); MONO % 11 % (0-9); NEUT # 4.7 x10^3/uL (1.8-7.7); NEUT % 80 % (31-73); PLATELET COUNT 137 x10^3/uL (140-400); RED BLOOD COUNT 3.18 x10^6/uL (4.30-5.70); RED CELL DISTRIBUTION WIDTH 14.4 % (11.5-14.5); WHITE BLOOD COUNT 5.8 x10^3/uL (4.0-11.0)
[2019-04-19 04:59] LABS: ALBUMIN 2.5 g/dL (3.4-5.0); ALBUMIN/GLOBULIN RATIO 0.6 (1.0-1.7); CALCIUM 8.3 mg/dL (8.5-10.1); CREATININE 6.8 mg/dL (0.7-1.3); GFR 9.5; POTASSIUM 3.8 mmol/L (3.5-5.1); TOTAL BILIRUBIN 0.6 mg/dL (0.2-1.0); TOTAL PROTEIN 6.8 g/dL (6.4-8.2)
[2019-04-19] MEDS: cefTRIAXone IV Push 1 GM VIAL. IVP SCH (06:31)
[2019-04-19 07:15] VITALS: BP 95/56
[2019-04-19] MEDS: IPRATRPIUM/ALBUTEROL 0.5/2.5MG 3 ML NEBU. NEB SCH ×4 (07:19→20:38)
[2019-04-19] MEDS: BUDESONIDE 0.5 MG/2 ML NEBU. NEB SCH ×2 (07:20→20:38)
--- NOTE | 2019-04-19 08:08 | PDOC ---
PROGRESS NOTES Chief Complaint Chief Complaint Acute hypoxemic respiratory failure ESRD Anemia Hypotension Pulmonary hypertension - likely multifactorial in etiology. His WHO classification is likely primarily related to COPD. Chronic obstructive pulmonary disease with nocturnal hypoxemia Obstructive sleep apnea - per patient Significant history of smoking Diabetes mellitus History of hypertension History of Present Illness History of Present Illness Mr Espitia is a 78yo M w/ ESRD on HD, HTN, Anemia, 79-ubyn-kcyd smoking, stopped smoking about 15 years ago, GINGER on nocturnal O2 who was admitted for dizziness and syncope. He had cardiac catheterization done yesterday, which did show mean pulmonary artery pressure of 45, wedge pressure was 15, right ventricular pressure was 75/16. He did have low normal cardiac output and normal coronary arteries. CTPA - 1. No convincing central pulmonary embolism. Evaluation for segmental and subsegmental emboli is significantly limited due to suboptimal contrast opacification and respiratory motion. 2. Enlarged central pulmonary arteries likely due to pulmonary artery hypertension. There is also cardiomegaly. 3. Moderate right and small left pleural effusions with right lower lobe partially consolidated infiltrate superimposed on atelectasis. There is also left lower lobe and posterior dependent atelectasis and scarring along the pleural fissures. 4. Moderate emphysema. 5. Prominent mediastinal and hilar lymph nodes, possibly reactive in etiology. 6. Renal atrophy. 7. Large right thyroid cyst. Transferred from ICU on 04/17/19. He is seen on dialysis and again in his room. He is a bit confused today, weak, still with some dizziness and unsteady gait. Feels a bit better than admission. PT and OT as well as nursing recommend SNF on discharge and based on his declining self care and ICU deconditioning I agree. He has some hypotension with PT today. His sputum returned with 2+ pseudomonas 04/17/19 Pt seen and examined in the ICu Pt was seen wearing face mask with 97% sat DW RN Sitting up in chair No longer on Levophed 04/16/19 Pt seen and examined in the ICU Pt was wearing face mask with 97% sat DW RN R and L pleural effusions on CTA 04/15/19 Pt seen and examined in ICU Pt was wearing face mask with 97% sat Pt was awake and coherent DW RN Vitals Vitals Vital Signs Date Time Temp Pulse Resp B/P (MAP) Pulse Ox O2 Delivery O2 Flow Rate FiO2 04/19/19 07:20 96 BiPAP/CPAP 04/19/19 07:15 98.6 80 18 95/56 (69) 4.0 98.6 Physical Exam General: No acute distress Heart: Regular rate Lungs: Other (decrease bs) Abdomen: Normal bowel sounds Extremities: No clubbing, No cyanosis, No edema, Normal pulses, No tenderness/swelling Skin: No rashes, No breakdown, No significant lesion Labs LABS Laboratory Tests Test 04/18/19 12:26 04/19/19 04:30 Glucose (Fingerstick) 79 mg/dL (70-99) White Blood Count 5.8 x10^3/uL (4.0-11.0) Red Blood Count 3.18 x10^6/uL (4.30-5.70) Hemoglobin 10.2 g/dL (13.0-17.5) Hematocrit 31.7 % (39.0-53.0) Mean Corpuscular Volume 100 fL (79-100) Mean Corpuscular Hemoglobin 32 pg (25-35) Mean Corpuscular Hemoglobin Concent 32 g/dL (31-37) Red Cell Distribution Width 14.4 % (11.5-14.5) Platelet Count 137 x10^3/uL (140-400) Neutrophils (%) (Auto) 80 % (31-73) Lymphocytes (%) (Auto) 8 % (24-48) Monocytes (%) (Auto) 11 % (0-9) Eosinophils (%) (Auto) 1 % (0-3) Basophils (%) (Auto) 1 % (0-3) Neutrophils # (Auto) 4.7 x10^3/uL (1.8-7.7) Lymphocytes # (Auto) 0.5 x10^3/uL (1.0-4.8) Monocytes # (Auto) 0.6 x10^3/uL (0.0-1.1) Eosinophils # (Auto) 0.1 x10^3/uL (0.0-0.7) Basophils # (Auto) 0.0 x10^3/uL (0.0-0.2) Sodium Level 140 mmol/L (136-145) Potassium Level 3.8 mmol/L (3.5-5.1) Chloride Level 98 mmol/L (98-107) Carbon Dioxide Level 34 mmol/L (21-32) Anion Gap 8 (6-14) Blood Urea Nitrogen 43 mg/dL (8-26) Creatinine 6.8 mg/dL (0.7-1.3) Estimated GFR (Cockcroft-Gault) 9.5 BUN/Creatinine Ratio 6 (6-20) Glucose Level 96 mg/dL (70-99) Calcium Level 8.3 mg/dL (8.5-10.1) Total Bilirubin 0.6 mg/dL (0.2-1.0) Aspartate Amino Transf (AST/SGOT) 60 U/L (15-37) Alanine Aminotransferase (ALT/SGPT) 46 U/L (16-63) Alkaline Phosphatase 107 U/L (46-116) Total Protein 6.8 g/dL (6.4-8.2) Albumin 2.5 g/dL (3.4-5.0) Albumin/Globulin Ratio 0.6 (1.0-1.7) Assessment and Plan Assessmemt and Plan Problems Medical Problems: (1) Elevated troponin Status: Acute (2) ESRD (end stage renal disease) Status: Acute (3) Hypotension Status: Acute (4) Near syncope Status: Acute Comment Review of Relevant I have reviewed the following items khalida (where applicable) has been applied. Labs Laboratory Tests Test 04/17/19 08:25 04/18/19 03:22 04/18/19 12:26 04/19/19 04:30 O2 Saturation 90 % (92-99) Arterial Blood pH 7.30 (7.35-7.45) Arterial Blood pCO2 at Patient Temp 50 mmHg (35-46) Arterial Blood pO2 at Patient Temp 66 mmHg (65-108) Arterial Blood HCO3 24 mmol/L (21-28) Arterial Blood Base Excess -3 mmol/L (-3-3) FiO2 36 White Blood Count 7.4 x10^3/uL (4.0-11.0) 5.8 x10^3/uL (4.0-11.0) Red Blood Count 3.20 x10^6/uL (4.30-5.70) 3.18 x10^6/uL (4.30-5.70) Hemoglobin 10.4 g/dL (13.0-17.5) 10.2 g/dL (13.0-17.5) Hematocrit 31.9 % (39.0-53.0) 31.7 % (39.0-53.0) Mean Corpuscular Volume 100 fL (79-100) 100 fL (79-100) Mean Corpuscular Hemoglobin 33 pg (25-35) 32 pg (25-35) Mean Corpuscular Hemoglobin Concent 33 g/dL (31-37) 32 g/dL (31-37) Red Cell Distribution Width 14.3 % (11.5-14.5) 14.4 % (11.5-14.5) Platelet Count 122 x10^3/uL (140-400) 137 x10^3/uL (140-400) Neutrophils (%) (Auto) 78 % (31-73) 80 % (31-73) Lymphocytes (%) (Auto) 11 % (24-48) 8 % (24-48) Monocytes (%) (Auto) 11 % (0-9) 11 % (0-9) Eosinophils (%) (Auto) 0 % (0-3) 1 % (0-3) Basophils (%) (Auto) 0 % (0-3) 1 % (0-3) Neutrophils # (Auto) 5.8 x10^3/uL (1.8-7.7) 4.7 x10^3/uL (1.8-7.7) Lymphocytes # (Auto) 0.8 x10^3/uL (1.0-4.8) 0.5 x10^3/uL (1.0-4.8) Monocytes # (Auto) 0.8 x10^3/uL (0.0-1.1) 0.6 x10^3/uL (0.0-1.1) Eosinophils # (Auto) 0.0 x10^3/uL (0.0-0.7) 0.1 x10^3/uL (0.0-0.7) Basophils # (Auto) 0.0 x10^3/uL (0.0-0.2) 0.0 x10^3/uL (0.0-0.2) Sodium Level 134 mmol/L (136-145) 140 mmol/L (136-145) Potassium Level 4.4 mmol/L (3.5-5.1) 3.8 mmol/L (3.5-5.1) Chloride Level 96 mmol/L (98-107) 98 mmol/L (98-107) Carbon Dioxide Level 27 mmol/L (21-32) 34 mmol/L (21-32) Anion Gap 11 (6-14) 8 (6-14) Blood Urea Nitrogen 70 mg/dL (8-26) 43 mg/dL (8-26) Creatinine 9.6 mg/dL (0.7-1.3) 6.8 mg/dL (0.7-1.3) Estimated GFR (Cockcroft-Gault) 6.4 9.5 BUN/Creatinine Ratio 7 (6-20) 6 (6-20) Glucose Level 106 mg/dL (70-99) 96 mg/dL (70-99) Calcium Level 8.3 mg/dL (8.5-10.1) 8.3 mg/dL (8.5-10.1) Total Bilirubin 0.4 mg/dL (0.2-1.0) 0.6 mg/dL (0.2-1.0) Aspartate Amino Transf (AST/SGOT) 59 U/L (15-37) 60 U/L (15-37) Alanine Aminotransferase (ALT/SGPT) 39 U/L (16-63) 46 U/L (16-63) Alkaline Phosphatase 116 U/L (46-116) 107 U/L (46-116) Total Protein 6.8 g/dL (6.4-8.2) 6.8 g/dL (6.4-8.2) Albumin 2.6 g/dL (3.4-5.0) 2.5 g/dL (3.4-5.0) Albumin/Globulin Ratio 0.6 (1.0-1.7) 0.6 (1.0-1.7) Glucose (Fingerstick) 79 mg/dL (70-99) Laboratory Tests Test 04/18/19 12:26 04/19/19 04:30 Glucose (Fingerstick) 79 mg/dL (70-99) White Blood Count 5.8 x10^3/uL (4.0-11.0) Red Blood Count 3.18 x10^6/uL (4.30-5.70) Hemoglobin 10.2 g/dL (13.0-17.5) Hematocrit 31.7 % (39.0-53.0) Mean Corpuscular Volume 100 fL (79-100) Mean Corpuscular Hemoglobin 32 pg (25-35) Mean Corpuscular Hemoglobin Concent 32 g/dL (31-37) Red Cell Distribution Width 14.4 % (11.5-14.5) Platelet Count 137 x10^3/uL (140-400) Neutrophils (%) (Auto) 80 % (31-73) Lymphocytes (%) (Auto) 8 % (24-48) Monocytes (%) (Auto) 11 % (0-9) Eosinophils (%) (Auto) 1 % (0-3) Basophils (%) (Auto) 1 % (0-3) Neutrophils # (Auto) 4.7 x10^3/uL (1.8-7.7) Lymphocytes # (Auto) 0.5 x10^3/uL (1.0-4.8) Monocytes # (Auto) 0.6 x10^3/uL (0.0-1.1) Eosinophils # (Auto) 0.1 x10^3/uL (0.0-0.7) Basophils # (Auto) 0.0 x10^3/uL (0.0-0.2) Sodium Level 140 mmol/L (136-145) Potassium Level 3.8 mmol/L (3.5-5.1) Chloride Level 98 mmol/L (98-107) Carbon Dioxide Level 34 mmol/L (21-32) Anion Gap 8 (6-14) Blood Urea Nitrogen 43 mg/dL (8-26) Creatinine 6.8 mg/dL (0.7-1.3) Estimated GFR (Cockcroft-Gault) 9.5 BUN/Creatinine Ratio 6 (6-20) Glucose Level 96 mg/dL (70-99) Calcium Level 8.3 mg/dL (8.5-10.1) Total Bilirubin 0.6 mg/dL (0.2-1.0) Aspartate Amino Transf (AST/SGOT) 60 U/L (15-37) Alanine Aminotransferase (ALT/SGPT) 46 U/L (16-63) Alkaline Phosphatase 107 U/L (46-116) Total Protein 6.8 g/dL (6.4-8.2) Albumin 2.5 g/dL (3.4-5.0) Albumin/Globulin Ratio 0.6 (1.0-1.7) Microbiology 04/16/19 - Final, Resulted 04/16/19 - Final, Resulted 04/16/19 - Final, Resulted 04/16/19 - Final, Resulted 04/16/19 - Preliminary, Resulted 04/16/19 - Preliminary, Resulted 04/16/19 Gram Stain Evaluation - Final, Resulted 04/16/19 Sputum Culture, Resulted Pending 04/11/19 Blood Culture - Final, Complete NO GROWTH AFTER 5 DAYS Medications Current Medications Albuterol/ Ipratropium (Duoneb) 3 ml 1X ONCE NEB Last administered on 04/11/19at 07:49; Start 04/11/19 at 07:45; Stop 04/11/19 at 07:46; Status DC Sodium Chloride 250 ml @ 250 mls/hr 1X ONCE IV Last administered on 04/11/19at 08:10; Start 04/11/19 at 07:45; Stop 04/11/19 at 08:44; Status DC Acetaminophen (Tylenol) 650 mg PRN Q6HRS PRN PEG MILD PAIN / TEMP Last administered on 04/11/19at 20:34; Start 04/11/19 at 20:15; Stop 04/12/19 at 05:49; Status DC Acetaminophen (Tylenol) 650 mg PRN Q6HRS PRN PO MILD PAIN / TEMP; Start 04/12/19 at 06:00 Sodium Chloride 1,000 ml @ 1,000 mls/hr Q1H PRN IV hypotension; Start 04/12/19 at 07:47; Stop 04/12/19 at 13:46; Status DC Acetaminophen (Tylenol) 500 mg 1X PRN PRN PO MILD PAIN / TEMP; Start 04/12/19 at 08:00; Stop 04/13/19 at 07:59; Status DC Diphenhydramine HCl (Benadryl) 25 mg 1X PRN PRN IV ITCHING; Start 04/12/19 at 08:00; Stop 04/13/19 at 07:59; Status DC Diphenhydramine HCl (Benadryl) 25 mg 1X PRN PRN IV ITCHING; Start 04/12/19 at 08:00; Stop 04/13/19 at 07:59; Status DC Sodium Chloride 1,000 ml @ 400 mls/hr Q2H30M PRN IV PATENCY; Start 04/12/19 at 07:47; Stop 04/12/19 at 19:46; Status DC Info (PHARMACY MONITORING -- do not chart) 1 each PRN DAILY PRN MC MATT TORRES; Start 04/12/19 at 08:00; Stop 04/15/19 at 11:05; Status DC Albuterol/ Ipratropium (Duoneb) 3 ml 1X ONCE NEB Last administered on 04/12/19at 09:31; Start 04/12/19 at 09:15; Stop 04/12/19 at 09:16; Status DC Aspirin (Children'S Aspirin) 81 mg DAILY PO Last administered on 04/18/19 08:23; Start 04/13/19 at 09:00 Atorvastatin Calcium (Lipitor) 20 mg HS PO Last administered on 04/18/19 21:13; Start 04/12/19 at 21:00 Calcium Carbonate/ Glycine (Tums) 200 mg TIDWMEALS PO Last administered on 04/12/19at 17:20; Start 04/12/19 at 17:00; Stop 04/12/19 at 17:23; Status DC Cinacalcet (Sensipar) 30 mg DAILY PO Last administered on 04/18/19 08:23; Start 04/13/19 at 09:00 Ferrous Sulfate (Feosol) 325 mg DAILY08 PO Last administered on 04/18/19 08:23; Start 04/13/19 at 08:00 Midodrine (Proamatine) 10 mg QTUTHSA@0800 PO Last administered on 04/18/19 08:23; Start 04/13/19 at 08:00 Vitamin D (Vitamin D3) 5,000 unit DAILY PO Last administered on 04/18/19 08:23; Start 04/13/19 at 09:00 Docusate Sodium (Colace) 100 mg DAILY PO Last administered on 04/18/19 08:24; Start 04/13/19 at 09:00 Midodrine (Proamatine) 5 mg [id number] PO ; Start 04/12/19 at 18:00; Stop 04/12/19 at 17:07; Status DC Midodrine (Proamatine) 10 mg QTUTHSA@1000 PO Last administered on 04/18/19at 10:00; Start 04/13/19 at 10:00 Calcium Carbonate/ Glycine (Tums) 750 mg TIDWMEALS PO Last administered on 04/18/19at 17:13; Start 04/13/19 at 08:00 Sodium Chloride 1,000 ml @ 1,000 mls/hr Q1H PRN IV hypotension; Start 04/13/19 at 08:43; Stop 04/13/19 at 14:42; Status DC Albumin Human 200 ml @ 200 mls/hr 1X PRN PRN IV Hypotension; Start 04/13/19 at 08:45; Stop 04/13/19 at 14:44; Status DC Sodium Chloride 1,000 ml @ 400 mls/hr Q2H30M PRN IV PATENCY; Start 04/13/19 at 08:43; Stop 04/13/19 at 20:42; Status DC Info (PHARMACY MONITORING -- do not chart) 1 each PRN DAILY PRN MC SEE COMMENTS; Start 04/13/19 at 08:45; Status UNV Info (PHARMACY MONITORING -- do not chart) 1 each PRN DAILY PRN MC SEE COMMENTS; Start 04/13/19 at 08:45; Status UNV Ondansetron HCl (Zofran) 4 mg 1X ONCE IV ; Start 04/13/19 at 13:00; Stop 04/13/19 at 13:01; Status DC Ondansetron HCl (Zofran) 4 mg PRN Q4HRS PRN IVP NAUSEA/VOMITING 1ST CHOICE Last administered on 04/17/19at 17:23; Start 04/14/19 at 01:30 Sodium Chloride 500 ml @ 500 mls/hr 1X STAT IV Last administered on 04/14/19at 07:56; Start 04/14/19 at 07:56; Stop 04/14/19 at 08:55; Status DC Digoxin (Lanoxin) 500 mcg 1X ONCE IV Last administered on 04/14/19at 09:45; Start 04/14/19 at 09:45; Stop 04/14/19 at 09:46; Status DC Digoxin (Lanoxin) 500 mcg STK-MED ONCE .ROUTE ; Start 04/14/19 at 09:41; Stop 04/14/19 at 09:41; Status DC Lidocaine HCl (Lidocaine 1% 20ml Vial) 20 ml STK-MED ONCE .ROUTE ; Start 04/14/19 at 13:10; Stop 04/14/19 at 13:10; Status DC Heparin Sodium/ Sodium Chloride 500 ml @ As Directed STK-MED ONCE .ROUTE ; Start 04/14/19 at 13:10; Stop 04/14/19 at 13:10; Status DC Norepinephrine Bitartrate 250 ml @ 15.656 mls/ hr CONT PRN IV SEE I/O RECORD Last administered on 04/16/19at 00:02; Start 04/14/19 at 14:15; Stop 04/18/19 at 14:11; Status DC Adenosine (Adenoscan) 90 mg STK-MED ONCE IV ; Start 04/14/19 at 14:22; Stop 04/14/19 at 14:23; Status DC Iodixanol (Visipaque 320) 100 ml STK-MED ONCE .ROUTE ; Start 04/14/19 at 14:34; Stop 04/14/19 at 14:35; Status DC Heparin Sodium/ Sodium Chloride (HEPARIN for ARTERIAL LINE FLUSH) 1,000 unit 1X ONCE IART Last administered on 04/14/19at 15:09; Start 04/14/19 at 14:45; Stop 04/14/19 at 14:46; Status DC Iodixanol (Visipaque 320) 100 ml 1X ONCE IART Last administered on 04/14/19at 15:10; Start 04/14/19 at 14:45; Stop 04/14/19 at 14:46; Status DC Lidocaine HCl (Lidocaine 1% 20ml Vial) 20 ml 1X ONCE INJ Last administered on 04/14/19at 15:10; Start 04/14/19 at 14:45; Stop 04/14/19 at 14:46; Status DC Adenosine 90 mg/ Sodium Chloride 120 ml @ 200 mls/hr 1X ONCE IV Last administered on 04/14/19at 15:11; Start 04/14/19 at 14:45; Stop 04/14/19 at 15:20; Status DC Heparin Sodium/ Sodium Chloride 500 ml @ As Directed STK-MED ONCE .ROUTE ; Start 04/14/19 at 14:51; Stop 04/14/19 at 14:51; Status DC Acetaminophen/ Hydrocodone Bitart (Lortab 5/325) 1 tab PRN Q4HRS PRN PO MODERATE PAIN Last administered on 04/15/19at 13:23; Start 04/14/19 at 18:30 Temazepam (Restoril) 7.5 mg PRN QHS PRN PO INSOMNIA; Start 04/14/19 at 19:00 Albuterol/ Ipratropium (Duoneb) 3 ml RTQID NEB Last administered on 04/19/19at 07:19; Start 04/15/19 at 08:00 Budesonide (Pulmicort) 0.5 mg RTBID NEB Last administered on 04/19/19at 07:20; Start 04/15/19 at 08:00 Ceftriaxone Sodium (Rocephin) 1 gm Q24H IVP Last administered on 04/19/19at 06:31; Start 04/15/19 at 07:00 Iohexol (Omnipaque 350 Mg/ml) 90 ml 1X ONCE IV Last administered on 04/15/19at 09:00; Start 04/15/19 at 09:00; Stop 04/15/19 at 09:01; Status DC Info (CONTRAST GIVEN -- Rx MONITORING) 1 each PRN DAILY PRN MC SEE COMMENTS; Start 04/15/19 at 09:00; Stop 04/17/19 at 08:59; Status DC Sodium Chloride 1,000 ml @ 1,000 mls/hr Q1H PRN IV hypotension; Start 04/15/19 at 09:25; Stop 04/15/19 at 15:24; Status DC Acetaminophen (Tylenol) 500 mg 1X PRN PRN PO MILD PAIN / TEMP; Start 04/15/19 at 09:30; Stop 04/16/19 at 09:29; Status DC Diphenhydramine HCl (Benadryl) 25 mg 1X PRN PRN IV ITCHING; Start 04/15/19 at 09:30; Stop 04/16/19 at 09:29; Status DC Diphenhydramine HCl (Benadryl) 25 mg 1X PRN PRN IV ITCHING; Start 04/15/19 at 09:30; Stop 04/16/19 at 09:29; Status DC Sodium Chloride 1,000 ml @ 400 mls/hr Q2H30M PRN IV PATENCY; Start 04/15/19 at 09:25; Stop 04/15/19 at 21:24; Status DC Info (PHARMACY MONITORING -- do not chart) 1 each PRN DAILY PRN MC SEE COMMENTS; Start 04/15/19 at 09:30 Lactobacillus Rhamnosus (Culturelle) 1 cap BID PO Last administered on 9at 21:13; Start 04/15/19 at 21:00 Sodium Bicarbonate (Sodium Bicarb Adult 8.4% Syr) 50 meq 1X ONCE IV Last administered on 04/17/19at 10:28; Start 04/17/19 at 10:30; Stop 04/17/19 at 10:31; Status DC Sodium Chloride 1,000 ml @ 1,000 mls/hr Q1H PRN IV hypotension; Start 04/18/19 at 08:06; Stop 04/18/19 at 14:05; Status DC Albumin Human 200 ml @ 200 mls/hr 1X PRN PRN IV Hypotension; Start 04/18/19 at 08:15; Stop 04/18/19 at 14:14; Status DC Sodium Chloride 1,000 ml @ 400 mls/hr Q2H30M PRN IV PATENCY; Start 04/18/19 at 08:06; Stop 04/18/19 at 20:05; Status DC Info (PHARMACY MONITORING -- do not chart) 1 each PRN DAILY PRN MC SEE COMMENTS; Start 04/18/19 at 08:15; Status UNV Info (PHARMACY MONITORING -- do not chart) 1 each PRN DAILY PRN MC SEE COMM ENTS; Start 04/18/19 at 08:15 Lidocaine HCl (Xylocaine-Mpf 1% 2ml Vial) 2 ml STK-MED ONCE .ROUTE ; Start 04/18/19 at 08:50; Stop 04/18/19 at 08:50; Status DC Active Scripts Active Reported Midodrine Hcl 10 Mg Tablet 10 Mg PO QTUTHSA Midodrine Hcl 5 Mg Tablet 10 Mg PO QTUTHSA Ferrous Sulfate 325 Mg Tablet 1 Tab PO DAILY Calcium Carbonate 200 Mg Tab.chew 750 Mg PO TIDWMEALS Stool Softener (Docusate Sodium) 250 Mg Capsule 250 Mg PO DAILY Aspirin 81 Mg Tab.chew 1 Tab PO DAILY Sensipar (Cinacalcet Hcl) 30 Mg Tablet 30 Mg PO DAILY Vitamin D3 (Cholecalciferol (Vitamin D3)) 5,000 Unit Tablet 1 Tab PO DAILY Atorvastatin Calcium 20 Mg Tablet 20 Mg PO HS Vitals/I & O Vital Sign - Last 24 Hours 10/1/19 10/1/19 10/1/19 10/1/19 08:23 10:00 11:31 12:30 Temp 97.9 97.9 Pulse 87 85 Resp 18 B/P (MAP) 109/60 84/49 91/49 (63) Pulse Ox 95 94 O2 Delivery Nasal Cannula Nasal Cannula O2 Flow Rate 4.0 4.0 04/18/19 04/18/19 04/18/19 04/18/19 15:00 15:29 16:14 19:00 Temp 98.1 99.1 98.1 99.1 Pulse 83 85 84 Resp 18 18 B/P (MAP) 78/48 (58) 125/59 (81) 95/50 (65) Pulse Ox 96 94 O2 Delivery Nasal Cannula Nasal Cannula Nasal Cannula O2 Flow Rate 4.0 4.0 4.0 04/18/19 04/18/19 04/18/19 04/18/19 19:05 19:37 20:00 23:00 Temp 98.1 98.1 Pulse 79 Resp 18 B/P (MAP) 86/45 (59) Pulse Ox 95 95 O2 Delivery Nasal Cannula Nasal Cannula Nasal Cannula O2 Flow Rate 4.0 4.0 4.0 4.0 04/19/19 04/19/19 04/19/19 04/19/19 00:00 01:18 03:00 03:20 Temp 98.0 98.0 Pulse 77 Resp 18 B/P (MAP) 103/54 (70) Pulse Ox 96 O2 Delivery BiPAP/CPAP BiPAP/CPAP BiPAP/CPAP BiPAP/CPAP 04/19/19 04/19/19 04/19/19 05:05 07:15 07:20 Temp 98.6 98.6 Pulse 80 Resp 18 B/P (MAP) 95/56 (69) Pulse Ox 96 96 O2 Delivery BiPAP/CPAP BiPAP/CPAP BiPAP/CPAP O2 Flow Rate 4.0 Intake and Output0 04/18/19 04/18/19 04/19/19 15:00 23:00 07:00 Intake Total 220 ml Balance 220 ml SÁNCHEZ ARMENTA MD Apr 19, 2019 08:08
[2019-04-19] MEDS: CINACALCET HCL 30 MG TABLET PO SCH (08:56)
[2019-04-19] MEDS: DOCUSATE SODIUM 100 MG CAPSULE. PO SCH (08:56)
[2019-04-19] MEDS: CALCIUM CARBONATE 500 MG TAB.CHEW PO SCH ×3 (08:56→17:30)
[2019-04-19] MEDS: ASPIRIN CHEWABLE 81 MG TABLET. PO SCH (08:57)
[2019-04-19] MEDS: FERROUS SULFATE 325 MG TABLET. PO SCH (08:57)
[2019-04-19] MEDS: CHOLECALCIFEROL (VITAMIN D3) 5,000 UNIT CAPSULE PO SCH (08:57)
[2019-04-19] MEDS: LACTOBACILLUS RHAMNOSUS GG 1 CAPSULE. PO SCH ×2 (08:57→20:04)
--- NOTE | 2019-04-19 09:55 | PDOC ---
PULMONARY PROGRESS NOTES Subjective off bipap,awake, no soa Vitals Vital Signs Date Time Temp Pulse Resp B/P (MAP) Pulse Ox O2 Delivery O2 Flow Rate FiO2 04/19/19 09:00 3.0 04/19/19 08:00 Nasal Cannula 04/19/19 07:20 96 04/19/19 07:15 98.6 80 18 95/56 (69) 98.6 ROS: No Nausea General: Alert, No acute distress Lungs: Other (decrease bs) Cardiovascular: S1, S2, Other Abdomen: Soft, Non-tender Neuro Exam: Alert Extremities: No Edema Skin: Warm Labs Laboratory Tests Test 04/18/19 03:22 04/18/19 12:26 04/19/19 04:30 White Blood Count 7.4 x10^3/uL (4.0-11.0) 5.8 x10^3/uL (4.0-11.0) Red Blood Count 3.20 x10^6/uL (4.30-5.70) 3.18 x10^6/uL (4.30-5.70) Hemoglobin 10.4 g/dL (13.0-17.5) 10.2 g/dL (13.0-17.5) Hematocrit 31.9 % (39.0-53.0) 31.7 % (39.0-53.0) Mean Corpuscular Volume 100 fL (79-100) 100 fL (79-100) Mean Corpuscular Hemoglobin 33 pg (25-35) 32 pg (25-35) Mean Corpuscular Hemoglobin Concent 33 g/dL (31-37) 32 g/dL (31-37) Red Cell Distribution Width 14.3 % (11.5-14.5) 14.4 % (11.5-14.5) Platelet Count 122 x10^3/uL (140-400) 137 x10^3/uL (140-400) Neutrophils (%) (Auto) 78 % (31-73) 80 % (31-73) Lymphocytes (%) (Auto) 11 % (24-48) 8 % (24-48) Monocytes (%) (Auto) 11 % (0-9) 11 % (0-9) Eosinophils (%) (Auto) 0 % (0-3) 1 % (0-3) Basophils (%) (Auto) 0 % (0-3) 1 % (0-3) Neutrophils # (Auto) 5.8 x10^3/uL (1.8-7.7) 4.7 x10^3/uL (1.8-7.7) Lymphocytes # (Auto) 0.8 x10^3/uL (1.0-4.8) 0.5 x10^3/uL (1.0-4.8) Monocytes # (Auto) 0.8 x10^3/uL (0.0-1.1) 0.6 x10^3/uL (0.0-1.1) Eosinophils # (Auto) 0.0 x10^3/uL (0.0-0.7) 0.1 x10^3/uL (0.0-0.7) Basophils # (Auto) 0.0 x10^3/uL (0.0-0.2) 0.0 x10^3/uL (0.0-0.2) Sodium Level 134 mmol/L (136-145) 140 mmol/L (136-145) Potassium Level 4.4 mmol/L (3.5-5.1) 3.8 mmol/L (3.5-5.1) Chloride Level 96 mmol/L (98-107) 98 mmol/L (98-107) Carbon Dioxide Level 27 mmol/L (21-32) 34 mmol/L (21-32) Anion Gap 11 (6-14) 8 (6-14) Blood Urea Nitrogen 70 mg/dL (8-26) 43 mg/dL (8-26) Creatinine 9.6 mg/dL (0.7-1.3) 6.8 mg/dL (0.7-1.3) Estimated GFR (Cockcroft-Gault) 6.4 9.5 BUN/Creatinine Ratio 7 (6-20) 6 (6-20) Glucose Level 106 mg/dL (70-99) 96 mg/dL (70-99) Calcium Level 8.3 mg/dL (8.5-10.1) 8.3 mg/dL (8.5-10.1) Total Bilirubin 0.4 mg/dL (0.2-1.0) 0.6 mg/dL (0.2-1.0) Aspartate Amino Transf (AST/SGOT) 59 U/L (15-37) 60 U/L (15-37) Alanine Aminotransferase (ALT/SGPT) 39 U/L (16-63) 46 U/L (16-63) Alkaline Phosphatase 116 U/L (46-116) 107 U/L (46-116) Total Protein 6.8 g/dL (6.4-8.2) 6.8 g/dL (6.4-8.2) Albumin 2.6 g/dL (3.4-5.0) 2.5 g/dL (3.4-5.0) Albumin/Globulin Ratio 0.6 (1.0-1.7) 0.6 (1.0-1.7) Glucose (Fingerstick) 79 mg/dL (70-99) Laboratory Tests Test 04/18/19 12:26 04/19/19 04:30 Glucose (Fingerstick) 79 mg/dL (70-99) White Blood Count 5.8 x10^3/uL (4.0-11.0) Red Blood Count 3.18 x10^6/uL (4.30-5.70) Hemoglobin 10.2 g/dL (13.0-17.5) Hematocrit 31.7 % (39.0-53.0) Mean Corpuscular Volume 100 fL (79-100) Mean Corpuscular Hemoglobin 32 pg (25-35) Mean Corpuscular Hemoglobin Concent 32 g/dL (31-37) Red Cell Distribution Width 14.4 % (11.5-14.5) Platelet Count 137 x10^3/uL (140-400) Neutrophils (%) (Auto) 80 % (31-73) Lymphocytes (%) (Auto) 8 % (24-48) Monocytes (%) (Auto) 11 % (0-9) Eosinophils (%) (Auto) 1 % (0-3) Basophils (%) (Auto) 1 % (0-3) Neutrophils # (Auto) 4.7 x10^3/uL (1.8-7.7) Lymphocytes # (Auto) 0.5 x10^3/uL (1.0-4.8) Monocytes # (Auto) 0.6 x10^3/uL (0.0-1.1) Eosinophils # (Auto) 0.1 x10^3/uL (0.0-0.7) Basophils # (Auto) 0.0 x10^3/uL (0.0-0.2) Sodium Level 140 mmol/L (136-145) Potassium Level 3.8 mmol/L (3.5-5.1) Chloride Level 98 mmol/L (98-107) Carbon Dioxide Level 34 mmol/L (21-32) Anion Gap 8 (6-14) Blood Urea Nitrogen 43 mg/dL (8-26) Creatinine 6.8 mg/dL (0.7-1.3) Estimated GFR (Cockcroft-Gault) 9.5 BUN/Creatinine Ratio 6 (6-20) Glucose Level 96 mg/dL (70-99) Calcium Level 8.3 mg/dL (8.5-10.1) Total Bilirubin 0.6 mg/dL (0.2-1.0) Aspartate Amino Transf (AST/SGOT) 60 U/L (15-37) Alanine Aminotransferase (ALT/SGPT) 46 U/L (16-63) Alkaline Phosphatase 107 U/L (46-116) Total Protein 6.8 g/dL (6.4-8.2) Albumin 2.5 g/dL (3.4-5.0) Albumin/Globulin Ratio 0.6 (1.0-1.7) Medications Active Scripts Medications Dose Route/Sig Max Daily Dose Days Date Category Midodrine Hcl 10 Mg Tablet 10 Mg PO QTUTHSA 04/11/19 Reported Midodrine Hcl 5 Mg Tablet 10 Mg PO QTUTHSA 04/11/19 Reported Ferrous Sulfate 325 Mg Tablet 1 Tab PO DAILY 04/11/19 Reported Calcium Carbonate 200 Mg Tab.chew 750 Mg PO TIDWMEALS 04/11/19 Reported Stool Softener (Docusate Sodium) 250 Mg Capsule 250 Mg PO DAILY 04/11/19 Reported Aspirin 81 Mg Tab.chew 1 Tab PO DAILY 04/11/19 Reported Sensipar (Cinacalcet Hcl) 30 Mg Tablet 30 Mg PO DAILY 04/11/19 Reported Vitamin D3 (Cholecalciferol (Vitamin D3)) 5,000 Unit Tablet 1 Tab PO DAILY 04/11/19 Reported Atorvastatin Calcium 20 Mg Tablet 20 Mg PO HS 04/01/[address] 1. No convincing central pulmonary embolism. Evaluation for segmental and subsegmental emboli is significantly limited due to suboptimal contrast opacification and respiratory motion. 2. Enlarged central pulmonary arteries likely due to pulmonary artery hypertension. There is also cardiomegaly. 3. Moderate right and small left pleural effusions with right lower lobe partially consolidated infiltrate superimposed on atelectasis. There is also left lower lobe and posterior dependent atelectasis and scarring along the pleural fissures. 4. Moderate emphysema. 5. Prominent mediastinal and hilar lymph nodes, possibly reactive in etiology. 6. Renal atrophy. 7. Large right thyroid cyst. Impression . IMPRESSION: 1. Acute hypoxemic respiratory failure, multifactorial in etiology. 2. Pulmonary hypertension. I suspect it is secondary and chronic and it is multifactorial in etiology. I suspect he does have significant chronic obstructive pulmonary disease with nocturnal hypoxemia, need to rule out obstructive sleep apnea-hypopnea syndrome. no central pulmonary embolism. His chest x-ray also shows increased interstitial marking, no ild, has emphysema 3. Abnormal chest x-ray. 4. Significant history of smoking, suspect he has significant chronic obstructive pulmonary disease. 5. ?Obstructive sleep apnea-hypopnea syndrome. 6. Acute bronchitis. 7. End-stage renal disease, on hemodialysis. 8. Hypotension ?etiology. 9. Diabetes mellitus. 10. History of hypertension. Plan . 1. 02 titration, bipap prn . Has combined resp/ met acidosis. on HD 2. bronchodilator. 3. inhaled corticosteroid, 4. Rocephin. 5. CT angiogram reviewed, no central pe, le doppler neg, reactive adenopathy 6. He would require complete PFTs as an outpatient. 7. I do recommend sleep study as an outpatient. 8. Six-minute walk and nocturnal oximetry before discharge. 9. fu ct in 6-[address] shows pleural effusion, ? diastolic chf, hold off tap at present 10. cxr 04/19 , mild CHF, small RLL effusion discussed w rn. DOT JOSEPH MD Apr 19, 2019 09:55
[2019-04-19 11:02] VITALS: BP 78/49
--- NOTE | 2019-04-19 11:27 | PDOC ---
SUBJECTIVE ROS BP dropped to 58 systolic , Pt reported he was feeling funny rechecking OBJECTIVE Vital Signs Vital Signs Date Time Temp Pulse Resp B/P (MAP) Pulse Ox O2 Delivery O2 Flow Rate FiO2 04/19/19 09:00 3.0 04/19/19 08:00 Nasal Cannula 04/19/19 07:20 96 04/19/19 07:15 98.6 80 18 95/56 (69) 98.6 I & 0 Intake and Output 04/19/19 07:00 Intake Total 220 ml Balance 220 ml Intake Oral 220 ml # Bowel Movements 1 PHYSICAL EXAM Physical Exam General: No acute distress, sitting in recliner HEENT: OM moist Lungs: Clear to auscultation Heart: Regular rate (SR), Other (4/6 systolic murmur to LLs border) Abdomen: Soft, No tenderness Extremities: No edema Skin: No rash Neuro: Alert, Oriented X3, DIAGNOSIS/ASSESSMENT Assessment & Plan ESRD - On HD TTS No indication today Hypotensive- chronic, on Midodrine Status post heart catheterization - no significant coronary disease but severe pulmonary hypertension. COPD Pulm HTN- Per Pulm Anemia- Hgb stable JAMESON per protocol for Hgb< 10 COMMENT/RELEVANT DATA Meds Current Medications Medications (Trade) Dose Ordered Sig/Edita Start Time Stop Time Status Last Admin Dose Admin Acetaminophen (Tylenol) 500 mg 1X PRN PRN 04/15/19 09:30 04/16/19 09:29 DC Acetaminophen/ Hydrocodone Bitart (Lortab 5/325) 1 tab PRN Q4HRS PRN 04/14/19 18:30 04/15/19 13:23 1 TAB Adenosine (Adenoscan) 90 mg STK-MED ONCE 04/14/19 14:22 04/14/19 14:23 DC Adenosine 90 mg/ Sodium Chloride 120 ml @ 200 mls/hr 1X ONCE 04/14/19 14:45 04/14/19 15:20 DC 04/14/19 15:11 200 MLS/HR Albumin Human 200 ml @ 200 mls/hr 1X PRN PRN 04/18/19 08:15 04/18/19 14:14 DC Albuterol/ Ipratropium (Duoneb) 3 ml RTQID 04/15/19 08:00 04/19/19 07:19 3 ML Aspirin (Children'S Aspirin) 81 mg DAILY 04/13/19 09:00 04/19/19 08:57 81 MG Atorvastatin Calcium (Lipitor) 20 mg HS 04/12/19 21:00 04/18/19 21:13 20 MG Budesonide (Pulmicort) 0.5 mg RTBID 04/15/19 08:00 04/19/19 07:20 0.5 MG Calcium Carbonate/ Glycine (Tums) 750 mg TIDWMEALS 04/13/19 08:00 04/19/19 08:56 750 MG Ceftriaxone Sodium (Rocephin) 1 gm Q24H 04/15/19 07:00 04/19/19 06:31 1 GM Cinacalcet (Sensipar) 30 mg DAILY 04/13/19 09:00 04/19/19 08:56 30 MG Digoxin (Lanoxin) 500 mcg STK-MED ONCE 04/14/19 09:41 04/14/19 09:41 DC Diphenhydramine HCl (Benadryl) 25 mg 1X PRN PRN 04/15/19 09:30 04/16/19 09:29 DC Docusate Sodium (Colace) 100 mg DAILY 04/13/19 09:00 04/19/19 08:56 100 MG Ferrous Sulfate (Feosol) 325 mg DAILY08 04/13/19 08:00 04/19/19 08:57 325 MG Heparin Sodium/ Sodium Chloride 500 ml @ As Directed STK-MED ONCE 04/14/19 14:51 04/14/19 14:51 DC Heparin Sodium/ Sodium Chloride (HEPARIN for ARTERIAL LINE FLUSH) 1,000 unit 1X ONCE 04/14/19 14:45 04/14/19 14:46 DC 04/14/19 15:09 1,000 UNIT Info (CONTRAST GIVEN -- Rx MONITORING) 1 each PRN DAILY PRN 04/15/19 09:00 04/17/19 08:59 DC Info (PHARMACY MONITORING -- do not chart) 1 each PRN DAILY PRN 04/18/19 08:15 Iodixanol (Visipaque 320) 100 ml 1X ONCE 04/14/19 14:45 04/14/19 14:46 DC 04/14/19 15:10 93 ML Iohexol (Omnipaque 350 Mg/ml) 90 ml 1X ONCE 04/15/19 09:00 04/15/19 09:01 DC 04/15/19 09:00 90 ML Lactobacillus Rhamnosus (Culturelle) 1 cap BID 04/15/19 21:00 04/19/19 08:57 1 CAP Lidocaine HCl (Lidocaine 1% 20ml Vial) 20 ml 1X ONCE 04/14/19 14:45 04/14/19 14:46 DC 04/14/19 15:10 15 ML Lidocaine HCl (Xylocaine-Mpf 1% 2ml Vial) 2 ml STK-MED ONCE 04/18/19 09:00 04/19/19 08:25 DC Midodrine (Proamatine) 10 mg QTUTHSA@1000 04/13/19 10:00 04/18/19 10:00 10 MG Norepinephrine Bitartrate 250 ml @ 15.656 mls/ hr CONT PRN 04/14/19 14:15 04/18/19 14:11 DC 04/16/19 00:02 15.656 MLS/HR Ondansetron HCl (Zofran) 4 mg PRN Q4HRS PRN 04/14/19 01:30 04/17/19 17:23 4 MG Sodium Bicarbonate (Sodium Bicarb Adult 8.4% Syr) 50 meq 1X ONCE 04/17/19 10:30 04/17/19 10:31 DC 04/17/19 10:28 50 MEQ Sodium Chloride 1,000 ml @ 400 mls/hr Q2H30M PRN 04/18/19 08:06 04/18/19 20:05 DC Temazepam (Restoril) 7.5 mg PRN QHS PRN 04/14/19 19:00 Vitamin D (Vitamin D3) 5,000 unit DAILY 04/13/19 09:00 04/19/19 08:57 5,000 UNIT Lab Laboratory Tests Test 04/18/19 12:26 04/19/19 04:30 Glucose (Fingerstick) 79 mg/dL (70-99) White Blood Count 5.8 x10^3/uL (4.0-11.0) Red Blood Count 3.18 x10^6/uL (4.30-5.70) Hemoglobin 10.2 g/dL (13.0-17.5) Hematocrit 31.7 % (39.0-53.0) Mean Corpuscular Volume 100 fL (79-100) Mean Corpuscular Hemoglobin 32 pg (25-35) Mean Corpuscular Hemoglobin Concent 32 g/dL (31-37) Red Cell Distribution Width 14.4 % (11.5-14.5) Platelet Count 137 x10^3/uL (140-400) Neutrophils (%) (Auto) 80 % (31-73) Lymphocytes (%) (Auto) 8 % (24-48) Monocytes (%) (Auto) 11 % (0-9) Eosinophils (%) (Auto) 1 % (0-3) Basophils (%) (Auto) 1 % (0-3) Neutrophils # (Auto) 4.7 x10^3/uL (1.8-7.7) Lymphocytes # (Auto) 0.5 x10^3/uL (1.0-4.8) Monocytes # (Auto) 0.6 x10^3/uL (0.0-1.1) Eosinophils # (Auto) 0.1 x10^3/uL (0.0-0.7) Basophils # (Auto) 0.0 x10^3/uL (0.0-0.2) Sodium Level 140 mmol/L (136-145) Potassium Level 3.8 mmol/L (3.5-5.1) Chloride Level 98 mmol/L (98-107) Carbon Dioxide Level 34 mmol/L (21-32) Anion Gap 8 (6-14) Blood Urea Nitrogen 43 mg/dL (8-26) Creatinine 6.8 mg/dL (0.7-1.3) Estimated GFR (Cockcroft-Gault) 9.5 BUN/Creatinine Ratio 6 (6-20) Glucose Level 96 mg/dL (70-99) Calcium Level 8.3 mg/dL (8.5-10.1) Total Bilirubin 0.6 mg/dL (0.2-1.0) Aspartate Amino Transf (AST/SGOT) 60 U/L (15-37) Alanine Aminotransferase (ALT/SGPT) 46 U/L (16-63) Alkaline Phosphatase 107 U/L (46-116) Total Protein 6.8 g/dL (6.4-8.2) Albumin 2.5 g/dL (3.4-5.0) Albumin/Globulin Ratio 0.6 (1.0-1.7) Results All relevant outside records, renal labs, imaging studies, telemetry/EKG's were reviewed. KATARZYNA PAYNE MD Apr 19, 2019 11:26
--- NOTE | 2019-04-19 12:44 | RAD ---
Examination: PORTABLE CHEST 1V History: Effusion Comparison/Correlation: 04/15/2019 CTA of the chest Findings: Portable upright frontal view the chest was obtained. Cardiomegaly is present. Pelvic vasculature is congested. Small pleural effusions are present. Adjacent atelectasis is present. Opacification is greater on the right compared to the left. No pneumothorax. Impression: Congestive heart failure and pleural effusions with adjacent atelectasis. No significant improvement suggested on correlation with CTA of the chest dated 04/07/2019. Electronically signed by: Jona Eaton MD (04/19/2019 12:41 PM) [facility] [place]
--- NOTE | 2019-04-19 13:48 | NUR ---
SW following pt. PT/OT recommends SNU. SW spoke with pt regarding SNU, options, insurance coverage. Pt stated he has been to [facility] before and agreeable with going there if accepted. JUDIE phoned and faxed referral to [facility]. Pt acceptance and admission pending. Will continue to follow.
[2019-04-19] MEDS: ONDANSETRON PF 4 MG/2 ML VIAL. IVP PRN (13:55)
[2019-04-19] MEDS: CEFEPIME HCL IV Push 1 GM VIAL. IVP SCH (14:19)
[2019-04-19] MEDS ORDERED: PROCHLORPERAZINE 10 MG/2 ML VIAL. IV ONE (14:45)
[2019-04-19 15:09] VITALS: BP 98/58
--- NOTE | 2019-04-19 15:16 | EKG ---
[facility] [address] [place] [address] Test Date: 2019-04-19 Test Time: 15:07:22 Pat Name: VINNIE BANSAL Department: Room: 556 1 Gender: M [employer] System Electrical Engineer: : [id number] Requested By: SÁNCHEZ ARMENTA Order Number: [id number] Reading MD: Erick Atwood Measurements Intervals [place] Rate: 100 P: 53 ME: 194 QRS: 64 QRSD: 100 T: 39 QT: 388 QTc: 504 Interpretive Statements SINUS RHYTHM NONSPECIFIC ST-T WAVE CHANGES. Electronically Signed On 04-28-2019 16:22:15 CDT by Erick Atwood
--- NOTE | 2019-04-19 16:11 | NUR ---
SW following pt. Pt has been accepted at , Anticipate dc tomorrow. Physician notified.
--- NOTE | 2019-04-19 16:27 | PDOC ---
PROGRESS NOTES Assessment Assessment Orthostatic hypotension. Presyncope and syncope. AFib with RVR. ESRD on dialysis. DM. HTN. HLD. GINGER. Thyroid disease. RECOMMENDATIONS/PLAN: He has been treated with Midodrine. Continue medical management. OT/PT. FU with PCP. FU with Neurology as needed. Subjective: He stated on 04/17/19 that he felt slightly improved. Past Medical History Cardiovascular: HTN, Hyperlipidemia, Other (hypotension) Pulmonary: Bronchitis, Other (sleep apnea) GI: Constipation (and diarrhea) Heme/Onc: Anemia NOS (has required transfusions) Musculoskeletal: Osteoarthritis ENT: Other (cataracts, not operated yet) Renal/: Chronic renal failure (starting dialysis), Benign prostatic enlarg., Other (urinary retention) Endocrine: Diabetes, Other (thyroid disease, not currently requiring medication) Past Surgical History Tonsillectomy, Other (right renal biopsy) Family History No pertinent hx Social History , rare alcohol, no tobacco Allergies No Known Drug Allergies (Unverified , 04/09/16) ROS Negative for fever, chills, weight loss, shortness of breath, chest pain, indigestion, hematochezia, melena, and dysuria. Full 14-point review of systems is negative. MEDICATIONS: Refer to [facility] PHYSICAL EXAMINATION: General appearance in subacute distress. HEENT: Normocephalic and nontraumatic. Eyes, nose, ears, and throat are unremarkable. Hearing decrease. Neck is supple. No lymphadenopathy. No Crepitus. Cardiovascular: S1, S2, regular rate and rhythm. Pulmonary: Clear to auscultation bilaterally. Abdomen: Bowel sounds are positive. Extremities: No rash, lesions, or edema. No restriction of range of motion NEUROLOGICAL EXAMINATION: Drowsiness. Oriented to time, place and person but reaction slow. PERRL. EOMI. CN: no focal findings. Muscle tone: within normal. Muscle strength: 4+ DTR: 1-2 Plantar reflex: Flexor response bilaterally Gait: Able to walk with a walker. Sensory exam: no abnormal findings. No cerebellar signs elicited. F-T-N test fine. Objective Objective Vital Signs Date Time Temp Pulse Resp B/P (MAP) Pulse Ox O2 Delivery O2 Flow Rate FiO2 04/19/19 15:29 94 BiPAP/CPAP 04/19/19 15:09 98.1 101 18 98/58 (71) 4.0 98.1 Intake and Output 04/19/19 07:00 Intake Total 220 ml Balance 220 ml Intake Oral 220 ml # Bowel Movements 1 Vitals Signs Vitals VS - Last 72 Hours, by Label Date Time Temp Pulse Resp B/P (MAP) Pulse Ox O2 Delivery O2 Flow Rate FiO2 04/19/19 15:29 94 BiPAP/CPAP 04/19/19 15:09 98.1 101 18 98/58 (71) 94 BiPAP/CPAP 4.0 98.1 04/19/19 11:39 96 Nasal Cannula 2.0 04/19/19 11:02 98.0 76 18 78/49 (59) 98 Nasal Cannula 2.0 98.0 04/19/19 09:00 3.0 04/19/19 08:00 Nasal Cannula 3.0 04/19/19 07:20 96 BiPAP/CPAP 04/19/19 07:15 98.6 80 18 95/56 (69) 96 BiPAP/CPAP 4.0 98.6 04/19/19 05:05 BiPAP/CPAP 04/19/19 03:20 BiPAP/CPAP 04/19/19 03:00 98.0 77 18 103/54 (70) 96 BiPAP/CPAP 98.0 04/19/19 01:18 BiPAP/CPAP 04/19/19 00:00 BiPAP/CPAP 04/18/19 23:00 98.1 79 18 86/45 (59) 95 Nasal Cannula 4.0 98.1 04/18/19 20:00 4.0 04/18/19 19:37 95 Nasal Cannula 4.0 04/18/19 19:05 Nasal Cannula 4.0 04/18/19 19:00 99.1 84 18 95/50 (65) 94 Nasal Cannula 4.0 99.1 04/18/19 16:14 85 125/59 (81) 04/18/19 15:29 Nasal Cannula 4.0 04/18/19 15:00 98.1 83 18 78/48 (58) 96 Nasal Cannula 4.0 98.1 04/18/19 12:30 97.9 85 18 91/49 (63) 94 Nasal Cannula 4.0 97.9 04/18/19 11:31 95 Nasal Cannula 4.0 04/18/19 10:00 87 84/49 04/18/19 08:23 109/60 04/18/19 08:00 Nasal Cannula 4.0 04/18/19 07:39 95 Nasal Cannula 4.0 04/18/19 07:00 97.6 81 18 109/60 (76) 95 BiPAP/CPAP 97.6 Laboratory Laboratory Laboratory Tests Test 04/19/19 04:30 04/19/19 14:55 White Blood Count 5.8 x10^3/uL (4.0-11.0) Red Blood Count 3.18 x10^6/uL (4.30-5.70) Hemoglobin 10.2 g/dL (13.0-17.5) Hematocrit 31.7 % (39.0-53.0) Mean Corpuscular Volume 100 fL (79-100) Mean Corpuscular Hemoglobin 32 pg (25-35) Mean Corpuscular Hemoglobin Concent 32 g/dL (31-37) Red Cell Distribution Width 14.4 % (11.5-14.5) Platelet Count 137 x10^3/uL (140-400) Neutrophils (%) (Auto) 80 % (31-73) Lymphocytes (%) (Auto) 8 % (24-48) Monocytes (%) (Auto) 11 % (0-9) Eosinophils (%) (Auto) 1 % (0-3) Basophils (%) (Auto) 1 % (0-3) Neutrophils # (Auto) 4.7 x10^3/uL (1.8-7.7) Lymphocytes # (Auto) 0.5 x10^3/uL (1.0-4.8) Monocytes # (Auto) 0.6 x10^3/uL (0.0-1.1) Eosinophils # (Auto) 0.1 x10^3/uL (0.0-0.7) Basophils # (Auto) 0.0 x10^3/uL (0.0-0.2) Sodium Level 140 mmol/L (136-145) Potassium Level 3.8 mmol/L (3.5-5.1) Chloride Level 98 mmol/L (98-107) Carbon Dioxide Level 34 mmol/L (21-32) Anion Gap 8 (6-14) Blood Urea Nitrogen 43 mg/dL (8-26) Creatinine 6.8 mg/dL (0.7-1.3) Estimated GFR (Cockcroft-Gault) 9.5 BUN/Creatinine Ratio 6 (6-20) Glucose Level 96 mg/dL (70-99) Calcium Level 8.3 mg/dL (8.5-10.1) Total Bilirubin 0.6 mg/dL (0.2-1.0) Aspartate Amino Transf (AST/SGOT) 60 U/L (15-37) Alanine Aminotransferase (ALT/SGPT) 46 U/L (16-63) Alkaline Phosphatase 107 U/L (46-116) Total Protein 6.8 g/dL (6.4-8.2) Albumin 2.5 g/dL (3.4-5.0) Albumin/Globulin Ratio 0.6 (1.0-1.7) Troponin I Quantitative 0.157 ng/mL (0.000-0.055) Microbiology 04/16/19 - Final, Resulted 04/16/19 - Final, Resulted 04/16/19 - Final, Resulted 04/16/19 - Final, Resulted 04/16/19 Gram Stain Evaluation - Final, Resulted 04/16/19 Sputum Culture - Preliminary, Resulted 04/16/19 Sputum Result 1 - Final, Resulted 04/16/19 Sputum Result 2 - Final, Resulted 04/11/19 Blood Culture - Final, Complete NO GROWTH AFTER 5 DAYS Medication Medications Current Medications Cefepime HCl (Maxipime) 1 gm Q24H IVP Last administered on 04/19/19at 14:19; Start 04/19/19 at 13:00 Midodrine (Proamatine) 10 mg TID PRN PRN PO HYPOTENSION ; Start 04/19/19 at 15:45 Prochlorperazine Edisylate (Compazine) 5 mg 1X ONCE IV Last administered on 04/19/19at 14:48; Start 04/19/19 at 14:45; Stop 04/19/19 at 14:46; Status DC Comment Review of Relevant I have reviewed the following items khalida (where applicable) has been applied. CHARITY HAYES MD Apr 19, 2019 16:27
[2019-04-19 19:00] VITALS: BP 83/47
[2019-04-19] MEDS: MIDODRINE 5 MG TABLET PO PRN (20:04)
[2019-04-19] MEDS: ATORVASTATIN CALCIUM 20 MG TABLET PO SCH (20:05)
[2019-04-19 22:30] VITALS: BP 93/54
--- NOTE | 2019-04-19 22:55 | NUR ---
Rapid Response Note: Rapid Response called by patient's RN for Hypotension and Altered LOC--RN reports patient was getting up to the BSC with assist and became nonverbal with questionable seizure activity and SBP 70's, but stated patient "knew what was happening just wasn't speaking." RN reports patient had dialysis 04/18/19 with 3Liters fluid removed. She stated patient has history of Orthostatic Hypotension and had received Midodrine 10MG PO ~ 2hrs prior to this event for low BP. Upon arrival patient is sitting on BSC, alert/oriented x4, and denies dizziness/lightheadedness, chest pain, or shortness of air. Patient states he was "aware of what was going on, just felt foggy." Speech is clear and patient follows all commands and is able to move all extremities without difficulty. Heart tones S1S2 RRR, EKG completed and reviwed by this RN and showed SR without any ST/T-wave changes seen, Lung sounds coarse all haider anteriorly and posteriorly with Oxygen saturation low 90's on 3L/NC; patient does have loose, productive cough. SBP BP 75 at 2229 and did increase to 98 after patient was sitting for 10minutes but did drop to 81 once patient assisted back to bed. Dr Hanh fontanez, returned call, notified of above. Patient to remain on unit but to be on BR through the night. Patient notified of discussion with PCP, all questions answered. See vitals signs. Addendum: 04/20/19 at 0006 by JOE DASILVA RN Amended: Links added.
[2019-04-20 03:00] VITALS: BP 97/58
[2019-04-20] MEDS: IPRATRPIUM/ALBUTEROL 0.5/2.5MG 3 ML NEBU. NEB SCH ×3 (07:09→16:00)
[2019-04-20] MEDS: BUDESONIDE 0.5 MG/2 ML NEBU. NEB SCH (07:09)
[2019-04-20 07:10] LABS: BASO % 1 % (0-3); EOS # 0.1 x10^3/uL (0.0-0.7); EOS % 1 % (0-3); HEMOGLOBIN 9.5 g/dL (13.0-17.5); LYMPH # 0.7 x10^3/uL (1.0-4.8); LYMPH % 12 % (24-48); MEAN CORPUSCULAR HEMOGLOBIN 33 pg (25-35); MEAN CORPUSCULAR HGB CONC 33 g/dL (31-37); MEAN CORPUSCULAR VOLUME 100 fL (79-100); MONO # 0.7 x10^3/uL (0.0-1.1); MONO % 13 % (0-9); NEUT # 4.4 x10^3/uL (1.8-7.7); NEUT % 74 % (31-73); PLATELET COUNT 150 x10^3/uL (140-400); RED BLOOD COUNT 2.91 x10^6/uL (4.30-5.70); WHITE BLOOD COUNT 5.9 x10^3/uL (4.0-11.0)
[2019-04-20 07:15] VITALS: BP 99/59
[2019-04-20 08:21] LABS: ALBUMIN 2.4 g/dL (3.4-5.0); ALBUMIN/GLOBULIN RATIO 0.6 (1.0-1.7); CALCIUM 8.5 mg/dL (8.5-10.1); CREATININE 8.9 mg/dL (0.7-1.3); TOTAL BILIRUBIN 0.5 mg/dL (0.2-1.0); TOTAL PROTEIN 6.6 g/dL (6.4-8.2)
[2019-04-20] MEDS: CHOLECALCIFEROL (VITAMIN D3) 5,000 UNIT CAPSULE PO SCH (08:34)
[2019-04-20] MEDS: LACTOBACILLUS RHAMNOSUS GG 1 CAPSULE. PO SCH (08:34)
[2019-04-20] MEDS: MIDODRINE 5 MG TABLET PO PRN ×2 (08:34→14:09)
[2019-04-20] MEDS: ASPIRIN CHEWABLE 81 MG TABLET. PO SCH (08:35)
[2019-04-20] MEDS: FERROUS SULFATE 325 MG TABLET. PO SCH (08:35)
[2019-04-20] MEDS: CINACALCET HCL 30 MG TABLET PO SCH (08:35)
[2019-04-20] MEDS: CALCIUM CARBONATE 500 MG TAB.CHEW PO SCH ×3 (08:36→17:00)
[2019-04-20] MEDS: DOCUSATE SODIUM 100 MG CAPSULE. PO SCH (08:36)
--- NOTE | 2019-04-20 08:49 | PDOC ---
PROGRESS NOTES Chief Complaint Chief Complaint Acute hypoxemic respiratory failure Syncope ESRD Anemia Hypotension Pulmonary hypertension - likely multifactorial in etiology. His WHO classification is likely primarily related to COPD. Chronic obstructive pulmonary disease with nocturnal hypoxemia Obstructive sleep apnea - per patient Significant history of smoking Diabetes mellitus History of hypertension History of Present Illness History of Present Illness Mr Espitia is a 78yo M w/ ESRD on HD, HTN, Anemia, [id number] smoking, stopped smoking about 15 years ago, GINGER on nocturnal O2 who was admitted for dizziness and syncope. He had cardiac catheterization done which did show mean pulmonary artery pressure of 45, wedge pressure was 15, right ventricular pressure was 75/16. He did have low normal cardiac output and normal coronary arteries. CTPA - 1. No convincing central pulmonary embolism. Evaluation for segmental and subsegmental emboli is significantly limited due to suboptimal contrast opacification and respiratory motion. 2. Enlarged central pulmonary arteries likely due to pulmonary artery hypertension. There is also cardiomegaly. 3. Moderate right and small left pleural effusions with right lower lobe partially consolidated infiltrate superimposed on atelectasis. There is also left lower lobe and posterior dependent atelectasis and scarring along the pleural fissures. 4. Moderate emphysema. 5. Prominent mediastinal and hilar lymph nodes, possibly reactive in etiology. 6. Renal atrophy. 7. Large right thyroid cyst. 04/19: Transferred from ICU on 04/17/19. He is seen on dialysis and again in his room. He is a bit confused today, weak, still with some dizziness and unsteady gait. Feels a bit better than admission. PT and OT as well as nursing recommend SNF on discharge and based on his declining self care and ICU deconditioning I agree. He has some hypotension with PT today. His sputum returned with 2+ pseudomonas Chest pain and vomiting yesterday and low BP this morning. Rapid response called. EKG no change, CXR no change and troponin no change. He states he feels better this morning. Increased dosing of proamatine. He is ready to discharge to SNF Vitals Vitals Vital Signs Date Time Temp Pulse Resp B/P (MAP) Pulse Ox O2 Delivery O2 Flow Rate FiO2 04/20/19 08:34 89 99/59 04/20/19 07:15 98.0 18 92 Nasal Cannula 2.0 98.0 Physical Exam General: Alert, Cooperative, No acute distress Heart: Regular rate Lungs: Other (decrease bs) Abdomen: Normal bowel sounds Extremities: No clubbing, No cyanosis, No edema, Normal pulses, No tenderness/swelling Skin: No rashes, No breakdown, No significant lesion Labs LABS Laboratory Tests Test 04/19/19 14:55 04/19/19 20:20 04/20/19 05:25 Troponin I Quantitative 0.157 ng/mL (0.000-0.055) 0.154 ng/mL (0.000-0.055) White Blood Count 5.9 x10^3/uL (4.0-11.0) Red Blood Count 2.91 x10^6/uL (4.30-5.70) Hemoglobin 9.5 g/dL (13.0-17.5) Hematocrit 29.0 % (39.0-53.0) Mean Corpuscular Volume 100 fL (79-100) Mean Corpuscular Hemoglobin 33 pg (25-35) Mean Corpuscular Hemoglobin Concent 33 g/dL (31-37) Red Cell Distribution Width 14.0 % (11.5-14.5) Platelet Count 150 x10^3/uL (140-400) Neutrophils (%) (Auto) 74 % (31-73) Lymphocytes (%) (Auto) 12 % (24-48) Monocytes (%) (Auto) 13 % (0-9) Eosinophils (%) (Auto) 1 % (0-3) Basophils (%) (Auto) 1 % (0-3) Neutrophils # (Auto) 4.4 x10^3/uL (1.8-7.7) Lymphocytes # (Auto) 0.7 x10^3/uL (1.0-4.8) Monocytes # (Auto) 0.7 x10^3/uL (0.0-1.1) Eosinophils # (Auto) 0.1 x10^3/uL (0.0-0.7) Basophils # (Auto) 0.0 x10^3/uL (0.0-0.2) Sodium Level 138 mmol/L (136-145) Potassium Level 4.0 mmol/L (3.5-5.1) Chloride Level 96 mmol/L (98-107) Carbon Dioxide Level 31 mmol/L (21-32) Anion Gap 11 (6-14) Blood Urea Nitrogen 58 mg/dL (8-26) Creatinine 8.9 mg/dL (0.7-1.3) Estimated GFR (Cockcroft-Gault) 7.0 BUN/Creatinine Ratio 7 (6-20) Glucose Level 83 mg/dL (70-99) Calcium Level 8.5 mg/dL (8.5-10.1) Total Bilirubin 0.5 mg/dL (0.2-1.0) Aspartate Amino Transf (AST/SGOT) 48 U/L (15-37) Alanine Aminotransferase (ALT/SGPT) 38 U/L (16-63) Alkaline Phosphatase 96 U/L (46-116) Total Protein 6.6 g/dL (6.4-8.2) Albumin 2.4 g/dL (3.4-5.0) Albumin/Globulin Ratio 0.6 (1.0-1.7) Assessment and Plan Assessmemt and Plan Problems Medical Problems: (1) Elevated troponin Status: Acute (2) ESRD (end stage renal disease) Status: Acute (3) Hypotension Status: Acute (4) Near syncope Status: Acute Comment Review of Relevant I have reviewed the following items khalida (where applicable) has been applied. Labs Laboratory Tests Test 04/18/19 12:26 04/19/19 04:30 04/19/19 14:55 04/19/19 20:20 Glucose (Fingerstick) 79 mg/dL (70-99) White Blood Count 5.8 x10^3/uL (4.0-11.0) Red Blood Count 3.18 x10^6/uL (4.30-5.70) Hemoglobin 10.2 g/dL (13.0-17.5) Hematocrit 31.7 % (39.0-53.0) Mean Corpuscular Volume 100 fL (79-100) Mean Corpuscular Hemoglobin 32 pg (25-35) Mean Corpuscular Hemoglobin Concent 32 g/dL (31-37) Red Cell Distribution Width 14.4 % (11.5-14.5) Platelet Count 137 x10^3/uL (140-400) Neutrophils (%) (Auto) 80 % (31-73) Lymphocytes (%) (Auto) 8 % (24-48) Monocytes (%) (Auto) 11 % (0-9) Eosinophils (%) (Auto) 1 % (0-3) Basophils (%) (Auto) 1 % (0-3) Neutrophils # (Auto) 4.7 x10^3/uL (1.8-7.7) Lymphocytes # (Auto) 0.5 x10^3/uL (1.0-4.8) Monocytes # (Auto) 0.6 x10^3/uL (0.0-1.1) Eosinophils # (Auto) 0.1 x10^3/uL (0.0-0.7) Basophils # (Auto) 0.0 x10^3/uL (0.0-0.2) Sodium Level 140 mmol/L (136-145) Potassium Level 3.8 mmol/L (3.5-5.1) Chloride Level 98 mmol/L (98-107) Carbon Dioxide Level 34 mmol/L (21-32) Anion Gap 8 (6-14) Blood Urea Nitrogen 43 mg/dL (8-26) Creatinine 6.8 mg/dL (0.7-1.3) Estimated GFR (Cockcroft-Gault) 9.5 BUN/Creatinine Ratio 6 (6-20) Glucose Level 96 mg/dL (70-99) Calcium Level 8.3 mg/dL (8.5-10.1) Total Bilirubin 0.6 mg/dL (0.2-1.0) Aspartate Amino Transf (AST/SGOT) 60 U/L (15-37) Alanine Aminotransferase (ALT/SGPT) 46 U/L (16-63) Alkaline Phosphatase 107 U/L (46-116) Total Protein 6.8 g/dL (6.4-8.2) Albumin 2.5 g/dL (3.4-5.0) Albumin/Globulin Ratio 0.6 (1.0-1.7) Troponin I Quantitative 0.157 ng/mL (0.000-0.055) 0.154 ng/mL (0.000-0.055) Test 04/20/19 05:25 White Blood Count 5.9 x10^3/uL (4.0-11.0) Red Blood Count 2.91 x10^6/uL (4.30-5.70) Hemoglobin 9.5 g/dL (13.0-17.5) Hematocrit 29.0 % (39.0-53.0) Mean Corpuscular Volume 100 fL (79-100) Mean Corpuscular Hemoglobin 33 pg (25-35) Mean Corpuscular Hemoglobin Concent 33 g/dL (31-37) Red Cell Distribution Width 14.0 % (11.5-14.5) Platelet Count 150 x10^3/uL (140-400) Neutrophils (%) (Auto) 74 % (31-73) Lymphocytes (%) (Auto) 12 % (24-48) Monocytes (%) (Auto) 13 % (0-9) Eosinophils (%) (Auto) 1 % (0-3) Basophils (%) (Auto) 1 % (0-3) Neutrophils # (Auto) 4.4 x10^3/uL (1.8-7.7) Lymphocytes # (Auto) 0.7 x10^3/uL (1.0-4.8) Monocytes # (Auto) 0.7 x10^3/uL (0.0-1.1) Eosinophils # (Auto) 0.1 x10^3/uL (0.0-0.7) Basophils # (Auto) 0.0 x10^3/uL (0.0-0.2) Sodium Level 138 mmol/L (136-145) Potassium Level 4.0 mmol/L (3.5-5.1) Chloride Level 96 mmol/L (98-107) Carbon Dioxide Level 31 mmol/L (21-32) Anion Gap 11 (6-14) Blood Urea Nitrogen 58 mg/dL (8-26) Creatinine 8.9 mg/dL (0.7-1.3) Estimated GFR (Cockcroft-Gault) 7.0 BUN/Creatinine Ratio 7 (6-20) Glucose Level 83 mg/dL (70-99) Calcium Level 8.5 mg/dL (8.5-10.1) Total Bilirubin 0.5 mg/dL (0.2-1.0) Aspartate Amino Transf (AST/SGOT) 48 U/L (15-37) Alanine Aminotransferase (ALT/SGPT) 38 U/L (16-63) Alkaline Phosphatase 96 U/L (46-116) Total Protein 6.6 g/dL (6.4-8.2) Albumin 2.4 g/dL (3.4-5.0) Albumin/Globulin Ratio 0.6 (1.0-1.7) Laboratory Tests Test 04/19/19 14:55 04/19/19 20:20 04/20/19 05:25 Troponin I Quantitative 0.157 ng/mL (0.000-0.055) 0.154 ng/mL (0.000-0.055) White Blood Count 5.9 x10^3/uL (4.0-11.0) Red Blood Count 2.91 x10^6/uL (4.30-5.70) Hemoglobin 9.5 g/dL (13.0-17.5) Hematocrit 29.0 % (39.0-53.0) Mean Corpuscular Volume 100 fL (79-100) Mean Corpuscular Hemoglobin 33 pg (25-35) Mean Corpuscular Hemoglobin Concent 33 g/dL (31-37) Red Cell Distribution Width 14.0 % (11.5-14.5) Platelet Count 150 x10^3/uL (140-400) Neutrophils (%) (Auto) 74 % (31-73) Lymphocytes (%) (Auto) 12 % (24-48) Monocytes (%) (Auto) 13 % (0-9) Eosinophils (%) (Auto) 1 % (0-3) Basophils (%) (Auto) 1 % (0-3) Neutrophils # (Auto) 4.4 x10^3/uL (1.8-7.7) Lymphocytes # (Auto) 0.7 x10^3/uL (1.0-4.8) Monocytes # (Auto) 0.7 x10^3/uL (0.0-1.1) Eosinophils # (Auto) 0.1 x10^3/uL (0.0-0.7) Basophils # (Auto) 0.0 x10^3/uL (0.0-0.2) Sodium Level 138 mmol/L (136-145) Potassium Level 4.0 mmol/L (3.5-5.1) Chloride Level 96 mmol/L (98-107) Carbon Dioxide Level 31 mmol/L (21-32) Anion Gap 11 (6-14) Blood Urea Nitrogen 58 mg/dL (8-26) Creatinine 8.9 mg/dL (0.7-1.3) Estimated GFR (Cockcroft-Gault) 7.0 BUN/Creatinine Ratio 7 (6-20) Glucose Level 83 mg/dL (70-99) Calcium Level 8.5 mg/dL (8.5-10.1) Total Bilirubin 0.5 mg/dL (0.2-1.0) Aspartate Amino Transf (AST/SGOT) 48 U/L (15-37) Alanine Aminotransferase (ALT/SGPT) 38 U/L (16-63) Alkaline Phosphatase 96 U/L (46-116) Total Protein 6.6 g/dL (6.4-8.2) Albumin 2.4 g/dL (3.4-5.0) Albumin/Globulin Ratio 0.6 (1.0-1.7) Microbiology 04/16/19 - Final, Resulted 04/16/19 - Final, Resulted 04/16/19 - Final, Resulted 04/16/19 - Final, Resulted 04/16/19 Gram Stain Evaluation - Final, Resulted 04/16/19 Sputum Culture - Preliminary, Resulted 04/16/19 Sputum Result 1 - Final, Resulted 04/16/19 Sputum Result 2 - Final, Resulted 04/11/19 Blood Culture - Final, Complete NO GROWTH AFTER 5 DAYS Medications Current Medications Albuterol/ Ipratropium (Duoneb) 3 ml 1X ONCE NEB Last administered on 04/11/19at 07:49; Start 04/11/19 at 07:45; Stop 04/11/19 at 07:46; Status DC Sodium Chloride 250 ml @ 250 mls/hr 1X ONCE IV Last administered on 04/11/19at 08:10; Start 04/11/19 at 07:45; Stop 04/11/19 at 08:44; Status DC Acetaminophen (Tylenol) 650 mg PRN Q6HRS PRN PEG MILD PAIN / TEMP Last administered on 04/11/19at 20:34; Start 04/11/19 at 20:15; Stop 04/12/19 at 05:49; Status DC Acetaminophen (Tylenol) 650 mg PRN Q6HRS PRN PO MILD PAIN / TEMP; Start 04/12/19 at 06:00 Sodium Chloride 1,000 ml @ 1,000 mls/hr Q1H PRN IV hypotension; Start 04/12/19 at 07:47; Stop 04/12/19 at 13:46; Status DC Acetaminophen (Tylenol) 500 mg 1X PRN PRN PO MILD PAIN / TEMP; Start 04/12/19 at 08:00; Stop 04/13/19 at 07:59; Status DC Diphenhydramine HCl (Benadryl) 25 mg 1X PRN PRN IV ITCHING; Start 04/12/19 at 08:00; Stop 04/13/19 at 07:59; Status DC Diphenhydramine HCl (Benadryl) 25 mg 1X PRN PRN IV ITCHING; Start 04/12/19 at 08:00; Stop 04/13/19 at 07:59; Status DC Sodium Chloride 1,000 ml @ 400 mls/hr Q2H30M PRN IV PATENCY; Start 04/12/19 at 07:47; Stop 04/12/19 at 19:46; Status DC Info (PHARMACY MONITORING -- do not chart) 1 each PRN DAILY PRN MC SEE COMMENTS; Start 04/12/19 at 08:00; Stop 04/15/19 at 11:05; Status DC Albuterol/ Ipratropium (Duoneb) 3 ml 1X ONCE NEB Last administered on 04/12/19at 09:31; Start 04/12/19 at 09:15; Stop 04/12/19 at 09:16; Status DC Aspirin (Children'S Aspirin) 81 mg DAILY PO Last administered on 04/20/19 08:35; Start 04/13/19 at 09:00 Atorvastatin Calcium (Lipitor) 20 mg HS PO Last administered on 04/19/19at 20:05; Start 04/12/19 at 21:00 Calcium Carbonate/ Glycine (Tums) 200 mg TIDWMEALS PO Last administered on 04/12/19at 17:20; Start 04/12/19 at 17:00; Stop 04/12/19 at 17:23; Status DC Cinacalcet (Sensipar) 30 mg DAILY PO Last administered on 04/20/19 08:35; Start 04/13/19 at 09:00 Ferrous Sulfate (Feosol) 325 mg DAILY08 PO Last administered on 04/20/19 08:35; Start 04/13/19 at 08:00 Midodrine (Proamatine) 10 mg QTUTHSA@0800 PO Last administered on 04/18/19at 08:23; Start 04/13/19 at 08:00; Stop 04/19/19 at 15:45; Status DC Vitamin D (Vitamin D3) 5,000 unit DAILY PO Last administered on 04/20/19at 08:34; Start 04/13/19 at 09:00 Docusate Sodium (Colace) 100 mg DAILY PO Last administered on 04/20/19at 08:36; Start 04/13/19 at 09:00 Midodrine (Proamatine) 5 mg [id number] PO ; Start 04/12/19 at 18:00; Stop 04/12/19 at 17:07; Status DC Midodrine (Proamatine) 10 mg QTUTHSA@1000 PO Last administered on 04/18/19at 10:00; Start 04/13/19 at 10:00; Stop 04/19/19 at 15:45; Status DC Calcium Carbonate/ Glycine (Tums) 750 mg TIDWMEALS PO Last administered on 04/20/19at 08:36; Start 04/13/19 at 08:00 Sodium Chloride 1,000 ml @ 1,000 mls/hr Q1H PRN IV hypotension; Start 04/13/19 at 08:43; Stop 04/13/19 at 14:42; Status DC Albumin Human 200 ml @ 200 mls/hr 1X PRN PRN IV Hypotension; Start 04/13/19 at 08:45; Stop 04/13/19 at 14:44; Status DC Sodium Chloride 1,000 ml @ 400 mls/hr Q2H30M PRN IV PATENCY; Start 04/13/19 at 08:43; Stop 04/13/19 at 20:42; Status DC Info (PHARMACY MONITORING -- do not chart) 1 each PRN DAILY PRN MC SEE COMMENTS; Start 04/13/19 at 08:45; Status UNV Info (PHARMACY MONITORING -- do not chart) 1 each PRN DAILY PRN MC SEE COMMENTS; Start 04/13/19 at 08:45; Status UNV Ondansetron HCl (Zofran) 4 mg 1X ONCE IV ; Start 04/13/19 at 13:00; Stop 04/13/19 at 13:01; Status DC Ondansetron HCl (Zofran) 4 mg PRN Q4HRS PRN IVP NAUSEA/VOMITING 1ST CHOICE Last administered on 04/19/19at 13:55; Start 04/14/19 at 01:30 Sodium Chloride 500 ml @ 500 mls/hr 1X STAT IV Last administered on 04/14/19at 07:56; Start 04/14/19 at 07:56; Stop 04/14/19 at 08:55; Status DC Digoxin (Lanoxin) 500 mcg 1X ONCE IV Last administered on 04/14/19at 09:45; Start 04/14/19 at 09:45; Stop 04/14/19 at 09:46; Status DC Digoxin (Lanoxin) 500 mcg STK-MED ONCE .ROUTE ; Start 04/14/19 at 09:41; Stop 04/14/19 at 09:41; Status DC Lidocaine HCl (Lidocaine 1% 20ml Vial) 20 ml STK-MED ONCE .ROUTE ; Start 04/14/19 at 13:10; Stop 04/14/19 at 13:10; Status DC Heparin Sodium/ Sodium Chloride 500 ml @ As Directed STK-MED ONCE .ROUTE ; Start 04/14/19 at 13:10; Stop 04/14/19 at 13:10; Status DC Norepinephrine Bitartrate 250 ml @ 15.656 mls/ hr CONT PRN IV SEE I/O RECORD Last administered on 04/16/19at 00:02; Start 04/14/19 at 14:15; Stop 04/18/19 at 14:11; Status DC Adenosine (Adenoscan) 90 mg STK-MED ONCE IV ; Start 04/14/19 at 14:22; Stop 04/14/19 at 14:23; Status DC Iodixanol (Visipaque 320) 100 ml STK-MED ONCE .ROUTE ; Start 04/14/19 at 14:34; Stop 04/14/19 at 14:35; Status DC Heparin Sodium/ Sodium Chloride (HEPARIN for ARTERIAL LINE FLUSH) 1,000 unit 1X ONCE IART Last administered on 04/14/19at 15:09; Start 04/14/19 at 14:45; Stop 04/14/19 at 14:46; Status DC Iodixanol (Visipaque 320) 100 ml 1X ONCE IART Last administered on 04/14/19at 15:10; Start 04/14/19 at 14:45; Stop 04/14/19 at 14:46; Status DC Lidocaine HCl (Lidocaine 1% 20ml Vial) 20 ml 1X ONCE INJ Last administered on 04/14/19at 15:10; Start 04/14/19 at 14:45; Stop 04/14/19 at 14:46; Status DC Adenosine 90 mg/ Sodium Chloride 120 ml @ 200 mls/hr 1X ONCE IV Last administered on 04/14/19at 15:11; Start 04/14/19 at 14:45; Stop 04/14/19 at 15:20; Status DC Heparin Sodium/ Sodium Chloride 500 ml @ As Directed STK-MED ONCE .ROUTE ; Start 04/14/19 at 14:51; Stop 04/14/19 at 14:51; Status DC Acetaminophen/ Hydrocodone Bitart (Lortab 5/325) 1 tab PRN Q4HRS PRN PO MODERATE PAIN Last administered on 04/15/19at 13:23; Start 04/14/19 at 18:30 Temazepam (Restoril) 7.5 mg PRN QHS PRN PO INSOMNIA; Start 04/14/19 at 19:00 Albuterol/ Ipratropium (Duoneb) 3 ml RTQID NEB Last administered on 04/20/19at 07:09; Start 04/15/19 at 08:00 Budesonide (Pulmicort) 0.5 mg RTBID NEB Last administered on 04/20/19at 07:09; Start 04/15/19 at 08:00 Ceftriaxone Sodium (Rocephin) 1 gm Q24H IVP Last administered on 04/19/19at 06:31; Start 04/15/19 at 07:00; Stop 04/19/19 at 12:30; Status DC Iohexol (Omnipaque 350 Mg/ml) 90 ml 1X ONCE IV Last administered on 04/15/19at 09:00; Start 04/15/19 at 09:00; Stop 04/15/19 at 09:01; Status DC Info (CONTRAST GIVEN -- Rx MONITORING) 1 each PRN DAILY PRN MC SEE COMMENTS; Start 04/15/19 at 09:00; Stop 04/17/19 at 08:59; Status DC Sodium Chloride 1,000 ml @ 1,000 mls/hr Q1H PRN IV hypotension; Start 04/15/19 at 09:25; Stop 04/15/19 at 15:24; Status DC Acetaminophen (Tylenol) 500 mg 1X PRN PRN PO MILD PAIN / TEMP; Start 04/15/19 at 09:30; Stop 04/16/19 at 09:29; Status DC Diphenhydramine HCl (Benadryl) 25 mg 1X PRN PRN IV ITCHING; Start 04/15/19 at 09:30; Stop 04/16/19 at 09:29; Status DC Diphenhydramine HCl (Benadryl) 25 mg 1X PRN PRN IV ITCHING; Start 04/15/19 at 09:30; Stop 04/16/19 at 09:29; Status DC Sodium Chloride 1,000 ml @ 400 mls/hr Q2H30M PRN IV PATENCY; Start 04/15/19 at 09:25; Stop 04/15/19 at 21:24; Status DC Info (PHARMACY MONITORING -- do not chart) 1 each PRN DAILY PRN MC SEE COMMENTS; Start 04/15/19 at 09:30 Lactobacillus Rhamnosus (Culturelle) 1 cap BID PO Last administered on 04/20/19 at 08:34; Start 04/15/19 at 21:00 Sodium Bicarbonate (Sodium Bicarb Adult 8.4% Syr) 50 meq 1X ONCE IV Last administered on 04/17/19at 10:28; Start 04/17/19 at 10:30; Stop 04/17/19 at 10:31; Status DC Sodium Chloride 1,000 ml @ 1,000 mls/hr Q1H PRN IV hypotension; Start 04/18/19 at 08:06; Stop 04/18/19 at 14:05; Status DC Albumin Human 200 ml @ 200 mls/hr 1X PRN PRN IV Hypotension; Start 04/18/19 at 08:15; Stop 04/18/19 at 14:14; Status DC Sodium Chloride 1,000 ml @ 400 mls/hr Q2H30M PRN IV PATENCY; Start 04/18/19 at 08:06; Stop 04/18/19 at 20:05; Status DC Info (PHARMACY MONITORING -- do not chart) 1 each PRN DAILY PRN MC SEE COMMENTS; Start 04/18/19 at 08:15; Status UNV Info (PHARMACY MONITORING -- do not chart) 1 each PRN DAILY PRN MC SEE COMME NTS; Start 04/18/19 at 08:15 Lidocaine HCl (Xylocaine-Mpf 1% 2ml Vial) 2 ml STK-MED ONCE .ROUTE ; Start 04/18/19 at 08:50; Stop 04/18/19 at 08:50; Status DC Lidocaine HCl (Xylocaine-Mpf 1% 2ml Vial) 2 ml STK-MED ONCE .ROUTE ; Start 04/18/19 at 09:00; Stop 04/19/19 at 08:25; Status DC Cefepime HCl (Maxipime) 1 gm Q24H IVP Last administered on 04/19/19at 14:19; Start 04/19/19 at 13:00 Prochlorperazine Edisylate (Compazine) 5 mg 1X ONCE IV Last administered on 04/19/19at 14:48; Start 04/19/19 at 14:45; Stop 04/19/19 at 14:46; Status DC Midodrine (Proamatine) 10 mg TID PRN PRN PO HYPOTENSION Last administered on 04/20/19at 08:34; Start 04/19/19 at 15:45 Active Scripts Active Reported Midodrine Hcl 10 Mg Tablet 10 Mg PO QTUTHSA Midodrine Hcl 5 Mg Tablet 10 Mg PO QTUTHSA Ferrous Sulfate 325 Mg Tablet 1 Tab PO DAILY Calcium Carbonate 200 Mg Tab.chew 750 Mg PO TIDWMEALS Stool Softener (Docusate Sodium) 250 Mg Capsule 250 Mg PO DAILY Aspirin 81 Mg Tab.chew 1 Tab PO DAILY Sensipar (Cinacalcet Hcl) 30 Mg Tablet 30 Mg PO DAILY Vitamin D3 (Cholecalciferol (Vitamin D3)) 5,000 Unit Tablet 1 Tab PO DAILY Atorvastatin Calcium 20 Mg Tablet 20 Mg PO HS Vitals/I & O Vital Sign - Last 24 Hours 04/19/19 04/19/19 04/19/19 04/19/19 09:00 11:02 11:39 15:09 Temp 98.0 98.1 98.0 98.1 Pulse 76 101 Resp 18 18 B/P (MAP) 78/49 (59) 98/58 (71) Pulse Ox 98 96 94 O2 Delivery Nasal Cannula Nasal Cannula BiPAP/CPAP O2 Flow Rate 3.0 2.0 2.0 4.0 04/19/19 04/19/19 04/19/19 04/19/19 15:29 19:00 20:04 20:05 Temp 98.8 98.8 Pulse 95 95 Resp 16 B/P (MAP) 83/47 (59) 83/47 Pulse Ox 94 94 O2 Delivery BiPAP/CPAP Nasal Cannula Nasal Cannula O2 Flow Rate 4.0 3.0 04/19/19 04/19/19 04/19/19 04/19/19 20:05 20:38 22:30 23:45 Temp 98.6 98.6 Pulse 94 Resp 18 B/P (MAP) 93/54 (67) Pulse Ox 95 95 O2 Delivery Nasal Cannula Nasal Cannula BiPAP/CPAP O2 Flow Rate 4.0 2.0 2.0 04/20/19 04/20/19 04/20/19 04/20/19 03:00 07:10 07:15 08:34 Temp 98.6 98.0 98.6 98.0 Pulse 89 89 89 Resp 18 18 B/P (MAP) 97/58 (71) 99/59 (72) 99/59 Pulse Ox 92 94 92 O2 Delivery Nasal Cannula Nasal Cannula Nasal Cannula O2 Flow Rate 2.0 4.0 2.0 Intake and Output 04/19/19 04/19/19 04/20/19 15:00 23:00 07:00 Intake Total 360 ml 210 ml 300 ml Balance 360 ml 210 ml 300 ml SÁNCHEZ ARMENTA MD Apr 20, 2019 08:49
[2019-04-20 11:07] VITALS: BP 89/51
[2019-04-20] MEDS ORDERED: HYDR-2761 PO (11:19)
[2019-04-20] MEDS ORDERED: CEFEPIME HCL IVP (11:19)
[2019-04-20] MEDS ORDERED: MIDO5TAB4 PO (11:20)
--- NOTE | 2019-04-20 11:22 | SNU/HH DC ---
DISCHARGE ORDERS DISCHARGE INFORMATION: DISCHARGE DATE: Apr 20, 2019 FINAL DIAGNOSIS Problems Medical Problems: (1) Elevated troponin Status: Acute (2) ESRD (end stage renal disease) Status: Acute (3) Hypotension Status: Acute (4) Near syncope Status: Acute CONDITION ON DISCHARGE: Stable CODE STATUS: Code Status: Full SNF: SNF STAY <30 DAYS: Yes POST DISCHARGE ORDERS: ACTIVITY ORDERS: Activity as tolerated WEIGHT BEARING STATUS: No restrictions DIET AFTER DISCHARGE: Renal CHECKS AFTER DISCHARGE: CHECKS AFTER DISCHARGE: Check blood press - daily FOLLOW-UP: PHYSICIAN FOLLOW-UP: Nephrology - Dr. Monroe TREATMENT/EQUIPMENT ORDERS: ADAPTIVE EQUIPMENT NEEDED: Walker, Wheelchair RESPIRATORY EQUIPMENT NEEDED: Oxygen, BiPAP (18/, Rate 16, FiO2 30%) Physical Therapy For: Evalulation/Treatment Occupational Therapy For: Evaluation/Treatment Speech Language Pathology For: Evaluation/Treatment DISCHARGE MEDICATIONS: Home Meds Active Scripts Levofloxacin (LEVAQUIN) 500 Mg Tablet, 1 TAB PO qod for pneumonia for 14 Days, #7 TAB Prov:SÁNCHEZ ARMENTA MD 04/20/19 Midodrine Hcl (MIDODRINE HCL) 5 Mg Tablet, 10 MG PO TID PRN PRN for HYPOTENSION for 30 Days, #30 TAB DO NOT GIVE MORE THAN 30 mg total in a 24 hour period Prov:SÁNCHEZ ARMENTA MD 04/20/19 Hydrocodone Bit/Acetaminophen (HYDROCODONE-APAP 5-325 ) 1 Tab Tablet, 1 TAB PO PRN Q6HRS PRN for MODERATE PAIN for 6 Days, #18 TAB Prov:SÁNCHEZ ARMENTA MD 04/20/19 Reported Medications Midodrine Hcl (MIDODRINE HCL) 10 Mg Tablet, 10 MG PO QTUTHSA, TAB 04/11/19 Midodrine Hcl (MIDODRINE HCL) 5 Mg Tablet, 10 MG PO QTUTHSA 04/11/19 Ferrous Sulfate (FERROUS SULFATE) 325 Mg Tablet, 1 TAB PO DAILY for anemia, #30 TAB 3 Refills 04/11/19 Calcium Carbonate (CALCIUM CARBONATE) 200 Mg Tab.chew, 750 MG PO TIDWMEALS for other, TAB.CHEW 04/11/19 Docusate Sodium (STOOL SOFTENER) 250 Mg Capsule, 250 MG PO DAILY for constipation, CAP 04/11/19 Aspirin (ASPIRIN) 81 Mg Tab.chew, 1 TAB PO DAILY for other, #30 TAB 3 Refills 04/11/19 Cinacalcet Hcl (SENSIPAR) 30 Mg Tablet, 30 MG PO DAILY for other, TAB 04/11/19 Cholecalciferol (Vitamin D3) (VITAMIN D3) 5,000 Unit Tablet, 1 TAB PO DAILY for other, #30 TAB 04/11/19 Atorvastatin Calcium (ATORVASTATIN CALCIUM) 20 Mg Tablet, 20 MG PO HS for FOR CHOLESTEROL, #30 TAB 0 Refills 04/01/16 SÁNCHEZ ARMENTA MD Apr 20, 2019 11:22
--- NOTE | 2019-04-20 11:34 | PDOC ---
PULMONARY PROGRESS NOTES Subjective awake, no soa Vitals Vital Signs Date Time Temp Pulse Resp B/P (MAP) Pulse Ox O2 Delivery O2 Flow Rate FiO2 04/20/19 11:19 96 Nasal Cannula 4.0 04/20/19 11:07 99.0 89 18 89/51 (64) 99.0 ROS: No Nausea General: Alert, No acute distress Lungs: Other (decrease bs) Cardiovascular: S1, S2, Other Abdomen: Soft, Non-tender Neuro Exam: Alert Extremities: No Edema Skin: Warm Labs Laboratory Tests Test 04/18/19 12:26 04/19/19 04:30 04/19/19 14:55 04/19/19 20:20 Glucose (Fingerstick) 79 mg/dL (70-99) White Blood Count 5.8 x10^3/uL (4.0-11.0) Red Blood Count 3.18 x10^6/uL (4.30-5.70) Hemoglobin 10.2 g/dL (13.0-17.5) Hematocrit 31.7 % (39.0-53.0) Mean Corpuscular Volume 100 fL (79-100) Mean Corpuscular Hemoglobin 32 pg (25-35) Mean Corpuscular Hemoglobin Concent 32 g/dL (31-37) Red Cell Distribution Width 14.4 % (11.5-14.5) Platelet Count 137 x10^3/uL (140-400) Neutrophils (%) (Auto) 80 % (31-73) Lymphocytes (%) (Auto) 8 % (24-48) Monocytes (%) (Auto) 11 % (0-9) Eosinophils (%) (Auto) 1 % (0-3) Basophils (%) (Auto) 1 % (0-3) Neutrophils # (Auto) 4.7 x10^3/uL (1.8-7.7) Lymphocytes # (Auto) 0.5 x10^3/uL (1.0-4.8) Monocytes # (Auto) 0.6 x10^3/uL (0.0-1.1) Eosinophils # (Auto) 0.1 x10^3/uL (0.0-0.7) Basophils # (Auto) 0.0 x10^3/uL (0.0-0.2) Sodium Level 140 mmol/L (136-145) Potassium Level 3.8 mmol/L (3.5-5.1) Chloride Level 98 mmol/L (98-107) Carbon Dioxide Level 34 mmol/L (21-32) Anion Gap 8 (6-14) Blood Urea Nitrogen 43 mg/dL (8-26) Creatinine 6.8 mg/dL (0.7-1.3) Estimated GFR (Cockcroft-Gault) 9.5 BUN/Creatinine Ratio 6 (6-20) Glucose Level 96 mg/dL (70-99) Calcium Level 8.3 mg/dL (8.5-10.1) Total Bilirubin 0.6 mg/dL (0.2-1.0) Aspartate Amino Transf (AST/SGOT) 60 U/L (15-37) Alanine Aminotransferase (ALT/SGPT) 46 U/L (16-63) Alkaline Phosphatase 107 U/L (46-116) Total Protein 6.8 g/dL (6.4-8.2) Albumin 2.5 g/dL (3.4-5.0) Albumin/Globulin Ratio 0.6 (1.0-1.7) Troponin I Quantitative 0.157 ng/mL (0.000-0.055) 0.154 ng/mL (0.000-0.055) Test 04/20/19 05:25 White Blood Count 5.9 x10^3/uL (4.0-11.0) Red Blood Count 2.91 x10^6/uL (4.30-5.70) Hemoglobin 9.5 g/dL (13.0-17.5) Hematocrit 29.0 % (39.0-53.0) Mean Corpuscular Volume 100 fL (79-100) Mean Corpuscular Hemoglobin 33 pg (25-35) Mean Corpuscular Hemoglobin Concent 33 g/dL (31-37) Red Cell Distribution Width 14.0 % (11.5-14.5) Platelet Count 150 x10^3/uL (140-400) Neutrophils (%) (Auto) 74 % (31-73) Lymphocytes (%) (Auto) 12 % (24-48) Monocytes (%) (Auto) 13 % (0-9) Eosinophils (%) (Auto) 1 % (0-3) Basophils (%) (Auto) 1 % (0-3) Neutrophils # (Auto) 4.4 x10^3/uL (1.8-7.7) Lymphocytes # (Auto) 0.7 x10^3/uL (1.0-4.8) Monocytes # (Auto) 0.7 x10^3/uL (0.0-1.1) Eosinophils # (Auto) 0.1 x10^3/uL (0.0-0.7) Basophils # (Auto) 0.0 x10^3/uL (0.0-0.2) Sodium Level 138 mmol/L (136-145) Potassium Level 4.0 mmol/L (3.5-5.1) Chloride Level 96 mmol/L (98-107) Carbon Dioxide Level 31 mmol/L (21-32) Anion Gap 11 (6-14) Blood Urea Nitrogen 58 mg/dL (8-26) Creatinine 8.9 mg/dL (0.7-1.3) Estimated GFR (Cockcroft-Gault) 7.0 BUN/Creatinine Ratio 7 (6-20) Glucose Level 83 mg/dL (70-99) Calcium Level 8.5 mg/dL (8.5-10.1) Total Bilirubin 0.5 mg/dL (0.2-1.0) Aspartate Amino Transf (AST/SGOT) 48 U/L (15-37) Alanine Aminotransferase (ALT/SGPT) 38 U/L (16-63) Alkaline Phosphatase 96 U/L (46-116) Total Protein 6.6 g/dL (6.4-8.2) Albumin 2.4 g/dL (3.4-5.0) Albumin/Globulin Ratio 0.6 (1.0-1.7) Laboratory Tests Test 04/19/19 14:55 04/19/19 20:20 04/20/19 05:25 Troponin I Quantitative 0.157 ng/mL (0.000-0.055) 0.154 ng/mL (0.000-0.055) White Blood Count 5.9 x10^3/uL (4.0-11.0) Red Blood Count 2.91 x10^6/uL (4.30-5.70) Hemoglobin 9.5 g/dL (13.0-17.5) Hematocrit 29.0 % (39.0-53.0) Mean Corpuscular Volume 100 fL (79-100) Mean Corpuscular Hemoglobin 33 pg (25-35) Mean Corpuscular Hemoglobin Concent 33 g/dL (31-37) Red Cell Distribution Width 14.0 % (11.5-14.5) Platelet Count 150 x10^3/uL (140-400) Neutrophils (%) (Auto) 74 % (31-73) Lymphocytes (%) (Auto) 12 % (24-48) Monocytes (%) (Auto) 13 % (0-9) Eosinophils (%) (Auto) 1 % (0-3) Basophils (%) (Auto) 1 % (0-3) Neutrophils # (Auto) 4.4 x10^3/uL (1.8-7.7) Lymphocytes # (Auto) 0.7 x10^3/uL (1.0-4.8) Monocytes # (Auto) 0.7 x10^3/uL (0.0-1.1) Eosinophils # (Auto) 0.1 x10^3/uL (0.0-0.7) Basophils # (Auto) 0.0 x10^3/uL (0.0-0.2) Sodium Level 138 mmol/L (136-145) Potassium Level 4.0 mmol/L (3.5-5.1) Chloride Level 96 mmol/L (98-107) Carbon Dioxide Level 31 mmol/L (21-32) Anion Gap 11 (6-14) Blood Urea Nitrogen 58 mg/dL (8-26) Creatinine 8.9 mg/dL (0.7-1.3) Estimated GFR (Cockcroft-Gault) 7.0 BUN/Creatinine Ratio 7 (6-20) Glucose Level 83 mg/dL (70-99) Calcium Level 8.5 mg/dL (8.5-10.1) Total Bilirubin 0.5 mg/dL (0.2-1.0) Aspartate Amino Transf (AST/SGOT) 48 U/L (15-37) Alanine Aminotransferase (ALT/SGPT) 38 U/L (16-63) Alkaline Phosphatase 96 U/L (46-116) Total Protein 6.6 g/dL (6.4-8.2) Albumin 2.4 g/dL (3.4-5.0) Albumin/Globulin Ratio 0.6 (1.0-1.7) Medications Active Scripts Medications Dose Route/Sig Max Daily Dose Days Date Category Midodrine Hcl 10 Mg Tablet 10 Mg PO QTUTHSA 04/11/19 Reported Midodrine Hcl 5 Mg Tablet 10 Mg PO QTUTHSA 04/11/19 Reported Ferrous Sulfate 325 Mg Tablet 1 Tab PO DAILY 04/11/19 Reported Calcium Carbonate 200 Mg Tab.chew 750 Mg PO TIDWMEALS 04/11/19 Reported Stool Softener (Docusate Sodium) 250 Mg Capsule 250 Mg PO DAILY 04/11/19 Reported Aspirin 81 Mg Tab.chew 1 Tab PO DAILY 04/11/19 Reported Sensipar (Cinacalcet Hcl) 30 Mg Tablet 30 Mg PO DAILY 04/11/19 Reported Vitamin D3 (Cholecalciferol (Vitamin D3)) 5,000 Unit Tablet 1 Tab PO DAILY 04/11/19 Reported Atorvastatin Calcium 20 Mg Tablet 20 Mg PO HS 04/01/[address] 1. No convincing central pulmonary embolism. Evaluation for segmental and subsegmental emboli is significantly limited due to suboptimal contrast opacification and respiratory motion. 2. Enlarged central pulmonary arteries likely due to pulmonary artery hypertension. There is also cardiomegaly. 3. Moderate right and small left pleural effusions with right lower lobe partially consolidated infiltrate superimposed on atelectasis. There is also left lower lobe and posterior dependent atelectasis and scarring along the pleural fissures. 4. Moderate emphysema. 5. Prominent mediastinal and hilar lymph nodes, possibly reactive in etiology. 6. Renal atrophy. 7. Large right thyroid cyst. Impression . IMPRESSION: 1. Acute hypoxemic respiratory failure, multifactorial in etiology. 2. Pulmonary hypertension. I suspect it is secondary and chronic and it is multifactorial in etiology. I suspect he does have significant chronic obstructive pulmonary disease with nocturnal hypoxemia, need to rule out obstructive sleep apnea-hypopnea syndrome. no central pulmonary embolism. His chest x-ray also shows increased interstitial marking, no ild, has emphysema 3. Abnormal chest x-ray. 4. Significant history of smoking, suspect he has significant chronic obstructive pulmonary disease. 5. ?Obstructive sleep apnea-hypopnea syndrome. 6. Acute bronchitis. 7. End-stage renal disease, on hemodialysis. 8. Hypotension ?etiology. 9. Diabetes mellitus. 10. History of hypertension. Plan . 1. 02 titration, bipap prn . Has combined resp/ met acidosis POA . on HD 2. bronchodilator. 3. inhaled corticosteroid, 4. Rocephin. 5. CT angiogram reviewed, no central pe, le doppler neg, reactive adenopathy 6. He would require complete PFTs as an outpatient. 7. I do recommend sleep study as an outpatient. 8. Six-minute walk and nocturnal oximetry before discharge. 9. cxr 04/19 , mild CHF, small RLL effusion, no need for tap discussed w lindsey. DOT JOSEPH MD Apr 20, 2019 11:34
[2019-04-20] MEDS: CEFEPIME HCL IV Push 1 GM VIAL. IVP SCH (12:27)
--- NOTE | 2019-04-20 13:20 | PDOC ---
PROGRESS NOTES Assessment Assessment Orthostatic hypotension. Presyncope and syncope. AFib with RVR. ESRD on dialysis. DM. HTN. HLD. GINGER. Thyroid disease. RECOMMENDATIONS/PLAN: He has been treated with Midodrine. Continue medical management. OT/PT. FU with PCP. FU with Neurology as needed. Subjective: He stated on 04/20/19 that he felt slightly improved. Past Medical History Cardiovascular: HTN, Hyperlipidemia, Other (hypotension) Pulmonary: Bronchitis, Other (sleep apnea) GI: Constipation (and diarrhea) Heme/Onc: Anemia NOS (has required transfusions) Musculoskeletal: Osteoarthritis ENT: Other (cataracts, not operated yet) Renal/: Chronic renal failure (starting dialysis), Benign prostatic enlarg., Other (urinary retention) Endocrine: Diabetes, Other (thyroid disease, not currently requiring medication) Past Surgical History Tonsillectomy, Other (right renal biopsy) Family History No pertinent hx Social History , rare alcohol, no tobacco Allergies No Known Drug Allergies (Unverified , 04/09/16) ROS Negative for fever, chills, weight loss, shortness of breath, chest pain, indigestion, hematochezia, melena, and dysuria. Full 14-point review of systems is negative. MEDICATIONS: Refer to [facility] PHYSICAL EXAMINATION: General appearance in subacute distress. HEENT: Normocephalic and nontraumatic. Eyes, nose, ears, and throat are unremarkable. Hearing decrease. Neck is supple. No lymphadenopathy. No Crepitus. Cardiovascular: S1, S2, regular rate and rhythm. Pulmonary: Clear to auscultation bilaterally. Abdomen: Bowel sounds are positive. Extremities: No rash, lesions, or edema. No restriction of range of motion NEUROLOGICAL EXAMINATION: Drowsiness. Oriented to time, place and person but reaction slow. PERRL. EOMI. CN: no focal findings. Muscle tone: within normal. Muscle strength: 4+ DTR: 1-2 Plantar reflex: Flexor response bilaterally Gait: Able to walk with a walker. Sensory exam: no abnormal findings. No cerebellar signs elicited. F-T-N test fine. Objective Objective Vital Signs Date Time Temp Pulse Resp B/P (MAP) Pulse Ox O2 Delivery O2 Flow Rate FiO2 04/20/19 11:19 96 Nasal Cannula 4.0 04/20/19 11:07 99.0 89 18 89/51 (64) 99.0 Intake and Output 04/20/19 07:00 Intake Total 870 ml Balance 870 ml Intake Oral 870 ml # Bowel Movements 1 Vitals Signs Vitals VS - Last 72 Hours, by Label Date Time Temp Pulse Resp B/P (MAP) Pulse Ox O2 Delivery O2 Flow Rate FiO2 04/20/19 11:19 96 Nasal Cannula 4.0 04/20/19 11:07 99.0 89 18 89/51 (64) 94 Nasal Cannula 2.0 99.0 04/20/19 08:34 89 99/59 04/20/19 07:15 98.0 89 18 99/59 (72) 92 Nasal Cannula 2.0 98.0 04/20/19 07:10 94 Nasal Cannula 4.0 04/20/19 03:00 98.6 89 18 97/58 (71) 92 Nasal Cannula 2.0 98.6 04/19/19 23:45 BiPAP/CPAP 04/19/19 22:30 98.6 94 18 93/54 (67) 95 Nasal Cannula 2.0 98.6 04/19/19 20:38 95 Nasal Cannula 2.0 04/19/19 20:05 4.0 04/19/19 20:05 Nasal Cannula 3.0 04/19/19 20:04 95 83/47 04/19/19 19:00 98.8 95 16 83/47 (59) 94 Nasal Cannula 4.0 98.8 04/19/19 15:29 94 BiPAP/CPAP 04/19/19 15:09 98.1 101 18 98/58 (71) 94 BiPAP/CPAP 4.0 98.1 04/19/19 11:39 96 Nasal Cannula 2.0 04/19/19 11:02 98.0 76 18 78/49 (59) 98 Nasal Cannula 2.0 98.0 04/19/19 09:00 3.0 04/19/19 08:00 Nasal Cannula 3.0 04/19/19 07:20 96 BiPAP/CPAP 04/19/19 07:15 98.6 80 18 95/56 (69) 96 BiPAP/CPAP 4.0 98.6 Laboratory Laboratory Laboratory Tests Test 04/19/19 14:55 04/19/19 20:20 04/20/19 05:25 Troponin I Quantitative 0.157 ng/mL (0.000-0.055) 0.154 ng/mL (0.000-0.055) White Blood Count 5.9 x10^3/uL (4.0-11.0) Red Blood Count 2.91 x10^6/uL (4.30-5.70) Hemoglobin 9.5 g/dL (13.0-17.5) Hematocrit 29.0 % (39.0-53.0) Mean Corpuscular Volume 100 fL (79-100) Mean Corpuscular Hemoglobin 33 pg (25-35) Mean Corpuscular Hemoglobin Concent 33 g/dL (31-37) Red Cell Distribution Width 14.0 % (11.5-14.5) Platelet Count 150 x10^3/uL (140-400) Neutrophils (%) (Auto) 74 % (31-73) Lymphocytes (%) (Auto) 12 % (24-48) Monocytes (%) (Auto) 13 % (0-9) Eosinophils (%) (Auto) 1 % (0-3) Basophils (%) (Auto) 1 % (0-3) Neutrophils # (Auto) 4.4 x10^3/uL (1.8-7.7) Lymphocytes # (Auto) 0.7 x10^3/uL (1.0-4.8) Monocytes # (Auto) 0.7 x10^3/uL (0.0-1.1) Eosinophils # (Auto) 0.1 x10^3/uL (0.0-0.7) Basophils # (Auto) 0.0 x10^3/uL (0.0-0.2) Sodium Level 138 mmol/L (136-145) Potassium Level 4.0 mmol/L (3.5-5.1) Chloride Level 96 mmol/L (98-107) Carbon Dioxide Level 31 mmol/L (21-32) Anion Gap 11 (6-14) Blood Urea Nitrogen 58 mg/dL (8-26) Creatinine 8.9 mg/dL (0.7-1.3) Estimated GFR (Cockcroft-Gault) 7.0 BUN/Creatinine Ratio 7 (6-20) Glucose Level 83 mg/dL (70-99) Calcium Level 8.5 mg/dL (8.5-10.1) Total Bilirubin 0.5 mg/dL (0.2-1.0) Aspartate Amino Transf (AST/SGOT) 48 U/L (15-37) Alanine Aminotransferase (ALT/SGPT) 38 U/L (16-63) Alkaline Phosphatase 96 U/L (46-116) Total Protein 6.6 g/dL (6.4-8.2) Albumin 2.4 g/dL (3.4-5.0) Albumin/Globulin Ratio 0.6 (1.0-1.7) Microbiology 04/16/19 - Final, Resulted 04/16/19 - Final, Resulted 04/16/19 - Final, Resulted 04/16/19 - Final, Resulted 04/16/19 - Preliminary, Resulted 04/16/19 - Preliminary, Resulted 04/16/19 Gram Stain Evaluation - Final, Resulted 04/16/19 Sputum Culture - Final, Resulted 04/16/19 Sputum Result 1 - Final, Resulted 04/16/19 Sputum Result 2 - Final, Resulted 04/16/19 Antimicrobic Susceptibility - Final, Resulted 04/11/19 Blood Culture - Final, Complete NO GROWTH AFTER 5 DAYS Medication Medications Current Medications Midodrine (Proamatine) 10 mg TID PRN PRN PO HYPOTENSION Last administered on 04/20/19at 08:34; Start 04/19/19 at 15:45 Prochlorperazine Edisylate (Compazine) 5 mg 1X ONCE IV Last administered on 04/19/19at 14:48; Start 04/19/19 at 14:45; Stop 04/19/19 at 14:46; Status DC Comment Review of Relevant I have reviewed the following items khalida (where applicable) has been applied. CHARITY HAYES MD Apr 20, 2019 13:20
[2019-04-20] MEDS ORDERED: IV NORMAL SALINE 1000ML BAG 1,000 ML IV PRN ×2 (13:46)
[2019-04-20] MEDS ORDERED: ALBUMIN HUMAN 25% 200 ML IV PRN (14:00)
[2019-04-20] MEDS ORDERED: diphenhydrAMINE 50 MG/ML VIAL IV PRN ×2 (14:00)
[2019-04-20] MEDS ORDERED: DIALYSIS PATIENT. MC PRN ×2 (14:00)
[2019-04-20] MEDS ORDERED: ACETAMINOPHEN 500 MG TABLET PO PRN (14:00)
[2019-04-20 14:09] VITALS: BP 89/51
[2019-04-20] MEDS ORDERED: LEVO500T59 PO (14:11)
--- NOTE | 2019-04-20 16:39 | NUR ---
JUDIE following pt. Orders faxed to and [facility]. Pt will transport via [facility] between [phone]. JUDIE left a VM to pt's family regarding dc plan. Pt aware of plans and agreeable. Discussed with RN.
--- NOTE | 2019-04-20 16:43 | PDOC3 ---
Discharge Summary Visit Information Date of Admission: Apr 11, 2019 Date of Discharge: Apr 20, 2019 Admitting Diagnosis: Syncope and collapse Final Diagnosis Problems Medical Problems: (1) Elevated troponin Status: Acute (2) ESRD (end stage renal disease) Status: Acute (3) Hypotension Status: Acute (4) Near syncope Status: Acute Brief Hospital Course Allergies Allergies Coded Allergies Type Severity Reaction Last Updated Verified No Known Drug Allergies 04/09/16 No Vital Signs Vital Signs Date Time Temp Pulse Resp B/P (MAP) Pulse Ox O2 Delivery O2 Flow Rate FiO2 04/20/19 14:09 89 89/51 04/20/19 11:19 96 Nasal Cannula 4.0 04/20/19 11:07 99.0 18 99.0 Lab Results Laboratory Tests Test 04/19/19 04:30 04/19/19 14:55 04/19/19 20:20 04/20/19 05:25 White Blood Count 5.8 x10^3/uL (4.0-11.0) 5.9 x10^3/uL (4.0-11.0) Red Blood Count 3.18 x10^6/uL (4.30-5.70) 2.91 x10^6/uL (4.30-5.70) Hemoglobin 10.2 g/dL (13.0-17.5) 9.5 g/dL (13.0-17.5) Hematocrit 31.7 % (39.0-53.0) 29.0 % (39.0-53.0) Mean Corpuscular Volume 100 fL (79-100) 100 fL (79-100) Mean Corpuscular Hemoglobin 32 pg (25-35) 33 pg (25-35) Mean Corpuscular Hemoglobin Concent 32 g/dL (31-37) 33 g/dL (31-37) Red Cell Distribution Width 14.4 % (11.5-14.5) 14.0 % (11.5-14.5) Platelet Count 137 x10^3/uL (140-400) 150 x10^3/uL (140-400) Neutrophils (%) (Auto) 80 % (31-73) 74 % (31-73) Lymphocytes (%) (Auto) 8 % (24-48) 12 % (24-48) Monocytes (%) (Auto) 11 % (0-9) 13 % (0-9) Eosinophils (%) (Auto) 1 % (0-3) 1 % (0-3) Basophils (%) (Auto) 1 % (0-3) 1 % (0-3) Neutrophils # (Auto) 4.7 x10^3/uL (1.8-7.7) 4.4 x10^3/uL (1.8-7.7) Lymphocytes # (Auto) 0.5 x10^3/uL (1.0-4.8) 0.7 x10^3/uL (1.0-4.8) Monocytes # (Auto) 0.6 x10^3/uL (0.0-1.1) 0.7 x10^3/uL (0.0-1.1) Eosinophils # (Auto) 0.1 x10^3/uL (0.0-0.7) 0.1 x10^3/uL (0.0-0.7) Basophils # (Auto) 0.0 x10^3/uL (0.0-0.2) 0.0 x10^3/uL (0.0-0.2) Sodium Level 140 mmol/L (136-145) 138 mmol/L (136-145) Potassium Level 3.8 mmol/L (3.5-5.1) 4.0 mmol/L (3.5-5.1) Chloride Level 98 mmol/L (98-107) 96 mmol/L (98-107) Carbon Dioxide Level 34 mmol/L (21-32) 31 mmol/L (21-32) Anion Gap 8 (6-14) 11 (6-14) Blood Urea Nitrogen 43 mg/dL (8-26) 58 mg/dL (8-26) Creatinine 6.8 mg/dL (0.7-1.3) 8.9 mg/dL (0.7-1.3) Estimated GFR (Cockcroft-Gault) 9.5 7.0 BUN/Creatinine Ratio 6 (6-20) 7 (6-20) Glucose Level 96 mg/dL (70-99) 83 mg/dL (70-99) Calcium Level 8.3 mg/dL (8.5-10.1) 8.5 mg/dL (8.5-10.1) Total Bilirubin 0.6 mg/dL (0.2-1.0) 0.5 mg/dL (0.2-1.0) Aspartate Amino Transf (AST/SGOT) 60 U/L (15-37) 48 U/L (15-37) Alanine Aminotransferase (ALT/SGPT) 46 U/L (16-63) 38 U/L (16-63) Alkaline Phosphatase 107 U/L (46-116) 96 U/L (46-116) Total Protein 6.8 g/dL (6.4-8.2) 6.6 g/dL (6.4-8.2) Albumin 2.5 g/dL (3.4-5.0) 2.4 g/dL (3.4-5.0) Albumin/Globulin Ratio 0.6 (1.0-1.7) 0.6 (1.0-1.7) Troponin I Quantitative 0.157 ng/mL (0.000-0.055) 0.154 ng/mL (0.000-0.055) Laboratory Tests Test 04/19/19 20:20 04/20/19 05:25 Troponin I Quantitative 0.154 ng/mL (0.000-0.055) White Blood Count 5.9 x10^3/uL (4.0-11.0) Red Blood Count 2.91 x10^6/uL (4.30-5.70) Hemoglobin 9.5 g/dL (13.0-17.5) Hematocrit 29.0 % (39.0-53.0) Mean Corpuscular Volume 100 fL (79-100) Mean Corpuscular Hemoglobin 33 pg (25-35) Mean Corpuscular Hemoglobin Concent 33 g/dL (31-37) Red Cell Distribution Width 14.0 % (11.5-14.5) Platelet Count 150 x10^3/uL (140-400) Neutrophils (%) (Auto) 74 % (31-73) Lymphocytes (%) (Auto) 12 % (24-48) Monocytes (%) (Auto) 13 % (0-9) Eosinophils (%) (Auto) 1 % (0-3) Basophils (%) (Auto) 1 % (0-3) Neutrophils # (Auto) 4.4 x10^3/uL (1.8-7.7) Lymphocytes # (Auto) 0.7 x10^3/uL (1.0-4.8) Monocytes # (Auto) 0.7 x10^3/uL (0.0-1.1) Eosinophils # (Auto) 0.1 x10^3/uL (0.0-0.7) Basophils # (Auto) 0.0 x10^3/uL (0.0-0.2) Sodium Level 138 mmol/L (136-145) Potassium Level 4.0 mmol/L (3.5-5.1) Chloride Level 96 mmol/L (98-107) Carbon Dioxide Level 31 mmol/L (21-32) Anion Gap 11 (6-14) Blood Urea Nitrogen 58 mg/dL (8-26) Creatinine 8.9 mg/dL (0.7-1.3) Estimated GFR (Cockcroft-Gault) 7.0 BUN/Creatinine Ratio 7 (6-20) Glucose Level 83 mg/dL (70-99) Calcium Level 8.5 mg/dL (8.5-10.1) Total Bilirubin 0.5 mg/dL (0.2-1.0) Aspartate Amino Transf (AST/SGOT) 48 U/L (15-37) Alanine Aminotransferase (ALT/SGPT) 38 U/L (16-63) Alkaline Phosphatase 96 U/L (46-116) Total Protein 6.6 g/dL (6.4-8.2) Albumin 2.4 g/dL (3.4-5.0) Albumin/Globulin Ratio 0.6 (1.0-1.7) Brief Hospital Course Mr Espitia is a 78yo M w/ ESRD on HD, HTN, Anemia, [id number] smoking, stopped smoking about 15 years ago, GINGER on nocturnal O2 who was admitted for dizziness and syncope. He had cardiac catheterization done which did show mean pulmonary artery pressure of 45, wedge pressure was 15, right ventricular pressure was 75/16. He did have low normal cardiac output and normal coronary arteries. CTPA - 1. No convincing central pulmonary embolism. Evaluation for segmental and subsegmental emboli is significantly limited due to suboptimal contrast opacification and respiratory motion. 2. Enlarged central pulmonary arteries likely due to pulmonary artery hypertension. There is also cardiomegaly. 3. Moderate right and small left pleural effusions with right lower lobe partially consolidated infiltrate superimposed on atelectasis. There is also left lower lobe and posterior dependent atelectasis and scarring along the pleural fissures. 4. Moderate emphysema. 5. Prominent mediastinal and hilar lymph nodes, possibly reactive in etiology. 6. Renal atrophy. 7. Large right thyroid cyst. 04/19: Transferred from ICU on 04/17/19. He is seen on dialysis and again in his room. He is a bit confused today, weak, still with some dizziness and unsteady gait. Feels a bit better than admission. PT and OT as well as nursing recommend SNF on discharge and based on his declining self care and ICU deconditioning I agree. He has some hypotension with PT today. His sputum returned with 2+ pseudomonas He does have sputum culture pending. placed on levaquin Chest pain and vomiting yesterday and low BP this morning. Rapid response called. EKG no change, CXR no change and troponin no change. He states he feels better this morning. Increased dosing of proamatine. He is ready to discharge to SNF Problem list: Acute hypoxemic respiratory failure Syncope ESRD Anemia Hypotension Pulmonary hypertension - likely multifactorial in etiology. His WHO classification is likely primarily related to COPD. Chronic obstructive pulmonary disease with nocturnal hypoxemia Obstructive sleep apnea - per patient Significant history of smoking Diabetes mellitus History of hypertension Plan: Increased proamatine/midodrine SNF discharge Consultants: Cardiology, neurology, pulmonology, nephrology Greater than 30 minutes spent on d/c Discharge Information Condition at Discharge: Stable Follow Up: Weeks (1) Disposition/Orders: D/C to Another Facility Scheduled Aspirin (Aspirin) 81 Mg Tab.chew, 1 TAB PO DAILY for other, #30 Ref 3 (Reported) Entered as Reported by: VALENTÍN HER on 04/11/19 1250 Last Taken: Unknown Dose on 04/10/19 Last Action: Continued on 04/12/19 1644 by Vic Sneed Atorvastatin Calcium (Atorvastatin Calcium) 20 Mg Tablet, 20 MG PO HS for FOR CHOLESTEROL, #30 Ref 0 (Reported) Entered as Reported by: EZEKIEL SANDY on 04/01/16 0029 Last Action: Continued on 04/12/19 1644 by Vic Snede Calcium Carbonate (Calcium Carbonate) 200 Mg Tab.chew, 750 MG PO TIDWMEALS for other, (Reported) Entered as Reported by: VALENTÍN HER on 04/11/191249 Last Taken: Unknown Dose on 04/10/19 Last Action: Edited on 04/12/191718 by VALENTÍN HER Cholecalciferol (Vitamin D3) (Vitamin D3) 5,000 Unit Tablet, 1 TAB PO DAILY for other, #30 (Reported) Entered as Reported by: VALENTÍN HER on 04/11/19 125 Last Taken: Unknown Dose on 04/10/19 Last Action: Converted on 04/12/191643 by Vic Sneed Cinacalcet Hcl (Sensipar) 30 Mg Tablet, 30 MG PO DAILY for other, (Reported) Entered as Reported by: VALENTÍN HER on 04/11/191249 Last Taken: Unknown Dose on 04/10/19 Last Action: Continued on 04/12/191643 by Vic Sneed Docusate Sodium (Stool Softener) 250 Mg Capsule, 250 MG PO DAILY for constipation, (Reported) Entered as Reported by: VALENTÍN HER on 04/11/191249 Last Taken: Unknown Dose on 04/10/19 Last Action: Converted on 04/12/191643 by Vic Sneed Ferrous Sulfate (Ferrous Sulfate) 325 Mg Tablet, 1 TAB PO DAILY for anemia, #30 Ref 3 (Reported) Entered as Reported by: VALENTÍN HER on 04/11/191251 Last Taken: Unknown Dose on 04/10/19 Last Action: Continued on 04/12/191643 by Vic Sneed Levofloxacin (Levaquin) 500 Mg Tablet, 1 TAB PO qod for pneumonia for 14 Days, #7 Prescribed by: SÁNCHEZ ARMENTA MD on 04/20/19 1411 Midodrine Hcl (Midodrine Hcl) 5 Mg Tablet, 10 MG PO QTUTHSA, (Reported) Entered as Reported by: KEMAR LOVELL RPH on 04/11/19 131 Last Action: Continued on 04/12/191643 by Vic Sneed Midodrine Hcl (Midodrine Hcl) 10 Mg Tablet, 10 MG PO QTUTHSA, (Reported) Entered as Reported by: KEMAR LOVELL RPH on 04/11/191318 Last Action: Converted on 04/12/191643 by Vic Sneed Scheduled PRN Hydrocodone Bit/Acetaminophen (Hydrocodone-Apap 5-325 ) 1 Tab Tablet, 1 TAB PO PRN Q6HRS PRN for MODERATE PAIN for 6 Days, #18 Prescribed by: SÁNCHEZ ARMENTA MD on 04/20/19 1119 Midodrine Hcl (Midodrine Hcl) 5 Mg Tablet, 10 MG PO TID PRN PRN for HYPOTENSION for 30 Days, #30 DO NOT GIVE MORE THAN 30 mg total in a 24 hour period Prescribed by: SÁNCHEZ ARMENTA MD on 04/20/19 1120 SÁNCHEZ ARMENTA MD Apr 20, 2019 16:43
--- NOTE | 2019-04-27 20:41 | PDOC1 ---
History and Physical Date of Admission Date of Admission DATE: 04/21/19 [facility] HISTORY/// PHYSICAL Identification/Chief Complaint Chief Complaint CC Near syncope, probably secondary to autonomic dysfunction. Past Medical History Past Medical History PAST MEDICAL HISTORY: End-stage renal disease, on hemodialysis; hypertension and diabetes mellitus. SOCIAL HISTORY: History of [id number] smoking stopped smoking 15 years ago. FAMILY HISTORY: There is no history of lung disease. Findings: Right heart catheter: RA: 16 RV: 75/16/45 PA: 71/40/45 PCWP: 15 Lewis cardiac output of 6.2 Thermal dilution cardiac output of 3.8 l/min An adenosine infusion study was performed and adenosine was titrated up to 200 mcg/kg/m but there was no significant improvement in the mean pulmonary artery pressure. LHC: LVEDP 15 mm Hg CORONARY ANGIOGRAPHY; Left main coronary artery is a large caliber vessel without any significant disease Left anterior descending artery is a large caliber vessel without any significant disease Left circumflex is a moderate caliber vessel with mild luminal irregularities Right coronary artery is a large caliber dominant vessel with mild luminal irregularities At case completion due to persistent hypotension the patient was placed on a norepinephrine drip and transferred to the ICU in critical but stable condition. Conclusion 1. Severe right-sided heart failure and cor pulmonale 2. Severe pulmonary hypertension, not related to left-sided heart disease 3. Low normal cardiac output 4. Normal left-sided filling pressures and normal angiographic appearance of the coronary arteries. Recommendations 1. Pulmonary evaluation for pulmonary hypertension and consider transfer to tertiary [facility] Center for further evaluation and treatment Signed by : Tammy Castellanos, Electronically Approved : 04/14/2019 15:42:02 DICTATED and SIGNED BY: TAMMY CASTELLANOS MD DATE: 04/14/19 1457 Cardiovascular: HTN, Hyperlipidemia Pulmonary: COPD CENTRAL NERVOUS SYSTEM: Other GI: GERD (esophagitis), Peptic Ulcer disease (DU), Other (esophageal varices) Heme/Onc: Anemia NOS Musculoskeletal: Osteoarthritis ENT: Other (cataracts, not operated yet) Renal/: Chronic renal failure (ESRD) Endocrine: Diabetes (2) Past Surgical History Past Surgical History: Tonsillectomy, Other (right renal biopsy) Family History Family History: No Significant Social History Smoke: Quit ALCOHOL: none Drugs: None Current Problem List Problem List Problems Medical Problems: (1) Elevated troponin Status: Acute (2) ESRD (end stage renal disease) Status: Acute (3) Hypotension Status: Acute (4) Near syncope Status: Acute Current Medications Current Medications Current Medications Albuterol/ Ipratropium (Duoneb) 3 ml 1X ONCE NEB Last administered on 04/11/19at 07:49; Start 04/11/19 at 07:45; Stop 04/11/19 at 07:46; Status DC Sodium Chloride 250 ml @ 250 mls/hr 1X ONCE IV Last administered on 04/11/19at 08:10; Start 04/11/19 at 07:45; Stop 04/11/19 at 08:44; Status DC Acetaminophen (Tylenol) 650 mg PRN Q6HRS PRN PEG MILD PAIN / TEMP Last administered on 04/11/19at 20:34; Start 04/11/19 at 20:15; Stop 04/12/19 at 05:49; Status DC Acetaminophen (Tylenol) 650 mg PRN Q6HRS PRN PO MILD PAIN / TEMP; Start 04/12/19 at 06:00; Stop 04/20/19 at 18:42; Status DC Sodium Chloride 1,000 ml @ 1,000 mls/hr Q1H PRN IV hypotension; Start 04/12/19 at 07:47; Stop 04/12/19 at 13:46; Status DC Acetaminophen (Tylenol) 500 mg 1X PRN PRN PO MILD PAIN / TEMP; Start 04/12/19 at 08:00; Stop 04/13/19 at 07:59; Status DC Diphenhydramine HCl (Benadryl) 25 mg 1X PRN PRN IV ITCHING; Start 04/12/19 at 08:00; Stop 04/13/19 at 07:59; Status DC Diphenhydramine HCl (Benadryl) 25 mg 1X PRN PRN IV ITCHING; Start 04/12/19 at 08:00; Stop 04/13/19 at 07:59; Status DC Sodium Chloride 1,000 ml @ 400 mls/hr Q2H30M PRN IV PATENCY; Start 04/12/19 at 07:47; Stop 04/12/19 at 19:46; Status DC Info (PHARMACY MONITORING -- do not chart) 1 each PRN DAILY PRN MC SEE COMMENTS; Start 04/12/19 at 08:00; Stop 04/15/19 at 11:05; Status DC Albuterol/ Ipratropium (Duoneb) 3 ml 1X ONCE NEB Last administered on 04/12/19at 09:31; Start 04/12/19 at 09:15; Stop 04/12/19 at 09:16; Status DC Aspirin (Children'S Aspirin) 81 mg DAILY PO Last administered on 04/20/19 08:35; Start 04/13/19 at 09:00; Stop 04/20/19 at 18:42; Status DC Atorvastatin Calcium (Lipitor) 20 mg HS PO Last administered on 04/19/19at 20:05; Start 04/12/19 at 21:00; Stop 04/20/19 at 18:42; Status DC Calcium Carbonate/ Glycine (Tums) 200 mg TIDWMEALS PO Last administered on 04/12/19at 17:20; Start 04/12/19 at 17:00; Stop 04/12/19 at 17:23; Status DC Cinacalcet (Sensipar) 30 mg DAILY PO Last administered on 04/20/19at 08:35; Sta rt 04/13/19 at 09:00; Stop 04/20/19 at 18:42; Status DC Ferrous Sulfate (Feosol) 325 mg DAILY08 PO Last administered on 04/20/19 08:35; Start 04/13/19 at 08:00; Stop 04/20/19 at 18:42; Status DC Midodrine (Proamatine) 10 mg QTUTHSA@0800 PO Last administered on 04/18/19at 08:23; Start 04/13/19 at 08:00; Stop 04/19/19 at 15:45; Status DC Vitamin D (Vitamin D3) 5,000 unit DAILY PO Last administered on 04/20/19 08:34; Start 04/13/19 at 09:00; Stop 04/20/19 at 18:42; Status DC Docusate Sodium (Colace) 100 mg DAILY PO Last administered on 04/20/19at 08:36; Start 04/13/19 at 09:00; Stop 04/20/19 at 18:42; Status DC Midodrine (Proamatine) 5 mg [id number] PO ; Start 04/12/19 at 18:00; Stop 04/12/19 at 17:07; Status DC Midodrine (Proamatine) 10 mg QTUTHSA@1000 PO Last administered on 04/18/19at 10:00; Start 04/13/19 at 10:00; Stop 04/19/19 at 15:45; Status DC Calcium Carbonate/ Glycine (Tums) 750 mg TIDWMEALS PO Last administered on 04/20/19at 12:27; Start 04/13/19 at 08:00; Stop 04/20/19 at 18:42; Status DC Sodium Chloride 1,000 ml @ 1,000 mls/hr Q1H PRN IV hypotension; Start 04/13/19 at 08:43; Stop 04/13/19 at 14:42; Status DC Albumin Human 200 ml @ 200 mls/hr 1X PRN PRN IV Hypotension; Start 04/13/19 at 08:45; Stop 04/13/19 at 14:44; Status DC Sodium Chloride 1,000 ml @ 400 mls/hr Q2H30M PRN IV PATENCY; Start 04/13/19 at 08:43; Stop 04/13/19 at 20:42; Status DC Info (PHARMACY MONITORING -- do not chart) 1 each PRN DAILY PRN MC SEE COMMENTS; Start 04/13/19 at 08:45; Status UNV Info (PHARMACY MONITORING -- do not chart) 1 each PRN DAILY PRN MC SEE COMMENTS; Start 04/13/19 at 08:45; Status UNV Ondansetron HCl (Zofran) 4 mg 1X ONCE IV ; Start 04/13/19 at 13:00; Stop 04/13/19 at 13:01; Status DC Ondansetron HCl (Zofran) 4 mg PRN Q4HRS PRN IVP NAUSEA/VOMITING 1ST CHOICE Last administered on 04/19/19at 13:55; Start 04/14/19 at 01:30; Stop 04/20/19 at 18:42; Status DC Sodium Chloride 500 ml @ 500 mls/hr 1X STAT IV Last administered on 04/14/19at 07:56; Start 04/14/19 at 07:56; Stop 04/14/19 at 08:55; Status DC Digoxin (Lanoxin) 500 mcg 1X ONCE IV Last administered on 04/14/19at 09:45; Start 04/14/19 at 09:45; Stop 04/14/19 at 09:46; Status DC Digoxin (Lanoxin) 500 mcg STK-MED ONCE .ROUTE ; Start 04/14/19 at 09:41; Stop 04/14/19 at 09:41; Status DC Lidocaine HCl (Lidocaine 1% 20ml Vial) 20 ml STK-MED ONCE .ROUTE ; Start 04/14/19 at 13:10; Stop 04/14/19 at 13:10; Status DC Heparin Sodium/ Sodium Chloride 500 ml @ As Directed STK-MED ONCE .ROUTE ; Start 04/14/19 at 13:10; Stop 04/14/19 at 13:10; Status DC Norepinephrine Bitartrate 250 ml @ 15.656 mls/ hr CONT PRN IV SEE I/O RECORD Last administered on 04/16/19at 00:02; Start 04/14/19 at 14:15; Stop 04/18/19 at 14:11; Status DC Adenosine (Adenoscan) 90 mg STK-MED ONCE IV ; Start 04/14/19 at 14:22; Stop 04/14/19 at 14:23; Status DC Iodixanol (Visipaque 320) 100 ml STK-MED ONCE .ROUTE ; Start 04/14/19 at 14:34; Stop 04/14/19 at 14:35; Status DC Heparin Sodium/ Sodium Chloride (HEPARIN for ARTERIAL LINE FLUSH) 1,000 unit 1X ONCE IART Last administered on 04/14/19at 15:09; Start 04/14/19 at 14:45; Stop 04/14/19 at 14:46; Status DC Iodixanol (Visipaque 320) 100 ml 1X ONCE IART Last administered on 04/14/19at 15:10; Start 04/14/19 at 14:45; Stop 04/14/19 at 14:46; Status DC Lidocaine HCl (Lidocaine 1% 20ml Vial) 20 ml 1X ONCE INJ Last administered on 04/14/19at 15:10; Start 04/14/19 at 14:45; Stop 04/14/19 at 14:46; Status DC Adenosine 90 mg/ Sodium Chloride 120 ml @ 200 mls/hr 1X ONCE IV Last administered on 04/14/19at 15:11; Start 04/14/19 at 14:45; Stop 04/14/19 at 15:20; Status DC Heparin Sodium/ Sodium Chloride 500 ml @ As Directed STK-MED ONCE .ROUTE ; Start 04/14/19 at 14:51; Stop 04/14/19 at 14:51; Status DC Acetaminophen/ Hydrocodone Bitart (Lortab 5/325) 1 tab PRN Q4HRS PRN PO MODERATE PAIN Last administered on 04/15/19at 13:23; Start 04/14/19 at 18:30; Stop 04/20/19 at 18:42; Status DC Temazepam (Restoril) 7.5 mg PRN QHS PRN PO INSOMNIA; Start 04/14/19 at 19:00; Stop 04/20/19 at 18:42; Status DC Albuterol/ Ipratropium (Duoneb) 3 ml RTQID NEB Last administered on 04/20/19at 11:18; Start 04/15/19 at 08:00; Stop 04/20/19 at 18:42; Status DC Budesonide (Pulmicort) 0.5 mg RTBID NEB Last administered on 04/20/19at 07:09; Start 04/15/19 at 08:00; Stop 04/20/19 at 18:42; Status DC Ceftriaxone Sodium (Rocephin) 1 gm Q24H IVP Last administered on 04/19/19at 06:31; Start 04/15/19 at 07:00; Stop 04/19/19 at 12:30; Status DC Iohexol (Omnipaque 350 Mg/ml) 90 ml 1X ONCE IV Last administered on 04/15/19at 09:00; Start 04/15/19 at 09:00; Stop 04/15/19 at 09:01; Status DC Info (CONTRAST GIVEN -- Rx MONITORING) 1 each PRN DAILY PRN MC SEE COMMENTS; Start 04/15/19 at 09:00; Stop 04/17/19 at 08:59; Status DC Sodium Chloride 1,000 ml @ 1,000 mls/hr Q1H PRN IV hypotension; Start 04/15/19 at 09:25; Stop 04/15/19 at 15:24; Status DC Acetaminophen (Tylenol) 500 mg 1X PRN PRN PO MILD PAIN / TEMP; Start 04/15/19 at 09:30; Stop 04/16/19 at 09:29; Status DC Diphenhydramine HCl (Benadryl) 25 mg 1X PRN PRN IV ITCHING; Start 04/15/19 at 09:30; Stop 04/16/19 at 09:29; Status DC Diphenhydramine HCl (Benadryl) 25 mg 1X PRN PRN IV ITCHING; Start 04/15/19 at 09:30; Stop 04/16/19 at 09:29; Status DC Sodium Chloride 1,000 ml @ 400 mls/hr Q2H30M PRN IV PATENCY; Start 04/15/19 at 09:25; Stop 04/15/19 at 21:24; Status DC Info (PHARMACY MONITORING -- do not chart) 1 each PRN DAILY PRN MC SEE COMMENTS; Start 04/15/19 at 09:30; Stop 04/20/19 at 12:36; Status DC Lactobacillus Rhamnosus (Culturelle) 1 cap BID PO Last administered on 04/20/19at 08:34; Start 04/15/19 at 21:00; Stop 04/20/19 at 18:42; Status DC Sodium Bicarbonate (Sodium Bicarb Adult 8.4% Syr) 50 meq 1X ONCE IV Last administered on 04/17/19at 10:28; Start 04/17/19 at 10:30; Stop 04/17/19 at 10:31; Status DC Sodium Chloride 1,000 ml @ 1,000 mls/hr Q1H PRN IV hypotension; Start 04/18/19 at 08:06; Stop 04/18/19 at 14:05; Status DC Albumin Human 200 ml @ 200 mls/hr 1X PRN PRN IV Hypotension; Start 04/18/19 at 08:15; Stop 04/18/19 at 14:14; Status DC Sodium Chloride 1,000 ml @ 400 mls/hr Q2H30M PRN IV PATENCY; Start 04/18/19 at 08:06; Stop 04/18/19 at 20:05; Status DC Info (PHARMACY MONITORING -- do not chart) 1 each PRN DAILY PRN MC SEE COMMENTS; Start 04/18/19 at 08:15; Status UNV Info (PHARMACY MONITORING -- do not chart) 1 each PRN DAILY PRN MC SEE COMMENTS; Start 04/18/19 at 08:15; Stop 04/20/19 at 18:42; Status DC Lidocaine HCl (Xylocaine-Mpf 1% 2ml Vial) 2 ml STK-MED ONCE .ROUTE ; Start 04/18/19 at 08:50; Stop 04/18/19 at 08:50; Status DC Lidocaine HCl (Xylocaine-Mpf 1% 2ml Vial) 2 ml STK-MED ONCE .ROUTE ; Start 04/18/19 at 09:00; Stop 04/19/19 at 08:25; Status DC Cefepime HCl (Maxipime) 1 gm Q24H IVP Last administered on 04/20/19at 12:27; Start 04/19/19 at 13:00; Stop 04/20/19 at 18:42; Status DC Prochlorperazine Edisylate (Compazine) 5 mg 1X ONCE IV Last administered on 04/19/19at 14:48; Start 04/19/19 at 14:45; Stop 04/19/19 at 14:46; Status DC Midodrine (Proamatine) 10 mg TID PRN PRN PO HYPOTENSION Last administered on 04/20/19at 14:09; Start 04/19/19 at 15:45; Stop 04/20/19 at 18:42; Status DC Sodium Chloride 1,000 ml @ 1,000 mls/hr Q1H PRN IV hypotension; Start 04/20/19 at 13:46; Stop 04/20/19 at 18:42; Status DC Albumin Human 200 ml @ 200 mls/hr 1X PRN PRN IV Hypotension; Start 04/20/19 at 14:00; Stop 04/20/19 at 18:42; Status DC Acetaminophen (Tylenol) 500 mg 1X PRN PRN PO MILD PAIN / TEMP; Start 04/20/19 at 14:00; Stop 04/20/19 at 18:42; Status DC Diphenhydramine HCl (Benadryl) 25 mg 1X PRN PRN IV ITCHING; Start 04/20/19 at 14:00; Stop 04/20/19 at 18:42; Status DC Diphenhydramine HCl (Benadryl) 25 mg 1X PRN PRN IV ITCHING; Start 04/20/19 at 14:00; Stop 04/20/19 at 18:42; Status DC Sodium Chloride 1,000 ml @ 400 mls/hr Q2H30M PRN IV PATENCY; Start 04/20/19 at 13:46; Stop 04/20/19 at 18:42; Status DC Info (PHARMACY MONITORING -- do not chart) 1 each PRN DAILY PRN MC SEE COMMENTS; Start 04/20/19 at 14:00; Stop 04/20/19 at 13:52; Status DC Info (PHARMACY MONITORING -- do not chart) 1 each PRN DAILY PRN MC SEE COMMENTS; Start 04/20/19 at 14:00; Stop 04/20/19 at 13:52; Status DC Active Scripts Active Levaquin (Levofloxacin) 500 Mg Tablet 1 Tab PO QOD 14 Days Midodrine Hcl 5 Mg Tablet 10 Mg PO TID PRN PRN 30 Days DO NOT GIVE MORE THAN 30 mg total in a 24 hour period Hydrocodone-Apap 5-325 (Hydrocodone Bit/Acetaminophen) 1 Tab Tablet 1 Tab PO PRN Q6HRS PRN 6 Days Reported Midodrine Hcl 10 Mg Tablet 10 Mg PO QTUTHSA Midodrine Hcl 5 Mg Tablet 10 Mg PO QTUTHSA Ferrous Sulfate 325 Mg Tablet 1 Tab PO DAILY Calcium Carbonate 200 Mg Tab.chew 750 Mg PO TIDWMEALS Stool Softener (Docusate Sodium) 250 Mg Capsule 250 Mg PO DAILY Aspirin 81 Mg Tab.chew 1 Tab PO DAILY Sensipar (Cinacalcet Hcl) 30 Mg Tablet 30 Mg PO DAILY Vitamin D3 (Cholecalciferol (Vitamin D3)) 5,000 Unit Tablet 1 Tab PO DAILY Atorvastatin Calcium 20 Mg Tablet 20 Mg PO HS Allergies Allergies: Coded Allergies: No Known Drug Allergies (Unverified , 04/09/16) Physical Exam Physical Exam LUNGS: MILD expiratory wheezes , without any rales. HEART: Regular rate and rhythm, no murmur CHEST: No deformity; non-tender ABDOMEN: The abdomen is soft, and non-tender, no masses or bruits. EXTREM: Normal ROM; no deformity, no calf tenderness. Normal pulses palpable in all extremities. There is mild bilateral pedal edema. There is an AV fistula in the left arm. SKIN: No rash; no diaphoresis NEURO: Alert; normal speech and cognition; CN's grossly intact; strength grossly intact without focal deficit. BACK: No CVA TTP. Heart: no gallops Abdomen: Soft Rectal Exam: not examined Extremities: No cyanosis Neuro: Cranial nerves 3-12 NL Vitals Vitals Vital Signs Date Time Temp Pulse Resp B/P (MAP) Pulse Ox O2 Delivery O2 Flow Rate FiO2 04/20/19 14:09 89 89/51 04/20/19 11:19 96 Nasal Cannula 4.0 04/20/19 11:07 99.0 18 99.0 Images Images LEFT VENTRICLE The left ventricle is normal size. There is borderline to mild concentric left ventricular hypertrophy. The left ventricular systolic function is normal and the ejection fraction is within normal range. The Ejection Fraction is 65%. There is normal LV segmental wall motion. Transmitral Doppler flow pattern is Grade I-abnormal relaxation pattern. RIGHT VENTRICLE The right ventricle is moderately dilated. The right ventricular systolic function is normal. ATRIA The left atrium size is normal. The right atrium is moderately dilated. The interatrial septum is intact with no evidence for an atrial septal defect or patent foramen ovale as noted on 2-D or Doppler imaging. AORTIC VALVE The aortic valve is mildly calcified and grossly appears to be tricuspid in nature. Overall, not well visualized. Doppler and Color Flow revealed no significant aortic regurgitation. There is no significant aortic valvular stenosis. MITRAL VALVE The mitral valve is mildly calcified but opens well. There is no evidence of mitral valve prolapse. There is no mitral valve stenosis. Doppler and Color Flow revealed no mitral valve regurgitation noted. TRICUSPID VALVE The tricuspid valve is normal in structure. Doppler and Color Flow revealed mild tricuspid regurgitation. There is moderate-severe pulmonary hypertension. The PA pressure was estimated at 67 mmHg. There is no tricuspid valve stenosis. PULMONIC VALVE The pulmonic valve is not well visualized. Doppler and Color Flow revealed no pulmonic valvular regurgitation. There is no pulmonic valvular stenosis. GREAT VESSELS The aortic root is normal in size. Due to poor image quality, the IVC could not be assessed. PERICARDIAL EFFUSION There is no evidence of significant pericardial effusion. Critical Notification Critical Value: No <Conclusion> The left ventricular systolic function is normal and the ejection fraction is within normal range. The Ejection Fraction is 65%. There is normal LV segmental wall motion. Doppler and Color Flow revealed mild tricuspid regurgitation. There is moderate- severe pulmonary hypertension. The PA pressure was estimated at 67 mmHg. VTE Prophylaxis Ordered VTE Prophylaxis Devices: No VTE Pharmacological Prophylaxi: No Assessment/Plan Assessment/Plan IMPRESSION Acute hypoxemic respiratory failure Severe right-sided heart failure and cor pulmonale Syncope ESRD Anemia Hypotension Pulmonary hypertension - likely multifactorial in etiology. His WHO classification is likely primarily related to COPD. moderate-severe pulmonary hypertension. The PA pressure was estimated at 67 mmHg. Chronic obstructive pulmonary disease with nocturnal hypoxemia Obstructive sleep apnea - per patient Significant history of smoking Diabetes mellitus History of hypertension Plan: Increased proamatine/midodrine SNF discharge O2 SUPPORT PRN Consultants: Cardiology, neurology, pulmonology, nephrology ADMIT Information Condition Stable Follow Up: Weeks (1) Disposition/Orders: D/C PP Scheduled Aspirin (Aspirin) 81 Mg Tab.chew, 1 TAB PO DAILY for other, #30 Ref 3 (Reported) Entered as Reported by: VALENTÍN HER on 04/11/191249 Last Taken: Unknown Dose on 04/10/19 Last Action: Continued on 04/12/191643 by Vic Sneed Atorvastatin Calcium (Atorvastatin Calcium) 20 Mg Tablet, 20 MG PO HS for FOR CHOLESTEROL, #30 Ref 0 (Reported) Entered as Reported by: EZEKIEL SANDY on 04/01/16 0029 Last Action: Continued on 04/12/191643 by Vic Sneed Calcium Carbonate (Calcium Carbonate) 200 Mg Tab.chew, 750 MG PO TIDWMEALS for other, (Reported) Entered as Reported by: VALENTÍN HER on 04/11/191249 Last Taken: Unknown Dose on 04/10/19 Last Action: Edited on 04/12/191718 by VALENTÍN HER Cholecalciferol (Vitamin D3) (Vitamin D3) 5,000 Unit Tablet, 1 TAB PO DAILY for other, #30 (Reported) Entered as Reported by: VALENTÍN HER on 04/11/191249 Last Taken: Unknown Dose on 04/10/19 Last Action: Converted on 04/12/191643 by Vic Sneed Cinacalcet Hcl (Sensipar) 30 Mg Tablet, 30 MG PO DAILY for other, (Reported) Entered as Reported by: VALENTÍN HER on 04/11/191249 Last Taken: Unknown Dose on 04/10/19 Last Action: Continued on 04/12/191643 by Vic Sneed Docusate Sodium (Stool Softener) 250 Mg Capsule, 250 MG PO DAILY for constipation, (Reported) Entered as Reported by: VALENTÍN HER on 04/11/191249 Last Taken: Unknown Dose on 04/10/19 Last Action: Converted on 04/12/191643 by Vic Sneed Ferrous Sulfate (Ferrous Sulfate) 325 Mg Tablet, 1 TAB PO DAILY for anemia, #30 Ref 3 (Reported) Entered as Reported by: VALENTÍN HER on 04/11/19 1252 Last Taken: Unknown Dose on 04/10/19 Last Action: Continued on 04/12/191643 by Vic Sneed Levofloxacin (Levaquin) 500 Mg Tablet, 1 TAB PO qod for pneumonia for 14 Days, #7 Prescribed by: SÁNCHEZ ARMENTA MD on 04/20/19 1411 Midodrine Hcl (Midodrine Hcl) 5 Mg Tablet, 10 MG PO QTUTHSA, (Reported) Entered as Reported by: KEMAR LOVELL RP on 04/11/19 131 Last Action: Continued on 04/12/191643 by Vic Sneed Midodrine Hcl (Midodrine Hcl) 10 Mg Tablet, 10 MG PO QTUTHSA, (Reported) Entered as Reported by: KEMAR LOVELL RP on 04/11/19 131 Last Action: Converted on 04/12/191643 by Vic Sneed Scheduled PRN Hydrocodone Bit/Acetaminophen (Hydrocodone-Apap 5-325 ) 1 Tab Tablet, 1 TAB PO PRN Q6HRS PRN for MODERATE PAIN for 6 Days, #18 Prescribed by: SÁNCHEZ ARMENTA MD on 04/20/19 1119 Midodrine Hcl (Midodrine Hcl) 5 Mg Tablet, 10 MG PO TID PRN PRN for HYPOTENSION for 30 Days, #30 DO NOT GIVE MORE THAN 30 mg total in a 24 hour period Prescribed by: SÁNCHEZ ARMENTA MD on 04/20/19 1120 PLAN CODE STATUS: Code Status: Full SENIOR LIVING: SNF STAY <30 DAYS: Yes POST DISCHARGE ORDERS: ACTIVITY ORDERS: Activity as tolerated WEIGHT BEARING STATUS: No restrictions DIET AFTER DISCHARGE: Renal CHECKS AFTER DISCHARGE: CHECKS AFTER DISCHARGE: Check blood press - daily FOLLOW-UP: PHYSICIAN FOLLOW-UP: Nephrology - Dr. Monroe TREATMENT/EQUIPMENT ORDERS: ADAPTIVE EQUIPMENT NEEDED: Walker, Wheelchair RESPIRATORY EQUIPMENT NEEDED: Oxygen, BiPAP (18/6, Rate 16, FiO2 30%) Physical Therapy For: Evalulation/Treatment Occupational Therapy For: Evaluation/Treatment Speech Language Pathology For: Evaluation/Treatment VIDYA GHOSH MD Apr 27, 2019 20:41
--- NOTE | 2019-05-01 09:00 | EKG ---
[address] [place] [address] Test Date: 2019-04-19 Test Time: 23:46:11 Pat Name: VINNIE BANSAL Department: Room: 556 1 Gender: M Assistant Librarian: : 1940 Requested By: ROLANDO ELAINE Order Number: [id number] Reading MD: Shen Castellanos MD Measurements Intervals [place] Rate: 91 P: 50 WI: 194 QRS: 59 QRSD: 100 T: 49 QT: 416 QTc: 520 Interpretive Statements SINUS RHYTHM PROLONGED QT NON-SPECIFIC ST/T CHANGES Electronically Signed On 05-02-2019 9:32:36 CDT by Shen Castellanos MD
== END 2019-04-20 18:42 | DRG 286 ==
LOC: ER 07:14 → 6 SOUTH 09:15 → OBSVTOIN 09:15 → 6 SOUTH 04-13 18:01 → 1 WEST ICU 04-14 14:30 → 5 SOUTH 04-17 15:12
PROVIDERS: ADMIT Internal Medicine; ATTEND Internal Medicine
PROC: 4A023N8 Measurement of Cardiac Sampling and Pressure, Bilateral, Percutaneous Approach (ICD-10-PCS; principal; 2019-04-11)
PROC: B2111ZZ Fluoroscopy of Multiple Coronary Arteries using Low Osmolar Contrast (ICD-10-PCS; 2019-04-11)
PROC: 5A1D70Z Performance of Urinary Filtration, Intermittent, Less than 6 Hours Per Day (ICD-10-PCS; 2019-04-11)
PROC: 5A1D70Z Performance of Urinary Filtration, Intermittent, Less than 6 Hours Per Day (ICD-10-PCS; 2019-04-12)
PROC: 5A09357 Assistance with Respiratory Ventilation, Less than 24 Consecutive Hours, Continuous Positive Airway Pressure (ICD-10-PCS; 2019-04-16)
PROC: 5A09357 Assistance with Respiratory Ventilation, Less than 24 Consecutive Hours, Continuous Positive Airway Pressure (ICD-10-PCS; 2019-04-17)
PROC: 5A1D70Z Performance of Urinary Filtration, Intermittent, Less than 6 Hours Per Day (ICD-10-PCS; 2019-04-17)
PROC: 5A09357 Assistance with Respiratory Ventilation, Less than 24 Consecutive Hours, Continuous Positive Airway Pressure (ICD-10-PCS; 2019-04-19)
PROC: 5A1D70Z Performance of Urinary Filtration, Intermittent, Less than 6 Hours Per Day (ICD-10-PCS; 2019-04-19)
DX: I13.2 Hypertensive heart and chronic kidney disease with heart failure and with stage 5 chronic kidney disease, or end stage renal disease (principal); J96.01 Acute respiratory failure with hypoxia; N18.6 End stage renal disease; I50.41 Acute combined systolic (congestive) and diastolic (congestive) heart failure; J91.8 Pleural effusion in other conditions classified elsewhere; J98.11 Atelectasis; I24.8 Other forms of acute ischemic heart disease; G90.8 Other disorders of autonomic nervous system; E11.43 Type 2 diabetes mellitus with diabetic autonomic (poly)neuropathy; I27.20 Pulmonary hypertension, unspecified; M19.90 Unspecified osteoarthritis, unspecified site; K21.0 Gastro-esophageal reflux disease with esophagitis; N40.0 Benign prostatic hyperplasia without lower urinary tract symptoms; E11.22 Type 2 diabetes mellitus with diabetic chronic kidney disease; E78.5 Hyperlipidemia, unspecified; E05.90 Thyrotoxicosis, unspecified without thyrotoxic crisis or storm; J20.9 Acute bronchitis, unspecified; D64.9 Anemia, unspecified; I48.91 Unspecified atrial fibrillation; G47.33 Obstructive sleep apnea (adult) (pediatric); J43.9 Emphysema, unspecified; I27.21 Secondary pulmonary arterial hypertension; E04.1 Nontoxic single thyroid nodule; I27.81 Cor pulmonale (chronic); I95.1 Orthostatic hypotension; Z99.81 Dependence on supplemental oxygen; Z87.11 Personal history of peptic ulcer disease; Z87.891 Personal history of nicotine dependence; Z99.2 Dependence on renal dialysis; Z86.73 Personal history of transient ischemic attack (TIA), and cerebral infarction without residual deficits; Z84.1 Family history of disorders of kidney and ureter
CPT/HCPCS: 36415; 36600; 71045; 71275; 80048; 80053; 80061; 82805; 82962; 83605; 83735; 84439; 84443; 84481; 84484; 85025; 87040; 87070; 87186; 87205; 93005; 93306; 93460; 93970; 94640; 94660; 94760; C1769; C1773; C1892; J0153; J0692; J0696; J0780; J1160; J1644; J2405; J7040; J7050; J7620; J7626; Q9967; 97110; 97530; 97535; 99285-25; G0378; J7030

== ENCOUNTER → 2019-08-18 | Outpatient (CLI) | payer MEDICARE ==
[2019-07-03 11:00] VITALS: BP 107/55
[~2019-08-18] MED LIST changes: +AMOX1TAB10 PO; +ASCO500C9 PO; +CALC200T23 PO; +CEFEPIME HCL IVP; +CHOL500016 PO; +CINA30TA2 PO; +DOCU250C54 PO; +FERR325T14 PO; +HYDR-2761 PO; +IPRA3AMP29 NEB; +LEVO500T59 PO; +MIDO10TA PO; +MIDO5TAB4 PO
--- NOTE | 2019-08-18 17:52 | RAD ---
CT CHEST WO CONTRAST Indication: Lung mass Technique: Noncontrast CT imaging was performed of the chest, multiplanar reconstruction images submitted. One or more of the following individualized dose reduction techniques were utilized for this examination: 1. Automated exposure control 2. Adjustment of the mA and/or kV according to patient size 3. Use of iterative reconstruction technique. Comparison: June 30, 2019; April 15, 2019 Findings: There is a persistent although smaller focus of abnormal density along the left major fissure protruding into the left upper lobe. There is now measures about 6.2 cm transverse by 2.6 cm AP by 6.3 cm cc (previously about 7.2 cm transverse by 6 cm AP by 7.7 cm CC). Density measurements are now more suggestive of internal fluid about 17 Hounsfield units. There is trace residual developmental or pleural fluid although decrease. There is again emphysema. No new lung mass is identified. There is a focus of subsolid density of the superior right lower lobe up to about 1 cm images 20 and 21 series 2 overall unchanged. There is no pneumothorax. There is coronary calcification. Tubular ascending thoracic aorta is again dilated about 4.1 cm, descending thoracic aorta about 3.1 cm. Aortic root measures about 4 cm. Major pulmonary artery is again dilated about 4.3 cm. Visualized stomach is distended. 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 This measures somewhat larger than the March exam when measured about 3 cm transverse by about 2.5 cm AP by 3.5 cm cc. There is again 4.2 cm focus of masslike density in the right thyroid gland, again smaller focus on the left about 2.5 cm. There is distention of the stomach. There is atrophy of the visualized kidneys. IMPRESSION: 1. Previously seen focus of abnormal density along the left major fissure is smaller, now with more fluid type density characteristics. There is no new suspicious pulmonary nodularity. Focus of somewhat subsolid appearing density of the superior right lower lobe is stable, consider 3-6 month follow-up as per revised Fleischner guidelines. 2. 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 3. There is emphysema. 4. There is again dilatation of the tubular ascending thoracic aorta and aortic root. There is again dilatation of the main pulmonary artery, evidence of pulmonary hypertension. 5. There is again right greater than left, masslike density of the thyroid gland versus goiter. Electronically signed by: Joe Vernon MD (08/18/2019 5:50 PM) [id number]
== END | disposition home or self-care (01) ==
LOC: CT 10:59
PROVIDERS: ATTEND Internal Medicine Pulmonary Disease
DX: J43.9 Emphysema, unspecified (principal); N26.1 Atrophy of kidney (terminal); I25.10 Atherosclerotic heart disease of native coronary artery without angina pectoris; K31.89 Other diseases of stomach and duodenum; R91.8 Other nonspecific abnormal finding of lung field; I27.20 Pulmonary hypertension, unspecified; M43.24 Fusion of spine, thoracic region
CPT/HCPCS: 71250

== ENCOUNTER 2020-03-13 08:38 | Emergency (ER) | payer MEDICARE ==
[~2020-03-13] VITALS: Ht 167.6 cm; Wt 75.0 kg
[~2020-03-13 08:38] MED LIST changes: +DOCU250C15 PO; -DOCU250C54 PO; -MERO500V15 IV; +MERO500V24 IV
--- NOTE | 2020-03-13 10:36 | PHYS DOC ---
Past Medical History Past Medical History: Cancer, Diabetes-Type II, Hypertension, Renal Failure Additional Past Medical Histor: enlarged prostate Past Surgical History: Other Additional Past Surgical Histo: dialysis fistula L FA, shoulder Smoking Status: Former Smoker Alcohol Use: None Drug Use: None General Adult EDM: Chief Complaint: PENIS PROBLEM HPI: HPI: Patient is a 79 year old Male who presents with 10 day history of a burning sensation in his penis and urethra discharge. Patient denies sexu al activity. He describes an 8 out of 10 burning sensation that does not radiate. When he coughs, he reports lower abdominal pain. Over the past several days he is reported yellow-green discharge on his undergarment. Approximately 7 days ago patient reports seeing his primary care physician, who prescribed him "several antibiotics." Patient reports no improvement, and reports taking them faithfully. Patient denies nausea vomiting fevers or headaches. As patient is on dialysis he typically does not urinate. Patient vaguely describes ongoing treatments with oncology, for which she just completed his 39th treatment. He reports an upcoming PET scan in 2 months; however he is unsure what cancer he had. Review of Systems: Review of Systems: Constitutional: Denies fever or chills Eyes: Denies redness or eye pain HENT: Denies nasal congestion or sore throat Respiratory: Denies cough or shortness of breath Cardiovascular: Denies chest pain or palpitations GI: Denies abdominal pain, nausea, or vomiting : Patient has not urinated in approximately 2 years; reports penile pain and discharge Musculoskeletal: Denies back pain or joint pain Integument: Denies rash or skin lesions Neurologic: Denies headache, focal weakness or sensory changes Complete systems were reviewed and found to be within normal limits, except as documented in this note. Heart Score: Risk Factors: Risk Factors: DM, Current or recent (<one month) smoker, HTN, HLP, family history of CAD, obesity. Risk Scores: Score 0 - 3: 2.5% MACE over next 6 weeks - Discharge Home Score 4 - 6: 20.3% MACE over next 6 weeks - Admit for Clinical Observation Score 7 - 10: 72.7% MACE over next 6 weeks - Early Invasive Strategies Current Medications: Patient denies taking any vermin exterminator medications. Allergies: Allergies: Allergies Coded Allergies Type Severity Reaction Last Updated Verified No Known Drug Allergies 9/22/16 No Physical Exam: PE: Constitutional: Well developed, well nourished, no acute distress, non-toxic appearance HENT: Normocephalic, atraumatic. Cranial nerves II through XII grossly intact bilaterally. Eyes: Conjunctiva normal, no discharge Neck: Normal range of motion, no tenderness, supple. No carotid bruit. Lungs & Thorax: Bilateral breath sounds clear to auscultation, no wheezing Heart: Regular rate and rhythm no murmurs. S1 and S2 normal. S3 and S4 not heard. Abdomen: Soft, no tenderness. Bowel sounds present all 4 quadrants. No masses. Abdomen non-tense. Skin: Warm, dry, no erythema, no rash Extremities: No tenderness, ROM intact, no edema. 1+/4 pulses in all 4 extremities. Neurologic: Alert and oriented X 3, normal motor function, normal sensory function, no focal deficits noted Psychologic: Affect normal, judgment normal. Alert and oriented x3 : Urethral meatus appears to be enlarged, approximately 1 cm in length. No significant yellow discharge appreciated on exam. Penis is tender to palpation. Testicles normal without pain on palpation. Current Patient Data: Vital Signs: Vital Signs Date Time Temp Pulse Resp B/P (MAP) Pulse Ox O2 Delivery O2 Flow Rate FiO2 03/13/20 09:35 98.2 89 24 119/87 (98) 98 Nasal Cannula 4.0 98.2 EKG: EKG: [] Radiology/Procedures: Radiology/Procedures: [] Course & Med Decision Making: Course & Med Decision Making Pertinent Lab studies reviewed. (See chart for details) Patient presents with penile pain and discharge. Hx of recent antibiotic use per patient's PCP. Patient unable to recall name of medication. Patient reports he does not normally make urine due to ESRD on HD. Patient straight cath revealed approximately 20 mils of very dark muddy brown slightly red-tinged urine. UA with large blood but also noted large WBCs concerning for infectious process. Cultures and sensitivities are pending. Cannot fully exclude Chlamydia/Gonorrhea. Cultures pending. Empiric treatment provided. Patient stable for discharge with outpatient follow-up with PCP/nephrology/urology. Discussed findings and plan with patient, who acknowledges understanding and agreement. Gerardo Disclaimer: Gerardo Disclaimer: This electronic medical record was generated, in whole or in part, using a voice recognition dictation system. Departure Departure Impression: Primary Impression: UTI (urinary tract infection) Qualified Codes: N30.01 - Acute cystitis with hematuria Disposition: HOME, SELF-CARE Condition: STABLE Referrals: ABIGAIL NOWAK MD (PCP) Patient Instructions: Urinary Tract Infection, [id number] Additional Instructions: Please follow closely with your doctor and /or nephrology for further evaluation and management. Scripts Hydrocodone/Apap 5-325 (NORCO 5-325 TABLET) 1 Each Tablet 0.5-1 TAB PO PRN Q6HRS PRN for PAIN, #10 TAB 0 Refills Prov: QUOC DANIEL DO 03/13/20 Cephalexin (KEFLEX) 500 Mg Capsule 500 MG PO TID for 10 Days, #30 CAP Prov: QUOC DANIEL DO 03/13/20 Justicifation of Admission Dx: Justifications for Admission: Justification of Admission Dx: N/A QUOC DANIEL DO Mar 13, 2020 10:36
[2020-03-13 11:07] LABS: CLARITY,URINE BLOODY; COLOR,URINE RED
[2020-03-13 11:09] LABS: BACTERIA,URINE MANY /HPF (0-FEW); RBC,URINE TNTC /HPF (0-2); WBC,URINE TNTC /HPF (0-4)
[2020-03-13] MEDS ORDERED: HYDR-3164 PO (11:21)
[2020-03-13] MEDS ORDERED: CEPH-264 PO (11:21)
[2020-03-13] MEDS ORDERED: cefTRIAXone IM 250 MG VIAL IM ONE (11:30)
[2020-03-13] MEDS ORDERED: AZITHROMYCIN 250 MG TABLET. PO ONE (11:30)
[2020-03-13] MEDS ORDERED: HYDROcodone/APAP 5/325MG 1 TAB TABLET PO ONE (11:30)
[2020-03-13 12:18] VITALS: BP 114/69
== END 2020-03-13 12:25 | disposition home or self-care (01) ==
LOC: ER 08:38
DX: N30.01 Acute cystitis with hematuria (principal); R05 Cough; N40.0 Benign prostatic hyperplasia without lower urinary tract symptoms; E11.22 Type 2 diabetes mellitus with diabetic chronic kidney disease; I12.9 Hypertensive chronic kidney disease with stage 1 through stage 4 chronic kidney disease, or unspecified chronic kidney disease; N18.9 Chronic kidney disease, unspecified; Z99.2 Dependence on renal dialysis; Z87.891 Personal history of nicotine dependence
CPT/HCPCS: 81001; 87086; 87491; 87591; 96372; 99285; J0696; P9612

== ENCOUNTER 2020-03-20 08:32 | Emergency (ER) | payer MEDICARE ==
[~2020-03-20] VITALS: Ht 175.3 cm; Wt 72.0 kg
[~2020-03-20 08:32] MED LIST changes: +CEPH-264 PO
[2020-03-20 08:42] VITALS: BP 112/72
--- NOTE | 2020-03-20 09:14 | PHYS DOC ---
Past Medical History Past Medical History: Cancer, Diabetes-Type II, Hypertension, Renal Failure Additional Past Medical Histor: enlarged prostate Past Surgical History: Other Additional Past Surgical Histo: dialysis fistula L FA, shoulder Smoking Status: Former Smoker Alcohol Use: None Drug Use: None General Adult EDM: Chief Complaint: BLOOD IN URINE HPI: HPI: Patient is a 79 year old male who was seen here on March 13, 2020, due to pain with urination, they had to do an in and out cath to get his urine. He was d iagnosed with UTI and put on Keflex. Patient came back today for evaluation because of he said since in and out cath he had some irritation at the tip of his urethra. Patient denies any abdominal pain, no fever, no cough Review of Systems: Review of Systems: Constitutional: Denies fever or chills. [] Eyes: Denies change in visual acuity. [] HENT: Denies nasal congestion or sore throat. [] Respiratory: Denies cough or shortness of breath. [] Cardiovascular: Denies chest pain or edema. [] GI: Denies abdominal pain, nausea, vomiting, bloody stools or diarrhea. [] : Denies dysuria. Positive for pain in the tip of the penis Musculoskeletal: Denies back pain or joint pain. [] Integument: Denies rash. [] Neurologic: Denies headache, focal weakness or sensory changes. [] Endocrine: Denies polyuria or polydipsia. [] Lymphatic: Denies swollen glands. [] Psychiatric: Denies depression or anxiety. [] Heart Score: Risk Factors: Risk Factors: DM, Current or recent (<one month) smoker, HTN, HLP, family history of CAD, obesity. Risk Scores: Score 0 - 3: 2.5% MACE over next 6 weeks - Discharge Home Score 4 - 6: 20.3% MACE over next 6 weeks - Admit for Clinical Observation Score 7 - 10: 72.7% MACE over next 6 weeks - Early Invasive Strategies Allergies: Allergies: Allergies Coded Allergies Type Severity Reaction Last Updated Verified No Known Drug Allergies 04/09/16 No Physical Exam: PE: Constitutional: Well developed, well nourished, no acute distress, non-toxic appearance. [] HENT: Normocephalic, atraumatic, bilateral external ears normal, oropharynx moist, no oral exudates, nose normal. [] Eyes: PERRLA, EOMI, conjunctiva normal, no discharge. [] Neck: Normal range of motion, no tenderness, supple, no stridor. [] Cardiovascular:Heart rate regular rhythm, no murmur [] Lungs & Thorax: Bilateral breath sounds clear to auscultation [] Abdomen: Bowel sounds normal, soft, no tenderness, no masses, no pulsatile masses. Penile exam normal, no bleeding, no swelling, no rash Skin: Warm, dry, no erythema, no rash. [] Back: No tenderness, no CVA tenderness. [] Extremities: No tenderness, no cyanosis, no clubbing, ROM intact, no edema. [] Neurologic: Alert and oriented X 3, normal motor function, normal sensory function, no focal deficits noted. [] Psychologic: Affect normal, judgement normal, mood normal. [] Current Patient Data: Vital Signs: Vital Signs Date Time Temp Pulse Resp B/P (MAP) Pulse Ox O2 Delivery O2 Flow Rate FiO2 03/20/20 08:42 98.5 108 24 112/72 (85) 90 Nasal Cannula 4.0 98.5 EKG: EKG: [] Radiology/Procedures: Radiology/Procedures: [] Course & Med Decision Making: Course & Med Decision Making Pertinent Labs and Imaging studies reviewed. (See chart for details) Patient is 79-year-old male who present today due to pain at the opening of the urethra most likely due to irritation from instrumentation. No bleeding. no swelling note. No further work-up. Dragon Disclaimer: Dragon Disclaimer: This electronic medical record was generated, in whole or in part, using a voice recognition dictation system. Departure Departure Impression: Primary Impression: Dysuria Disposition: 01 HOME, SELF-CARE Condition: STABLE Referrals: ABIGAIL NOWAK MD (PCP) please follow up with a UROLOGIST FOR OUTPATIENT EVALUATION. Patient Instructions: Dysuria Additional Instructions: PLEASE CALL [facility] FOR FOLLOW UP THIS WEEK. The phone number is [phone] Justicifation of Admission Dx: Justifications for Admission: Justification of Admission Dx: N/A KRUPA GERARD DO Mar 20, 2020 09:14
== END 2020-03-20 09:23 | disposition home or self-care (01) ==
LOC: ER 08:32
DX: R30.0 Dysuria (principal); I12.9 Hypertensive chronic kidney disease with stage 1 through stage 4 chronic kidney disease, or unspecified chronic kidney disease; E11.22 Type 2 diabetes mellitus with diabetic chronic kidney disease; N18.9 Chronic kidney disease, unspecified; Z87.891 Personal history of nicotine dependence; Z99.2 Dependence on renal dialysis
CPT/HCPCS: 99281

== ENCOUNTER → 2020-06-19 | Outpatient (CLI) | payer MEDICARE ==
--- NOTE | 2020-06-19 08:44 | RAD ---
CT chest without contrast PQRS statement: CT scans at this facility use dose reduction including either automated exposure control, iterative reconstructions, and /or weight based radiation dosing via mA and kV modification when appropriate to reduce radiation dose to as low as reasonably achievable. HISTORY: Mediastinal mass. Congestive heart failure. COMPARISON: CT chest August 18, 2019 FINDINGS: Ectasia ascending aorta diameter 3.6 cm. Calcified plaque thoracic aorta and coronary arteries. Right thyroid lobe 5 cm nodule substernal extension. Slight compression and minimal narrowing of the thoracic trachea by the thyroid nodule. The anterior mediastinal 3 cm mass on the prior exam has regressed there is no residual 1 cm calcification remaining. No new mediastinal mass or adenopathy evident. Mild cardiomegaly. Esophagus unremarkable. Pulmonary arteries enlarged main pulmonary artery diameter 4.2 cm may indicate pulmonary hypertension. Paraseptal and centrilobular emphysema upper lobes. Trachea and bronchi are unremarkable. Fissural-based pleural fluid on the prior exam left major fissure has resolved, there is residual linear nodular density along the fissure which could be atelectasis or scarring maximum thickness 6 mm. There is upper lobe subpleural interstitial reticulation and groundglass densities which are somewhat progressed relative to the prior exam. Bridging thoracic anterior disc osteophytes. IMPRESSION: 1. The 3 cm anterior mediastinal mass on the prior exam has since regressed with a residual 1 cm calcification which is likely a granuloma. 2. The left major fissure loculated pleural fluid on the prior exam has resolved. There is residual linear nodular atelectasis or scarring along the fissure maximum thickness of 6 mm. Consider follow-up CT imaging 6-12 months to document that this remains stable or continues to resolve over time. 3. Bilateral upper lobe subpleural interstitial reticulation and groundglass opacities have mildly progressed prior exam. This could be mild pulmonary edema, versus the sequela of an infectious or inflammatory process including interstitial lung disease with areas of active pneumonitis. 4. Upper lobe pulmonary emphysema. 5. 5 cm right thyroid nodule again demonstrated. 6. Other incidental findings as described above. Electronically signed by: Cristhian Desai MD (06/19/2020 8:41 AM) [facility]
== END ==
LOC: CT 08:47
PROVIDERS: ATTEND Radiology Radiation Oncology
DX: C37 Malignant neoplasm of thymus (principal); I77.810 Thoracic aortic ectasia; I70.0 Atherosclerosis of aorta; I25.10 Atherosclerotic heart disease of native coronary artery without angina pectoris; E04.1 Nontoxic single thyroid nodule; I77.89 Other specified disorders of arteries and arterioles; M25.78 Osteophyte, vertebrae; J43.8 Other emphysema
CPT/HCPCS: 71250